=== PATIENT | female | born 1940 | race Caucasian/White ===

== ENCOUNTER 2016-10-06 16:09 | Emergency (ER) | payer OTHER ==
[~2016-10-06 16:09] MED LIST: /ESOM40CA OR; /PRAV20TA OR; /TAMS4CA OR; /WARF2TA OR; /WARF4TA OR; ALBU17IN INH; AMBI10TA OR; AMIT10TA2 OR; AMIT25TA PO; AMIT25TA2 OR; AMOX500C OR; ASPI1TAB PO; ASPI81TA45 OR; BACT400T PO; CEPH500C PO; CIPR25SS OR; CIPR500T4 OR; COUM1TAB14 PO; COUM2TAB10 PO; FERR325T OR; FOLI1TAB2 PO; FOLI400T OR; GABA300C3 PO; INCR1INH INH; NEXI40CA PO; NORCOTAB PO; PAIN325T OR; PRAV20TA2 PO; PRED20TA PO; SPIRIVA HANDIHALER INH; TRAM50TA2 PO; VITA100C2 PO; ZOLP5TAB PO
[2016-10-06] MEDS ORDERED: IPRATROPIUM 0.5MG/ALBUTEROL 2.5MG INH SOL UD 3ML (DUONEB)(J7620) As Ordered ONE (17:49)
[2016-10-06 17:51] LABS: INR 2.82
[2016-10-06 18:14] LABS: ANION GAP 7 MEQ/L (8-16); BLOOD UREA NITROGEN 16 MG/DL (7-18); CALCIUM LEVEL 9.3 MG/DL (8.8-10.2); CARBON DIOXIDE LEVEL 29 MEQ/L (21-32); CHLORIDE LEVEL 106 MEQ/L (98-107); CREATININE FOR GFR 0.81 MG/DL (0.55-1.02); GLOMERULAR FILTRATION RATE > 60.0 (>39); GLUCOSE, FASTING 106 MG/DL (83-110); POTASSIUM SERUM 4.2 MEQ/L (3.5-5.1); SODIUM LEVEL 142 MEQ/L (136-145); T UPTAKE 35 % (30-39); THYROXINE (T4) 10.8 UG/DL (4.5-12.0)
[2016-10-06 18:22] LABS: BASO % 0.2 % (0.0-1.0); EOS # 0.1 K/mm3 (0.0-0.50); EOS % 1.1 % (0.0-3.0); LARGE UNSTAINED CELL # 0.1 K/mm3 (0.0-0.4); LARGE UNSTAINED CELL % 2.2 % (0.0-4.0); LYMPH # 1.5 K/mm3 (1.5-4.5); LYMPH % 29.2 % (24.0-44.0); MEAN CORPUSCULAR HEMOGLOBIN 28.4 pg (27.0-33.0); MEAN CORPUSCULAR HGB CONC 32.4 g/dl (32.0-36.5); MEAN CORPUSCULAR VOLUME 87.4 fl (80.0-96.0); MONO # 0.3 K/mm3 (0.0-0.8); MONO % 5.5 % (0.0-5.0); NEUTROPHILS # 3.2 K/mm3 (1.8-7.7); NEUTROPHILS % 61.7 % (36.0-66.0); PLATELET COUNT, AUTOMATED 233 k/mm3 (150-450); RED CELL DISTRIBUTION WIDTH 17.2 % (11.5-14.5); WHITE BLOOD COUNT 5.2 K/mm3 (4.0-10.0)
[2016-10-06] MEDS ORDERED: dexameTHASONE 20 MG/5 ML VIAL (J1100) As Ordered ONE (18:43)
--- NOTE | 2016-10-06 19:25 | EDDOCDS ---
Physician Documentation [facility] Name: Tresa Garg Age: 76 yrs Sex: Female : 1940 Arrival Date: 10/06/2016 Time: 16:09 Bed 12 Private MD: Linda Ortiz Disposition: 10/06/16 18:42 Discharged to Home/Self Care. Impression: Simple chronic bronchitis. - Condition is Stable. - Prescriptions for dexamethasone 4 mg Oral tablet - take 1 tablet by ORAL route 2 times per day; 8 tablet. - Medication Reconciliation, Local Pharmacy Hours form. - Follow up: Private Physician; When: Call to arrange an appointment; Reason: Recheck today's complaints. - Problem is chronic. - Symptoms have improved. Historical: - Allergies: TETRACYCLINES; - Home Meds: 1. Ambien 5 mg Oral tab 1 tab once daily 2. amitriptyline 25 mg Oral tab 1 tab nightly 3. Bactrim 400-80 mg oral tab 2 tabs once daily 4. cephalexin 500 mg Oral tab 1 tab every 12 hours 5. Coumadin 2 mg daily but none today Oral tab 1 tab once daily 6. folic acid 800 mcg Oral tab 1 tab once daily 7. Nexium 40 mg Oral cpDR 1 cap once daily 8. pravastatin 20 mg oral tab 1 tab nightly 9. torsemide 5 mg oral tab 1 tab once daily 10. tramadol 50 mg Oral tab three times a day 11. prednisone 2.5 mg Oral tab once daily - PMHx: CHF; Hypercholesterolemia; - PSHx: Aortic Valve Repair; Cholecystectomy; plate in neck; bladder surgery; - Social history: Smoking status: Patient states former smoker of tobacco. No barriers to communication noted, The patient speaks fluent Yemeni, Speaks appropriately for age. - Family history: Not pertinent. - : The pt / caregiver states he / she is on anticoagulants: coumadin. Home medication list is obtained from the patient. - Exposure Risk Screening:: None identified. Vital Signs: 10/06 16:11 BP 156 / 80; Pulse 105; Resp 20 S; Temp 97.8(T); Pulse Ox 96% on R/A; Weight 55.79 kg / gr2 123 lbs (R); Height 5 ft. 5 in. (165.10 cm) (R); Pain 4/10; 16:47 BP 150 / 71 (auto/); ead 16:49 Pulse 96 MON; Pulse Ox 95% ; ead 18:40 Resp 24; Pulse Ox 92% on R/A; ead 18:44 BP 143 / 75; Pulse 108; Resp 20; Temp 98.3(O); Pulse Ox 95% on 2 lpm NC; Pain 0/10; berhane 18:47 BP 150 / 70 (auto/); ead 18:48 Pulse 106 MON; Resp 24; Pulse Ox 96% on 2 lpm NC; ead 16:11 Body Mass Index 20.47 (55.79 kg, 165.10 cm) gr2 18:40 Dr. Fontenot aware. 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 sd1 16:38 IV Saline Lock ordered. sd1 16:38 Rhythm Strip to chart ordered. sd1 16:38 Undress patient appropriately for examination ordered. sd1 16:39 ECG WITH READING ER PHYS+CARDIAG ordered. EDMS 16:39 B-Type Natiuretic Peptide Ordered. EDMS 16:39 Basic Metabolic Profile Ordered. EDMS 16:39 CBC with Diff Ordered. EDMS 16:39 Cardiac Injury Profile Ordered. EDMS 16:39 Prothrombin Time Profile\E\INR Ordered. EDMS 16:39 Troponin Ordered. EDMS 16:39 Thyroid Profile Ordered. EDMS 17:25 Albuterol-Ipratropium 1 neb Nebulizer every 20 minutes x3 ordered. cs11 17:25 Call Respiratory ordered. cs11 17:26 Chest, 2 View (pa\E\lat) Ordered. EDMS 17:35 Call Respiratory complete. lbd 18:34 Basic Metabolic Profile Reviewed. cs11 18:34 CBC with Diff Reviewed. cs11 18:34 Prothrombin Time Profile\E\INR Reviewed. cs11 18:34 B-Type Natiuretic Peptide Reviewed. cs11 18:34 Cardiac Injury Profile Reviewed. cs11 18:34 Troponin Reviewed. cs11 18:34 Thyroid Profile Reviewed. cs11 18:36 Dexamethasone 10 mg IV at bolus once ordered. cs11 19:14 Financial registration complete. [email or web address] Administered Medications: 17:50 Drug: Albuterol-Ipratropium 1 neb [ipratropium-albuterol 0.5 mg-3 mg(2.5 mg base)/3 mL sd7 nebulization soln (1 neb)] Route: Nebulizer; 17:59 Follow up: Response: Nebulizer completed 18:09 Drug: Albuterol-Ipratropium 1 neb [ipratropium-albuterol 0.5 mg-3 mg(2.5 mg base)/3 mL 7 nebulization soln (1 neb)] Route: Nebulizer; 18:20 Follow up: Response: Nebulizer completed 18:21 Drug: Albuterol-Ipratropium 1 neb [ipratropium-albuterol 0.5 mg-3 mg(2.5 mg base)/3 mL 7 nebulization soln (1 neb)] Route: Nebulizer; 18:48 Drug: Dexamethasone 10 mg [dexamethasone 4 mg/mL injection solution] Route: IV; Rate: ead bolus; Site: right antecubital; Signatures: Dispatcher [employer] Connie Peralta MD MD sd1 Cinthya Lowe, [employer] Maker Unit lbd Enrrique Oconnell RN RN bcj Schiff, Craig, DO DO cs11 Enid Marcus RN RN ead Sheldon, Matthew, RN RN mgs Sorenson, Kimberly, Reg Reg [id number] Ellen Acevedo RT 7 MTDD
--- NOTE | 2016-10-06 19:25 | EDDOCDS ---
Nurse's Notes [facility] Name: Tresa Garg Age: 76 yrs Sex: Female : 1940 Arrival Date: 10/06/2016 Time: 16:09 Bed 12 Private MD: Linda Ortiz Diagnosis: Simple chronic bronchitis Presentation: 10/06 16:36 Presenting complaint: Patient states: has felt heart racing off and on for last few bcj days. denies chest pain. is currently weaning off prednisone - has been feeling very shaky. + SOB not normally SOB. was seen by PMD - told EKG is abnormal. Adult Sepsis Screening: The patient does not have new or worsening altered mentation. Patient's respiratory rate is less than 22. Systolic blood pressure is greater than 100. Patient has a qSOFA score of 0- Negative Sepsis Screen. Suicide/Homicide risk assessment- the patient denies having any suicidal and/or homicidal ideations and does not present with any other emotional, behavioral or mental health complaints. 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 Transition of care: patient was not received from another setting of care. Red Flag criteria, patient assessed and taken directly to a bed. 16:36 Acuity: WERNER Level 3 bcj 16:36 Method Of Arrival: Walkin/Carried/Asstd bcj Triage Assessment: 16:40 General: Appears in no apparent distress, comfortable, Behavior is cooperative. Pain: bcj Denies pain. Historical: - Allergies: TETRACYCLINES; - Home Meds: 1. Ambien 5 mg Oral tab 1 tab once daily 2. amitriptyline 25 mg Oral tab 1 tab nightly 3. Bactrim 400-80 mg oral tab 2 tabs once daily 4. cephalexin 500 mg Oral tab 1 tab every 12 hours 5. Coumadin 2 mg daily but none today Oral tab 1 tab once daily 6. folic acid 800 mcg Oral tab 1 tab once daily 7. Nexium 40 mg Oral cpDR 1 cap once daily 8. pravastatin 20 mg oral tab 1 tab nightly 9. torsemide 5 mg oral tab 1 tab once daily 10. tramadol 50 mg Oral tab three times a day 11. prednisone 2.5 mg Oral tab once daily - PMHx: CHF; Hypercholesterolemia; - PSHx: Aortic Valve Repair; Cholecystectomy; plate in neck; bladder surgery; - Social history: Smoking status: Patient states former smoker of tobacco. No barriers to communication noted, The patient speaks fluent [place], Speaks appropriately for age. - Family history: Not pertinent. - : The pt / caregiver states he / she is on anticoagulants: coumadin. Home medication list is obtained from the patient. - Exposure Risk Screening:: None identified. Screenin:41 Screening information is obtained from the patient. Fall risk: No risks identified. ead Assistance ADL's: requires no assistance with activities of daily living. Abuse/DV Screen: The patient / caregiver reports he/she is: not in a situation that causes fear, pain or injury. Nutritional screening: No deficits noted. home support is adequate. 19:23 Advance Directives: Currently, there is no health care proxy. There is no active DNR mgs order. Assessment: 17:36 General: Appears in no apparent distress, comfortable, Behavior is anxious, appropriate ead for age, cooperative. General: pt reports "feeling shaky.". Pain: Denies pain. Neurological: Level of Consciousness is awake, alert, Oriented to person, place, time. Cardiovascular: Capillary refill < 3 seconds Chest pain is denied. Respiratory: Airway is patent Respiratory effort is labored, Reports shortness of breath. Derm: Skin is pink, warm & dry. 18:40 General: Appears in no apparent distress, comfortable, Behavior is appropriate for age, ead cooperative. Pain: Denies pain. Neurological: Level of Consciousness is awake, alert, obeys commands, Oriented to person, place, time. Respiratory: Airway is patent Respiratory effort is labored, Breath sounds are coarse Breath sounds with wheezes bilaterally. Respiratory: Reports "I feel better after the breathing treatment, I'm starting to cough stuff up.". Derm: Skin is pink, warm & dry. 19:24 Adult Sepsis Screening: The patient does not have new or worsening altered mentation. mgs Patient has a respiratory rate of greater than or equal to 22 (1 point). Systolic blood pressure is greater than 100. Patient has a qSOFA score of 1- Negative Sepsis Screen. General: Appears in no apparent distress, Behavior is appropriate for age, cooperative. Pain: Denies pain. Neurological: Level of Consciousness is awake, alert, Oriented to person, place, time. Cardiovascular: Capillary refill < 3 seconds. Respiratory: Airway is patent Respiratory effort is even, unlabored. Derm: Skin is pink, warm & dry. Vital Signs: 16:11 BP 156 / 80; Pulse 105; Resp 20 S; Temp 97.8(T); Pulse Ox 96% on R/A; Weight 55.79 kg gr2 (R); Height 5 ft. 5 in. (165.10 cm) (R); Pain 4/10; 16:47 BP 150 / 71 (auto/); ead 16:49 Pulse 96 MON; Pulse Ox 95% ; ead 18:40 Resp 24; Pulse Ox 92% on R/A; ead 18:44 BP 143 / 75; Pulse 108; Resp 20; Temp 98.3(O); Pulse Ox 95% on 2 lpm NC; Pain 0/10; berhane 18:47 BP 150 / 70 (auto/); ead 18:48 Pulse 106 MON; Resp 24; Pulse Ox 96% on 2 lpm NC; ead 16:11 Body Mass Index 20.47 (55.79 kg, 165.10 cm) gr2 18:40 Dr. Fontenot aware. pt placed on 2L 02 per NC ead Vitals: 16:11 Log In Time: October 06, 2016 at 16:11. RN notified that patient meets Red Flag gr2 criteria. ED Course: 16:11 Patient visited by Glory Foss. gr2 16:11 Linda Ortiz is Private Physician. gr2 16:11 Patient moved to Waiting gr2 16:12 Patient visited by Glory Foss. gr2 16:12 Patient moved to Pre RCE gr2 16:35 Enid MarcusRN is Primary Nurse. bcj 16:35 Patient moved to 12 bcj 16:38 Triage Initiated bcj 16:41 Patient visited by Enrrique Oconnell, LIZ. bcj 17:04 Lowell Fontenot DO is Attending Physician. cs11 17:04 Patient visited by Lowell Fontenot DO. cs11 17:19 Accompanied by Family Member, Patient has correct armband on for positive ct3 identification. Placed in gown. Bed in low position. Call light in reach. Side rails up X 1. media monitor on. Pulse ox on. NIBP on. 17:35 Patient visited by Enid Marcus RN. ead 17:35 Troponin Sent. ead 17:35 B-Type Natiuretic Peptide Sent. ead 17:35 Basic Metabolic Profile Sent. ead 17:35 CBC with Diff Sent. ead 17:35 Cardiac Injury Profile Sent. ead 17:35 Prothrombin Time Profile\\E\\INR Sent. ead 17:35 Thyroid Profile Sent. ead 17:35 Inserted saline lock: 18 gauge in right antecubital area and blood collected. The ead patient tolerated the procedure well. 17:36 The patient / caregiver is instructed regarding the plan of care and ED course. ead 18:35 Patient visited by Enid Marcus RN. ead 18:44 Patient visited by Kaye Christopher, NEEL. berhane 19:23 Discontinued IV lock intact, bleeding controlled, pressure dressing applied, No mgs redness/swelling at site. No procedures done that require assistance. Administered Medications: 17:50 Drug: Albuterol-Ipratropium 1 neb [ipratropium-albuterol 0.5 mg-3 mg(2.5 mg base)/3 mL sd7 nebulization soln (1 neb)] Route: Nebulizer; 17:59 Follow up: Response: Nebulizer completed sd7 18:09 Drug: Albuterol-Ipratropium 1 neb [ipratropium-albuterol 0.5 mg-3 mg(2.5 mg base)/3 mL sd7 nebulization soln (1 neb)] Route: Nebulizer; 18:20 Follow up: Response: Nebulizer completed sd7 18:21 Drug: Albuterol-Ipratropium 1 neb [ipratropium-albuterol 0.5 mg-3 mg(2.5 mg base)/3 mL sd7 nebulization soln (1 neb)] Route: Nebulizer; 18:48 Drug: Dexamethasone 10 mg [dexamethasone 4 mg/mL injection solution] Route: IV; Rate: ead bolus; Site: right antecubital; RT: 17:50 Initial Med Neb Given as ordered Patient was instructed and evaluated on procedure sd7 Patient tolerated procedure well without adverse effect. Respiratory: Breath sounds are coarse bilaterally. Breath sounds with wheezes bilaterally. at expiration. 18:09 Subsequent Med Neb Given as ordered Patient tolerated procedure well without adverse sd7 effect. Respiratory: Breath sounds are coarse bilaterally. Breath sounds with wheezes bilaterally. at expiration. 18:21 Subsequent Med Neb Given as ordered Patient tolerated procedure well without adverse sd7 effect. Respiratory: Breath sounds are coarse bilaterally. Breath sounds with wheezes bilaterally. at expiration. Order Results: Lab Order: B-Type Natiuretic Peptide; SPEC'M 10/06/16 17:32 Test: BRAIN NATRIURETIC PEPTIDE; Value: 33.1; Range: <100; Units: PG/ML; Status: F Lab Order: Basic Metabolic Profile; SPEC'M 10/06/16 17:32 Test: GLUCOSE, FASTING; Value: 106; Range: 83-110; Units: MG/DL; Status: F Test: BLOOD UREA NITROGEN; Value: 16; Range: 7-18; Units: MG/DL; Status: F Test: CREATININE FOR GFR; Value: 0.81; Range: 0.55-1.02; Units: MG/DL; Status: F Test: GLOMERULAR FILTRATION RATE; Value: > 60.0; Range: >39; Status: F Test: SODIUM LEVEL; Value: 142; Range: 136-145; Units: MEQ/L; Status: F Test: POTASSIUM SERUM; Value: 4.2; Range: 3.5-5.1; Units: MEQ/L; Status: F Test: CHLORIDE LEVEL; Value: 106; Range: 98-107; Units: MEQ/L; Status: F Test: CARBON DIOXIDE LEVEL; Value: 29; Range: 21-32; Units: MEQ/L; Status: F Test: ANION GAP; Value: 7; Range: 8-16; Abnormal: Below low normal; Units: MEQ/L; Status: F Test: CALCIUM LEVEL; Value: 9.3; Range: 8.8-10.2; Units: MG/DL; Status: F Test Note: ; Units are mL/min/1.73 m2 Chronic Kidney Disease Staging per NKF: Stage I & II GFR >=60 Normal to Mildly Decreased Stage III GFR 30-59 Moderately Decreased Stage IV GFR 15-29 Severely Decreased Stage V GFR <15 Very Little GFR Left ESRD GFR <15 on RAW HIDE TRIMMER Lab Order: CBC with Diff; SPEC'M 10/06/16 17:32 Test: WHITE BLOOD COUNT; Value: 5.2; Range: 4.0-10.0; Units: K/mm3; Status: F Test: RED BLOOD COUNT; Value: 4.52; Range: 4.00-5.40; Units: M/mm3; Status: F Test: HEMOGLOBIN; Value: 12.8; Range: 12.0-16.0; Units: g/dl; Status: F Test: HEMATOCRIT; Value: 39.5; Range: 36.0-47.0; Units: %; Status: F Test: MEAN CORPUSCULAR VOLUME; Value: 87.4; Range: 80.0-96.0; Units: fl; Status: F Test: MEAN CORPUSCULAR HEMOGLOBIN; Value: 28.4; Range: 27.0-33.0; Units: pg; Status: F Test: MEAN CORPUSCULAR HGB CONC; Value: 32.4; Range: 32.0-36.5; Units: g/dl; Status: F Test: RED CELL DISTRIBUTION WIDTH; Value: 17.2; Range: 11.5-14.5; Abnormal: Above high normal; Units: %; Status: F Test: PLATELET COUNT, AUTOMATED; Value: 233; Range: 150-450; Units: k/mm3; Status: F Test: NEUTROPHILS %; Value: 61.7; Range: 36.0-66.0; Units: %; Status: F Test: LYMPH %; Value: 29.2; Range: 24.0-44.0; Units: %; Status: F Test: MONO %; Value: 5.5; Range: 0.0-5.0; Abnormal: Above high normal; Units: %; Status: F Test: EOS %; Value: 1.1; Range: 0.0-3.0; Units: %; Status: F Test: BASO %; Value: 0.2; Range: 0.0-1.0; Units: %; Status: F Test: LARGE UNSTAINED CELL %; Value: 2.2; Range: 0.0-4.0; Units: %; Status: F Test: NEUTROPHILS #; Value: 3.2; Range: 1.8-7.7; Units: K/mm3; Status: F Test: LYMPH #; Value: 1.5; Range: 1.5-4.5; Units: K/mm3; Status: F Test: MONO #; Value: 0.3; Range: 0.0-0.8; Units: K/mm3; Status: F Test: EOS #; Value: 0.1; Range: 0.0-0.50; Units: K/mm3; Status: F Test: BASO #; Value: 0.0; Range: 0.0-0.2; Units: K/mm3; Status: F Test: LARGE UNSTAINED CELL #; Value: 0.1; Range: 0.0-0.4; Units: K/mm3; Status: F Lab Order: Cardiac Injury Profile; [facility]' 10/06/16 17:32 Test: CPK CREATINE PHOSPHOKINASE; Value: 65; Range: 26-192; Units: U/L; Status: F Test: CK-MB VALUE MASS; Value: 1.3; Range: 0.0-3.6; Units: NG/ML; Status: F Test: MB/CK RELATIVE INDEX; Value: 2.00; Range: < OR =4; Status: F Test Note: ; DIAGNOSIS CRITERIA MMB ng/ml Relative Index (RI) NON-AMI < or = 5 N/A MICHEL ZONE > 5 < or = 4 AMI > 5 > 4 Lab Order: Prothrombin Time Profile\\E\\INR; [facility]' 10/06/16 17:32 Test: PROTHROMBIN TIME; Value: 29.7; Range: 12.3-14.5; Abnormal: Above high normal; Units: SECONDS; Status: F Test: INR; Value: 2.82; Status: F Test Note: ; THERAPUTIC HUMAN INR VALUES INDICATIONS NORMAL RANGES PROPHYLAXIS/TREATMENT OF: VENOUS THROMBOSIS 2.0-3.0 PULMONARY EMBOLISM 2.0-3.0 PREVENTION OF SYSTEMIC EMBOLISM FROM: TISSUE HEART VALVES 2.0-3.0 ACUTE MYOCARDIAL INFARCTION 2.0-3.0 VALVULAR HEART DISEASE 2.0-3.0 ATRIAL FIBRILLATION 2.0-3.0 MECHANICAL VALVES(HIGH RISK) 2.5-3.5 RECURRENT MYOCARDIAL INFARCTION 2.5-3.5 Lab Order: Troponin; SPEC' 10/06/16 17:32 Test: TROPONIN I; Value: < 0.02; Range: < 0.10; Units: NG/ML; Status: F Test Note: ; Troponin I Reference Interval for iPointer LOCI: 99th Percentile= 0.00-0.045 ng/ml Risk Stratification: <= 0.10 ng/ml Decreased Risk for Adverse Clinical Events. 0.10-1.50 ng/ml Increased Risk for Adverse Clinical Events. Evaluation of additional criterion and/or repeat testing in 2-6 hours is suggested to rule out myocardial damage. >= 1.50 ng/ml Indicative of Myocardial Injury. Lab Order: Thyroid Profile; SPEC'M 10/06/16 17:32 Test: T UPTAKE; Value: 35; Range: 30-39; Units: %; Status: F Test: THYROXINE (T4); Value: 10.8; Range: 4.5-12.0; Units: UG/DL; Status: F Test: FREE THYROXINE INDEX; Value: 3.8; Range: 1.3-4.8; Units: %; Status: F Test: THYROID STIMULATING HORMONE; Value: 0.873; Range: 0.358-3.740; Units: uIU/ML; Status: F Outcome: 18:42 No special radiology studies were completed. ead 18:42 Discharge ordered by Provider. cs11 19:23 Discharge Assessment: Patient awake, alert and oriented x 3. No cognitive and/or mgs functional deficits noted. Patient verbalized understanding of disposition instructions. patient administered narcotics - no. The following High Risk Discharge criteria are identified: None. Discharged to home ambulatory, with family. Condition: stable. Discharge instructions given to patient, family, Instructed on discharge instructions, follow up and referral plans. medication usage, Demonstrated understanding of instructions, medications, Pt was receptive of discharge instructions/ teaching. Prescriptions given X 1. Property sent home with patient. 19:25 Patient left the ED. mgs Signatures: Enrrique Oconnell, RN RN Kaye Santiago, SUPERVISING BAILIFF SUPERVISING BAILIFF berhane Dorota Mccormick, SUPERVISING BAILIFF SUPERVISING BAILIFF ct3 Lowell Fontenot DO DO cs11 Glory Foss gr2 Enid MarcusRN RN ead Ellen Acevedo,RT RT sd7 Trenton Galarza,RN RN mgs Corrections: (The following items were deleted from the chart) 18:51 18:40 Pulse Ox 92% RA; Dr. Fontenot aware. pt placed on 2L 02 per NC; ead ead MTDD
--- NOTE | 2016-10-06 21:40 | REP ---
CHEST, TWO VIEWS: HISTORY: Cough. A diffuse increase in interstitial markings is present in the lungs consistent with chronic interstitial fibrosis. The heart is upper limits of normal in size. The pulmonary vasculature is normal in appearance. A prosthetic heart valve is present. The bony structure is intact. IMPRESSION: Chronic interstitial fibrosis. Signed by Phil Ward MD 10/07/2016 08:18 A
--- NOTE | 2016-10-07 19:48 | ECGEPIP ---
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
--- NOTE | 2016-10-08 20:26 | EDDOCDS ---
Nurse's Notes [facility] Name: Tresa Pantoja Age: 76 yrs Sex: Female : 1940 Arrival Date: 10/06/2016 Time: 16:09 Bed 12 Private MD: Linda Ortiz Diagnosis: Simple chronic bronchitis Presentation: 10/06 16:36 Presenting complaint: Patient states: has felt heart racing off and on for last few bcj days. denies chest pain. is currently weaning off prednisone - has been feeling very shaky. + SOB not normally SOB. was seen by PMD - told EKG is abnormal. Adult Sepsis Screening: The patient does not have new or worsening altered mentation. Patient's respiratory rate is less than 22. Systolic blood pressure is greater than 100. Patient has a qSOFA score of 0- Negative Sepsis Screen. Suicide/Homicide risk assessment- the patient denies having any suicidal and/or homicidal ideations and does not present with any other emotional, behavioral or mental health complaints. 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 Transition of care: patient was not received from another setting of care. Red Flag criteria, patient assessed and taken directly to a bed. 16:36 Acuity: WERNER Level 3 bcj 16:36 Method Of Arrival: Walkin/Carried/Asstd bcj Triage Assessment: 16:40 General: Appears in no apparent distress, comfortable, Behavior is cooperative. Pain: bcj Denies pain. Historical: - Allergies: TETRACYCLINES; - Home Meds: 1. Ambien 5 mg Oral tab 1 tab once daily 2. amitriptyline 25 mg Oral tab 1 tab nightly 3. Bactrim 400-80 mg oral tab 2 tabs once daily 4. cephalexin 500 mg Oral tab 1 tab every 12 hours 5. Coumadin 2 mg daily but none today Oral tab 1 tab once daily 6. folic acid 800 mcg Oral tab 1 tab once daily 7. Nexium 40 mg Oral cpDR 1 cap once daily 8. pravastatin 20 mg oral tab 1 tab nightly 9. torsemide 5 mg oral tab 1 tab once daily 10. tramadol 50 mg Oral tab three times a day 11. prednisone 2.5 mg Oral tab once daily - PMHx: CHF; Hypercholesterolemia; - PSHx: Aortic Valve Repair; Cholecystectomy; plate in neck; bladder surgery; - Social history: Smoking status: Patient states former smoker of tobacco. No barriers to communication noted, The patient speaks fluent Greek, Speaks appropriately for age. - Family history: Not pertinent. - : The pt / caregiver states he / she is on anticoagulants: coumadin. Home medication list is obtained from the patient. - Exposure Risk Screening:: None identified. Screenin:41 Screening information is obtained from the patient. Fall risk: No risks identified. ead Assistance ADL's: requires no assistance with activities of daily living. Abuse/DV Screen: The patient / caregiver reports he/she is: not in a situation that causes fear, pain or injury. Nutritional screening: No deficits noted. home support is adequate. 19:23 Advance Directives: Currently, there is no health care proxy. There is no active DNR mgs order. Assessment: 17:36 General: Appears in no apparent distress, comfortable, Behavior is anxious, appropriate ead for age, cooperative. General: pt reports "feeling shaky.". Pain: Denies pain. Neurological: Level of Consciousness is awake, alert, Oriented to person, place, time. Cardiovascular: Capillary refill < 3 seconds Chest pain is denied. Respiratory: Airway is patent Respiratory effort is labored, Reports shortness of breath. Derm: Skin is pink, warm & dry. 18:40 General: Appears in no apparent distress, comfortable, Behavior is appropriate for age, ead cooperative. Pain: Denies pain. Neurological: Level of Consciousness is awake, alert, obeys commands, Oriented to person, place, time. Respiratory: Airway is patent Respiratory effort is labored, Breath sounds are coarse Breath sounds with wheezes bilaterally. Respiratory: Reports "I feel better after the breathing treatment, I'm starting to cough stuff up.". Derm: Skin is pink, warm & dry. 19:24 Adult Sepsis Screening: The patient does not have new or worsening altered mentation. mgs Patient has a respiratory rate of greater than or equal to 22 (1 point). Systolic blood pressure is greater than 100. Patient has a qSOFA score of 1- Negative Sepsis Screen. General: Appears in no apparent distress, Behavior is appropriate for age, cooperative. Pain: Denies pain. Neurological: Level of Consciousness is awake, alert, Oriented to person, place, time. Cardiovascular: Capillary refill < 3 seconds. Respiratory: Airway is patent Respiratory effort is even, unlabored. Derm: Skin is pink, warm & dry. Vital Signs: 16:11 BP 156 / 80; Pulse 105; Resp 20 S; Temp 97.8(T); Pulse Ox 96% on R/A; Weight 55.79 kg gr2 (R); Height 5 ft. 5 in. (165.10 cm) (R); Pain 4/10; 16:47 BP 150 / 71 (auto/); ead 16:49 Pulse 96 MON; Pulse Ox 95% ; ead 18:40 Resp 24; Pulse Ox 92% on R/A; ead 18:44 BP 143 / 75; Pulse 108; Resp 20; Temp 98.3(O); Pulse Ox 95% on 2 lpm NC; Pain 0/10; berhane 18:47 BP 150 / 70 (auto/); ead 18:48 Pulse 106 MON; Resp 24; Pulse Ox 96% on 2 lpm NC; ead 16:11 Body Mass Index 20.47 (55.79 kg, 165.10 cm) gr2 18:40 Dr. Fontenot aware. pt placed on 2L 02 per NC ead Vitals: 16:11 Log In Time: October 06, 2016 at 16:11. RN notified that patient meets Red Flag gr2 criteria. ED Course: 16:11 Patient visited by Glory Foss. gr2 16:11 Linda Ortiz is Private Physician. gr2 16:11 Patient moved to Waiting gr2 16:12 Patient visited by Glory Foss. gr2 16:12 Patient moved to Pre RCE gr2 16:35 Enid MarcusRN is Primary Nurse. bcj 16:35 Patient moved to 12 bcj 16:38 Triage Initiated bcj 16:41 Patient visited by Enrrique Oconnell, LIZ. bcj 17:04 Lowell Fontenot DO is Attending Physician. cs11 17:04 Patient visited by Lowell Fontenot DO. cs11 17:19 Accompanied by Family Member, Patient has correct armband on for positive ct3 identification. Placed in gown. Bed in low position. Call light in reach. Side rails up X 1. lunchroom monitor on. Pulse ox on. NIBP on. 17:35 Patient visited by Enid Marcus RN. ead 17:35 Troponin Sent. ead 17:35 B-Type Natiuretic Peptide Sent. ead 17:35 Basic Metabolic Profile Sent. ead 17:35 CBC with Diff Sent. ead 17:35 Cardiac Injury Profile Sent. ead 17:35 Prothrombin Time Profile\\E\\INR Sent. ead 17:35 Thyroid Profile Sent. ead 17:35 Inserted saline lock: 18 gauge in right antecubital area and blood collected. The ead patient tolerated the procedure well. 17:36 The patient / caregiver is instructed regarding the plan of care and ED course. ead 18:35 Patient visited by Enid Marcus,LIZ. ead 18:44 Patient visited by Kaye Christopher, NEEL. berhane 19:23 Discontinued IV lock intact, bleeding controlled, pressure dressing applied, No mgs redness/swelling at site. No procedures done that require assistance. 22:27 Chest, 2 View (pa\\E\\lat) Returned. EDMS 10/07 11:21 T-Sheet-- Draft Copy was scanned into [employer] and attached to record. gb 11:22 ECG/EKG was scanned into [employer] and attached to record. gb 11:22 Trend VS was scanned into [employer] and attached to record. gb 20:05 EKG-ADULT Returned. EDMS Administered Medications: 10/06 17:50 Drug: Albuterol-Ipratropium 1 neb [ipratropium-albuterol 0.5 mg-3 mg(2.5 mg base)/3 mL sd7 nebulization soln (1 neb)] Route: Nebulizer; 17:59 Follow up: Response: Nebulizer completed 18:09 Drug: Albuterol-Ipratropium 1 neb [ipratropium-albuterol 0.5 mg-3 mg(2.5 mg base)/3 mL sd7 nebulization soln (1 neb)] Route: Nebulizer; 18:20 Follow up: Response: Nebulizer completed 18:21 Drug: Albuterol-Ipratropium 1 neb [ipratropium-albuterol 0.5 mg-3 mg(2.5 mg base)/3 mL sd7 nebulization soln (1 neb)] Route: Nebulizer; 18:48 Drug: Dexamethasone 10 mg [dexamethasone 4 mg/mL injection solution] Route: IV; Rate: ead bolus; Site: right antecubital; Attachments: 11:22 Trend VS gb RT: 10/06 17:50 Initial Med Neb Given as ordered Patient was instructed and evaluated on procedure sd7 Patient tolerated procedure well without adverse effect. Respiratory: Breath sounds are coarse bilaterally. Breath sounds with wheezes bilaterally. at expiration. 18:09 Subsequent Med Neb Given as ordered Patient tolerated procedure well without adverse sd7 effect. Respiratory: Breath sounds are coarse bilaterally. Breath sounds with wheezes bilaterally. at expiration. 18:21 Subsequent Med Neb Given as ordered Patient tolerated procedure well without adverse sd7 effect. Respiratory: Breath sounds are coarse bilaterally. Breath sounds with wheezes bilaterally. at expiration. Order Results: Lab Order: B-Type Natiuretic Peptide; SPEC'M 10/06/16 17:32 Test: BRAIN NATRIURETIC PEPTIDE; Value: 33.1; Range: <100; Units: PG/ML; Status: F Lab Order: Basic Metabolic Profile; SPEC'M 10/06/16 17:32 Test: GLUCOSE, FASTING; Value: 106; Range: 83-110; Units: MG/DL; Status: F Test: BLOOD UREA NITROGEN; Value: 16; Range: 7-18; Units: MG/DL; Status: F Test: CREATININE FOR GFR; Value: 0.81; Range: 0.55-1.02; Units: MG/DL; Status: F Test: GLOMERULAR FILTRATION RATE; Value: > 60.0; Range: >39; Status: F Test: SODIUM LEVEL; Value: 142; Range: 136-145; Units: MEQ/L; Status: F Test: POTASSIUM SERUM; Value: 4.2; Range: 3.5-5.1; Units: MEQ/L; Status: F Test: CHLORIDE LEVEL; Value: 106; Range: 98-107; Units: MEQ/L; Status: F Test: CARBON DIOXIDE LEVEL; Value: 29; Range: 21-32; Units: MEQ/L; Status: F Test: ANION GAP; Value: 7; Range: 8-16; Abnormal: Below low normal; Units: MEQ/L; Status: F Test: CALCIUM LEVEL; Value: 9.3; Range: 8.8-10.2; Units: MG/DL; Status: F Test Note: ; Units are mL/min/1.73 m2 Chronic Kidney Disease Staging per NKF: Stage I & II GFR >=60 Normal to Mildly Decreased Stage III GFR 30-59 Moderately Decreased Stage IV GFR 15-29 Severely Decreased Stage V GFR <15 Very Little GFR Left ESRD GFR <15 on MELTING FURNACE SKIMMER Lab Order: CBC with Diff; SONIA'Guerda 10/06/16 17:32 Test: WHITE BLOOD COUNT; Value: 5.2; Range: 4.0-10.0; Units: K/mm3; Status: F Test: RED BLOOD COUNT; Value: 4.52; Range: 4.00-5.40; Units: M/mm3; Status: F Test: HEMOGLOBIN; Value: 12.8; Range: 12.0-16.0; Units: g/dl; Status: F Test: HEMATOCRIT; Value: 39.5; Range: 36.0-47.0; Units: %; Status: F Test: MEAN CORPUSCULAR VOLUME; Value: 87.4; Range: 80.0-96.0; Units: fl; Status: F Test: MEAN CORPUSCULAR HEMOGLOBIN; Value: 28.4; Range: 27.0-33.0; Units: pg; Status: F Test: MEAN CORPUSCULAR HGB CONC; Value: 32.4; Range: 32.0-36.5; Units: g/dl; Status: F Test: RED CELL DISTRIBUTION WIDTH; Value: 17.2; Range: 11.5-14.5; Abnormal: Above high normal; Units: %; Status: F Test: PLATELET COUNT, AUTOMATED; Value: 233; Range: 150-450; Units: k/mm3; Status: F Test: NEUTROPHILS %; Value: 61.7; Range: 36.0-66.0; Units: %; Status: F Test: LYMPH %; Value: 29.2; Range: 24.0-44.0; Units: %; Status: F Test: MONO %; Value: 5.5; Range: 0.0-5.0; Abnormal: Above high normal; Units: %; Status: F Test: EOS %; Value: 1.1; Range: 0.0-3.0; Units: %; Status: F Test: BASO %; Value: 0.2; Range: 0.0-1.0; Units: %; Status: F Test: LARGE UNSTAINED CELL %; Value: 2.2; Range: 0.0-4.0; Units: %; Status: F Test: NEUTROPHILS #; Value: 3.2; Range: 1.8-7.7; Units: K/mm3; Status: F Test: LYMPH #; Value: 1.5; Range: 1.5-4.5; Units: K/mm3; Status: F Test: MONO #; Value: 0.3; Range: 0.0-0.8; Units: K/mm3; Status: F Test: EOS #; Value: 0.1; Range: 0.0-0.50; Units: K/mm3; Status: F Test: BASO #; Value: 0.0; Range: 0.0-0.2; Units: K/mm3; Status: F Test: LARGE UNSTAINED CELL #; Value: 0.1; Range: 0.0-0.4; Units: K/mm3; Status: F Lab Order: Cardiac Injury Profile; SPEC'M 10/06/16 17:32 Test: CPK CREATINE PHOSPHOKINASE; Value: 65; Range: 26-192; Units: U/L; Status: F Test: CK-MB VALUE MASS; Value: 1.3; Range: 0.0-3.6; Units: NG/ML; Status: F Test: MB/CK RELATIVE INDEX; Value: 2.00; Range: < OR =4; Status: F Test Note: ; DIAGNOSIS CRITERIA MMB ng/ml Relative Index (RI) NON-AMI < or = 5 N/A MICHEL ZONE > 5 < or = 4 AMI > 5 > 4 Lab Order: Prothrombin Time Profile\\E\\INR; SPEC'M 10/06/16 17:32 Test: PROTHROMBIN TIME; Value: 29.7; Range: 12.3-14.5; Abnormal: Above high normal; Units: SECONDS; Status: F Test: INR; Value: 2.82; Status: F Test Note: ; THERAPUTIC HUMAN INR VALUES INDICATIONS NORMAL RANGES PROPHYLAXIS/TREATMENT OF: VENOUS THROMBOSIS 2.0-3.0 PULMONARY EMBOLISM 2.0-3.0 PREVENTION OF SYSTEMIC EMBOLISM FROM: TISSUE HEART VALVES 2.0-3.0 ACUTE MYOCARDIAL INFARCTION 2.0-3.0 VALVULAR HEART DISEASE 2.0-3.0 ATRIAL FIBRILLATION 2.0-3.0 MECHANICAL VALVES(HIGH RISK) 2.5-3.5 RECURRENT MYOCARDIAL INFARCTION 2.5-3.5 Lab Order: Troponin; SPEC'M 10/06/16 17:32 Test: TROPONIN I; Value: < 0.02; Range: < 0.10; Units: NG/ML; Status: F Test Note: ; Troponin I Reference Interval for Siemens [place] LOCI: 99th Percentile= 0.00-0.045 ng/ml Risk Stratification: <= 0.10 ng/ml Decreased Risk for Adverse Clinical Events. 0.10-1.50 ng/ml Increased Risk for Adverse Clinical Events. Evaluation of additional criterion and/or repeat testing in 2-6 hours is suggested to rule out myocardial damage. >= 1.50 ng/ml Indicative of Myocardial Injury. 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; : 1940 Requested By: Connie Ritter; Order Number: [id number] Reading MD: Connie Ritter; Measurements; Intervals [place]; Rate: 93 P: 85; TX: 115 QRS: 62; QRSD: 88 T: 43; QT: 360; QTc: 450; Interpretive Statements; SINUS RHYTHM WITH SHORT TX INTERVAL; NONSPECIFIC ST T-WAVE ABNORMALITY; SIMILAR 09/01/16; Electronically Signed On 10-07-2016 19:47:28 EST by Connie Ritter; Radiology Order: Chest, 2 View (pa\\E\\lat) Test: Chest, 2 View (pa\\E\\lat) REASON FOR EXAMINATION: Cough; CHEST, TWO VIEWS:; ; HISTORY: Cough.; ; A diffuse increase in interstitial markings is present in the lungs consistent; with chronic interstitial fibrosis. The heart is upper limits of normal in size.; The pulmonary vasculature is normal in appearance. A prosthetic heart valve is; present. The bony structure is intact.; ; IMPRESSION:; ; Chronic interstitial fibrosis.; ; ; Signed by; Phil Ward MD 10/07/2016 08:18 A; Outcome: 18:42 No special radiology studies were completed. ead 18:42 Discharge ordered by Provider. cs11 19:23 Discharge Assessment: Patient awake, alert and oriented x 3. No cognitive and/or mgs functional deficits noted. Patient verbalized understanding of disposition instructions. patient administered narcotics - no. The following High Risk Discharge criteria are identified: None. Discharged to home ambulatory, with family. Condition: stable. Discharge instructions given to patient, family, Instructed on discharge instructions, follow up and referral plans. medication usage, Demonstrated understanding of instructions, medications, Pt was receptive of discharge instructions/ teaching. Prescriptions given X 1. Property sent home with patient. 19:25 Patient left the ED. mgs Signatures: Dispatcher [employer] EDMS Enrrique Oconnell, RN RN Sally Ortez, Reg Reg gb Kaye Christopher, SHAFT HEADMAN SHAFT HEADMAN berhane Mccormick, Dorota, SHAFT HEADMAN SHAFT HEADMAN ct3 Lowell Fontenot, DO cs11 Glory Foss gr2 Enid Marcus,RN RN Ellen Linares,RT RT sd7 Trenton Galarza,LIZ RN mgs Corrections: (The following items were deleted from the chart) 18:51 18:40 Pulse Ox 92% RA; Dr. Fontenot aware. pt placed on 2L 02 per NC; anjel hobbs Chart Complete MTDD
--- NOTE | 2016-10-08 20:26 | EDDOCDS ---
Physician Documentation [facility] Name: Tresa Garg Age: 76 yrs Sex: Female : 1940 Arrival Date: 10/06/2016 Time: 16:09 Bed 12 Private MD: Linda Ortiz Disposition: 10/06/16 18:42 Discharged to Home/Self Care. Impression: Simple chronic bronchitis. - Condition is Stable. - Prescriptions for dexamethasone 4 mg Oral tablet - take 1 tablet by ORAL route 2 times per day; 8 tablet. - Medication Reconciliation, Local Pharmacy Hours form. - Follow up: Private Physician; When: Call to arrange an appointment; Reason: Recheck today's complaints. - Problem is chronic. - Symptoms have improved. Historical: - Allergies: TETRACYCLINES; - Home Meds: 1. Ambien 5 mg Oral tab 1 tab once daily 2. amitriptyline 25 mg Oral tab 1 tab nightly 3. Bactrim 400-80 mg oral tab 2 tabs once daily 4. cephalexin 500 mg Oral tab 1 tab every 12 hours 5. Coumadin 2 mg daily but none today Oral tab 1 tab once daily 6. folic acid 800 mcg Oral tab 1 tab once daily 7. Nexium 40 mg Oral cpDR 1 cap once daily 8. pravastatin 20 mg oral tab 1 tab nightly 9. torsemide 5 mg oral tab 1 tab once daily 10. tramadol 50 mg Oral tab three times a day 11. prednisone 2.5 mg Oral tab once daily - PMHx: CHF; Hypercholesterolemia; - PSHx: Aortic Valve Repair; Cholecystectomy; plate in neck; bladder surgery; - Social history: Smoking status: Patient states former smoker of tobacco. No barriers to communication noted, The patient speaks fluent [place], Speaks appropriately for age. - Family history: Not pertinent. - : The pt / caregiver states he / she is on anticoagulants: coumadin. Home medication list is obtained from the patient. - Exposure Risk Screening:: None identified. Vital Signs: 10/06 16:11 BP 156 / 80; Pulse 105; Resp 20 S; Temp 97.8(T); Pulse Ox 96% on R/A; Weight 55.79 kg / gr2 123 lbs (R); Height 5 ft. 5 in. (165.10 cm) (R); Pain 4/10; 16:47 BP 150 / 71 (auto/); ead 16:49 Pulse 96 MON; Pulse Ox 95% ; ead 18:40 Resp 24; Pulse Ox 92% on R/A; ead 18:44 BP 143 / 75; Pulse 108; Resp 20; Temp 98.3(O); Pulse Ox 95% on 2 lpm NC; Pain 0/10; berhane 18:47 BP 150 / 70 (auto/); ead 18:48 Pulse 106 MON; Resp 24; Pulse Ox 96% on 2 lpm NC; ead 16:11 Body Mass Index 20.47 (55.79 kg, 165.10 cm) gr2 18:40 Dr. Fontenot aware. pt placed on 2L 02 per NC ead MDM: 16:38 Inside B2B Sales/Pulse Ox/q 30 min VS ordered. sd1 16:38 IV Saline Lock ordered. sd1 16:38 Rhythm Strip to chart ordered. sd1 16:38 Undress patient appropriately for examination ordered. sd1 16:39 ECG WITH READING ER PHYS+CARDIAG ordered. EDMS 16:39 B-Type Natiuretic Peptide Ordered. EDMS 16:39 Basic Metabolic Profile Ordered. EDMS 16:39 CBC with Diff Ordered. EDMS 16:39 Cardiac Injury Profile Ordered. EDMS 16:39 Prothrombin Time Profile\E\INR Ordered. EDMS 16:39 Troponin Ordered. EDMS 16:39 Thyroid Profile Ordered. EDMS 17:25 Albuterol-Ipratropium 1 neb Nebulizer every 20 minutes x3 ordered. cs11 17:25 Call Respiratory ordered. cs11 17:26 Chest, 2 View (pa\E\lat) Ordered. EDMS 17:35 Call Respiratory complete. lbd 18:34 Basic Metabolic Profile Reviewed. cs11 18:34 CBC with Diff Reviewed. cs11 18:34 Prothrombin Time Profile\E\INR Reviewed. cs11 18:34 B-Type Natiuretic Peptide Reviewed. cs11 18:34 Cardiac Injury Profile Reviewed. cs11 18:34 Troponin Reviewed. cs11 18:34 Thyroid Profile Reviewed. cs11 18:36 Dexamethasone 10 mg IV at bolus once ordered. cs11 19:14 Financial registration complete. [email or web address] 10/07 11:21 T-Sheet-- Draft Copy was scanned into [employer] and attached to record. gb 11:22 ECG/EKG was scanned into [employer] and attached to record. gb 11:22 Trend VS was scanned into [employer] and attached to record. gb Administered Medications: 10/06 17:50 Drug: Albuterol-Ipratropium 1 neb [ipratropium-albuterol 0.5 mg-3 mg(2.5 mg base)/3 mL sd7 nebulization soln (1 neb)] Route: Nebulizer; 17:59 Follow up: Response: Nebulizer completed 18:09 Drug: Albuterol-Ipratropium 1 neb [ipratropium-albuterol 0.5 mg-3 mg(2.5 mg base)/3 mL sd7 nebulization soln (1 neb)] Route: Nebulizer; 18:20 Follow up: Response: Nebulizer completed 18:21 Drug: Albuterol-Ipratropium 1 neb [ipratropium-albuterol 0.5 mg-3 mg(2.5 mg base)/3 mL sd7 nebulization soln (1 neb)] Route: Nebulizer; 18:48 Drug: Dexamethasone 10 mg [dexamethasone 4 mg/mL injection solution] Route: IV; Rate: ead bolus; Site: right antecubital; Signatures: Dispatcher [employer] EDConnie Lemus MD MD sd1 Cinthya Lowe, Booth Cleaner Unit lbd Enrrique Oconnell RN RN bcj Barnhardt, Gloria, Reg Reg gb Lowell Fontenot, DO cs11 Enid Marcus RN RN ead Sheldon, Matthew, RN RN mgs Sorenson, Kimberly, Reg Reg [id number] Ellen Acevedo RT sd7 The chart was reviewed and I authenticate all verbal orders and agree with the evaluation and treatment provided.Attachments: 10/07 11:21 T-Sheet-- Draft Copy gb 11:22 ECG/EKG gb Chart Complete MTDD
--- NOTE | 2016-10-08 20:26 | EDDOCDS ---
Physician Documentation [facility] Name: Tresa Garg Age: 76 yrs Sex: Female : 1940 Arrival Date: 10/06/2016 Time: 16:09 Bed 12 Private MD: Linda Ortiz Disposition: 10/06/16 18:42 Discharged to Home/Self Care. Impression: Simple chronic bronchitis. - Condition is Stable. - Prescriptions for dexamethasone 4 mg Oral tablet - take 1 tablet by ORAL route 2 times per day; 8 tablet. - Medication Reconciliation, Local Pharmacy Hours form. - Follow up: Private Physician; When: Call to arrange an appointment; Reason: Recheck today's complaints. - Problem is chronic. - Symptoms have improved. Historical: - Allergies: TETRACYCLINES; - Home Meds: 1. Ambien 5 mg Oral tab 1 tab once daily 2. amitriptyline 25 mg Oral tab 1 tab nightly 3. Bactrim 400-80 mg oral tab 2 tabs once daily 4. cephalexin 500 mg Oral tab 1 tab every 12 hours 5. Coumadin 2 mg daily but none today Oral tab 1 tab once daily 6. folic acid 800 mcg Oral tab 1 tab once daily 7. Nexium 40 mg Oral cpDR 1 cap once daily 8. pravastatin 20 mg oral tab 1 tab nightly 9. torsemide 5 mg oral tab 1 tab once daily 10. tramadol 50 mg Oral tab three times a day 11. prednisone 2.5 mg Oral tab once daily - PMHx: CHF; Hypercholesterolemia; - PSHx: Aortic Valve Repair; Cholecystectomy; plate in neck; bladder surgery; - Social history: Smoking status: Patient states former smoker of tobacco. No barriers to communication noted, The patient speaks fluent Nauruan, Speaks appropriately for age. - Family history: Not pertinent. - : The pt / caregiver states he / she is on anticoagulants: coumadin. Home medication list is obtained from the patient. - Exposure Risk Screening:: None identified. Vital Signs: 10/06 16:11 BP 156 / 80; Pulse 105; Resp 20 S; Temp 97.8(T); Pulse Ox 96% on R/A; Weight 55.79 kg / gr2 123 lbs (R); Height 5 ft. 5 in. (165.10 cm) (R); Pain 4/10; 16:47 BP 150 / 71 (auto/); ead 16:49 Pulse 96 MON; Pulse Ox 95% ; ead 18:40 Resp 24; Pulse Ox 92% on R/A; ead 18:44 BP 143 / 75; Pulse 108; Resp 20; Temp 98.3(O); Pulse Ox 95% on 2 lpm NC; Pain 0/10; berhane 18:47 BP 150 / 70 (auto/); ead 18:48 Pulse 106 MON; Resp 24; Pulse Ox 96% on 2 lpm NC; ead 16:11 Body Mass Index 20.47 (55.79 kg, 165.10 cm) gr2 18:40 Dr. Fontenot aware. pt placed on 2L 02 per NC ead MDM: 16:38 Roaster Supervisor/Pulse Ox/q 30 min VS ordered. sd1 16:38 IV Saline Lock ordered. sd1 16:38 Rhythm Strip to chart ordered. sd1 16:38 Undress patient appropriately for examination ordered. sd1 16:39 ECG WITH READING ER PHYS+CARDIAG ordered. EDMS 16:39 B-Type Natiuretic Peptide Ordered. EDMS 16:39 Basic Metabolic Profile Ordered. EDMS 16:39 CBC with Diff Ordered. EDMS 16:39 Cardiac Injury Profile Ordered. EDMS 16:39 Prothrombin Time Profile\E\INR Ordered. EDMS 16:39 Troponin Ordered. EDMS 16:39 Thyroid Profile Ordered. EDMS 17:25 Albuterol-Ipratropium 1 neb Nebulizer every 20 minutes x3 ordered. cs11 17:25 Call Respiratory ordered. cs11 17:26 Chest, 2 View (pa\E\lat) Ordered. EDMS 17:35 Call Respiratory complete. lbd 18:34 Basic Metabolic Profile Reviewed. cs11 18:34 CBC with Diff Reviewed. cs11 18:34 Prothrombin Time Profile\E\INR Reviewed. cs11 18:34 B-Type Natiuretic Peptide Reviewed. cs11 18:34 Cardiac Injury Profile Reviewed. cs11 18:34 Troponin Reviewed. cs11 18:34 Thyroid Profile Reviewed. cs11 18:36 Dexamethasone 10 mg IV at bolus once ordered. cs11 19:14 Financial registration complete. [email or web address] 10/07 11:21 T-Sheet-- Draft Copy was scanned into Long Play and attached to record. gb 11:22 ECG/EKG was scanned into Long Play and attached to record. gb 11:22 Trend VS was scanned into Long Play and attached to record. gb Administered Medications: 10/06 17:50 Drug: Albuterol-Ipratropium 1 neb [ipratropium-albuterol 0.5 mg-3 mg(2.5 mg base)/3 mL sd7 nebulization soln (1 neb)] Route: Nebulizer; 17:59 Follow up: Response: Nebulizer completed 18:09 Drug: Albuterol-Ipratropium 1 neb [ipratropium-albuterol 0.5 mg-3 mg(2.5 mg base)/3 mL sd7 nebulization soln (1 neb)] Route: Nebulizer; 18:20 Follow up: Response: Nebulizer completed 18:21 Drug: Albuterol-Ipratropium 1 neb [ipratropium-albuterol 0.5 mg-3 mg(2.5 mg base)/3 mL sd7 nebulization soln (1 neb)] Route: Nebulizer; 18:48 Drug: Dexamethasone 10 mg [dexamethasone 4 mg/mL injection solution] Route: IV; Rate: ead bolus; Site: right antecubital; Signatures: Dispatcher [employer] EDConnie Lemus MD MD sd1 Cinthya Lowe, Desktop Operator Unit lbd Enrrique Oconnell RN RN bcj Barnhardt, Gloria, Reg Reg gb Lowell Fontenot, DO cs11 Enid Marcus RN RN ead Sheldon, Matthew, RN RN mgs Sorenson, Kimberly, Reg Reg ks16 Ellen Acevedo RT sd7 The chart was reviewed and I authenticate all verbal orders and agree with the evaluation and treatment provided.Attachments: 10/07 11:21 T-Sheet-- Draft Copy gb 11:22 ECG/EKG gb Chart Complete MTDD
== END 2016-10-06 19:25 | disposition home or self-care (01) ==
LOC: M ED 16:09
DX: J42 Unspecified chronic bronchitis (principal); I50.20 Unspecified systolic (congestive) heart failure; E78.00 Pure hypercholesterolemia, unspecified; Z87.891 Personal history of nicotine dependence; Z79.01 Long term (current) use of anticoagulants; Z79.899 Other long term (current) drug therapy; Z79.52 Long term (current) use of systemic steroids; Z88.8 Allergy status to other drugs, medicaments and biological substances
CPT/HCPCS: 36415; 71020; 80048; 82550; 82553; 83880; 84436; 84443; 84479; 84484; 85025; 85610; 93005; 93041; 94640; 96374; 99284; J1100

== ENCOUNTER → 2016-10-22 | Outpatient (REF) | payer OTHER ==
[2016-10-22 13:50] LABS: MICROSCOPIC INDICATED? MAN YES (NO)
[2016-10-22 13:53] LABS: RBC, URINE 0-1 /hpf (0-3); SQUAMOUS EPITHELIAL CELL URINE SMALL AMOUNT /hpf (SMALL AMT)
[2016-10-22 13:54] LABS: CALCIUM OXALATE CRYSTALS,URINE LARGE AMOUNT /hpf
[2016-10-22 13:55] LABS: BACTERIA, URINE NONE SEEN; HYALINE CAST, URINE 0-1 /lpf (0-1); MICROSCOPIC EXAM PERFORMED
[2016-10-22 14:14] LABS: COMPLEMENT C3 153 MG/DL (90-180); COMPLEMENT C4 16.2 MG/DL (10-40)
[2016-10-22 14:15] LABS: BACTERIA, URINE NONE SEEN; CALCIUM OXALATE CRYSTALS,URINE SMALL AMOUNT /hpf; HYALINE CAST, URINE NONE SEEN /lpf (0-1); MICROSCOPIC EXAM PERFORMED; RBC, URINE 0-1 /hpf (0-3); SQUAMOUS EPITHELIAL CELL URINE NONE SEEN /hpf (SMALL AMT); WBC, URINE NONE SEEN /hpf (0-3)
[2016-10-24 00:07] LABS: COMPLEMENT TOTAL (CH50) > 63 U/mL (42-60)
== END ==
LOC: M LAB REF 11:55
DX: M06.4 Inflammatory polyarthropathy (principal)

== ENCOUNTER → 2017-02-10 | Outpatient (REF) | payer OTHER ==
[~2017-02-10] MED LIST changes: +GABA-282 PO; -GABA300C3 PO
[2017-02-10 13:34] LABS: PERCENT SATURATION 4.1 % (13.2-37.4)
[2017-02-12 11:19] LABS: PRETREATED FOLATE FOR RBCFOL > 24.0 NG/ML
== END ==
LOC: M LAB REF 12:26
PROVIDERS: ATTEND Nurse Practitioner Adult Health
DX: D64.9 Anemia, unspecified (principal)

== ENCOUNTER 2017-07-26 08:28 | Emergency (ER) | payer OTHER ==
[~2017-07-26 08:28] MED LIST changes: -COUM2TAB10 PO; +COUM2TAB22 PO; -FOLI1TAB2 PO; +FOLI1TAB4 PO
[2017-07-26] MEDS ORDERED: PRED5TA PO (08:44)
[2017-07-26] MEDS ORDERED: MECL-86 PO (08:44)
[2017-07-26] MEDS ORDERED: LEFL1TAB4 PO (08:44)
[2017-07-26] MEDS ORDERED: MECLIZINE 25 MG TABLET PO ONE (09:45)
[2017-07-26] MEDS ORDERED: ONDANSETRON 4MG/2ML VIAL (J2405) IV ONE (09:45)
[2017-07-26 10:00] LABS: BASO % 0.3 % (0.0-1.0); EOS % 0.6 % (0.0-3.0); IMMATURE GRANULOCYTE % 0.5 % (0-0); LYMPH % 30.4 % (24.0-44.0); MEAN CORPUSCULAR HEMOGLOBIN 23.6 pg (27.0-33.0); MEAN CORPUSCULAR HGB CONC 29.6 g/dl (32.0-36.5); MEAN CORPUSCULAR VOLUME 79.8 fl (80.0-96.0); MONO # 0.8 10^3/uL (0.0-0.8); MONO % 12.6 % (0.0-5.0); NEUTROPHILS # 3.6 10^3/uL (1.8-7.7); NEUTROPHILS % 55.6 % (36.0-66.0); PLATELET COUNT, AUTOMATED 243 10^3/uL (150-450); RED CELL DISTRIBUTION WIDTH 19.9 % (11.5-14.5); WHITE BLOOD COUNT 6.5 10^3/uL (4.0-10.0)
[2017-07-26 10:10] LABS: INR 2.54
[2017-07-26 10:15] LABS: ANION GAP 5 MEQ/L (8-16); BLOOD UREA NITROGEN 21 MG/DL (7-18); CALCIUM LEVEL 9.1 MG/DL (8.8-10.2); CARBON DIOXIDE LEVEL 30 MEQ/L (21-32); CHLORIDE LEVEL 107 MEQ/L (98-107); CREATININE FOR GFR 0.65 MG/DL (0.55-1.02); GLOMERULAR FILTRATION RATE > 60.0 (>39); GLUCOSE, FASTING 91 MG/DL (83-110); POTASSIUM SERUM 3.4 MEQ/L (3.5-5.1); SODIUM LEVEL 142 MEQ/L (136-145)
--- NOTE | 2017-07-26 11:09 | REP ---
CT brain without contrast: History: Frontal headache. Findings: Digital lateral meat boner radiograph is unremarkable. No bony calvarial lesion is seen. There is mild vascular calcification noted in the distal carotid arteries bilaterally. The visualized paranasal sinuses are clear. No intraorbital abnormality is appreciated. There is mild diffuse cerebral atrophy. Minimal small vessel changes are seen in the periventricular white matter. There is no evidence of infarction. No evidence of intracranial hemorrhage is seen. No mass, extra-axial fluid collection or midline shift is seen. Impression: Mild diffuse atrophy and vascular calcification. No acute intracranial abnormality. Signed by Raj Bertrand MD 07/26/2017 12:59 P
--- NOTE | 2017-07-26 11:50 | REP ---
CHEST, TWO VIEWS: Two views of the chest are performed and compared to a prior study of 10/06/2016. There is mild scattered interstitial fibrosis. I see no evidence of acute infiltrate. Heart is not enlarged. The mediastinal silhouette is unchanged. Multiple sternal wires are present as well as a prosthetic heart valve. Mild old compression deformity is seen of a mid thoracic vertebral body. IMPRESSION: Mild chronic changes. No acute infiltrate. Signed by Dwight Hathaway MD 07/26/2017 04:31 P
[2017-07-26] MEDS ORDERED: VENTAER (12:48)
[2017-07-26] MEDS ORDERED: ALEN70TA39 PO (12:48)
[2017-07-26] MEDS ORDERED: ZOLP5TAB PO (12:48)
[2017-07-26] MEDS ORDERED: MECL-68 PO (12:55)
[2017-07-26] MEDS ORDERED: NORCO, ANEXSIA 5/325MG TABLET (HYDROcodone/ACETAMINOPHEN) PO ONE (13:00)
[2017-07-26] MEDS ORDERED: KETOROLAC 30 MG/ML VIAL (J1885) IV ONE (13:15)
[2017-07-26] MEDS ORDERED: ZOFR4TAB3 PO (14:15)
[2017-07-26 14:21] VITALS: BP 130/60
== END 2017-07-26 14:26 | disposition home or self-care (01) ==
LOC: M ED 08:28
DX: R51 Headache (principal); H83.09 Labyrinthitis, unspecified ear; Z87.891 Personal history of nicotine dependence
CPT/HCPCS: 70450; 71020; 80048; 85025; 85610; 93041; 94760; 96374; 96375; 99285; J1885; J2405

== ENCOUNTER → 2017-07-28 | Outpatient (REF) | payer OTHER ==
[~2017-07-28] MED LIST changes: +ALEN70TA39 PO; +LEFL1TAB4 PO; +MECL-68 PO; +MECL-86 PO; +PRED5TA PO; +VENTAER; +ZOFR4TAB3 PO
[2017-07-28 10:19] LABS: INR 2.36
== END ==
LOC: M LAB REF 10:02
PROVIDERS: ATTEND Nurse Practitioner Adult Health
DX: Z79.01 Long term (current) use of anticoagulants (principal); J44.9 Chronic obstructive pulmonary disease, unspecified

== ENCOUNTER → 2017-11-30 | Outpatient (REF) | payer OTHER ==
[2017-11-30 12:53] LABS: HEMATOCRIT 32.7 % (36.0-47.0)
[2017-11-30 13:21] LABS: FERRITIN 18 NG/ML (8-252); IRON (FE) 20 UG/DL (50-170); PERCENT SATURATION 4.7 % (13.2-45.0); TOTAL IRON BINDING CAPACITY 427 UG/DL (250-450)
[2017-12-01 08:15] LABS: CONTROL LINE HPYORI INT CTR LINE PRESENT; H PYLORI QUALITATIVE IgG DETECTED (NEGATIVE)
[2017-12-03 12:06] LABS: PRETREATED FOLATE FOR RBCFOL 13.2 NG/ML; RBC FOLATE 847.7 NG/ML (280-791)
== END ==
LOC: M LAB REF 12:33
DX: D64.9 Anemia, unspecified (principal)
CPT/HCPCS: 83550

== ENCOUNTER → 2018-01-20 | Outpatient (CLI) | payer OTHER ==
[2018-01-20 10:26] LABS: APPEARANCE, URINE HAZY (CLEAR); BACTERIA, URINE AUTO NEGATIVE (NEGATIVE); BILIRUBIN, URINE AUTO NEGATIVE (NEGATIVE); BLOOD, URINE BLOOD NEGATIVE (NEGATIVE); COLOR, URINE YELLOW (YELLOW); GLUCOSE, URINE (UA) AUTO NEGATIVE (NEGATIVE); KETONE, URINE AUTO NEGATIVE (NEGATIVE); LEUKOCYTE ESTERASE, URINE AUTO NEGATIVE (NEGATIVE); MUCUS, URINE SMALL (NEGATIVE); NITRITE, URINE AUTO NEGATIVE (NEGATIVE); PROTEIN, URINE AUTO NEGATIVE (NEGATIVE); RBC, URINE AUTO 1 /HPF (0-3); SQUAMOUS EPITHELIAL CELL UR AU 1 /HPF (0-6); UROBILINOGEN, URINE AUTO 0.2 mg/dL (0.0-2.0); WBC, URINE AUTO 1 /HPF (0-3)
[2018-01-20 10:28] LABS: HEMATOCRIT 42.6 % (36.0-47.0); HEMOGLOBIN 12.2 g/dl (12.0-15.5); MEAN CORPUSCULAR HEMOGLOBIN 23.3 pg (27.0-33.0); MEAN CORPUSCULAR HGB CONC 28.6 g/dl (32.0-36.5); MEAN CORPUSCULAR VOLUME 81.3 fl (80.0-96.0); PLATELET COUNT, AUTOMATED 261 10^3/uL (150-450); RED BLOOD COUNT 5.24 10^6/uL (4.00-5.40); RED CELL DISTRIBUTION WIDTH 21.2 % (11.5-14.5); WHITE BLOOD COUNT 7.1 10^3/uL (4.0-10.0)
[2018-01-20 10:39] LABS: INR 1.91; PROTHROMBIN TIME 22.5 SECONDS (12.4-14.5)
[2018-01-20 10:49] LABS: ALBUMIN 3.7 GM/DL (3.2-5.2); ALBUMIN/GLOBULIN RATIO 1.12 (1.00-1.93); ALKALINE PHOSPHATASE 110 U/L (45-117); ALT/SGPT 25 U/L (12-78); ANION GAP 6 MEQ/L (8-16); AST/SGOT 27 U/L (7-37); BILIRUBIN,TOTAL 0.3 MG/DL (0.2-1.0); BLOOD UREA NITROGEN 14 MG/DL (7-18); CALCIUM LEVEL 8.9 MG/DL (8.8-10.2); CARBON DIOXIDE LEVEL 30 MEQ/L (21-32); CHLORIDE LEVEL 108 MEQ/L (98-107); GLOMERULAR FILTRATION RATE > 60.0 (>39); GLUCOSE, FASTING 94 MG/DL (70-100); POTASSIUM SERUM 3.7 MEQ/L (3.5-5.1); SODIUM LEVEL 144 MEQ/L (136-145)
[2018-01-20 11:09] LABS: ERYTHROCYTE SEDIMENTATION RATE 28 mm/hr (0-30)
== END ==
LOC: M ADMPAT 09:23
DX: Z01.818 Encounter for other preprocedural examination (principal); M17.11 Unilateral primary osteoarthritis, right knee; Z79.01 Long term (current) use of anticoagulants; Z79.899 Other long term (current) drug therapy
CPT/HCPCS: 71046

== ENCOUNTER 2018-02-10 05:57 | Inpatient (IN) | payer OTHER ==
[2018-02-10] MEDS ORDERED: LR 1,000 ML IV (06:15)
[2018-02-10 06:31] LABS: INR 0.95; PROTHROMBIN TIME 12.8 SECONDS (12.4-14.5)
[2018-02-10] MEDS ORDERED: fentaNYL 100 MCG/2 ML INJECTION (J3010) As Ordered ×2 (06:42→08:11)
[2018-02-10] MEDS ORDERED: MIDAZOLAM INJ 2 MG/2 ML VIAL (J2250) As Ordered ×2 (06:43→08:11)
[2018-02-10] MEDS: fentaNYL 100 MCG/2 ML INJECTION (J3010) IV (07:05)
[2018-02-10] MEDS: MIDAZOLAM INJ 2 MG/2 ML VIAL (J2250) IV (07:05)
[2018-02-10] MEDS: EPINEPHrine INJ 1 MG/ML 1ML AMP As Ordered (08:08)
[2018-02-10] MEDS: ceFAZolin 1GM INJ (J0690 PER 500MG) As Ordered (08:08)
[2018-02-10] MEDS: BUPIVACAINE LIPOSOME/PF 1.3% 20 ML VIAL (13.3MG/ML)(EXPAREL) As Ordered (08:08)
[2018-02-10] MEDS: TRANEXAMIC ACID 100 MG/ML 10ML VIAL As Ordered (08:08)
[2018-02-10] MEDS ORDERED: ONDANSETRON 4MG/2ML VIAL (J2405) As Ordered (08:11)
[2018-02-10] MEDS ORDERED: ePHEDrine SULFATE 25 MG/5 ML(5MG/ML) SYRINGE As Ordered (08:11)
[2018-02-10] MEDS ORDERED: PROPOFOL 200 MG/20 ML VIAL As Ordered (08:11)
[2018-02-10] MEDS ORDERED: LIDOCAINE 2% INJ 100 MG/5 ML SDV (FOR ANES.) As Ordered (08:11)
[2018-02-10] MEDS ORDERED: PHENYLephrine HCL 500 MCG/5 ML (100MCG/ML) SYRINGE (J2370) As Ordered ×3 (08:11→08:31)
[2018-02-10] MEDS ORDERED: MORPHINE 1MG/ML IN 0.9% NACL 100ML IV BAG As Ordered (09:17)
[2018-02-10] MEDS ORDERED: fentaNYL 100 MCG/2 ML INJECTION (J3010) IV (09:30)
[2018-02-10] MEDS: LR 1,000 ML IV ×4 (09:30→22:50)
[2018-02-10] MEDS ORDERED: ONDANSETRON 4MG/2ML VIAL (J2405) IV (09:30)
[2018-02-10] MEDS: ONDANSETRON 4MG/2ML VIAL (J2405) IV (09:40)
[2018-02-10] MEDS ORDERED: NALOXONE INJ 0.4 MG/1 ML VIAL (J2310) IV (09:45)
[2018-02-10] MEDS ORDERED: diphenhydrAMINE INJ 50MG/ML VIAL (J1200) IV (09:45)
[2018-02-10] MEDS ORDERED: EPIDURAL/PCA KEYS XX (09:45)
[2018-02-10] MEDS ORDERED: NALBUPHINE HCL 10 MG/ML AMP (J2300) IV (09:45)
[2018-02-10] MEDS ORDERED: MORPHINE 1MG/ML IN 0.9% NACL 100ML IV BAG IV (09:45)
[2018-02-10] MEDS: ACETAMINOPHEN TAB 650MG DOSE (2X325MG) PO ×2 (10:00→20:50)
[2018-02-10] MEDS ORDERED: FLEET ENEMA PR (10:00)
[2018-02-10] MEDS ORDERED: LIDOCAINE 1% MDV 20ML VIAL (14:41)
[2018-02-10] MEDS ORDERED: ROPIvacaine 0.5% 30 ML INJECTION (J2795 PER 1MG) (14:41)
[2018-02-10] MEDS ORDERED: EPINEPHrine INJ 1 MG/ML 1ML AMP (14:41)
[2018-02-10] MEDS: VITAMIN D 1,000 INTERNATIONAL UNITS TABLET PO (16:12)
[2018-02-10] MEDS: ASPIRIN 81 MG ENTERIC TAB PO (16:12)
[2018-02-10] MEDS: WARFARIN SOD 5 MG TAB PO (16:12)
[2018-02-10] MEDS: zolPIDEM TARTRATE 5 MG TAB PO (20:44)
[2018-02-10] MEDS: AMITRIPTYLINE 25 MG TAB PO (20:50)
[2018-02-10] MEDS: PRAVASTATIN 20 MG TAB PO (20:50)
[2018-02-11 06:12] LABS: HEMATOCRIT 32.8 % (36.0-47.0); HEMOGLOBIN 9.1 g/dl (12.0-15.5); MEAN CORPUSCULAR HEMOGLOBIN 23.6 pg (27.0-33.0); MEAN CORPUSCULAR HGB CONC 27.7 g/dl (32.0-36.5); MEAN CORPUSCULAR VOLUME 85.2 fl (80.0-96.0); PLATELET COUNT, AUTOMATED 134 10^3/uL (150-450); RED BLOOD COUNT 3.85 10^6/uL (4.00-5.40); WHITE BLOOD COUNT 6.9 10^3/uL (4.0-10.0)
[2018-02-11 06:23] LABS: INR 1.47; PROTHROMBIN TIME 18.2 SECONDS (12.4-14.5)
[2018-02-11] MEDS ORDERED: ONDANSETRON 4 MG TAB (S0181) PO (07:00)
[2018-02-11] MEDS ORDERED: PERCOCET 5MG/325MG TAB PO (07:00)
[2018-02-11 07:39] LABS: ANION GAP 3 MEQ/L (8-16); BLOOD UREA NITROGEN 13 MG/DL (7-18); CALCIUM LEVEL 7.9 MG/DL (8.8-10.2); CARBON DIOXIDE LEVEL 32 MEQ/L (21-32); CHLORIDE LEVEL 107 MEQ/L (98-107); CREATININE FOR GFR 0.59 MG/DL (0.55-1.30); GLOMERULAR FILTRATION RATE > 60.0 (>39); GLUCOSE, FASTING 118 MG/DL (70-100); MAGNESIUM LEVEL 2.1 MG/DL (1.8-2.4); POTASSIUM SERUM 3.9 MEQ/L (3.5-5.1); SODIUM LEVEL 142 MEQ/L (136-145)
[2018-02-11] MEDS ORDERED: ENOXAPARIN 60 MG/0.6 ML SYR (J1650) SC ×2 (09:00→21:00)
[2018-02-11] MEDS ORDERED: PANTOPRAZOLE 40MG TAB (PROTONIX) PO (09:00)
[2018-02-11] MEDS: ENOXAPARIN 40 MG/0.4 ML SYRINGE (J1650) SC (09:55)
[2018-02-11] MEDS: MOM 30ML SUSPENSION UDC PO (09:56)
[2018-02-11] MEDS: MIRALAX *UNIT DOSE* 17GM PACKET PO (09:56)
[2018-02-11] MEDS: SENOKOT S TAB PO ×2 (09:57→21:28)
[2018-02-11] MEDS: ASPIRIN 81 MG ENTERIC TAB PO (09:57)
[2018-02-11] MEDS: VITAMIN D 1,000 INTERNATIONAL UNITS TABLET PO (09:57)
[2018-02-11] MEDS: DULoxetine 30 MG CAP (CYMBALTA) PO (09:58)
[2018-02-11] MEDS: PANTOPRAZOLE 20 MG TAB PO (09:58)
[2018-02-11] MEDS: PERCOCET 5MG/325MG TAB PO ×3 (10:07→18:55)
[2018-02-11] MEDS: LR 1,000 ML IV (11:23)
[2018-02-11] MEDS: WARFARIN SOD 5 MG TAB PO (17:26)
[2018-02-11] MEDS: ALBUTEROL 90 MCG/ACT 8GM HFA INHALER INH (21:00)
[2018-02-11] MEDS: ENOXAPARIN 60 MG/0.6 ML SYR (J1650) SC (21:28)
[2018-02-11] MEDS: PRAVASTATIN 20 MG TAB PO (21:28)
[2018-02-11] MEDS: AMITRIPTYLINE 25 MG TAB PO (21:28)
[2018-02-11] MEDS: zolPIDEM TARTRATE 5 MG TAB PO (21:28)
[2018-02-12] MEDS: PERCOCET 5MG/325MG TAB PO ×4 (01:14→19:50)
[2018-02-12 06:40] LABS: HEMATOCRIT 29.5 % (36.0-47.0); HEMOGLOBIN 8.5 g/dl (12.0-15.5); MEAN CORPUSCULAR HEMOGLOBIN 23.5 pg (27.0-33.0); MEAN CORPUSCULAR HGB CONC 28.8 g/dl (32.0-36.5); MEAN CORPUSCULAR VOLUME 81.7 fl (80.0-96.0); PLATELET COUNT, AUTOMATED 134 10^3/uL (150-450); RED BLOOD COUNT 3.61 10^6/uL (4.00-5.40); RED CELL DISTRIBUTION WIDTH 18.5 % (11.5-14.5); WHITE BLOOD COUNT 8.3 10^3/uL (4.0-10.0)
[2018-02-12 06:56] LABS: INR 2.38; PROTHROMBIN TIME 26.9 SECONDS (12.4-14.5)
[2018-02-12] MEDS: ALBUTEROL 90 MCG/ACT 8GM HFA INHALER INH ×2 (07:48→20:20)
[2018-02-12] MEDS: MOM 30ML SUSPENSION UDC PO (08:21)
[2018-02-12] MEDS: MIRALAX *UNIT DOSE* 17GM PACKET PO (08:22)
[2018-02-12] MEDS: ENOXAPARIN 60 MG/0.6 ML SYR (J1650) SC ×2 (08:24→19:50)
[2018-02-12] MEDS: PANTOPRAZOLE 20 MG TAB PO (08:25)
[2018-02-12] MEDS: ASPIRIN 81 MG ENTERIC TAB PO (08:25)
[2018-02-12] MEDS: SENOKOT S TAB PO ×2 (08:25→19:51)
[2018-02-12] MEDS: DULoxetine 30 MG CAP (CYMBALTA) PO (08:25)
[2018-02-12] MEDS: VITAMIN D 1,000 INTERNATIONAL UNITS TABLET PO (08:26)
[2018-02-12] MEDS: WARFARIN SOD 4 MG TAB PO (17:47)
[2018-02-12] MEDS: PRAVASTATIN 20 MG TAB PO (19:49)
[2018-02-12] MEDS: AMITRIPTYLINE 25 MG TAB PO (19:49)
[2018-02-12] MEDS: zolPIDEM TARTRATE 5 MG TAB PO (21:09)
[2018-02-13] MEDS: PERCOCET 5MG/325MG TAB PO ×5 (04:08→21:01)
[2018-02-13 07:00] LABS: INR 1.95; PROTHROMBIN TIME 22.9 SECONDS (12.4-14.5)
[2018-02-13] MEDS: ALBUTEROL 90 MCG/ACT 8GM HFA INHALER INH ×2 (07:22→19:20)
[2018-02-13 08:29] LABS: HEMATOCRIT 27.8 % (36.0-47.0); MEAN CORPUSCULAR HEMOGLOBIN 23.5 pg (27.0-33.0); MEAN CORPUSCULAR HGB CONC 28.8 g/dl (32.0-36.5); MEAN CORPUSCULAR VOLUME 81.8 fl (80.0-96.0); PLATELET COUNT, AUTOMATED 137 10^3/uL (150-450); RED CELL DISTRIBUTION WIDTH 18.5 % (11.5-14.5)
[2018-02-13] MEDS: ENOXAPARIN 60 MG/0.6 ML SYR (J1650) SC ×2 (08:34→21:01)
[2018-02-13] MEDS: ASPIRIN 81 MG ENTERIC TAB PO (08:35)
[2018-02-13] MEDS: VITAMIN D 1,000 INTERNATIONAL UNITS TABLET PO (08:35)
[2018-02-13] MEDS: PANTOPRAZOLE 20 MG TAB PO (08:35)
[2018-02-13] MEDS: DULoxetine 30 MG CAP (CYMBALTA) PO (08:35)
[2018-02-13] MEDS: SENOKOT S TAB PO ×2 (08:35→21:00)
[2018-02-13] MEDS: MIRALAX *UNIT DOSE* 17GM PACKET PO (08:36)
[2018-02-13] MEDS: MOM 30ML SUSPENSION UDC PO (08:36)
[2018-02-13 08:45] LABS: ANION GAP 6 MEQ/L (8-16); BLOOD UREA NITROGEN 13 MG/DL (7-18); CALCIUM LEVEL 7.6 MG/DL (8.8-10.2); CARBON DIOXIDE LEVEL 31 MEQ/L (21-32); CHLORIDE LEVEL 105 MEQ/L (98-107); CREATININE FOR GFR 0.42 MG/DL (0.55-1.30); GLOMERULAR FILTRATION RATE > 60.0 (>39); GLUCOSE, FASTING 99 MG/DL (70-100); MAGNESIUM LEVEL 2.4 MG/DL (1.8-2.4); POTASSIUM SERUM 3.5 MEQ/L (3.5-5.1); SODIUM LEVEL 142 MEQ/L (136-145)
[2018-02-13] MEDS: WARFARIN SOD 7.5 MG TAB PO (15:52)
[2018-02-13] MEDS: PRAVASTATIN 20 MG TAB PO (21:00)
[2018-02-13] MEDS: AMITRIPTYLINE 25 MG TAB PO (21:00)
[2018-02-13] MEDS: zolPIDEM TARTRATE 5 MG TAB PO (21:01)
[2018-02-14] MEDS: PERCOCET 5MG/325MG TAB PO ×3 (01:26→12:46)
[2018-02-14 06:36] LABS: HEMATOCRIT 26.8 % (36.0-47.0); HEMOGLOBIN 7.8 g/dl (12.0-15.5); MEAN CORPUSCULAR HEMOGLOBIN 23.9 pg (27.0-33.0); MEAN CORPUSCULAR HGB CONC 29.1 g/dl (32.0-36.5); MEAN CORPUSCULAR VOLUME 82.2 fl (80.0-96.0); PLATELET COUNT, AUTOMATED 155 10^3/uL (150-450); RED BLOOD COUNT 3.26 10^6/uL (4.00-5.40); RED CELL DISTRIBUTION WIDTH 18.3 % (11.5-14.5); WHITE BLOOD COUNT 5.9 10^3/uL (4.0-10.0)
[2018-02-14 06:47] LABS: INR 2.32; PROTHROMBIN TIME 26.4 SECONDS (12.4-14.5)
[2018-02-14 06:50] LABS: ANION GAP 3 MEQ/L (8-16); BLOOD UREA NITROGEN 19 MG/DL (7-18); CALCIUM LEVEL 8.3 MG/DL (8.8-10.2); CARBON DIOXIDE LEVEL 33 MEQ/L (21-32); CHLORIDE LEVEL 107 MEQ/L (98-107); CREATININE FOR GFR 0.47 MG/DL (0.55-1.30); GLOMERULAR FILTRATION RATE > 60.0 (>39); GLUCOSE, FASTING 91 MG/DL (70-100); MAGNESIUM LEVEL 2.5 MG/DL (1.8-2.4); POTASSIUM SERUM 3.5 MEQ/L (3.5-5.1); SODIUM LEVEL 143 MEQ/L (136-145)
[2018-02-14] MEDS: ALBUTEROL 90 MCG/ACT 8GM HFA INHALER INH (07:15)
[2018-02-14] MEDS: ENOXAPARIN 60 MG/0.6 ML SYR (J1650) SC (08:53)
[2018-02-14] MEDS: VITAMIN D 1,000 INTERNATIONAL UNITS TABLET PO (08:53)
[2018-02-14] MEDS: DULoxetine 30 MG CAP (CYMBALTA) PO (08:53)
[2018-02-14] MEDS: ASPIRIN 81 MG ENTERIC TAB PO (08:53)
[2018-02-14] MEDS: PANTOPRAZOLE 20 MG TAB PO (08:53)
[2018-02-14] MEDS: MOM 30ML SUSPENSION UDC PO (08:54)
[2018-02-14] MEDS: MIRALAX *UNIT DOSE* 17GM PACKET PO (08:54)
[2018-02-14] MEDS: SENOKOT S TAB PO (08:54)
[2018-02-14] MEDS: ALBUTEROL SULFATE 2.5 MG/0.5 ML INH NEB SOLN NEB (13:05)
[2018-02-14] MEDS: ADVAIR HFA 230/21MCG INHALER INH (13:08)
[2018-02-14] MEDS: WARFARIN SOD 2.5 MG TAB PO (15:14)
== END 2018-02-14 16:30 | disposition home health service (06) | DRG 470 ==
LOC: M OR 05:57 → M MS5PR 10:15
PROC: 0SRC0J9 Replacement of Right Knee Joint with Synthetic Substitute, Cemented, Open Approach (ICD-10-PCS; principal; 2018-02-10 07:30)
DX: M17.11 Unilateral primary osteoarthritis, right knee (principal); K21.9 Gastro-esophageal reflux disease without esophagitis; J44.9 Chronic obstructive pulmonary disease, unspecified; E78.00 Pure hypercholesterolemia, unspecified; M79.7 Fibromyalgia; Z79.82 Long term (current) use of aspirin; Z79.01 Long term (current) use of anticoagulants; Z79.899 Other long term (current) drug therapy; Z88.1 Allergy status to other antibiotic agents; Z88.8 Allergy status to other drugs, medicaments and biological substances; Z95.2 Presence of prosthetic heart valve; I25.2 Old myocardial infarction; Z86.73 Personal history of transient ischemic attack (TIA), and cerebral infarction without residual deficits; Z90.49 Acquired absence of other specified parts of digestive tract; Z90.710 Acquired absence of both cervix and uterus; Z87.440 Personal history of urinary (tract) infections; Z90.722 Acquired absence of ovaries, bilateral

== ENCOUNTER → 2018-05-05 | Outpatient (REF) | payer OTHER ==
[2018-05-05 13:08] LABS: IRON (FE) 18 UG/DL (50-170); PERCENT SATURATION 3.8 % (13.2-45.0); TOTAL IRON BINDING CAPACITY 471 UG/DL (250-450)
== END ==
LOC: M LAB REF 12:14
DX: D64.9 Anemia, unspecified (principal)
CPT/HCPCS: 83550

== ENCOUNTER 2018-05-25 06:46 | Outpatient (CLI) | payer OTHER ==
[2018-05-25] MEDS: IRON SUCROSE 25 MG in NS 50 ML IV (07:55)
[2018-05-25] MEDS: IRON SUCROSE 475 MG in NS 250 ML IV (08:49)
== END 2018-05-25 12:00 | disposition home or self-care (01) ==
LOC: M INFU 06:46
DX: D50.9 Iron deficiency anemia, unspecified (principal); Z88.1 Allergy status to other antibiotic agents; Z88.8 Allergy status to other drugs, medicaments and biological substances; Z88.3 Allergy status to other anti-infective agents; Z79.82 Long term (current) use of aspirin; Z79.899 Other long term (current) drug therapy; Z79.01 Long term (current) use of anticoagulants
CPT/HCPCS: J1756

== ENCOUNTER → 2018-07-05 | Outpatient (REF) | payer OTHER ==
[2018-07-05 18:40] LABS: IRON (FE) 46 UG/DL (50-170)
== END ==
LOC: M LAB REF 17:43
DX: D64.9 Anemia, unspecified (principal)
CPT/HCPCS: 83540

== ENCOUNTER 2018-08-28 08:23 | Emergency (ER) | payer OTHER ==
[2018-08-28] MEDS ORDERED: ACETAMINOPH W/CODEINE #3 TAB UD As Ordered (08:40)
[2018-08-28] MEDS: ACETAMINOPH W/CODEINE #3 TAB UD PO (08:42)
== END 2018-08-28 09:36 | disposition home or self-care (01) ==
LOC: M ED 08:23
DX: S63.522A Sprain of radiocarpal joint of left wrist, initial encounter (principal); W18.09XA Striking against other object with subsequent fall, initial encounter; Y92.019 Unspecified place in single-family (private) house as the place of occurrence of the external cause
CPT/HCPCS: 73110

== ENCOUNTER → 2018-09-06 | Outpatient (REF) | payer OTHER ==
[2018-09-06 13:14] LABS: C REACTIVE PROTEIN QUANTITATIV < 0.30 MG/DL (0.00-0.30)
== END ==
LOC: M LAB REF 12:05
DX: M06.00 Rheumatoid arthritis without rheumatoid factor, unspecified site (principal)
CPT/HCPCS: 86140

== ENCOUNTER → 2019-01-05 | Outpatient (REF) | payer MEDICARE ==
[~2019-01-05] MED LIST changes: -/ESOM40CA OR; -/PRAV20TA OR; -/TAMS4CA OR; -/WARF2TA OR; -/WARF4TA OR; -ALEN70TA39 PO; +ALEN70TA74 PO; +AMBI5TAB PO; -ASPI1TAB PO; +ASPI81TA26 PO; +ASPI81TA85 PO; +COUM1TAB14 OR; +COUM1TAB16 OR; +DULO30CA9 PO; +ENOX60IN3; +FLOM0.4C39 OR; +FOLI1TAB11 PO; -FOLI1TAB4 PO; -GABA-282 PO; +GABA-843 PO; +HYDR-3715 PO; +NEXI1CAP3 OR; +NEXI20CA PO; -NORCOTAB PO; +PERC5TAB12 PO; +PRAV1TAB39 OR; +SULF1TAB72 PO; +VITA-122 PO; +ZOFR4TAB14 PO; -ZOFR4TAB3 PO; +[UNRECOGNIZED DRUG - CODE] PO
== END ==
LOC: M LAB REF 12:46
PROVIDERS: ATTEND Nurse Practitioner Adult Health
DX: D64.9 Anemia, unspecified (principal)

== ENCOUNTER → 2019-03-27 | Outpatient (REF) | payer MEDICARE | LOC: M LAB REF 12:51 | PROVIDERS: ATTEND Nurse Practitioner Adult Health | DX: M25.561 Pain in right knee (principal) ==

== ENCOUNTER → 2019-05-02 | Outpatient (REF) | payer MEDICARE | LOC: M LAB REF 13:03 | PROVIDERS: ATTEND Nurse Practitioner Adult Health | DX: R35.0 Frequency of micturition (principal) ==

== ENCOUNTER 2019-09-09 09:32 | Emergency (ER) | payer MEDICARE ==
[~2019-09-09] VITALS: Ht 162.6 cm; Wt 49.5 kg
[~2019-09-09 09:32] MED LIST changes: -SULF1TAB72 PO; +SULF400T14 PO
[2019-09-09] MEDS ORDERED: TRAM50TA2 PO (09:59)
[2019-09-09] MEDS ORDERED: ONDANSETRON 4MG/2ML VIAL (J2405) As Ordered ONE (10:15)
[2019-09-09] MEDS ORDERED: MORPHINE 4 MG/ML 1ML VIAL/SYRINGE (J2270) As Ordered ONE (10:16)
[2019-09-09] MEDS: MORPHINE 2 MG/ML 1ML VIAL (J2270) IV PRN ×2 (10:24→11:02)
[2019-09-09] MEDS ORDERED: ONDANSETRON 4MG/2ML VIAL (J2405) IV ONE (10:30)
[2019-09-09] MEDS ORDERED: NS 1,000 ML IV SCH (10:30)
--- NOTE | 2019-09-09 10:32 | REP ---
CT BRAIN WITHOUT CONTRAST: 09/09/2019. COMPARISON: 07/26/2017. CLINICAL HISTORY: Trauma, patient fell. FINDINGS: Standard noncontrast CT brain protocol utilized. Lateral ventricles are midline, symmetric, and proportionate to the diffuse mild cerebral atrophy. Third and fourth ventricles are also proportionate sized. The basal ganglia were symmetric and normal. The peacock-white junction differentiation is well maintained. There is some minor white matter chronic changes in the periventricular and deep central white matter tracts on both sides. There are a couple of cortical hyperdensities in the posterior right frontal lobe on image 18. These are not seen on the prior study and suggest punctate microhemorrhage. There is no parenchymal bleed, interventricular hemorrhage, or extra-axial bleed. Cortical stripe shows atrophy, unchanged from the previous study and greatest in the temporal and frontal lobes. Brainstem is unremarkable. Cerebellum intact. No posterior fossa hemorrhage. The basal cisterns are unremarkable. Mastoid aeration and the visualized sinuses are clear. Orbits and contents symmetric and grossly normal. Skull base and calvarium are without fracture or focal lesion. IMPRESSION: 1. There are a few punctate hyperdensities in the cortex of the posterior right frontal lobe on image 18, not present on the previous study. These may reflect punctate microhemorrhages or contusion. I do not see subarachnoid, subdural, or epidural hemorrhage. No intraparenchymal or intraventricular hemorrhage otherwise. 2. No visible fracture of the skull base or calvarium. Sinuses and mastoids clear. 3. The orbits and contents unremarkable. 4. I discussed the findings by phone with Dr. Loomis at the time of this dictation. Electronically Signed by Spencer Banerjee MD 09/09/2019 07:48 P
[2019-09-09 10:33] LABS: BASO % 0.1 % (0.0-1.0); EOS # 0.1 10^3/uL (0.0-0.5); EOS % 1.7 % (0.0-3.0); HEMATOCRIT 43.2 % (36.0-47.0); HEMOGLOBIN 12.9 g/dl (12.0-15.5); LYMPH # 1.7 10^3/uL (1.5-5.0); LYMPH % 20.3 % (24.0-44.0); MEAN CORPUSCULAR HEMOGLOBIN 27.3 pg (27.0-33.0); MEAN CORPUSCULAR HGB CONC 29.9 g/dl (32.0-36.5); MEAN CORPUSCULAR VOLUME 91.3 fl (80.0-96.0); MONO # 0.7 10^3/uL (0.0-0.8); MONO % 8.9 % (0.0-5.0); NEUTROPHILS # 5.6 10^3/uL (1.5-8.5); NEUTROPHILS % 68.4 % (36.0-66.0); PLATELET COUNT, AUTOMATED 186 10^3/uL (150-450); RED BLOOD COUNT 4.73 10^6/uL (4.00-5.40); WHITE BLOOD COUNT 8.2 10^3/uL (4.0-10.0)
--- NOTE | 2019-09-09 10:35 | REP ---
CT CERVICAL SPINE WITHOUT CONTRAST: 09/09/2019. CLINICAL HISTORY: Trauma, patient fell. FINDINGS: No prior study. Standard trauma cervical spine technique utilized with reconstructions. Sagittal images show plate and screw fixation from anterior cervical discectomy and fusion at C5-6 appears to be graft incorporation of the disc spacers centrally. No hardware failure. 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 There is spondylosis at C3-4 and C6-7 with disc space narrowing and anterior osteophytes. The dens is intact, its relationship to the anterior arch and lateral masses of C1 normal. No compression fracture or malalignment. No significant central canal stenosis. Foramina show marginally adequate appearance at C2-3 and on the left at C3-4, adequate on the right at C3-4. The C6-7 foramina are also borderline. Craniocervical junction intact. IMPRESSION: 1. 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 2. Some borderline foramina at multiple levels as described due to combined factors. No significant central canal stenosis, compression deformity, malalignment or other acute finding. Electronically Signed by Spencer Banerjee MD 09/09/2019 07:48 P
--- NOTE | 2019-09-09 10:44 | REP ---
AP PORTABLE CHEST: 09/09/2019. COMPARISON: 02/11/2018 CLINICAL HISTORY: Chest pain. Trauma. FINDINGS: Sternotomy wires and cardiac surgery hardware noted. Cervical plate and screw fusion noted. The lungs are hyperinflated with diffuse interstitial fibrotic changes. I see no definite effusion or dense consolidation, somewhat overpenetrated images limit evaluation. No pneumothorax. No gross cardiomegaly or justice edema. Bones demineralized. Visualized ribs, scapulae, clavicles, and humerus on each side are unremarkable as seen. IMPRESSION: 1. COPD and fibrosis without effusion or pneumothorax. No dense consolidation. 2. No gross cardiomegaly or vascular redistribution. There are sternotomy wires and evidence for prior cardiac surgery. 3. Aorta mildly tortuous but without gross aneurysm. 4. No gross fracture visible, bones demineralized. Electronically Signed by Spencer Banerjee MD 09/09/2019 07:49 P
--- NOTE | 2019-09-09 10:46 | REP ---
AP PELVIS: 09/09/2019. CLINICAL HISTORY: Trauma. FINDINGS: No prior study. Pelvic ring is intact. SI joints symmetric and normal. Sacral ala and foramina intact. There is facet arthropathy and degenerative disc change lower lumbar spine. Iliac wings and acetabuli as well as ischia are unremarkable. There is a fracture of the left hip, junction of the femoral neck and trochanters with rotational deformity of the trochanteric major fragment. Right hip without fracture. IMPRESSION: 1. A femoral neck fracture at the junction with the greater trochanter of the left hip. Bones demineralized. No other acute finding. Electronically Signed by Spencer Banerjee MD 09/09/2019 07:49 P
--- NOTE | 2019-09-09 10:47 | REP ---
AP LATERAL LEFT HIP: 09/09/2019. COMPARISON: AP pelvis today. FINDINGS: Trauma, patient fell. Two views show fracture of the femoral neck at its junction with the greater trochanter and some rotational deformity of the major distal fracture fragment. No subluxation or dislocation. No definite intertrochanteric fracture. Pubic rami, symphysis pubis, left SI joint, and iliac wing intact. Acetabulum intact. IMPRESSION: 1. Fracture of the left femoral neck at its junction with the trochanters with rotational appearance of the trochanters. No subluxation or dislocation of the femoral head from the acetabulum. 2. Bones demineralized. Electronically Signed by Spencer Banerjee MD 09/09/2019 07:49 P
[2019-09-09 10:55] LABS: INR 2.17
[2019-09-09 10:56] LABS: PARTIAL THROMBOPLASTIN TIME 30.8 SECONDS (25.0-38.4)
[2019-09-09 10:57] LABS: ALBUMIN 3.4 GM/DL (3.2-5.2); ALT/SGPT 23 U/L (12-78); BILIRUBIN,DIRECT < 0.1 MG/DL (0.0-0.2); BILIRUBIN,TOTAL 0.3 MG/DL (0.2-1.0); BLOOD UREA NITROGEN 20 MG/DL (7-18); CALCIUM LEVEL 8.8 MG/DL (8.8-10.2); CARBON DIOXIDE LEVEL 29 MEQ/L (21-32); CHLORIDE LEVEL 106 MEQ/L (98-107); CREATININE FOR GFR 0.66 MG/DL (0.55-1.30); GLOMERULAR FILTRATION RATE > 60.0 (>39); GLUCOSE, FASTING 109 MG/DL (70-100); POTASSIUM SERUM 3.6 MEQ/L (3.5-5.1); SODIUM LEVEL 141 MEQ/L (136-145); TOTAL PROTEIN 7.3 GM/DL (6.4-8.2)
[2019-09-09] MEDS ORDERED: DILUENT IV ONE (11:30)
[2019-09-09] MEDS ORDERED: PROTHROMBIN COMPLEX CONCEN IV ONE (11:30)
[2019-09-09] MEDS ORDERED: MORPHINE 4 MG/ML 1ML VIAL/SYRINGE (J2270) IV PRN (11:45)
[2019-09-09 12:00] VITALS: BP 132/62
--- NOTE | 2019-09-09 13:26 | ECGEPIP ---
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
== END 2019-09-09 12:01 | disposition short-term general hospital (02) ==
LOC: M ED 09:32 → EDBD 09:32 → M ED 12:01
DX: S72.002A Fracture of unspecified part of neck of left femur, initial encounter for closed fracture (principal); S06.330A Contusion and laceration of cerebrum, unspecified, without loss of consciousness, initial encounter; W18.39XA Other fall on same level, initial encounter; Y92.018 Other place in single-family (private) house as the place of occurrence of the external cause; J44.9 Chronic obstructive pulmonary disease, unspecified; E78.9 Disorder of lipoprotein metabolism, unspecified; I25.2 Old myocardial infarction; K21.9 Gastro-esophageal reflux disease without esophagitis; M06.9 Rheumatoid arthritis, unspecified; Z79.899 Other long term (current) drug therapy; Z79.01 Long term (current) use of anticoagulants; Z88.1 Allergy status to other antibiotic agents; Z88.8 Allergy status to other drugs, medicaments and biological substances; Z87.891 Personal history of nicotine dependence
CPT/HCPCS: 70450; 71045; 72125; 72190; 73502; 80048; 80076; 85025; 85610; 85730; 86850; 86900; 86901; 93005; 96365; 96375; 96376; 99285; C9132; J2270; J2405

== ENCOUNTER → 2019-12-28 | Outpatient (REF) | payer MEDICARE ==
[~2019-12-28] MED LIST changes: -MECL-68 PO; +MECL1TAB31 PO
[2019-12-28 09:54] LABS: INR 3.85; PROTHROMBIN TIME 37.9 SECONDS (11.8-14.0)
== END ==
LOC: M LAB REF 09:27
PROVIDERS: ATTEND Internal Medicine
DX: Z79.01 Long term (current) use of anticoagulants (principal)

== ENCOUNTER → 2020-02-28 | Outpatient (REF) | payer MEDICARE | LOC: M LAB REF 12:09 | PROVIDERS: ATTEND Nurse Practitioner Adult Health | DX: M06.09 Rheumatoid arthritis without rheumatoid factor, multiple sites (principal) ==

== ENCOUNTER → 2020-03-27 | Outpatient (CLI) | payer MEDICARE ==
[~2020-03-27] MED LIST changes: -ALEN70TA74 PO; +ALEN70TA82 PO; -AMIT25TA PO; +AMIT25TA17 PO; -ASPI81TA85 PO; +ASPI81TA86 PO; +COMBAER6 INH; -COUM1TAB14 PO; +COUM4TAB8 PO; +D31000TA2 PO; +DULO1CAP6 PO; +ECOT81TA5 PO; +FOLI0.8T2 PO; +FURO40TA2 PO; +GABA-282 PO; -GABA-843 PO; +HM P99TA PO; +IRON65TA2 PO; +K-TA10TA2 PO; +LISI2.5T2 PO; +PRED25TA PO; +SULF1TAB93 PO; +TREL1AER PO; +VENTAER INH; +iron PO
[2020-03-27 14:31] LABS: BLOOD UREA NITROGEN 23 MG/DL (7-18); CARBON DIOXIDE LEVEL 26 MEQ/L (21-32); CHLORIDE LEVEL 108 MEQ/L (98-107); GLOMERULAR FILTRATION RATE > 60.0 (>39); GLUCOSE, FASTING 109 MG/DL (70-100); NT-PRO BNP 5715 PG/ML (<450); POTASSIUM SERUM 4.1 MEQ/L (3.5-5.1); SODIUM LEVEL 142 MEQ/L (136-145)
[2020-03-27 15:05] LABS: HEMATOCRIT 26.9 % (36.0-47.0); HEMOGLOBIN 7.5 g/dl (12.0-15.5); MEAN CORPUSCULAR HEMOGLOBIN 26.3 pg (27.0-33.0); MEAN CORPUSCULAR HGB CONC 27.9 g/dl (32.0-36.5); MEAN CORPUSCULAR VOLUME 94.4 fl (80.0-96.0); PLATELET COUNT, AUTOMATED 173 10^3/uL (150-450); RED BLOOD COUNT 2.85 10^6/uL (4.00-5.40); WHITE BLOOD COUNT 5.4 10^3/uL (4.0-10.0)
== END ==
LOC: M PLALAB 08:35
PROVIDERS: ATTEND Physician Assistant
DX: R06.02 Shortness of breath (principal); I50.32 Chronic diastolic (congestive) heart failure

== ENCOUNTER 2020-03-29 13:45 | Inpatient (IN) | payer MEDICARE ==
[2020-03-29] VITALS (7 sets, daily range): BP systolic 131–170; BP diastolic 61–86
[~2020-03-29] VITALS: Ht 162.6 cm; Wt 44.9 kg
[~2020-03-29 13:45] MED LIST changes: +ALEN70TA74 PO; -ALEN70TA82 PO; +AMIT25TA PO; -AMIT25TA17 PO; +ASPI81TA85 PO; -ASPI81TA86 PO; -COMBAER6 INH; -D31000TA2 PO; -DULO1CAP6 PO; -ECOT81TA5 PO; -FOLI0.8T2 PO; -FURO40TA2 PO; -GABA-282 PO; +GABA-843 PO; -HM P99TA PO; -IRON65TA2 PO; -K-TA10TA2 PO; -LISI2.5T2 PO; -PRED25TA PO; -SULF1TAB93 PO; -TREL1AER PO; -VENTAER INH; -iron PO
[2020-03-29] MEDS ORDERED: DULO1CAP6 PO (14:11)
[2020-03-29] MEDS ORDERED: SULF1TAB93 PO (14:11)
[2020-03-29] MEDS ORDERED: ECOT81TA5 PO (14:11)
[2020-03-29] MEDS ORDERED: AMIT25TA PO (14:11)
[2020-03-29] MEDS ORDERED: LEFL1TAB4 PO (14:11)
[2020-03-29] MEDS ORDERED: LISI2.5T2 PO (14:11)
[2020-03-29] MEDS ORDERED: ZOLP5TAB PO (14:11)
[2020-03-29] MEDS ORDERED: MECL-86 PO (14:11)
[2020-03-29] MEDS ORDERED: TRAM50TA2 PO (14:11)
[2020-03-29] MEDS ORDERED: iron PO (14:11)
[2020-03-29] MEDS ORDERED: FOLI0.8T2 PO (14:11)
[2020-03-29] MEDS ORDERED: NEXI20CA PO (14:11)
[2020-03-29] MEDS ORDERED: TREL1AER PO (14:11)
[2020-03-29] MEDS ORDERED: VENTAER INH (14:11)
[2020-03-29] MEDS ORDERED: K-TA10TA2 PO (14:11)
[2020-03-29] MEDS ORDERED: NS 1,000 ML IV SCH (14:25)
[2020-03-29 14:29] LABS: BASO % 0.5 % (0.0-1.0); EOS % 0.3 % (0.0-3.0); HEMATOCRIT 25.6 % (36.0-47.0); HEMOGLOBIN 7.3 g/dl (12.0-15.5); LYMPH # 0.9 10^3/uL (1.5-5.0); LYMPH % 15.4 % (24.0-44.0); MEAN CORPUSCULAR HEMOGLOBIN 26.2 pg (27.0-33.0); MEAN CORPUSCULAR HGB CONC 28.5 g/dl (32.0-36.5); MEAN CORPUSCULAR VOLUME 91.8 fl (80.0-96.0); MONO # 0.8 10^3/uL (0.0-0.8); MONO % 13.3 % (0.0-5.0); NEUTROPHILS # 4.1 10^3/uL (1.5-8.5); NEUTROPHILS % 70.2 % (36.0-66.0); PLATELET COUNT, AUTOMATED 173 10^3/uL (150-450); RED BLOOD COUNT 2.79 10^6/uL (4.00-5.40); WHITE BLOOD COUNT 5.8 10^3/uL (4.0-10.0)
[2020-03-29] MEDS ORDERED: PANTOPRAZOLE 40MG VIAL (C9113 PER 1) IV ONE (14:30)
[2020-03-29 14:44] LABS: INR 3.31; PROTHROMBIN TIME 33.6 SECONDS (11.8-14.0)
[2020-03-29 15:06] LABS: ALT/SGPT 113 U/L (12-78); BILIRUBIN,DIRECT 0.2 MG/DL (0.0-0.2); BILIRUBIN,TOTAL 0.4 MG/DL (0.2-1.0); BLOOD UREA NITROGEN 18 MG/DL (7-18); CALCIUM LEVEL 8.4 MG/DL (8.8-10.2); CARBON DIOXIDE LEVEL 29 MEQ/L (21-32); CHLORIDE LEVEL 107 MEQ/L (98-107); CK-MB VALUE MASS 4.1 NG/ML (<3.6); CPK CREATINE PHOSPHOKINASE 191 U/L (26-192); CREATININE FOR GFR 0.68 MG/DL (0.55-1.30); GLOMERULAR FILTRATION RATE > 60.0 (>39); GLUCOSE, FASTING 94 MG/DL (70-100); MB/CK RELATIVE INDEX 2.15 (< OR =4); POTASSIUM SERUM 3.9 MEQ/L (3.5-5.1); SODIUM LEVEL 142 MEQ/L (136-145); TOTAL PROTEIN 6.1 GM/DL (6.4-8.2); TROPONIN I 0.04 NG/ML (< 0.10)
--- NOTE | 2020-03-29 15:21 | REP ---
Portable chest x-ray: Single view. History: Shortness of breath. Comparison chest x-ray: September 09, 2019. Findings: The patient is status post median sternotomy and aortic valve replacement. Moderate cardiac enlargement is observed. Vascular congestion and mild interstitial edema is present. There is very slight blunting of the left lateral pleural angle. Impression: CHF pattern. Electronically Signed by Raj Bertrand MD 03/29/2020 03:13 P
[2020-03-29] MEDS ORDERED: PRED25TA PO (17:07)
[2020-03-29] MEDS ORDERED: VITAD1000T PO (17:07)
[2020-03-29] MEDS ORDERED: IRON65TA2 PO (17:07)
[2020-03-29] MEDS ORDERED: HM P99TA PO (17:07)
[2020-03-29] MEDS ORDERED: FUROSEMIDE 20MG/2ML VIAL (J1940) IV ONE (17:15)
[2020-03-29] MEDS ORDERED: MAALOX 30 ML SUSP *UDC PO PRN (17:30)
[2020-03-29] MEDS ORDERED: MOM 30ML SUSPENSION UDC PO PRN (17:30)
[2020-03-29] MEDS ORDERED: MECLIZINE 12.5 MG TAB PO PRN (18:00)
[2020-03-29] MEDS ORDERED: ALBUTEROL 90 MCG/ACT 8GM HFA INHALER INH PRN (18:00)
--- NOTE | 2020-03-29 18:04 | HPEPDOC ---
General Date of Admission Date of Service: Mar 29, 2020 Chief Complaint The patient is a 79-year-old female admitted with a reason for visit of Shortness Of Breath. Source: Patient Exam Limitations: No limitations Timing/Duration: Other (few days) Severity: Other (not applicable) Associated Symptoms: Other (tiredness and cough) History of Present Illness This is 79 years old white female who was seen at Dr. Nixon's office with tiredness and cough since last 2-3 days. She had blood work and chest x-ray done at Dr. Nixon's office and today she was called and told to come to Hospital as they found her hemoglobin to be 7.5. According to patient, she is been feeling tired for some time, but lately last few days. She is extremely tired and has been coughing. Cough is dry, nonprod uctive, not associated with shortness of breath, no chest pain, no palpitations. Symptoms are relieved with rest but exacerbated by exertion. No other associated symptoms. Home Medications Scheduled Amitriptyline HCl (Amitriptyline HCl) 25 Mg Tablet, 25 MG PO QHS, (Reported) Aspirin (Ecotrin) 81 Mg Tablet.dr, 81 MG PO DAILY, (Reported) Cholecalciferol (Vitamin D3) (Vitamin D3) 1,000 Unit Tablet, 1,000 UNITS PO DAILY, (Reported) Duloxetine Hcl (Duloxetine HCl) 60 Mg Capsule.dr, 60 MG PO QHS, (Reported) Esomeprazole Magnesium (Nexium) 20 Mg Capsule.dr, 20 MG PO BID, (Reported) Ferrous Sulfate (Iron) 325 Mg Tablet, 325 MG PO DAILY, (Reported) Fluticasone/Umeclidin/Vilanter (Trelegy Ellipta 100-62.5-25) 1 Each Blst.w.dev, 1 PUFF PO DAILY, (Reported) Folic Acid (Folic Acid) 0.8 Mg Tablet, 800 MCG PO DAILY, (Reported) Leflunomide (Leflunomide) 20 Mg Tablet, 20 MG PO DAILY, (Reported) Lisinopril (Lisinopril) 2.5 Mg Tablet, 2.5 MG PO QHS, (Reported) Potassium Gluconate (Potassium) 99 Mg Tablet, 595 MG PO DAILY, (Reported) Prednisone (Prednisone) 2.5 Mg Tablet, 2.5 MG PO BID, (Reported) Sulfamethoxazole/Trimethoprim (Sulfamethoxazole-Tmp Ds Tablet) 1 Each Tablet, 1 TAB PO DAILY, (Reported) Warfarin Sodium (Coumadin) 4 Mg Tab, 4 MG PO DAILY, (Reported) Zolpidem Tartrate (Zolpidem Tartrate) 5 Mg Tablet, 5 MG PO QHS, (Reported) Scheduled PRN Albuterol Sulfate (Ventolin Hfa) 18 Gm Hfa.aer.ad, 2 PUFF INH Q4-6HP PRN for wheezing, (Reported) Meclizine HCl (Meclizine HCl) 25 Mg Tablet, 12.5 MG PO TID PRN for DIZZINESS, (Reported) Tramadol HCl (Tramadol HCl) 50 Mg Tablet, 50 MG PO Q6HP PRN for PAIN, (Reported) Allergies Coded Allergies: tetracycline (Verified Allergy, Unknown, RASH, 03/29/20) hyaluronate sodium, stabilized (Verified Adverse Reaction, Unknown, BODY PAIN, 03/29/20) Past Medical History Medical History Aortic wall replacement, GERD, osteoporosis and rheumatoid arthritis, self-cath eterization for urinary retention, history of CVA and UT in the past Surgical History Cholecystectomy, hysterectomy, neck fusion, prosthetic aortic wall cyst 2001, and bladder surgery Social History * Smoker: former Smoker Alcohol: Denies Drugs: denies A-FIB/CHADSVASC A-FIB History Current/History of A-Fib/PAF?: No Review of Systems Constitutional: Reports: Weakness, Fatigue Eyes: Denies: Pain, Vision change, Conjunctivae inflammation, Eyelid inflammation, Redness, Other ENT: Denies: Head Aches, Ear Pain, Dysphagia, Sinus Congestion, Post Nasal Drip, Sore Throat, Epistaxis, Other Symptoms Skin: Denies: Rash, Lesions, Jaundice, Bruising, Itching, Dry, Breakdown, Nail Changes, Other Pulmonary: Reports: Cough; Denies: Dyspnea, Pleuritic Chest Pain, Other Symptoms Cardiovascular: Denies: Chest Pain, Palpitations, Orthopnea, Paroxysmal Noc. Dyspnea, Edema, Lt Headedness, Other Symptoms Gastrointestinal: Denies: Nausea, Vomiting, Abdominal Pain, Diarrhea, Constipation, Melena, Hematochezia, Other Symptoms Genitourinary: Denies: Dysuria, Frequency, Incontinence, Hematuria, Retention, Other Symptoms Hematologic: Denies: Bruising, Bleeding Excessively, Petecchia, Purpura, Enlarged Lymph Nodes, Other Hematologic Endocrine: Denies: Polydipsia, Polyphagia, Polyuria, Heat Intolerance, Cold Intolerance, Other Endocrine Sx Musculoskeletal: Denies: Neck Pain, Back Pain, Shoulder Pain, Arm Pain, Hand Pain, Leg Pain, Foot Pain, Joint Pain, Muscle Pain, Spasms, Other Symptoms Neurological: Denies: Weakness, Numbness, Incoordination, Change in speech, Confusion, Seizures, Other Symptoms Physical Examination General Exam: Positive: Alert, Cooperative Eye Exam: Positive: PERRLA, Conjunctiva & lids normal ENT Exam: Positive: Atraumatic Neck Exam: Positive: Supple Chest Exam: Positive: Rales (bilateral rales audible) Heart Exam: Positive: Rate Normal, Normal S1, Normal S2 Abdomen Exam: Positive: Normal bowel sounds, Soft Extremity Exam: Positive: Normal pulses Skin Exam: Positive: Nl turgor and temperature Neuro Exam: Positive: Strength at 5/5 X4 ext, Sensation Intact Psych Exam: Positive: Mood NL, Oriented x 3 Vital Signs Vital Signs Date Time Temp Pulse Resp B/P (MAP) Pulse Ox O2 Delivery O2 Flow Rate FiO2 03/29/20 17:20 99.7 82 18 138/65 91 Nasal Cannula 2.0 Laboratory Data Labs 24H Laboratory Tests 2 03/29/20 14:15: Prothrombin Time 33.6H, Prothromb Time International Ratio 3.31 03/29/20 14:18: Immature Granulocyte % (Auto) 0.3, Neutrophils (%) (Auto) 70.2H, Lymphocytes (%) (Auto) 15.4L, Monocytes (%) (Auto) 13.3H, Eosinophils (%) (Auto) 0.3, Basophils (%) (Auto) 0.5, Neutrophils # (Auto) 4.1, Lymphocytes # (Auto) 0.9L, Monocytes # (Auto) 0.8, Eosinophils # (Auto) 0.0, Basophils # (Auto) 0.0, Nucleated Red Blood Cells % (auto) 0.0, Anion Gap 6L, Glomerular Filtration Rate > 60.0, Calcium Level 8.4L, Total Bilirubin 0.4, Direct Bilirubin 0.2, Aspartate Amino Transf (AST/SGOT) 93H, Alanine Aminotransferase (ALT/SGPT) 113H, Alkaline Phosphatase 87, Total Creatine Kinase 191, Creatine Kinase MB 4.1H, Creatine Kinase MB Relative Index 2.15, Troponin I 0.04, Total Protein 6.1L, Albumin 3.0L, Albumin/Globulin Ratio 1.0L 03/29/20 15:45: Urine Color YELLOW, Urine Appearance HAZY, Urine pH 7.0, Urine Specific [place] 1.015, Urine Protein NEGATIVE, Urine Glucose (UA) NEGATIVE, Urine Ketones NEGATIVE, Urine Blood NEGATIVE, Urine Nitrite POSITIVEH, Urine Bilirubin NEGATIVE, Urine Urobilinogen 0.2, Urine Leukocyte Esterase TRACEH, Urine WBC ( Auto) 8H, Urine RBC (Auto) 0, Urine Hyaline Casts (Auto) 0, Urine Bacteria (Auto) 2+H, Urine Squamous Epithelial Cells 0, Urine Sperm (Auto) CBC/BMP Laboratory Tests 03/29/20 14:18 Microbiology Microbiology 03/29/20 Urine Culture, Received Pending Problems (1) Acute systolic (congestive) heart failure Status: Acute Problem Text: 79 years old white female with past medical history of for prosthetic aortic wall, GERD, osteoporosis, rheumatoid arthritis, history of UT and CVA in the past, sent from Dr. Nixon's office with low hemoglobin. pt complains of tiredness and cough but no shortness of breath, chest pain or palpitation. Chest x-ray consistent with the pulmonary vascular congestion. EKG shows normal sinus rhythm, no acute ST-T changes interpreted by me WBC count 5.8, hemoglobin 7.3, hematocrit 25.6, platelets 173. Electrolytes are normal. UA shows WBC with nitrates. INR is 3.31 Patient is receiving 1 unit of PRBC in the emergency room and is also scheduled to get Lasix 20 mg IV before thetransfusion Patient's symptoms are most likely secondary to acute systolic heart failure and anemia most likely secondary to slow GI bleed secondary to anticoagulation Admit patient to PCU with telemetry Saline lock Lasix 40 mg IV every 12 hours Serial troponin Continue all patient's home meds Strict I and O's Echocardiogram in a.m. posttransfusion H&H BNP now and tomorrow DVT prophylaxis again not needed as patient is on Coumadin Diet 2 g sodium Activity as tolerated (2) Symptomatic anemia Status: Acute Problem Text: Most likely chronic blood loss. Cannot rule out whether it's chronic GI bleed secondary to anticoagulation or destruction of RBCs due to prosthetic aortic valve Patient's hemoglobin is 7.3 Scheduled to receive 1 unit of PRBC in ED I'll order stool for occult blood PPIs She might need a GI workup, but unfortunately GI is not available this week and she is not actively bleeding, hence we'll monitor her clinically and if she needs a colonoscopy can be arranged as an outpatient on discharge (3) Rheumatoid arthritis Status: Acute Problem Text: Continue home meds (4) GERD (gastroesophageal reflux disease) Status: Chronic Problem Text: Continue PPI (5) H/O prosthetic aortic valve replacement Status: Chronic Problem Text: Continue home meds Plan / VTE VTE Prophylaxis Ordered?: Yes JOHN BACH MD Mar 29, 2020 18:04
[2020-03-29 18:18] LABS: NT-PRO BNP 9866 PG/ML (<450)
--- NOTE | 2020-03-29 20:47 | ECGEPIP ---
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
[2020-03-29] MEDS: zolPIDEM TARTRATE 5 MG TAB PO SCH (20:57)
[2020-03-29] MEDS: FUROSEMIDE 40MG/4ML VIAL (J1940) IV SCH (20:57)
[2020-03-29] MEDS: predniSONE 2.5 MG TAB PO SCH (20:57)
[2020-03-29] MEDS: DULoxetine 30 MG CAP (CYMBALTA) PO SCH (20:58)
[2020-03-29] MEDS: DOCUSATE SODIUM 100 MG CAP PO SCH (20:58)
[2020-03-29] MEDS: AMITRIPTYLINE 25 MG TAB PO SCH (20:58)
[2020-03-29] MEDS: LISINOPRIL *2.5 MG* TAB PO SCH (20:59)
[2020-03-29] MEDS ORDERED: PANTOPRAZOLE 40MG TAB (PROTONIX) PO SCH (21:00)
[2020-03-29] MEDS: traMADol 50 MG TAB PO PRN (21:00)
[2020-03-30] VITALS (7 sets, daily range): BP systolic 92–106; BP diastolic 50–58
[2020-03-30] MEDS: ACETAMINOPHEN TAB 650MG DOSE (2X325MG) PO PRN ×2 (00:51→14:08)
[2020-03-30 04:39] LABS: HEMATOCRIT 30.6 % (36.0-47.0); HEMOGLOBIN 8.9 g/dl (12.0-15.5); MEAN CORPUSCULAR HEMOGLOBIN 25.5 pg (27.0-33.0); MEAN CORPUSCULAR HGB CONC 29.1 g/dl (32.0-36.5); MEAN CORPUSCULAR VOLUME 87.7 fl (80.0-96.0); PLATELET COUNT, AUTOMATED 161 10^3/uL (150-450); RED BLOOD COUNT 3.49 10^6/uL (4.00-5.40); WHITE BLOOD COUNT 6.4 10^3/uL (4.0-10.0)
[2020-03-30 05:20] LABS: ALBUMIN 3.1 GM/DL (3.2-5.2); ALT/SGPT 106 U/L (12-78); BILIRUBIN,TOTAL 0.8 MG/DL (0.2-1.0); BLOOD UREA NITROGEN 16 MG/DL (7-18); CALCIUM LEVEL 8.3 MG/DL (8.8-10.2); CARBON DIOXIDE LEVEL 37 MEQ/L (21-32); CHLORIDE LEVEL 100 MEQ/L (98-107); CREATININE FOR GFR 0.78 MG/DL (0.55-1.30); GLOMERULAR FILTRATION RATE > 60.0 (>39); GLUCOSE, FASTING 97 MG/DL (70-100); MAGNESIUM LEVEL 1.8 MG/DL (1.8-2.4); NT-PRO BNP 8647 PG/ML (<450); POTASSIUM SERUM 3.4 MEQ/L (3.5-5.1); SODIUM LEVEL 142 MEQ/L (136-145); TROPONIN I 0.04 NG/ML (< 0.10)
[2020-03-30] MEDS: DOCUSATE SODIUM 100 MG CAP PO SCH ×2 (09:00→21:30)
[2020-03-30] MEDS ORDERED: POTASSIUM CHLORIDE 10 MEQ SR TABLET PO ONE (09:00)
[2020-03-30] MEDS: predniSONE 2.5 MG TAB PO SCH ×2 (09:15→21:30)
[2020-03-30] MEDS: FUROSEMIDE 40MG/4ML VIAL (J1940) IV SCH (09:15)
[2020-03-30] MEDS: VITAMIN D 1,000 INTERNATIONAL UNITS TABLET PO SCH (09:15)
[2020-03-30] MEDS: PANTOPRAZOLE 20 MG TAB PO SCH ×2 (09:15→21:29)
[2020-03-30] MEDS: FERROUS SULFATE 325MG TAB PO SCH (09:15)
[2020-03-30] MEDS: ASPIRIN 81 MG ENTERIC TAB PO SCH (09:15)
[2020-03-30] MEDS ORDERED: SLF 3 ML SYR IV PRN (12:00)
--- NOTE | 2020-03-30 12:10 | IPNPDOC ---
Subjective Date Seen The patient was seen on 03/30/20. Subjective Chief Complaint/HPI Patient feels much better, improved air exchange is not complaining of shortness of breath any more General: Denies: ROS Unobtainable, Chills, Night Sweats, Fatigue, Malaise, Normal Appetite, Other Symptoms Constitutional: Denies: Chills, Fever, Malaise, Night Sweats, Weakness, Fatigue, Weight Loss, Lethargy, Other Skin: Denies: Rash, Lesions, Jaundice, Bruising, Itching, Dry, Breakdown, Nail Changes, Other Pulmonary: Reports: Other Symptoms (some wheezing) Cardiovascular: Denies: Chest Pain, Palpitations, Orthopnea, Paroxysmal Noc. Dyspnea, Edema, Lt Headedness, Other Symptoms Gastrointestinal: Denies: Nausea, Vomiting, Abdominal Pain, Diarrhea, Constipation, Melena, Hematochezia, Other Symptoms Musculoskeletal: Denies: Neck Pain, Back Pain, Shoulder Pain, Arm Pain, Hand Pain, Leg Pain, Foot Pain, Joint Pain, Muscle Pain, Spasms, Other Symptoms Neurological: Denies: Weakness, Numbness, Incoordination, Change in speech, Confusion, Seizures, Other Symptoms Objective Physical Examination General Exam: Positive: Alert, Cooperative Chest Exam: Positive: Wheezing (minimum bilateral expiratory wheezes but no crackles or rales) Heart Exam: Positive: Rate Normal, Normal S1, Normal S2 Abdomen Exam: Positive: Normal bowel sounds, Soft Extremity Exam: Positive: Normal pulses Skin Exam: Positive: Nl turgor and temperature Assessment /Plan Problems (1) Acute systolic (congestive) heart failure Status: Acute Problem Text: 79 years old white female with past medical history of for prosthetic aortic wall, GERD, osteoporosis, rheumatoid arthritis, history of [place] and CVA in the past, sent from Dr. Nixon's office with low hemoglobin. pt complains of tiredness and cough but no shortness of breath, chest pain or palpitation. Chest x-ray consistent with the pulmonary vascular congestion. EKG shows normal sinus rhythm, no acute ST-T changes interpreted by me WBC count 5.8, hemoglobin 7.3, hematocrit 25.6, platelets 173. Electrolytes are normal. UA shows WBC with nitrates. INR is 3.31 Patient is receiving 1 unit of PRBC in the emergency room and is also scheduled to get Lasix 20 mg IV before the transfusion Patient's symptoms are most likely secondary to acute systolic heart failure and anemia most likely secondary to slow GI bleed secondary to anticoagulation Patient admitted to PCU with telemetry Lasix 40 mg IV every 12 hours given with good response. Patient output was -3 L today Pt clinically feeling much better and on auscultation. There are no rales or crackles, but there are some expiratory wheezing and patient has a history of cigarette smoking in the past Serial troponins are negative so far Echocardiogram is pending Will change Lasix to 40 mg by mouth twice a day Once the echo report is back. Patient is clinically stable, she can follow up with Dr. Nixon as an outpatient (2) COPD (chronic obstructive pulmonary disease) Status: Chronic Problem Text: Possible patient has a history of for COPD as she has extensive history of smoking in the past On clinical examination, she does have a expiratory wheezing on auscultation Will start patient on DuoNeb every 8 hours scheduled Once daily to be discharged to be discharged home on Combivent as well (3) Rheumatoid arthritis Status: Chronic Problem Text: Continue home meds (4) GERD (gastroesophageal reflux disease) Status: Chronic Problem Text: Continue home meds Plan/VTE VTE Prophylaxis Ordered?: Yes VS, I&O, 24H, Fishbone Vital Signs/I&O Vital Signs Date Time Temp Pulse Resp B/P (MAP) Pulse Ox O2 Delivery O2 Flow Rate FiO2 03/30/20 08:00 97.4 80 20 106/53 (70) 100 Nasal Cannula 3.0 I&O- Last 24 Hours up to 6 AM 03/30/20 06:00 Intake Total 500 ml Output Total 3500 ml Balance -3000 ml Laboratory Data 24H LABS Laboratory Tests 2 03/29/20 14:15: Prothrombin Time 33.6H, Prothromb Time International Ratio 3.31 03/29/20 14:18: Immature Granulocyte % (Auto) 0.3, Neutrophils (%) (Auto) 70.2H, Lymphocytes (%) (Auto) 15.4L, Monocytes (%) (Auto) 13.3H, Eosinophils (%) (Auto) 0.3, Basophils (%) (Auto) 0.5, Neutrophils # (Auto) 4.1, Lymphocytes # (Auto) 0.9L, Monocytes # (Auto) 0.8, Eosinophils # (Auto) 0.0, Basophils # (Auto) 0.0, Nucleated Red Blood Cells % (auto) 0.0, Anion Gap 6L, Glomerular Filtration Rate > 60.0, Calcium Level 8.4L, Total Bilirubin 0.4, Direct Bilirubin 0.2, Aspartate Amino Transf (AST/SGOT) 93H, Alanine Aminotransferase (ALT/SGPT) 113H, Alkaline Phosphatase 87, Total Creatine Kinase 191, Creatine Kinase MB 4.1H, Creatine Kinase MB Relative Index 2.15, Troponin I 0.04, WR-Bzn-[id number]-Type Natriuretic Peptide 9866H, Total Protein 6.1L, Albumin 3.0L, Albumin/Globulin Ratio 1.0L 03/29/20 15:45: Urine Color YELLOW, Urine Appearance HAZY, Urine pH 7.0, Urine Specific [place] 1.015, Urine Protein NEGATIVE, Urine Glucose (UA) NEGATIVE, Urine Ketones NEG ATIVE, Urine Blood NEGATIVE, Urine Nitrite POSITIVEH, Urine Bilirubin NEGATIVE, Urine Urobilinogen 0.2, Urine Leukocyte Esterase TRACEH, Urine WBC (Auto) 8H, Urine RBC (Auto) 0, Urine Hyaline Casts (Auto) 0, Urine Bacteria (Auto) 2+H, Urine Squamous Epithelial Cells 0, Urine Sperm (Auto) 03/29/20 21:43: Troponin I 0.03# 03/30/20 04:29: Nucleated Red Blood Cells % (auto) 0.0, Anion Gap 5L, Glomerular Filtration Rate > 60.0, Calcium Level 8.3L, Magnesium Level 1.8, Total Bilirubin 0.8#, Aspartate Amino Transf (AST/SGOT) 67H, Alanine Aminotransferase (ALT/SGPT) 106H, Alkaline Phosphatase 95, Troponin I 0.04#, FZ-Heo-E-Type Natriuretic Peptide 8647H, Total Protein 6.0L, Albumin 3.1L, Albumin/Globulin Ratio 1.1L CBC/BMP Laboratory Tests 03/29/20 14:18 03/30/20 04:29 Microbiology Microbiology 03/29/20 Urine Culture, Received Pending JOHN BACH MD Mar 30, 2020 12:10
--- NOTE | 2020-03-30 12:23 | REP ---
Clinical: Shortness of breath. History of CHF. Comparison: 03/29/2020. Findings: Mediastinum and cardiac silhouette are stable. Lung ramirez demonstrate diffuse chronic interstitial changes with superimposed interstitial edema. There is increased right basilar atelectasis and small right pleural effusion. The left costophrenic angle is relatively sharp. No pneumothorax. Skeletal structures are intact. Evidence for prior sternotomy and aortic valve repair again noted. Impression: Chronic changes with superimposed pulmonary vascular congestion/interstitial edema including right basilar opacity and small right pleural effusion. Electronically Signed by Rodolfo Lucio MD 03/30/2020 12:14 P
[2020-03-30] MEDS: SLF 3 ML SYR IV SCH ×2 (14:00→21:30)
[2020-03-30] MEDS: IPRATROPIUM 0.5MG/ALBUTEROL 2.5MG INH SOL UD 3ML (DUONEB) NEB SCH ×2 (15:46→23:35)
[2020-03-30] MEDS ORDERED: WARFARIN SOD 4 MG TAB PO SCH (17:00)
[2020-03-30] MEDS: FUROSEMIDE 40 MG TAB PO SCH (17:32)
[2020-03-30] MEDS: LISINOPRIL *2.5 MG* TAB PO SCH (20:38)
[2020-03-30] MEDS: DULoxetine 30 MG CAP (CYMBALTA) PO SCH (21:29)
[2020-03-30] MEDS: AMITRIPTYLINE 25 MG TAB PO SCH (21:30)
[2020-03-30] MEDS: zolPIDEM TARTRATE 5 MG TAB PO SCH (21:30)
[2020-03-31] VITALS: BP 101/51
[2020-03-31] MEDS: ACETAMINOPHEN TAB 650MG DOSE (2X325MG) PO PRN ×4 (00:07→17:47)
[2020-03-31 04:00] VITALS: BP 111/59
[2020-03-31 04:25] LABS: BASO % 0.4 % (0.0-1.0); EOS # 0.1 10^3/uL (0.0-0.5); HEMATOCRIT 36.4 % (36.0-47.0); HEMOGLOBIN 10.5 g/dl (12.0-15.5); LYMPH % 14.6 % (24.0-44.0); MEAN CORPUSCULAR HEMOGLOBIN 25.8 pg (27.0-33.0); MEAN CORPUSCULAR HGB CONC 28.8 g/dl (32.0-36.5); MEAN CORPUSCULAR VOLUME 89.4 fl (80.0-96.0); MONO # 1.3 10^3/uL (0.0-0.8); NEUTROPHILS # 4.7 10^3/uL (1.5-8.5); NEUTROPHILS % 65.7 % (36.0-66.0); PLATELET COUNT, AUTOMATED 183 10^3/uL (150-450); RED BLOOD COUNT 4.07 10^6/uL (4.00-5.40); WHITE BLOOD COUNT 7.1 10^3/uL (4.0-10.0)
[2020-03-31 04:36] LABS: INR 2.15; PROTHROMBIN TIME 23.8 SECONDS (11.8-14.0)
[2020-03-31 04:48] LABS: ALBUMIN 3.1 GM/DL (3.2-5.2); ALT/SGPT 84 U/L (12-78); BILIRUBIN,TOTAL 0.5 MG/DL (0.2-1.0); BLOOD UREA NITROGEN 24 MG/DL (7-18); CALCIUM LEVEL 8.7 MG/DL (8.8-10.2); CARBON DIOXIDE LEVEL 37 MEQ/L (21-32); CHLORIDE LEVEL 101 MEQ/L (98-107); CREATININE FOR GFR 0.87 MG/DL (0.55-1.30); GLOMERULAR FILTRATION RATE > 60.0 (>39); GLUCOSE, FASTING 120 MG/DL (70-100); MAGNESIUM LEVEL 1.8 MG/DL (1.8-2.4); POTASSIUM SERUM 3.4 MEQ/L (3.5-5.1); SODIUM LEVEL 142 MEQ/L (136-145); TOTAL PROTEIN 6.5 GM/DL (6.4-8.2)
[2020-03-31] MEDS: SLF 3 ML SYR IV SCH ×3 (05:55→21:12)
[2020-03-31] MEDS: IPRATROPIUM 0.5MG/ALBUTEROL 2.5MG INH SOL UD 3ML (DUONEB) NEB SCH ×3 (07:47→23:32)
[2020-03-31 08:00] VITALS: BP 92/54
[2020-03-31] MEDS ORDERED: POTASSIUM CHLORIDE 10 MEQ SR TABLET PO ONE (09:00)
[2020-03-31] MEDS: FUROSEMIDE 40 MG TAB PO SCH (09:53)
[2020-03-31] MEDS: VITAMIN D 1,000 INTERNATIONAL UNITS TABLET PO SCH (09:53)
[2020-03-31] MEDS: ASPIRIN 81 MG ENTERIC TAB PO SCH (09:53)
[2020-03-31] MEDS: DOCUSATE SODIUM 100 MG CAP PO SCH ×2 (09:54→19:30)
[2020-03-31] MEDS: PANTOPRAZOLE 20 MG TAB PO SCH ×2 (09:55→21:11)
[2020-03-31] MEDS: FERROUS SULFATE 325MG TAB PO SCH (09:55)
[2020-03-31] MEDS: predniSONE 2.5 MG TAB PO SCH ×2 (09:55→21:12)
--- NOTE | 2020-03-31 11:01 | IPNPDOC ---
Subjective Date Seen The patient was seen on 03/31/20. Subjective Chief Complaint/HPI Patient is feeling much better. No more shortness of breath General: Denies: ROS Unobtainable, Chills, Night Sweats, Fatigue, Malaise, Normal Appetite, Other Symptoms Constitutional: Denies: Chills, Fever, Malaise, Night Sweats, Weakness, Fatigue, Weight Loss, Lethargy, Other Pulmonary: Denies: Dyspnea, Cough, Pleuritic Chest Pain, Other Symptoms Cardiovascular: Denies: Chest Pain, Palpitations, Orthopnea, Paroxysmal Noc. Dyspnea, Edema, Lt Headedness, Other Symptoms Gastrointestinal: Denies: Nausea, Vomiting, Abdominal Pain, Diarrhea, Constipation, Melena, Hematochezia, Other Symptoms Musculoskeletal: Denies: Neck Pain, Back Pain, Shoulder Pain, Arm Pain, Hand Pain, Leg Pain, Foot Pain, Joint Pain, Muscle Pain, Spasms, Other Symptoms Neurological: Denies: Weakness, Numbness, Incoordination, Change in speech, Confusion, Seizures, Other Symptoms Objective Physical Examination General Exam: Positive: Alert, Cooperative Chest Exam: Positive: Clear to auscultation, Normal air movement Heart Exam: Positive: Rate Normal, Normal S1, Normal S2 Abdomen Exam: Positive: Normal bowel sounds, Soft Extremity Exam: Positive: Normal pulses Skin Exam: Positive: Nl turgor and temperature Neuro Exam: Positive: Strength at 5/5 X4 ext, Cranial Nerves 3-12 NL Assessment /Plan Problems (1) Acute systolic (congestive) heart failure Status: Acute Problem Text: 79 years old white female with past medical history of for pros thetic aortic wall, GERD, osteoporosis, rheumatoid arthritis, history of [place] and CVA in the past, sent from Dr. Nixon's office with low hemoglobin. pt complains of tiredness and cough but no shortness of breath, chest pain or palpitation. Chest x-ray consistent with the pulmonary vascular congestion. EKG shows normal sinus rhythm, no acute ST-T changes interpreted by me WBC count 5.8, hemoglobin 7.3, hematocrit 25.6, platelets 173. Electrolytes are normal. UA shows WBC with nitrates. INR is 3.31 Patient is receiving 1 unit of PRBC in the emergency room and is also scheduled to get Lasix 20 mg IV before the transfusion Patient's symptoms are most likely secondary to acute systolic heart failure and anemia most likely secondary to slow GI bleed secondary to anticoagulation Patient admitted to PCU with telemetry Lasix 40 mg IV every 12 hours given with good response. Patient output was -3 L today Pt clinically feeling much better and on auscultation. There are no rales or crackles, but there are some expiratory wheezing and patient has a history of cigarette smoking in the past Serial troponins are negative so far Will further decrease Lasix to 40 mg by mouth once a day Once the echo report is back. Patient is clinically stable, she can follow up with Dr. Nixon as an outpatient Her cardiogram is scheduled tomorrow. Hopefully, she'll be discharged home. If echo is acceptable for discharge (2) COPD (chronic obstructive pulmonary disease) Status: Chronic Problem Text: Possible patient has a history of for COPD as she has extensive history of smoking in the past Expiratory wheezing has improved with the nebulizer treatments Will start patient on DuoNeb every 8 hours scheduled Once daily to be discharged to be discharged home on Combivent as well (3) Rheumatoid arthritis Status: Chronic Problem Text: Continue home meds (4) GERD (gastroesophageal reflux disease) Status: Chronic Problem Text: Continue home meds (5) Hypokalemia Status: Acute Problem Text: KCl 40 mg by mouth. Continue 1 given Check labs in a.m. Plan/VTE VTE Prophylaxis Ordered?: Yes VS, I&O, [facility] Vital Signs/I&O Vital Signs Date Time Temp Pulse Resp B/P (MAP) Pulse Ox O2 Delivery O2 Flow Rate FiO2 03/31/20 09:00 2.0 03/31/20 08:00 97.8 91 19 92/54 (67) 94 Nasal Cannula I&O- Last 24 Hours up to 6 AM 03/31/20 06:00 Intake Total 540 ml Output Total 1700 ml Balance -1160 ml Laboratory Data 24H LABS Laboratory Tests 2 03/31/20 04:15: Immature Granulocyte % (Auto) 0.3, Neutrophils (%) (Auto) 65.7, Lymphocytes (%) (Auto) 14.6L, Monocytes (%) (Auto) 18.0H, Eosinophils (%) (Auto) 1.0, Basophils (%) (Auto) 0.4, Neutrophils # (Auto) 4.7, Lymphocytes # (Auto) 1.0L, Monocytes # (Auto) 1.3H, Eosinophils # (Auto) 0.1, Basophils # (Auto) 0.0, Nucleated Red Blood Cells % (auto) 0.0, Prothrombin Time 23.8H, Prothromb Time International Ratio 2.15, Anion Gap 4L, Glomerular Filtration Rate > 60.0, Calcium Level 8.7L, Magnesium Level 1.8, Total Bilirubin 0.5, Aspartate Amino Transf (AST/SGOT) 32, Alanine Aminotransferase (ALT/SGPT) 84H, Alkaline Phosphatase 96, Total Protein 6.5, Albumin 3.1L, Albumin/Globulin Ratio 0.9L CBC/BMP Laboratory Tests 03/31/20 04:15 Microbiology Microbiology 03/29/20 Urine Culture - Final, Complete Citrobacter Freundii JOHN BACH MD Mar 31, 2020 11:01
[2020-03-31 12:00] VITALS: BP 128/63
[2020-03-31] MEDS: traMADol 50 MG TAB PO PRN ×2 (12:19→21:12)
[2020-03-31 16:00] VITALS: BP 116/55
[2020-03-31] MEDS ORDERED: WARFARIN SOD 5MG TAB PO ONE (17:00)
[2020-03-31 20:00] VITALS: BP 109/56
[2020-03-31] MEDS: LISINOPRIL *2.5 MG* TAB PO SCH (21:00)
[2020-03-31] MEDS: DULoxetine 30 MG CAP (CYMBALTA) PO SCH (21:12)
[2020-03-31] MEDS: AMITRIPTYLINE 25 MG TAB PO SCH (21:12)
[2020-03-31] MEDS: zolPIDEM TARTRATE 5 MG TAB PO SCH (21:12)
[2020-04-01] VITALS: BP 119/63
[2020-04-01 04:00] VITALS: BP 114/57
[2020-04-01] MEDS: ACETAMINOPHEN TAB 650MG DOSE (2X325MG) PO PRN (04:42)
[2020-04-01 05:10] LABS: BASO % 0.6 % (0.0-1.0); EOS # 0.1 10^3/uL (0.0-0.5); HEMATOCRIT 36.4 % (36.0-47.0); HEMOGLOBIN 10.5 g/dl (12.0-15.5); LYMPH % 13.5 % (24.0-44.0); MEAN CORPUSCULAR HEMOGLOBIN 25.6 pg (27.0-33.0); MEAN CORPUSCULAR HGB CONC 28.8 g/dl (32.0-36.5); MEAN CORPUSCULAR VOLUME 88.8 fl (80.0-96.0); MONO # 1.4 10^3/uL (0.0-0.8); MONO % 19.1 % (0.0-5.0); NEUTROPHILS # 4.7 10^3/uL (1.5-8.5); NEUTROPHILS % 65.4 % (36.0-66.0); PLATELET COUNT, AUTOMATED 199 10^3/uL (150-450); WHITE BLOOD COUNT 7.2 10^3/uL (4.0-10.0)
[2020-04-01] MEDS: SLF 3 ML SYR IV SCH (05:10)
[2020-04-01 05:29] LABS: INR 3.17; PROTHROMBIN TIME 32.5 SECONDS (11.8-14.0)
[2020-04-01 05:33] LABS: ALT/SGPT 60 U/L (12-78); BILIRUBIN,TOTAL 0.3 MG/DL (0.2-1.0); BLOOD UREA NITROGEN 27 MG/DL (7-18); CALCIUM LEVEL 9.2 MG/DL (8.8-10.2); CARBON DIOXIDE LEVEL 32 MEQ/L (21-32); CHLORIDE LEVEL 102 MEQ/L (98-107); CREATININE FOR GFR 0.68 MG/DL (0.55-1.30); GLOMERULAR FILTRATION RATE > 60.0 (>39); GLUCOSE, FASTING 104 MG/DL (70-100); POTASSIUM SERUM 3.6 MEQ/L (3.5-5.1); SODIUM LEVEL 138 MEQ/L (136-145); TOTAL PROTEIN 6.4 GM/DL (6.4-8.2)
[2020-04-01] MEDS: VITAMIN D 1,000 INTERNATIONAL UNITS TABLET PO SCH (07:58)
[2020-04-01] MEDS: DOCUSATE SODIUM 100 MG CAP PO SCH (07:59)
[2020-04-01] MEDS: ASPIRIN 81 MG ENTERIC TAB PO SCH (07:59)
[2020-04-01] MEDS: predniSONE 2.5 MG TAB PO SCH (07:59)
[2020-04-01] MEDS: PANTOPRAZOLE 20 MG TAB PO SCH (07:59)
[2020-04-01] MEDS: FERROUS SULFATE 325MG TAB PO SCH (07:59)
[2020-04-01 08:00] VITALS: BP 120/56
[2020-04-01] MEDS: IPRATROPIUM 0.5MG/ALBUTEROL 2.5MG INH SOL UD 3ML (DUONEB) NEB SCH (08:00)
[2020-04-01] MEDS ORDERED: FUROSEMIDE 40 MG TAB PO SCH (09:00)
[2020-04-01] MEDS ORDERED: FURO40TA2 PO (10:31)
--- NOTE | 2020-04-01 12:06 | DS.PDOC ---
Discharge Summary General Date of Admission Mar 29, 2020 at 17:30 Date of Discharge 04/01/20 Discharge Summary PROCEDURES PERFORMED DURING STAY: None. ADMITTING DIAGNOSES: 1. CHF, anemia. DISCHARGE DIAGNOSES: 1. Acute congestive heart failure, anemia of chronic disease, COPD, rheumatoid arthritis. COMPLICATIONS/CHIEF COMPLAINT: Chf Symptomatic Anemia. HISTORY OF PRESENT ILLNESS: This is 79 years old white female who was seen at Dr. Nixon's office with tiredness and cough since last 2-3 days. She had blood work and chest x-ray done at Dr. Nixon's office and today she was called and told to come to Hospital as they found her hemoglobin to be 7.5. According to patient, she is been feeling tired for some time, but lately last few days. She is extremely tired and has been coughing. Cough is dry, nonproductive, not associated with shortness of breath, no chest pain, no palpitations. Symptoms are relieved with rest but exacerbated by exertion. No other associated symptoms. HOSPITAL COURSE: Patient was admitted with the diagnosis of acute congestive heart failure EKG shows normal sinus rhythm, no acute ST-T changes interpreted by me WBC count 5.8, hemoglobin 7.3, hematocrit 25.6, platelets 173. Electrolytes are normal. UA shows WBC with nitrates. INR is 3.31 Patient is receiving 1 unit of PRBC in the emergency room and is also scheduled to get Lasix 20 mg IV before the transfusion Patient's symptoms are most likely secondary to acute systolic heart failure and anemia most likely secondary to chronic disease Patient was admitted to PCU and started on IV Lasix with good response Patient was diagnosed later on Lasix was changed to by mouth and further decre ased to 40 mg by mouth daily as maintenance dose Patient echo was done unofficial reports is within normal limit, but unofficial report. I don't have that available but patient remained to follow-up with Dr. Nixon and get the official report and the recommendations from him. Discharge patient on all her home meds, along with the Lasix 40 mg by mouth daily Regarding an anemia which is most likely secondary to anemia of chronic disease for which he received 1 unit of PRBC and ED and maintain her hemoglobin more than 10 and patient was advised to follow with her PCP for monitoring of her hemoglobin and possible further workup needed if continues to drop. Possible patient has a history of for COPD as she has extensive history of smoking in the past Expiratory wheezing has improved with the nebulizer treatments Will start patient on DuoNeb every 8 hours scheduled Once daily to be discharged to be discharged home on Combivent as well . DISCHARGE MEDICATIONS: Please see below. ALLERGIES: Please see below. PHYSICAL EXAMINATION ON DISCHARGE: VITAL SIGNS: Please see below. GENERAL: Within normal limits HEENT: PERRLA. Extraocular muscles intact NECK: Supple CARDIOVASCULAR EXAMINATION: S1, S2, regular RESPIRATORY EXAMINATION: Clear to A&P ABDOMINAL EXAMINATION: Benign EXTREMITIES: No clubbing, cyanosis, edema SKIN: Normal NEUROLOGICAL EXAMINATION: Focal motor sensory deficit PSYCHIATRIC EXAMINATION: . Normal LABORATORY DATA: Please see below. IMAGING: Chest x-ray:Impression: Chronic changes with superimposed pulmonary vascular congestion/interstitial edema including right basilar opacity and small right pleural effusion. PROGNOSIS: Good ACTIVITY: As tolerated. DIET: As tolerated DISCHARGE PLAN: Follow with Dr. Nixon as outpatient DISPOSITION: . Home DISCHARGE INSTRUCTIONS: 1. As per discharge instructions. ITEMS TO FOLLOWUP ON ON OUTPATIENT: 1. Follow with Dr. Nixon as an outpatient. DISCHARGE CONDITION: Stable. TIME SPENT ON DISCHARGE: 35 minutes. Vital Signs/I&Os Vital Signs Date Time Temp Pulse Resp B/P (MAP) Pulse Ox O2 Delivery O2 Flow Rate FiO2 04/01/20 08:00 1.0 04/01/20 08:00 97.2 97 18 120/56 (77) 94 Nasal Cannula I&O- Last 24 Hours up to 6 AM 04/01/20 06:00 Intake Total 720 ml Output Total 1650 ml Balance -930 ml Laboratory Data Labs 24H Laboratory Tests 2 04/01/20 04:25: Immature Granulocyte % (Auto) 0.4, Neutrophils (%) (Auto) 65.4, Lymphocytes (%) (Auto) 13.5L, Monocytes (%) (Auto) 19.1H, Eosinophils (%) (Auto) 1.0, Basophils (%) (Auto) 0.6, Neutrophils # (Auto) 4.7, Lymphocytes # (Auto) 1.0L, Monocytes # (Auto) 1.4H, Eosinophils # (Auto) 0.1, Basophils # (Auto) 0.0, Nucleated Red Blood Cells % (auto) 0.0, Prothrombin Time 32.5H, Prothromb Time International Ratio 3.17, Anion Gap 4L, Glomerular Filtration Rate > 60.0, Calcium Level 9.2, Total Bilirubin 0.3, Aspartate Amino Transf (AST/SGOT) 19, Alanine Aminotrans ferase (ALT/SGPT) 60, Alkaline Phosphatase 94, Total Protein 6.4, Albumin 3.0L, Albumin/Globulin Ratio 0.9L CBC/BMP Laboratory Tests 04/01/20 04:25 Microbiology Microbiology 03/31/20 Stool Occult Blood (MELI) - Final, Complete 03/29/20 Urine Culture - Final, Complete Citrobacter Freundii Discharge Medications Scheduled Amitriptyline HCl (Amitriptyline HCl) 25 Mg Tablet, 25 MG PO QHS, (Reported) Aspirin (Ecotrin) 81 Mg Tablet.dr, 81 MG PO DAILY, (Reported) Cholecalciferol (Vitamin D3) (Vitamin D3) 1,000 Unit Tablet, 1,000 UNITS PO DAILY, (Reported) Duloxetine Hcl (Duloxetine HCl) 60 Mg Capsule.dr, 60 MG PO QHS, (Reported) Esomeprazole Magnesium (Nexium) 20 Mg Capsule.dr, 20 MG PO BID, (Reported) Ferrous Sulfate (Iron) 325 Mg Tablet, 325 MG PO DAILY, (Reported) Fluticasone/Umeclidin/Vilanter (Trelegy Ellipta 100-62.5-25) 1 Each Blst.w.dev, 1 PUFF PO DAILY, (Reported) Folic Acid (Folic Acid) 0.8 Mg Tablet, 800 MCG PO DAILY, (Reported) Furosemide (Furosemide) 40 Mg Tablet, 40 MG PO DAILY Leflunomide (Leflunomide) 20 Mg Tablet, 20 MG PO DAILY, (Reported) Lisinopril (Lisinopril) 2.5 Mg Tablet, 2.5 MG PO QHS, (Reported) Potassium Gluconate (Potassium) 99 Mg Tablet, 595 MG PO DAILY, (Reported) Prednisone (Prednisone) 2.5 Mg Tablet, 2.5 MG PO BID, (Reported) Sulfamethoxazole/Trimethoprim (Sulfamethoxazole-Tmp Ds Tablet) 1 Each Tablet, 1 TAB PO DAILY, (Reported) Warfarin Sodium (Coumadin) 4 Mg Tab, 4 MG PO DAILY, (Reported) Zolpidem Tartrate (Zolpidem Tartrate) 5 Mg Tablet, 5 MG PO QHS, (Reported) Scheduled PRN Albuterol Sulfate (Ventolin Hfa) 18 Gm Hfa.aer.ad, 2 PUFF INH Q4-6HP PRN for wheezing, (Reported) Meclizine HCl (Meclizine HCl) 25 Mg Tablet, 12.5 MG PO TID PRN for DIZZINESS, (Reported) Tramadol HCl (Tramadol HCl) 50 Mg Tablet, 50 MG PO Q6HP PRN for PAIN, (Reported) Allergies Coded Allergies: tetracycline (Verified Allergy, Unknown, RASH, 03/29/20) hyaluronate sodium, stabilized (Verified Adverse Reaction, Unknown, BODY PAIN, 03/29/20) JOHN BACH MD Apr 01, 2020 12:05
[2020-04-01] MEDS ORDERED: COMBAER6 INH (12:14)
--- NOTE | 2020-04-02 10:15 | ECHO ---
DATE OF STUDY: 04/01/2020 DATE OF : 1940 AGE: 79 GENDER: Female HEIGHT: 64 inches WEIGHT: 112 pounds BODY SURFACE AREA: 1.53 m2 INPATIENT: U Room 3219 REFERRING PHYSICIAN: Kai Lowe DO INDICATION: Congestive heart failure (CHF). MEASUREMENTS: 2-D Measurements: RV: 3.9 cm LV: 4.3 cm Septum: 1.3 cm Posterior wall: 1.3 cm Aortic root: 3.1 cm LA: 4.1 cm LVEF: 75% Doppler Measurements: AV: 2.22 m/sec LVOT: 1.03 m/sec LVOT diameter: 1.6 cm Mean AV systolic gradient: 10 mmHg Dimensionless index: 0.56 MV: E 66, A 90, EA ratio 0.7 Early mitral deceleration time: 197 ms E prime medial: 5.2, A prime medial: 7.2, E prime lateral: 8 Average E/E prime ratio: 10/PCWP 14.3 mmHg PV: 0.8 m/sec Pulmonary artery acceleration time: 99 ms RVSP: 39 mmHg IVC: 1.6 cm COMMENTS: Normal sinus rhythm without intraventricular conduction disturbance. M-mode and two-dimensional echocardiography was performed with pulsed, continuous wave, color flow and tissue Doppler studies. Mild concentric left ventricle hypertrophy with hyperkinetic wall motion. Mildly dilated left atrium with grade 1 LV diastolic dysfunction but current estimated mean left atrial pressure within normal limits. Normal right heart chamber sizes and motion with estimated pulmonary arterial pressure mildly increased. Normal IVC size and collapse against an elevated central venous pressure. Normal aortic dimensions. Appropriate function of a mechanical bileaflet aortic valve with two small aortic insufficiency jets consistent with [employer] mechanical prosthetic valve. Mild degenerative changes of the mitral valvular apparatus without inflow tract obstruction and only mild insufficiency. Normal appearing tricuspid valve with moderate insufficiency. No apparent intracardiac mass or pericardial effusion.
== END 2020-04-01 13:01 | disposition home or self-care (01) | DRG 811 ==
LOC: M ED 13:45 → M ED INP 17:30 → ENRESERV 18:12 → M PCU 19:59
PROVIDERS: ADMIT Internal Medicine; ATTEND Internal Medicine
PROC: 30233N1 Transfusion of Nonautologous Red Blood Cells into Peripheral Vein, Percutaneous Approach (ICD-10-PCS; principal; 2020-03-29)
DX: D50.0 Iron deficiency anemia secondary to blood loss (chronic) (principal); I50.21 Acute systolic (congestive) heart failure; J44.9 Chronic obstructive pulmonary disease, unspecified; M06.9 Rheumatoid arthritis, unspecified; Z79.899 Other long term (current) drug therapy; Z79.82 Long term (current) use of aspirin; Z88.8 Allergy status to other drugs, medicaments and biological substances; K21.9 Gastro-esophageal reflux disease without esophagitis; M81.0 Age-related osteoporosis without current pathological fracture; Z86.73 Personal history of transient ischemic attack (TIA), and cerebral infarction without residual deficits; I25.2 Old myocardial infarction; Z87.891 Personal history of nicotine dependence; E87.6 Hypokalemia

== ENCOUNTER → 2020-09-03 | Outpatient (REF) | payer MEDICARE ==
[~2020-09-03] MED LIST changes: -ASPI81TA85 PO; +ASPI81TA86 PO; +COMBAER6 INH; +D31000TA2 PO; +DULO1CAP6 PO; +ECOT81TA5 PO; +FOLI0.8T2 PO; +FURO40TA2 PO; +HM P99TA PO; +IRON65TA2 PO; +K-TA10TA2 PO; +LISI2.5T2 PO; +PRED25TA PO; +SULF1TAB93 PO; +TREL1AER PO; +VENTAER INH; +iron PO
== END ==
LOC: M LAB REF 16:14
PROVIDERS: ATTEND Nurse Practitioner Adult Health
DX: R20.0 Anesthesia of skin (principal)

== ENCOUNTER → 2020-10-25 | Outpatient (CLI) | payer MEDICARE ==
[~2020-10-25] MED LIST changes: -ALEN70TA74 PO; +ALEN70TA82 PO; -AMIT25TA PO; +AMIT25TA17 PO; +GABA-282 PO; -GABA-843 PO
--- NOTE | 2020-10-27 19:12 | REP ---
INDICATION: ABNORMAL FINDING OF LUNG FEILD COMPARISON: None TECHNIQUE: Axial noncontrast images from the thoracic inlet to the upper abdomen with coronal and sagittal reformations. This CT examination was performed using the following dose reduction techniques: Automated exposure control, adjustment of mA and/or kv according to the patient's size, and use of iterative reconstruction technique. FINDINGS: Examination is significantly limited due to the lack of intravenous contrast enhancement. There is a 3.3 cm subcarinal mass which may represent lymph node. Further mediastinal adenopathy cannot be excluded along with right hilar mass versus adenopathy. No pleural effusion. No pneumothorax. Chronic advanced COPD/emphysematous changes with bronchiectasis and scattered subpleural fibrosis again noted and remains stable. Atherosclerotic changes to the thoracic aorta and coronary arteries noted along with evidence for aortic valve repair. No cardiomegaly or pericardial effusion. Osseous structures demonstrate chronic stable changes. Limited upper abdomen demonstrates normal bilateral adrenal glands and evidence for prior cholecystectomy. IMPRESSION: 1. 3.3 cm subcarinal mass which may represent mediastinal adenopathy. Further mediastinal lymph nodes as well as right hilar mass versus lymph node are poorly evaluated due to the lack of intravenous contrast enhancement. 2. Advanced COPD/emphysematous changes with bronchiectasis and subpleural fibrosis/scarring. <Electronically signed by Rodolfo Lucio > 10/27/20 [id number]
== END ==
LOC: M RAD 11:13
PROVIDERS: ATTEND Physician Assistant
DX: R91.8 Other nonspecific abnormal finding of lung field (principal)

== ENCOUNTER → 2020-11-13 | Outpatient (REF) | payer MEDICARE ==
[2020-11-13 11:33] LABS: INR 2.95; PROTHROMBIN TIME 31.4 SECONDS (12.5-14.3)
== END ==
LOC: M LAB REF 11:15
PROVIDERS: ATTEND Nurse Practitioner Adult Health
DX: Z79.01 Long term (current) use of anticoagulants (principal)

== ENCOUNTER → 2021-01-03 | Outpatient (REF) | payer MEDICARE ==
[2021-01-03 13:09] LABS: INR 1.55
[2021-01-03 13:10] LABS: PARTIAL THROMBOPLASTIN TIME 38.4 SECONDS (24.2-38.5)
[2021-01-03 13:43] LABS: C REACTIVE PROTEIN QUANTITATIV 1.86 MG/DL (0.00-0.30); URIC ACID 3.5 MG/DL (2.6-6.0)
== END ==
LOC: M LAB REF 12:13
PROVIDERS: ATTEND Nurse Practitioner Adult Health
DX: Z01.818 Encounter for other preprocedural examination (principal); M79.671 Pain in right foot; M41.9 Scoliosis, unspecified

== ENCOUNTER → 2021-01-24 | Outpatient (CLI) | payer MEDICARE ==
--- NOTE | 2021-01-24 13:54 | REP ---
INDICATION: DDD. COMPARISON: 10/05/2007 the only prior TECHNIQUE: After the intravenous administration of 21.4 mCi of technetium 99 M MDP a total body bone scan was obtained FINDINGS: The dextroconvex curve seen in the lumbar spine on the prior exam is increased on today's exam. Increased radionuclide accumulation is again seen L2 and L4 regions. Degenerative type uptake pattern is again seen in the shoulders, elbows, and left wrist. Photopenic defects are now seen in the left hip and right knee consistent with previous arthroplasties. IMPRESSION: Degenerative type uptake pattern is again seen as described above with for her panic defects as described above. <Electronically signed by Hussein Pérez > 01/24/21 [id number]
== END ==
LOC: M RAD 10:17
PROVIDERS: ATTEND Physical Medicine & Rehabilitation
DX: M51.36 Other intervertebral disc degeneration, lumbar region (principal)
CPT/HCPCS: 78306; A9503

== ENCOUNTER → 2021-05-19 | Outpatient (CLI) | payer MEDICARE ==
[~2021-05-19] MED LIST changes: +BACTDSTA PO; -HM P99TA PO; +ISOVUE-370 76% 100ML VIAL ONE; -LISI2.5T2 PO; +LISI2.5T9 PO; +POTA99TA14 PO; -SULF1TAB93 PO
--- NOTE | 2021-05-19 10:58 | REP ---
INDICATION: ABN FINDING OF LUNG FIELD COMPARISON: Multiple the latest 10/25/2020 TECHNIQUE: Standard helical technique after the intravenous administration of 100 cc Isovue 370 FINDINGS: The subcarinal mass seen on the prior exams is unchanged. No new mass or adenopathy has developed. There no pleural or pericardial effusions. There is no significant change in appearance of the imaged upper abdomen or imaged osseous structures. Evaluation of the lung ramirez again shows advanced emphysematous changes status quo. There is varicoid bronchiectasis status quo. No new abnormal nodules, masses, or opacities have developed. IMPRESSION: Stable CT examination of the chest as described above. I have been given information that the subcarinal mass has been biopsied there is all of which are negative for malignancy. Close follow-up is recommended. Follow-up PET-CT should be considered. <Electronically signed by Hussein Pérez > 05/19/21 [id number]
== END ==
LOC: M PLAIMG 09:39
PROVIDERS: ATTEND Internal Medicine Pulmonary Disease
DX: R91.8 Other nonspecific abnormal finding of lung field (principal)
CPT/HCPCS: 71260; Q9967

== ENCOUNTER → 2021-09-09 | Outpatient (REF) | payer MEDICARE ==
[~2021-09-09] MED LIST changes: -ISOVUE-370 76% 100ML VIAL ONE
[2021-09-09 12:42] LABS: INR 2.86; PROTHROMBIN TIME 30.3 SECONDS (12.7-14.5)
== END ==
LOC: M LAB REF 12:06
PROVIDERS: ATTEND Internal Medicine
DX: Z79.01 Long term (current) use of anticoagulants (principal)

== ENCOUNTER → 2021-12-24 | Outpatient (REF) | payer MEDICARE ==
[~2021-12-24] MED LIST changes: -D31000TA2 PO; +VITA100093 PO
[2021-12-24 12:53] LABS: INR 2.06; PROTHROMBIN TIME 23.6 SECONDS (12.7-14.5)
== END ==
LOC: M LAB REF 12:05
PROVIDERS: ATTEND Internal Medicine
DX: Z79.01 Long term (current) use of anticoagulants (principal)

== ENCOUNTER → 2022-01-28 | Outpatient (REF) | payer MEDICARE ==
[2022-01-28 17:24] LABS: INR 2.97; PROTHROMBIN TIME 31.2 SECONDS (12.7-14.5)
== END ==
LOC: M LAB REF 16:36
PROVIDERS: ATTEND Nurse Practitioner Adult Health
DX: Z79.01 Long term (current) use of anticoagulants (principal)

== ENCOUNTER → 2022-02-19 | Outpatient (CLI) | payer MEDICARE | LOC: M WHC 10:01 | PROVIDERS: ATTEND Nurse Practitioner Adult Health | DX: Z13.820 Encounter for screening for osteoporosis (principal); M81.0 Age-related osteoporosis without current pathological fracture; M85.9 Disorder of bone density and structure, unspecified ==

== ENCOUNTER → 2022-04-03 | Outpatient (REF) | payer MEDICARE | LOC: M LAB REF 11:38 | PROVIDERS: ATTEND Nurse Practitioner Adult Health | DX: R79.82 Elevated C-reactive protein (CRP) (principal) ==

== ENCOUNTER → 2022-05-25 | Outpatient (CLI) | payer MEDICARE | LOC: M RAD 08:42 | PROVIDERS: ATTEND Internal Medicine Pulmonary Disease | DX: J43.1 Panlobular emphysema (principal); R91.8 Other nonspecific abnormal finding of lung field; J84.89 Other specified interstitial pulmonary diseases; I27.0 Primary pulmonary hypertension ==

== ENCOUNTER → 2022-10-02 | Outpatient (REF) | payer MEDICARE ==
[2022-10-02 11:32] LABS: INR 1.73; PROTHROMBIN TIME 20.6 SECONDS (12.5-14.5)
== END ==
LOC: M LAB REF 10:47
PROVIDERS: ATTEND Internal Medicine
DX: M48.062 Spinal stenosis, lumbar region with neurogenic claudication (principal)

== ENCOUNTER → 2022-11-19 | Outpatient (REF) | payer MEDICARE ==
[2022-11-19 11:13] LABS: INR 3.32; PROTHROMBIN TIME 34.2 SECONDS (12.5-14.5)
== END ==
LOC: M LAB REF 10:19
PROVIDERS: ATTEND Internal Medicine
DX: I50.32 Chronic diastolic (congestive) heart failure (principal); Z79.01 Long term (current) use of anticoagulants

== ENCOUNTER 2023-04-10 10:27 | Inpatient (IN) | payer MEDICARE ==
[~2023-04-10] VITALS: Ht 162.6 cm; Wt 40.3 kg
[~2023-04-10 10:27] MED LIST changes: +AZITHROMYCIN 250MG TABLET PO SCH; -K-TA10TA2 PO; +POTA-165 PO
[2023-04-10] MEDS ORDERED: IPRATROPIUM 0.5MG/ALBUTEROL 2.5MG INH SOL UD 3ML (DUONEB) NEB ONE (11:25)
[2023-04-10] MEDS ORDERED: ALBUTEROL SULFATE 2.5MG/0.5ML INH NEB SOLN INH ONE (11:25)
[2023-04-10 11:51] LABS: BASO % 0.1 % (0.0-1.0); EOS % 0.2 % (0.0-3.0); HEMATOCRIT 49.3 % (36.0-47.0); HEMOGLOBIN 15.5 g/dl (12.0-15.5); LYMPH # 0.8 10^3/uL (1.5-5.0); MEAN CORPUSCULAR HEMOGLOBIN 28.8 pg (27.0-33.0); MEAN CORPUSCULAR HGB CONC 31.4 g/dl (32.0-36.5); MEAN CORPUSCULAR VOLUME 91.6 fl (80.0-96.0); MONO # 0.8 10^3/uL (0.0-0.8); MONO % 8.7 % (2.0-8.0); NEUTROPHILS # 7.1 10^3/uL (1.5-8.5); NEUTROPHILS % 81.4 % (36.0-66.0); PLATELET COUNT, AUTOMATED 174 10^3/uL (150-450); RED BLOOD COUNT 5.38 10^6/uL (4.00-5.40); WHITE BLOOD COUNT 8.8 10^3/uL (4.0-10.0)
[2023-04-10] MEDS: guaiFENesin SYRUP 200MG 10ML UDC PO SCH ×2 (12:00→16:50)
[2023-04-10 12:07] LABS: PROTHROMBIN TIME 57.2 SECONDS (12.5-14.5)
[2023-04-10 12:08] LABS: ABG BASE EXCESS 1.3 (-2.0-2.0); ABG HCO3 25.8 MMOL/L (22.0-26.0); ABG O2 SATURATION 99.2 % (95.0-99.0); ABG PARTIAL PRESSURE CO2 40.7 mmHg (35.0-45.0); ABG PARTIAL PRESSURE O2 150.1 mmHg (75.0-100.0); ABG STANDARD HCO3 25.6 MMOL/L. (22.0-26.0); ABG TOTAL CO2 27.1 MMOL/L (23.0-31.0)
[2023-04-10 12:09] LABS: INR 6.41
[2023-04-10 12:18] LABS: ALBUMIN 3.4 G/DL (3.2-5.2); ALKALINE PHOSPHATASE 95 U/L (46-116); ALT/SGPT 11 U/L (7.0-40); AST/SGOT 14 U/L (<34); BILIRUBIN,DIRECT 0.2 MG/DL (<0.4); BILIRUBIN,TOTAL 0.4 MG/DL (0.3-1.2); BLOOD UREA NITROGEN 16 MG/DL (9-23); CALCIUM LEVEL 8.9 MG/DL (8.3-10.6); CARBON DIOXIDE LEVEL 31 MMOL/L (20-31); CHLORIDE LEVEL 98 MMOL/L (98-107); CK-MB VALUE MASS 1.5 NG/ML (<3.6); CPK CREATINE PHOSPHOKINASE 46 U/L (34-145); CREATININE FOR GFR 0.54 MG/DL (0.55-1.30); GLOMERULAR FILTRATION RATE > 60.0 (>32); GLUCOSE, FASTING 100 MG/DL (74-106); MB/CK RELATIVE INDEX 3.26 (< OR =4); POTASSIUM SERUM 4.3 MMOL/L (3.5-5.1); SODIUM LEVEL 134 MMOL/L (136-145); TOTAL PROTEIN 6.9 G/DL (5.7-8.2)
[2023-04-10 12:19] LABS: THYROXINE (T4) 9.1 UG/DL (4.5-10.9)
[2023-04-10] MEDS ORDERED: ACETAMINOPHEN TAB 650MG DOSE (2X325MG) PO ONE ×2 (12:40→19:00)
[2023-04-10 13:14] LABS: CK-MB VALUE MASS 3.3 NG/ML (<3.6)
[2023-04-10 13:15] LABS: MB/CK RELATIVE INDEX 7.33 (< OR =4)
[2023-04-10] MEDS ORDERED: MED REC IN PROGRESS XX SCH (13:55)
[2023-04-10 14:44] LABS: PROCALCITONIN 0.27 ng/ml
[2023-04-10] MEDS ORDERED: cefTRIAXone SOD 1 GM in D5W MINI-BAG PLUS 50 ML IV SCH (15:00)
[2023-04-10] MEDS ORDERED: methylPREDNISolone 125MG 2ML VIAL IV ONE (15:00)
[2023-04-10] MEDS ORDERED: GABA-282 PO (15:08)
[2023-04-10] MEDS ORDERED: HOME MED LIST COMPLETE! XX SCH (15:15)
[2023-04-10 15:40] VITALS: BP 120/64; TEMP 97.6; O2SAT 96
[2023-04-10] MEDS: BACTRIM 160MG/800MG DS TAB PO SCH (16:50)
[2023-04-10] MEDS: FERROUS SULFATE 325MG TAB PO SCH (16:50)
[2023-04-10] MEDS: VITAMIN D 1,000 INTERNATIONAL UNITS TABLET PO SCH (16:50)
[2023-04-10] MEDS: ASPIRIN 81MG ENTERIC TABLET PO SCH (16:50)
[2023-04-10] MEDS: FUROSEMIDE 40 MG TAB PO SCH (16:51)
[2023-04-10] MEDS: traMADol 50 MG TAB PO PRN (16:51)
[2023-04-10] MEDS: GABAPENTIN 300 MG CAP PO SCH ×2 (16:51→20:45)
[2023-04-10] MEDS: IPRATROPIUM 0.5MG/ALBUTEROL 2.5MG INH SOL UD 3ML (DUONEB) NEB SCH ×3 (18:11→23:55)
[2023-04-10] MEDS ORDERED: ALBUTEROL SULFATE 2.5MG/0.5ML INH NEB SOLN NEB PRN (19:45)
[2023-04-10 20:18] VITALS: BP 102/56; TEMP 97.4; O2SAT 96
[2023-04-10] MEDS: ADVAIR HFA 115/21MCG INHALER INH SCH (20:19)
[2023-04-10] MEDS: DULoxetine 30MG CAPSULE (CYMBALTA) PO SCH (20:45)
[2023-04-10] MEDS: AMITRIPTYLINE 25MG TABLET PO SCH (20:45)
[2023-04-10] MEDS: methylPREDNISolone 40MG 1ML VIAL IV SCH (20:45)
[2023-04-10] MEDS: zolPIDEM TARTRATE 5 MG TAB PO SCH (20:45)
[2023-04-10] MEDS: PANTOPRAZOLE 20 MG TAB PO SCH (20:45)
[2023-04-11] MEDS: guaiFENesin SYRUP 200MG 10ML UDC PO SCH ×4 (00:10→18:07)
[2023-04-11 00:27] VITALS: BP 138/62; TEMP 97.9; O2SAT 97
[2023-04-11] MEDS: methylPREDNISolone 40MG 1ML VIAL IV SCH ×3 (02:56→18:06)
[2023-04-11] MEDS: IPRATROPIUM 0.5MG/ALBUTEROL 2.5MG INH SOL UD 3ML (DUONEB) NEB SCH ×4 (04:00→19:45)
[2023-04-11 04:42] VITALS: BP 146/89; TEMP 97; O2SAT 96
[2023-04-11 05:08] LABS: HEMATOCRIT 48.9 % (36.0-47.0); HEMOGLOBIN 15.2 g/dl (12.0-15.5); MEAN CORPUSCULAR HEMOGLOBIN 28.6 pg (27.0-33.0); MEAN CORPUSCULAR HGB CONC 31.1 g/dl (32.0-36.5); MEAN CORPUSCULAR VOLUME 91.9 fl (80.0-96.0); PLATELET COUNT, AUTOMATED 163 10^3/uL (150-450); RED BLOOD COUNT 5.32 10^6/uL (4.00-5.40); WHITE BLOOD COUNT 3.5 10^3/uL (4.0-10.0)
[2023-04-11 05:26] LABS: INR 4.59; PROTHROMBIN TIME 44.1 SECONDS (12.5-14.5)
[2023-04-11 05:48] LABS: BLOOD UREA NITROGEN 31 MG/DL (9-23); CALCIUM LEVEL 9.2 MG/DL (8.3-10.6); CARBON DIOXIDE LEVEL 33 MMOL/L (20-31); CHLORIDE LEVEL 100 MMOL/L (98-107); CREATININE FOR GFR 0.63 MG/DL (0.55-1.30); GLOMERULAR FILTRATION RATE > 60.0 (>32); GLUCOSE, FASTING 154 MG/DL (74-106); MAGNESIUM LEVEL 1.8 MG/DL (1.8-2.4); PHOSPHORUS LEVEL 3.9 MG/DL (2.4-5.1); POTASSIUM SERUM 4.4 MMOL/L (3.5-5.1); SODIUM LEVEL 140 MMOL/L (136-145)
[2023-04-11 07:54] VITALS: BP 116/57; TEMP 97.4; O2SAT 96
[2023-04-11] MEDS: ADVAIR HFA 115/21MCG INHALER INH SCH ×2 (07:59→19:45)
[2023-04-11] MEDS: ASPIRIN 81MG ENTERIC TABLET PO SCH (10:16)
[2023-04-11] MEDS: VITAMIN D 1,000 INTERNATIONAL UNITS TABLET PO SCH (10:17)
[2023-04-11] MEDS: BACTRIM 160MG/800MG DS TAB PO SCH (10:17)
[2023-04-11] MEDS: FUROSEMIDE 40 MG TAB PO SCH (10:17)
[2023-04-11] MEDS: FERROUS SULFATE 325MG TAB PO SCH (10:17)
[2023-04-11] MEDS: GABAPENTIN 300 MG CAP PO SCH ×3 (10:17→20:59)
[2023-04-11] MEDS: PANTOPRAZOLE 20 MG TAB PO SCH ×2 (10:22→20:59)
[2023-04-11] MEDS: traMADol 50 MG TAB PO PRN (12:32)
[2023-04-11 16:00] VITALS: BP 112/57; TEMP 97.6; O2SAT 97
[2023-04-11] MEDS ORDERED: ACETAMINOPHEN 500 MG TAB PO ONE (18:15)
[2023-04-11] MEDS: zolPIDEM TARTRATE 5 MG TAB PO SCH (20:58)
[2023-04-11] MEDS: DULoxetine 30MG CAPSULE (CYMBALTA) PO SCH (20:59)
[2023-04-11] MEDS: AMITRIPTYLINE 25MG TABLET PO SCH (20:59)
[2023-04-11 23:37] VITALS: BP 126/61; TEMP 97.1; O2SAT 96
[2023-04-12] MEDS: guaiFENesin SYRUP 200MG 10ML UDC PO SCH ×4 (00:27→18:16)
[2023-04-12] MEDS: IPRATROPIUM 0.5MG/ALBUTEROL 2.5MG INH SOL UD 3ML (DUONEB) NEB SCH ×4 (01:28→20:15)
[2023-04-12] MEDS: methylPREDNISolone 40MG 1ML VIAL IV SCH ×2 (03:15→15:25)
[2023-04-12 05:53] LABS: HEMOGLOBIN 14.9 g/dl (12.0-15.5); MEAN CORPUSCULAR HEMOGLOBIN 28.9 pg (27.0-33.0); MEAN CORPUSCULAR HGB CONC 31.7 g/dl (32.0-36.5); MEAN CORPUSCULAR VOLUME 91.3 fl (80.0-96.0); PLATELET COUNT, AUTOMATED 187 10^3/uL (150-450); RED BLOOD COUNT 5.15 10^6/uL (4.00-5.40); WHITE BLOOD COUNT 9.2 10^3/uL (4.0-10.0)
[2023-04-12 05:58] LABS: INR 2.85; PROTHROMBIN TIME 30.4 SECONDS (12.5-14.5)
[2023-04-12 06:10] LABS: BLOOD UREA NITROGEN 45 MG/DL (9-23); CALCIUM LEVEL 9.2 MG/DL (8.3-10.6); CARBON DIOXIDE LEVEL 33 MMOL/L (20-31); CHLORIDE LEVEL 101 MMOL/L (98-107); CREATININE FOR GFR 0.69 MG/DL (0.55-1.30); GLOMERULAR FILTRATION RATE > 60.0 (>32); GLUCOSE, FASTING 148 MG/DL (74-106); MAGNESIUM LEVEL 1.7 MG/DL (1.8-2.4); PHOSPHORUS LEVEL 2.6 MG/DL (2.4-5.1); POTASSIUM SERUM 4.3 MMOL/L (3.5-5.1); SODIUM LEVEL 139 MMOL/L (136-145)
[2023-04-12] MEDS: ADVAIR HFA 115/21MCG INHALER INH SCH ×2 (07:12→20:15)
[2023-04-12] MEDS ORDERED: MAG SULF 1GM/100ML (MAG RUN) 1 GM in IV 1 EA IV ONE (07:15)
[2023-04-12 08:19] VITALS: BP 136/72; TEMP 97.8; O2SAT 91
[2023-04-12] MEDS: VITAMIN D 1,000 INTERNATIONAL UNITS TABLET PO SCH (08:35)
[2023-04-12] MEDS: PANTOPRAZOLE 20 MG TAB PO SCH ×2 (08:35→20:00)
[2023-04-12] MEDS: ASPIRIN 81MG ENTERIC TABLET PO SCH (08:35)
[2023-04-12] MEDS: GABAPENTIN 300 MG CAP PO SCH ×3 (08:35→19:59)
[2023-04-12] MEDS: BACTRIM 160MG/800MG DS TAB PO SCH (08:36)
[2023-04-12] MEDS: FERROUS SULFATE 325MG TAB PO SCH (08:36)
[2023-04-12] MEDS: FUROSEMIDE 40 MG TAB PO SCH (08:36)
[2023-04-12] MEDS: traMADol 50 MG TAB PO PRN ×2 (08:36→20:01)
[2023-04-12] MEDS: ACETAMINOPHEN TAB 650MG DOSE (2X325MG) PO PRN (15:25)
[2023-04-12 15:35] VITALS: BP 128/68; TEMP 97.4; O2SAT 92
[2023-04-12] MEDS ORDERED: ISOVUE-370 76% 100ML VIAL As Ordered ONE (16:02)
[2023-04-12] MEDS ORDERED: WARFARIN SOD 4MG TAB PO SCH (17:00)
[2023-04-12] MEDS: guaiFENesin ER 600 MG TAB PO SCH (20:00)
[2023-04-12] MEDS: AMITRIPTYLINE 25MG TABLET PO SCH (20:00)
[2023-04-12] MEDS: zolPIDEM TARTRATE 5 MG TAB PO SCH (20:00)
[2023-04-12] MEDS: DULoxetine 30MG CAPSULE (CYMBALTA) PO SCH (20:00)
[2023-04-12 20:24] VITALS: BP 127/62; TEMP 97.4; O2SAT 92
[2023-04-12 22:19] VITALS: BP 124/70; TEMP 97.9; O2SAT 92
[2023-04-13] MEDS: ACETAMINOPHEN TAB 650MG DOSE (2X325MG) PO PRN (01:29)
[2023-04-13] MEDS: IPRATROPIUM 0.5MG/ALBUTEROL 2.5MG INH SOL UD 3ML (DUONEB) NEB SCH ×2 (01:46→07:21)
[2023-04-13] MEDS: methylPREDNISolone 40MG 1ML VIAL IV SCH (02:18)
[2023-04-13] MEDS: traMADol 50 MG TAB PO PRN (02:19)
[2023-04-13 06:23] LABS: BASO % 0.1 % (0.0-1.0); HEMATOCRIT 44.3 % (36.0-47.0); HEMOGLOBIN 13.8 g/dl (12.0-15.5); LYMPH # 0.4 10^3/uL (1.5-5.0); LYMPH % 6.1 % (24.0-44.0); MEAN CORPUSCULAR HEMOGLOBIN 28.5 pg (27.0-33.0); MEAN CORPUSCULAR HGB CONC 31.2 g/dl (32.0-36.5); MEAN CORPUSCULAR VOLUME 91.3 fl (80.0-96.0); MONO # 0.2 10^3/uL (0.0-0.8); MONO % 2.4 % (2.0-8.0); NEUTROPHILS # 6.4 10^3/uL (1.5-8.5); NEUTROPHILS % 90.5 % (36.0-66.0); PLATELET COUNT, AUTOMATED 163 10^3/uL (150-450); RED BLOOD COUNT 4.85 10^6/uL (4.00-5.40); WHITE BLOOD COUNT 7.1 10^3/uL (4.0-10.0)
[2023-04-13 06:33] LABS: INR 3.12; PROTHROMBIN TIME 32.6 SECONDS (12.5-14.5)
[2023-04-13 06:43] VITALS: BP 130/68; TEMP 97.2; O2SAT 93
[2023-04-13 06:48] LABS: BLOOD UREA NITROGEN 51 MG/DL (9-23); CALCIUM LEVEL 9.3 MG/DL (8.3-10.6); CARBON DIOXIDE LEVEL 33 MMOL/L (20-31); CHLORIDE LEVEL 102 MMOL/L (98-107); CREATININE FOR GFR 0.59 MG/DL (0.55-1.30); GLOMERULAR FILTRATION RATE > 60.0 (>32); GLUCOSE, FASTING 129 MG/DL (74-106); MAGNESIUM LEVEL 1.9 MG/DL (1.8-2.4); POTASSIUM SERUM 4.4 MMOL/L (3.5-5.1); SODIUM LEVEL 140 MMOL/L (136-145)
[2023-04-13] MEDS: ADVAIR HFA 115/21MCG INHALER INH SCH (07:21)
[2023-04-13] MEDS ORDERED: PRED10TA2 PO (08:37)
[2023-04-13] MEDS: BACTRIM 160MG/800MG DS TAB PO SCH (09:51)
[2023-04-13] MEDS: FERROUS SULFATE 325MG TAB PO SCH (09:52)
[2023-04-13] MEDS: VITAMIN D 1,000 INTERNATIONAL UNITS TABLET PO SCH (09:52)
[2023-04-13] MEDS: GABAPENTIN 300 MG CAP PO SCH (09:52)
[2023-04-13] MEDS: guaiFENesin ER 600 MG TAB PO SCH (09:53)
[2023-04-13] MEDS: ASPIRIN 81MG ENTERIC TABLET PO SCH (09:53)
[2023-04-13] MEDS: PANTOPRAZOLE 20 MG TAB PO SCH (09:54)
[2023-04-13] MEDS: FUROSEMIDE 40 MG TAB PO SCH (09:58)
[2023-04-13] MEDS ORDERED: PRED20TA PO (12:11)
== END 2023-04-13 13:20 | disposition home health service (06) | DRG 189 ==
LOC: EDBD 10:27 → M ED 10:27 → M ED INP 14:01 → M PCU 15:33 → M MS5PR 04-12 22:18
PROVIDERS: ADMIT Internal Medicine; ATTEND Internal Medicine
DX: J96.21 Acute and chronic respiratory failure with hypoxia (principal); J44.1 Chronic obstructive pulmonary disease with (acute) exacerbation; J84.9 Interstitial pulmonary disease, unspecified; I25.2 Old myocardial infarction; I50.9 Heart failure, unspecified; K21.9 Gastro-esophageal reflux disease without esophagitis; M81.0 Age-related osteoporosis without current pathological fracture; I25.10 Atherosclerotic heart disease of native coronary artery without angina pectoris; M06.9 Rheumatoid arthritis, unspecified; F41.9 Anxiety disorder, unspecified; D50.9 Iron deficiency anemia, unspecified; F32.A Depression, unspecified; G47.00 Insomnia, unspecified; F17.210 Nicotine dependence, cigarettes, uncomplicated; B34.8 Other viral infections of unspecified site; Z95.2 Presence of prosthetic heart valve; Z86.73 Personal history of transient ischemic attack (TIA), and cerebral infarction without residual deficits; Z90.49 Acquired absence of other specified parts of digestive tract; Z90.79 Acquired absence of other genital organ(s); Z99.81 Dependence on supplemental oxygen; Z79.52 Long term (current) use of systemic steroids; Z79.899 Other long term (current) drug therapy; Z79.82 Long term (current) use of aspirin; Z79.01 Long term (current) use of anticoagulants; Z88.1 Allergy status to other antibiotic agents; Z88.8 Allergy status to other drugs, medicaments and biological substances; Z20.822 Contact with and (suspected) exposure to COVID-19

== ENCOUNTER 2023-04-19 13:22 | Inpatient (IN) | payer MEDICARE ==
[~2023-04-19] VITALS: Ht 162.6 cm; Wt 38.3 kg
[~2023-04-19 13:22] MED LIST changes: -AZITHROMYCIN 250MG TABLET PO SCH; +PRED10TA2 PO
[2023-04-19] MEDS ORDERED: ACETAMINOPHEN TAB 650MG DOSE (2X325MG) PO ONE (14:20)
[2023-04-19] MEDS ORDERED: IPRATROPIUM 0.5MG/ALBUTEROL 2.5MG INH SOL UD 3ML (DUONEB) NEB ONE (14:20)
[2023-04-19 15:11] LABS: VENOUS BASE EXCESS 4.2 (-2.0-2.0); VENOUS HCO3 30.5 MMOL/L (23.0-27.0); VENOUS O2 SATURATION 97.1 % (60.0-80.0); VENOUS PARTIAL PRESSURE CO2 51.6 mmHg (38.0-50.0); VENOUS PARTIAL PRESSURE O2 98.7 mmHg (30.0-50.0); VENOUS STANDARD HCO3 28.2 MMOL/L; VENOUS TOTAL CO2 32.1 MMOL/L (24.0-28.0)
[2023-04-19 15:14] LABS: BASO # 0.1 10^3/uL (0.0-0.2); BASO % 0.2 % (0.0-1.0); EOS % 0.1 % (0.0-3.0); HEMATOCRIT 50.2 % (36.0-47.0); HEMOGLOBIN 15.7 g/dl (12.0-15.5); LYMPH # 0.5 10^3/uL (1.5-5.0); LYMPH % 2.2 % (24.0-44.0); MEAN CORPUSCULAR HEMOGLOBIN 28.5 pg (27.0-33.0); MEAN CORPUSCULAR HGB CONC 31.3 g/dl (32.0-36.5); MEAN CORPUSCULAR VOLUME 91.3 fl (80.0-96.0); MONO # 1.2 10^3/uL (0.0-0.8); NEUTROPHILS # 21.9 10^3/uL (1.5-8.5); NEUTROPHILS % 91.4 % (36.0-66.0); PLATELET COUNT, AUTOMATED 200 10^3/uL (150-450)
[2023-04-19 15:43] LABS: PROTHROMBIN TIME 80.8 SECONDS (12.5-14.5)
[2023-04-19 15:43] LABS: ALBUMIN 3.7 G/DL (3.2-5.2); ALKALINE PHOSPHATASE 80 U/L (46-116); ALT/SGPT 32 U/L (7.0-40); AST/SGOT 15 U/L (<34); BILIRUBIN,DIRECT 0.2 MG/DL (<0.4); BILIRUBIN,TOTAL 0.7 MG/DL (0.3-1.2); BLOOD UREA NITROGEN 22 MG/DL (9-23); CALCIUM LEVEL 9.9 MG/DL (8.3-10.6); CARBON DIOXIDE LEVEL 32 MMOL/L (20-31); CHLORIDE LEVEL 94 MMOL/L (98-107); CREATININE FOR GFR 0.69 MG/DL (0.55-1.30); GLOMERULAR FILTRATION RATE > 60.0 (>32); GLUCOSE, FASTING 115 MG/DL (74-106); POTASSIUM SERUM 4.6 MMOL/L (3.5-5.1); SODIUM LEVEL 135 MMOL/L (136-145); THYROID STIMULATING HORMONE 1.249 uIU/ML (0.55-4.78); TOTAL PROTEIN 6.5 G/DL (5.7-8.2)
[2023-04-19 16:05] LABS: INR 9.97
[2023-04-19] MEDS ORDERED: ACETAMINOPHEN TAB 650MG DOSE (2X325MG) PO PRN (17:10)
[2023-04-19] MEDS ORDERED: LR 1,000 ML IV ONE (17:10)
[2023-04-19] MEDS ORDERED: MOM 30ML SUSPENSION UDC PO PRN (17:10)
[2023-04-19] MEDS ORDERED: PIPERACILLIN/TAZOBACTAM SOD 3.375 GM in D5W MINI-BAG PLUS 50 ML IV SCH (17:10)
[2023-04-19] MEDS ORDERED: ISOVUE-370 76% 100ML VIAL As Ordered ONE (17:14)
[2023-04-19] MEDS ORDERED: PHYTONADIONE 5 MG TAB PO ONE (17:50)
[2023-04-19] MEDS ORDERED: MORPHINE 4 MG/ML 1ML VIAL IV PRN (17:55)
[2023-04-19 18:50] LABS: PROCALCITONIN 0.32 ng/ml
[2023-04-19] MEDS ORDERED: FOLI400T13 PO (19:31)
[2023-04-19] MEDS ORDERED: PRED10TA2 PO (19:31)
[2023-04-19] MEDS ORDERED: WARF-20 PO (19:31)
[2023-04-19] MEDS ORDERED: HOME MED LIST COMPLETE! XX SCH (19:35)
[2023-04-19] MEDS: PIPERACILLIN/TAZOBACTAM SOD 4.5 GM in D5W MINI-BAG PLUS 50 ML IV SCH (20:19)
[2023-04-19] MEDS ORDERED: NS 1,000 ML IV ONE (20:45)
[2023-04-19] MEDS ORDERED: VANCOMYCIN HCL 1,000 MG, VIAL MATE ADAPTER 1 EACH in NS 250 ML IV ONE (21:30)
[2023-04-19] MEDS: DOCUSATE SODIUM 100MG CAPSULE PO SCH (22:20)
[2023-04-19] MEDS ORDERED: ALBUTEROL 90 MCG/ACT 8GM HFA INHALER INH PRN (23:30)
[2023-04-20] MEDS: IPRATROPIUM 0.5MG/ALBUTEROL 2.5MG INH SOL UD 3ML (DUONEB) NEB SCH ×8 (00:34→23:10)
[2023-04-20] MEDS: SENNA 8.6 MG TAB (SENOKOT) PO SCH ×3 (01:15→20:20)
[2023-04-20] MEDS: PIPERACILLIN/TAZOBACTAM SOD 4.5 GM in D5W MINI-BAG PLUS 50 ML IV SCH ×4 (01:15→18:41)
[2023-04-20] MEDS: DULoxetine 30MG CAPSULE (CYMBALTA) PO SCH ×2 (01:15→20:20)
[2023-04-20] MEDS: GABAPENTIN 300 MG CAP PO SCH ×4 (01:15→20:20)
[2023-04-20] MEDS: PANTOPRAZOLE 20 MG TAB PO SCH ×3 (01:16→20:20)
[2023-04-20 05:35] LABS: BASO % 0.2 % (0.0-1.0); HEMATOCRIT 43.6 % (36.0-47.0); HEMOGLOBIN 13.8 g/dl (12.0-15.5); LYMPH # 0.6 10^3/uL (1.5-5.0); LYMPH % 5.3 % (24.0-44.0); MEAN CORPUSCULAR HEMOGLOBIN 28.5 pg (27.0-33.0); MEAN CORPUSCULAR HGB CONC 31.7 g/dl (32.0-36.5); MEAN CORPUSCULAR VOLUME 90.1 fl (80.0-96.0); MONO # 0.9 10^3/uL (0.0-0.8); MONO % 8.2 % (2.0-8.0); NEUTROPHILS # 9.6 10^3/uL (1.5-8.5); NEUTROPHILS % 85.8 % (36.0-66.0); PLATELET COUNT, AUTOMATED 160 10^3/uL (150-450); RED BLOOD COUNT 4.84 10^6/uL (4.00-5.40); WHITE BLOOD COUNT 11.2 10^3/uL (4.0-10.0)
[2023-04-20 05:50] LABS: PROTHROMBIN TIME 71.1 SECONDS (12.5-14.5)
[2023-04-20 05:58] LABS: INR 8.47
[2023-04-20 06:03] LABS: BLOOD UREA NITROGEN 20 MG/DL (9-23); CALCIUM LEVEL 8.8 MG/DL (8.3-10.6); CARBON DIOXIDE LEVEL 32 MMOL/L (20-31); CHLORIDE LEVEL 102 MMOL/L (98-107); CREATININE FOR GFR 0.65 MG/DL (0.55-1.30); GLOMERULAR FILTRATION RATE > 60.0 (>32); GLUCOSE, FASTING 97 MG/DL (74-106); LIPASE 125 U/L (12-53); POTASSIUM SERUM 4.2 MMOL/L (3.5-5.1); SODIUM LEVEL 139 MMOL/L (136-145)
[2023-04-20 08:36] LABS: VANCOMYCIN RANDOM 10.5 UG/ML
[2023-04-20] MEDS: FERROUS SULFATE 325MG TAB PO SCH (09:57)
[2023-04-20] MEDS: DOCUSATE SODIUM 100MG CAPSULE PO SCH ×2 (09:57→20:20)
[2023-04-20] MEDS: ACETAMINOPHEN 500 MG TAB PO PRN ×2 (10:03→22:57)
[2023-04-20] MEDS: VANCOMYCIN HCL 750 MG, VIAL MATE ADAPTER 1 EACH in D5W 250 ML IV SCH ×2 (11:49→22:51)
[2023-04-20 14:41] LABS: PROCALCITONIN 0.42 ng/ml
[2023-04-20 17:30] VITALS: BP 110/57; TEMP 97.2; O2SAT 93
[2023-04-20 21:00] VITALS: BP 105/57; TEMP 97.9; O2SAT 94
[2023-04-20 21:36] VITALS: O2SAT 96
[2023-04-20] MEDS ORDERED: MAALOX 30 ML SUSP *UDC PO PRN (22:35)
[2023-04-20] MEDS: zolPIDEM TARTRATE 5 MG TAB PO PRN (22:53)
[2023-04-20 22:58] VITALS: O2SAT 92
[2023-04-20] MEDS ORDERED: traMADol 50 MG TAB PO PRN (23:40)
[2023-04-21] MEDS: PIPERACILLIN/TAZOBACTAM SOD 4.5 GM in D5W MINI-BAG PLUS 50 ML IV SCH ×3 (00:08→14:02)
[2023-04-21 01:50] VITALS: BP 104/58; TEMP 97.7; O2SAT 93
[2023-04-21] MEDS: IPRATROPIUM 0.5MG/ALBUTEROL 2.5MG INH SOL UD 3ML (DUONEB) NEB SCH ×6 (03:34→23:03)
[2023-04-21 05:30] VITALS: BP 107/56; TEMP 97; O2SAT 96
[2023-04-21 06:33] LABS: BASO % 0.2 % (0.0-1.0); EOS # 0.1 10^3/uL (0.0-0.5); EOS % 0.9 % (0.0-3.0); HEMATOCRIT 40.8 % (36.0-47.0); LYMPH # 0.8 10^3/uL (1.5-5.0); LYMPH % 12.2 % (24.0-44.0); MEAN CORPUSCULAR HGB CONC 31.9 g/dl (32.0-36.5); MEAN CORPUSCULAR VOLUME 91.1 fl (80.0-96.0); MONO # 0.7 10^3/uL (0.0-0.8); MONO % 10.4 % (2.0-8.0); NEUTROPHILS # 4.8 10^3/uL (1.5-8.5); NEUTROPHILS % 75.7 % (36.0-66.0); PLATELET COUNT, AUTOMATED 128 10^3/uL (150-450); RED BLOOD COUNT 4.48 10^6/uL (4.00-5.40); WHITE BLOOD COUNT 6.4 10^3/uL (4.0-10.0)
[2023-04-21 06:57] LABS: BLOOD UREA NITROGEN 25 MG/DL (9-23); CALCIUM LEVEL 8.5 MG/DL (8.3-10.6); CARBON DIOXIDE LEVEL 30 MMOL/L (20-31); CHLORIDE LEVEL 103 MMOL/L (98-107); CREATININE FOR GFR 0.58 MG/DL (0.55-1.30); GLOMERULAR FILTRATION RATE > 60.0 (>32); GLUCOSE, FASTING 88 MG/DL (74-106); POTASSIUM SERUM 3.9 MMOL/L (3.5-5.1); SODIUM LEVEL 140 MMOL/L (136-145)
[2023-04-21 07:03] LABS: INR 3.07; PROTHROMBIN TIME 32.2 SECONDS (12.5-14.5)
[2023-04-21] MEDS: SENNA 8.6 MG TAB (SENOKOT) PO SCH ×2 (09:43→20:53)
[2023-04-21] MEDS: predniSONE 10MG TAB PO SCH (09:43)
[2023-04-21] MEDS: DOCUSATE SODIUM 100MG CAPSULE PO SCH ×2 (09:43→20:53)
[2023-04-21] MEDS: GABAPENTIN 300 MG CAP PO SCH ×3 (09:43→20:10)
[2023-04-21] MEDS: FERROUS SULFATE 325MG TAB PO SCH (09:43)
[2023-04-21] MEDS: PANTOPRAZOLE 20 MG TAB PO SCH ×2 (09:43→20:10)
[2023-04-21] MEDS: ASPIRIN 81MG ENTERIC TABLET PO SCH (09:43)
[2023-04-21] MEDS: PERCOCET 5MG/325MG TAB PO PRN ×3 (09:51→22:12)
[2023-04-21 10:00] VITALS: BP 118/62; TEMP 97.7; O2SAT 97
[2023-04-21 14:00] VITALS: BP 115/69; TEMP 97.7; O2SAT 94
[2023-04-21] MEDS: MEROPENEM INJ 1 GM in IV 1 EA IV SCH (17:45)
[2023-04-21] MEDS: WARFARIN SOD 4MG TAB PO SCH (17:45)
[2023-04-21 18:21] VITALS: BP 117/67; TEMP 97.7; O2SAT 96
[2023-04-21] MEDS: DULoxetine 30MG CAPSULE (CYMBALTA) PO SCH (20:10)
[2023-04-21] MEDS: VANCOMYCIN HCL 750 MG, VIAL MATE ADAPTER 1 EACH in D5W 250 ML IV SCH (20:17)
[2023-04-21 21:20] VITALS: BP 102/53; TEMP 97.7; O2SAT 93
[2023-04-21] MEDS: zolPIDEM TARTRATE 5 MG TAB PO PRN (22:11)
[2023-04-22 01:50] VITALS: BP 121/75; TEMP 97.5; O2SAT 97
[2023-04-22] MEDS: ACETAMINOPHEN 500 MG TAB PO PRN ×2 (01:50→18:46)
[2023-04-22] MEDS: MEROPENEM INJ 1 GM in IV 1 EA IV SCH ×3 (01:51→21:31)
[2023-04-22] MEDS: PERCOCET 5MG/325MG TAB PO PRN ×4 (02:54→21:31)
[2023-04-22] MEDS: IPRATROPIUM 0.5MG/ALBUTEROL 2.5MG INH SOL UD 3ML (DUONEB) NEB SCH ×6 (03:04→23:29)
[2023-04-22 05:20] VITALS: BP 143/73; TEMP 98.1; O2SAT 98
[2023-04-22 06:15] LABS: BASO % 0.2 % (0.0-1.0); EOS # 0.1 10^3/uL (0.0-0.5); EOS % 1.4 % (0.0-3.0); HEMOGLOBIN 12.3 g/dl (12.0-15.5); LYMPH # 1.3 10^3/uL (1.5-5.0); LYMPH % 22.2 % (24.0-44.0); MEAN CORPUSCULAR HEMOGLOBIN 29.1 pg (27.0-33.0); MEAN CORPUSCULAR HGB CONC 31.5 g/dl (32.0-36.5); MEAN CORPUSCULAR VOLUME 92.2 fl (80.0-96.0); MONO # 0.9 10^3/uL (0.0-0.8); MONO % 15.1 % (2.0-8.0); NEUTROPHILS # 3.6 10^3/uL (1.5-8.5); NEUTROPHILS % 60.1 % (36.0-66.0); PLATELET COUNT, AUTOMATED 131 10^3/uL (150-450); RED BLOOD COUNT 4.23 10^6/uL (4.00-5.40); WHITE BLOOD COUNT 5.9 10^3/uL (4.0-10.0)
[2023-04-22 06:25] LABS: INR 1.99; PROTHROMBIN TIME 22.9 SECONDS (12.5-14.5)
[2023-04-22 06:49] LABS: BLOOD UREA NITROGEN 22 MG/DL (9-23); CALCIUM LEVEL 8.8 MG/DL (8.3-10.6); CARBON DIOXIDE LEVEL 33 MMOL/L (20-31); CHLORIDE LEVEL 104 MMOL/L (98-107); GLOMERULAR FILTRATION RATE > 60.0 (>32); GLUCOSE, FASTING 82 MG/DL (74-106); POTASSIUM SERUM 4.1 MMOL/L (3.5-5.1); SODIUM LEVEL 138 MMOL/L (136-145)
[2023-04-22] MEDS: VANCOMYCIN HCL 750 MG, VIAL MATE ADAPTER 1 EACH in D5W 250 ML IV SCH ×2 (07:46→20:23)
[2023-04-22] MEDS: ASPIRIN 81MG ENTERIC TABLET PO SCH (07:47)
[2023-04-22] MEDS: FERROUS SULFATE 325MG TAB PO SCH (07:48)
[2023-04-22] MEDS: predniSONE 10MG TAB PO SCH (07:48)
[2023-04-22] MEDS: GABAPENTIN 300 MG CAP PO SCH ×3 (07:48→20:23)
[2023-04-22] MEDS: SENNA 8.6 MG TAB (SENOKOT) PO SCH ×2 (07:48→20:23)
[2023-04-22] MEDS: DOCUSATE SODIUM 100MG CAPSULE PO SCH ×2 (07:49→20:23)
[2023-04-22] MEDS: PANTOPRAZOLE 20 MG TAB PO SCH ×2 (07:49→20:23)
[2023-04-22] MEDS ORDERED: WARF-20 PO (09:15)
[2023-04-22 10:00] VITALS: BP 104/58; TEMP 97.9; O2SAT 94
[2023-04-22 14:00] VITALS: BP 113/63; TEMP 97.9; O2SAT 93
[2023-04-22] MEDS ORDERED: WARFARIN SOD 2MG TAB PO ONE (17:00)
[2023-04-22] MEDS: WARFARIN SOD 4MG TAB PO SCH (17:28)
[2023-04-22 18:00] VITALS: BP 119/66; TEMP 97.3; O2SAT 94
[2023-04-22] MEDS: DULoxetine 30MG CAPSULE (CYMBALTA) PO SCH (20:23)
[2023-04-22 20:40] VITALS: BP 114/63; TEMP 97.7; O2SAT 96
[2023-04-22] MEDS: zolPIDEM TARTRATE 5 MG TAB PO PRN (21:31)
[2023-04-23] VITALS (12 sets, daily range): BP systolic 116–143; BP diastolic 50–73; TEMP 97.5–98.1; O2SAT 90–97
[2023-04-23] MEDS: IPRATROPIUM 0.5MG/ALBUTEROL 2.5MG INH SOL UD 3ML (DUONEB) NEB SCH ×6 (03:16→23:25)
[2023-04-23 07:34] LABS: BASO % 0.2 % (0.0-1.0); EOS # 0.1 10^3/uL (0.0-0.5); EOS % 1.6 % (0.0-3.0); HEMATOCRIT 40.1 % (36.0-47.0); HEMOGLOBIN 12.2 g/dl (12.0-15.5); LYMPH # 1.6 10^3/uL (1.5-5.0); LYMPH % 25.5 % (24.0-44.0); MEAN CORPUSCULAR HEMOGLOBIN 28.5 pg (27.0-33.0); MEAN CORPUSCULAR HGB CONC 30.4 g/dl (32.0-36.5); MEAN CORPUSCULAR VOLUME 93.7 fl (80.0-96.0); MONO # 0.8 10^3/uL (0.0-0.8); MONO % 13.2 % (2.0-8.0); NEUTROPHILS # 3.7 10^3/uL (1.5-8.5); PLATELET COUNT, AUTOMATED 127 10^3/uL (150-450); RED BLOOD COUNT 4.28 10^6/uL (4.00-5.40); WHITE BLOOD COUNT 6.3 10^3/uL (4.0-10.0)
[2023-04-23 07:41] LABS: VANCOMYCIN LEVEL TROUGH 13.3 UG/ML (10.0-20.0)
[2023-04-23 07:42] LABS: BLOOD UREA NITROGEN 21 MG/DL (9-23); CARBON DIOXIDE LEVEL 35 MMOL/L (20-31); CHLORIDE LEVEL 107 MMOL/L (98-107); CREATININE FOR GFR 0.56 MG/DL (0.55-1.30); GLOMERULAR FILTRATION RATE > 60.0 (>32); GLUCOSE, FASTING 87 MG/DL (74-106); POTASSIUM SERUM 4.8 MMOL/L (3.5-5.1); SODIUM LEVEL 145 MMOL/L (136-145)
[2023-04-23 07:45] LABS: INR 2.19; PROTHROMBIN TIME 24.7 SECONDS (12.5-14.5)
[2023-04-23] MEDS: GABAPENTIN 300 MG CAP PO SCH ×3 (08:58→20:13)
[2023-04-23] MEDS: FERROUS SULFATE 325MG TAB PO SCH (08:58)
[2023-04-23] MEDS: DOCUSATE SODIUM 100MG CAPSULE PO SCH ×2 (08:58→20:13)
[2023-04-23] MEDS: ASPIRIN 81MG ENTERIC TABLET PO SCH (08:58)
[2023-04-23] MEDS: SENNA 8.6 MG TAB (SENOKOT) PO SCH ×2 (08:58→20:12)
[2023-04-23] MEDS: PANTOPRAZOLE 20 MG TAB PO SCH ×2 (08:58→20:12)
[2023-04-23] MEDS: predniSONE 10MG TAB PO SCH (08:58)
[2023-04-23] MEDS: VANCOMYCIN HCL 750 MG, VIAL MATE ADAPTER 1 EACH in D5W 250 ML IV SCH ×2 (08:59→20:12)
[2023-04-23] MEDS: PERCOCET 5MG/325MG TAB PO PRN ×3 (09:12→21:41)
[2023-04-23] MEDS: MEROPENEM INJ 1 GM in IV 1 EA IV SCH ×2 (10:38→21:39)
[2023-04-23] MEDS ORDERED: WARFARIN SOD 2MG TAB PO ONE ×2 (13:00→17:00)
[2023-04-23] MEDS: ACETAMINOPHEN 500 MG TAB PO PRN (13:27)
[2023-04-23 15:08] LABS: BODY FLUID CULTURE Not indicated. (.); LEGIONELLA ANTIGEN URINE Negative (Negative); ORGANISM ID Not indicated. (.); SPECIMEN SOURCE Urine (.); URINE STREP PNEUMONIAE ANTIGEN Negative (Negative)
[2023-04-23] MEDS ORDERED: LIDOCAINE 1% MDV 20ML VIAL As Ordered ONE (16:20)
[2023-04-23] MEDS: WARFARIN SOD 4MG TAB PO SCH (17:08)
[2023-04-23] MEDS ORDERED: BUDESONIDE 180MCG INHALER (PULMICORT FLEXHALER) INH SCH (20:00)
[2023-04-23] MEDS: DULoxetine 30MG CAPSULE (CYMBALTA) PO SCH (20:13)
[2023-04-23] MEDS: SYMBICORT 160/4.5MCG INHALER 6GM INH SCH (20:43)
[2023-04-23] MEDS: zolPIDEM TARTRATE 5 MG TAB PO PRN (21:41)
[2023-04-24] VITALS (14 sets, daily range): BP systolic 108–123; BP diastolic 59–74; TEMP 97.7–98.1; O2SAT 86–98
[2023-04-24] MEDS: PERCOCET 5MG/325MG TAB PO PRN ×4 (03:12→20:20)
[2023-04-24] MEDS: IPRATROPIUM 0.5MG/ALBUTEROL 2.5MG INH SOL UD 3ML (DUONEB) NEB SCH ×6 (04:09→23:12)
[2023-04-24] MEDS: SODIUM CHLORIDE 0.9% INJ 10 ML SYR IV SCH ×2 (05:15→16:15)
[2023-04-24 07:22] LABS: BASO % 0.1 % (0.0-1.0); EOS # 0.1 10^3/uL (0.0-0.5); EOS % 1.7 % (0.0-3.0); HEMATOCRIT 40.1 % (36.0-47.0); HEMOGLOBIN 12.2 g/dl (12.0-15.5); LYMPH # 1.7 10^3/uL (1.5-5.0); LYMPH % 25.1 % (24.0-44.0); MEAN CORPUSCULAR HEMOGLOBIN 28.5 pg (27.0-33.0); MEAN CORPUSCULAR HGB CONC 30.4 g/dl (32.0-36.5); MEAN CORPUSCULAR VOLUME 93.7 fl (80.0-96.0); MONO # 0.8 10^3/uL (0.0-0.8); MONO % 10.9 % (2.0-8.0); NEUTROPHILS # 4.2 10^3/uL (1.5-8.5); NEUTROPHILS % 61.3 % (36.0-66.0); PLATELET COUNT, AUTOMATED 142 10^3/uL (150-450); RED BLOOD COUNT 4.28 10^6/uL (4.00-5.40); WHITE BLOOD COUNT 6.9 10^3/uL (4.0-10.0)
[2023-04-24 07:33] LABS: INR 3.07; PROTHROMBIN TIME 32.2 SECONDS (12.5-14.5)
[2023-04-24] MEDS: SYMBICORT 160/4.5MCG INHALER 6GM INH SCH ×2 (07:35→19:29)
[2023-04-24 08:09] LABS: BLOOD UREA NITROGEN 17 MG/DL (9-23); CALCIUM LEVEL 8.9 MG/DL (8.3-10.6); CARBON DIOXIDE LEVEL 36 MMOL/L (20-31); CHLORIDE LEVEL 103 MMOL/L (98-107); CREATININE FOR GFR 0.45 MG/DL (0.55-1.30); GLOMERULAR FILTRATION RATE > 60.0 (>32); GLUCOSE, FASTING 82 MG/DL (74-106); SODIUM LEVEL 140 MMOL/L (136-145)
[2023-04-24] MEDS: VANCOMYCIN HCL 750 MG, VIAL MATE ADAPTER 1 EACH in D5W 250 ML IV SCH ×2 (08:24→20:18)
[2023-04-24] MEDS: SENNA 8.6 MG TAB (SENOKOT) PO SCH ×2 (08:25→20:18)
[2023-04-24] MEDS: predniSONE 10MG TAB PO SCH (08:25)
[2023-04-24] MEDS: FERROUS SULFATE 325MG TAB PO SCH (08:25)
[2023-04-24] MEDS: ASPIRIN 81MG ENTERIC TABLET PO SCH (08:25)
[2023-04-24] MEDS: GABAPENTIN 300 MG CAP PO SCH ×3 (08:25→20:19)
[2023-04-24] MEDS: DOCUSATE SODIUM 100MG CAPSULE PO SCH ×2 (08:25→20:18)
[2023-04-24] MEDS: PANTOPRAZOLE 20 MG TAB PO SCH ×2 (08:25→20:18)
[2023-04-24] MEDS: ACETAMINOPHEN 500 MG TAB PO PRN (08:33)
[2023-04-24] MEDS: MEROPENEM INJ 1 GM in IV 1 EA IV SCH ×2 (10:02→21:33)
[2023-04-24] MEDS: WARFARIN SOD 4MG TAB PO SCH (16:14)
[2023-04-24] MEDS: DULoxetine 30MG CAPSULE (CYMBALTA) PO SCH (20:18)
[2023-04-24] MEDS: zolPIDEM TARTRATE 5 MG TAB PO PRN (21:33)
[2023-04-24] MEDS: SODIUM CHLORIDE 0.9% INJ 10 ML SYR IV PRN (22:34)
[2023-04-25] VITALS (8 sets, daily range): BP systolic 110–129; BP diastolic 54–73; TEMP 96.8–97.9; O2SAT 90–93
[2023-04-25] MEDS: IPRATROPIUM 0.5MG/ALBUTEROL 2.5MG INH SOL UD 3ML (DUONEB) NEB SCH ×6 (03:04→23:24)
[2023-04-25] MEDS: SODIUM CHLORIDE 0.9% INJ 10 ML SYR IV SCH ×2 (05:26→11:00)
[2023-04-25 06:21] LABS: BASO % 0.1 % (0.0-1.0); EOS # 0.1 10^3/uL (0.0-0.5); EOS % 1.1 % (0.0-3.0); HEMATOCRIT 37.4 % (36.0-47.0); HEMOGLOBIN 11.6 g/dl (12.0-15.5); LYMPH # 2.3 10^3/uL (1.5-5.0); LYMPH % 27.5 % (24.0-44.0); MEAN CORPUSCULAR HEMOGLOBIN 29.2 pg (27.0-33.0); MEAN CORPUSCULAR VOLUME 94.2 fl (80.0-96.0); MONO % 11.4 % (2.0-8.0); NEUTROPHILS % 59.3 % (36.0-66.0); PLATELET COUNT, AUTOMATED 122 10^3/uL (150-450); RED BLOOD COUNT 3.97 10^6/uL (4.00-5.40); WHITE BLOOD COUNT 8.5 10^3/uL (4.0-10.0)
[2023-04-25 06:38] LABS: INR 3.8
[2023-04-25 06:43] LABS: BLOOD UREA NITROGEN 23 MG/DL (9-23); CALCIUM LEVEL 9.1 MG/DL (8.3-10.6); CARBON DIOXIDE LEVEL 34 MMOL/L (20-31); CHLORIDE LEVEL 106 MMOL/L (98-107); CREATININE FOR GFR 0.51 MG/DL (0.55-1.30); GLOMERULAR FILTRATION RATE > 60.0 (>32); GLUCOSE, FASTING 77 MG/DL (74-106); POTASSIUM SERUM 3.8 MMOL/L (3.5-5.1); SODIUM LEVEL 140 MMOL/L (136-145)
[2023-04-25] MEDS: SYMBICORT 160/4.5MCG INHALER 6GM INH SCH ×2 (07:34→19:45)
[2023-04-25] MEDS: GABAPENTIN 300 MG CAP PO SCH ×3 (08:14→20:13)
[2023-04-25] MEDS: VANCOMYCIN HCL 750 MG, VIAL MATE ADAPTER 1 EACH in D5W 250 ML IV SCH ×2 (08:14→20:14)
[2023-04-25] MEDS: DOCUSATE SODIUM 100MG CAPSULE PO SCH ×2 (08:14→20:15)
[2023-04-25] MEDS: ASPIRIN 81MG ENTERIC TABLET PO SCH (08:14)
[2023-04-25] MEDS: SENNA 8.6 MG TAB (SENOKOT) PO SCH ×2 (08:14→20:14)
[2023-04-25] MEDS: FERROUS SULFATE 325MG TAB PO SCH (08:15)
[2023-04-25] MEDS: PANTOPRAZOLE 20 MG TAB PO SCH ×2 (08:15→20:13)
[2023-04-25] MEDS: predniSONE 10MG TAB PO SCH (08:15)
[2023-04-25] MEDS: PERCOCET 5MG/325MG TAB PO PRN ×3 (08:20→20:14)
[2023-04-25] MEDS: MEROPENEM INJ 1 GM in IV 1 EA IV SCH ×2 (10:04→21:24)
[2023-04-25] MEDS ORDERED: WARFARIN SOD 2MG TAB PO ONE (17:00)
[2023-04-25] MEDS: DULoxetine 30MG CAPSULE (CYMBALTA) PO SCH (20:13)
[2023-04-25] MEDS: zolPIDEM TARTRATE 5 MG TAB PO PRN (20:14)
[2023-04-26] VITALS (7 sets, daily range): BP systolic 90–121; BP diastolic 50–59; TEMP 97–97.7; O2SAT 91–97
[2023-04-26] MEDS: IPRATROPIUM 0.5MG/ALBUTEROL 2.5MG INH SOL UD 3ML (DUONEB) NEB SCH ×5 (03:02→20:56)
[2023-04-26] MEDS: PERCOCET 5MG/325MG TAB PO PRN ×4 (03:26→20:21)
[2023-04-26] MEDS: SODIUM CHLORIDE 0.9% INJ 10 ML SYR IV SCH ×2 (05:33→18:31)
[2023-04-26 05:59] LABS: INR 2.38; PROTHROMBIN TIME 26.4 SECONDS (12.5-14.5)
[2023-04-26] MEDS: SYMBICORT 160/4.5MCG INHALER 6GM INH SCH ×2 (07:52→20:56)
[2023-04-26] MEDS: VANCOMYCIN HCL 750 MG, VIAL MATE ADAPTER 1 EACH in D5W 250 ML IV SCH ×2 (08:25→20:20)
[2023-04-26] MEDS: FERROUS SULFATE 325MG TAB PO SCH (08:26)
[2023-04-26] MEDS: predniSONE 10MG TAB PO SCH (08:27)
[2023-04-26] MEDS: GABAPENTIN 300 MG CAP PO SCH ×3 (08:27→20:20)
[2023-04-26] MEDS: PANTOPRAZOLE 20 MG TAB PO SCH ×2 (08:27→20:20)
[2023-04-26] MEDS: ASPIRIN 81MG ENTERIC TABLET PO SCH (08:27)
[2023-04-26] MEDS: SODIUM CHLORIDE 0.9% INJ 10 ML SYR IV PRN (08:28)
[2023-04-26] MEDS: DOCUSATE SODIUM 100MG CAPSULE PO SCH ×2 (08:29→20:23)
[2023-04-26] MEDS: SENNA 8.6 MG TAB (SENOKOT) PO SCH ×2 (08:29→20:23)
[2023-04-26] MEDS: MEROPENEM INJ 1 GM in IV 1 EA IV SCH ×2 (10:05→21:40)
[2023-04-26] MEDS: WARFARIN SOD 4MG TAB PO SCH (18:30)
[2023-04-26] MEDS: DULoxetine 30MG CAPSULE (CYMBALTA) PO SCH (20:20)
[2023-04-27] VITALS (8 sets, daily range): BP systolic 97–128; BP diastolic 55–66; TEMP 97.2–97.8; O2SAT 92–96
[2023-04-27] MEDS: IPRATROPIUM 0.5MG/ALBUTEROL 2.5MG INH SOL UD 3ML (DUONEB) NEB SCH ×7 (00:22→23:38)
[2023-04-27] MEDS: ACETAMINOPHEN 500 MG TAB PO PRN ×2 (00:29→11:18)
[2023-04-27] MEDS: SODIUM CHLORIDE 0.9% INJ 10 ML SYR IV SCH ×2 (05:27→17:19)
[2023-04-27 07:52] LABS: VANCOMYCIN LEVEL TROUGH 14.4 UG/ML (10.0-20.0)
[2023-04-27] MEDS: SYMBICORT 160/4.5MCG INHALER 6GM INH SCH ×2 (08:16→20:00)
[2023-04-27 08:20] LABS: BLOOD UREA NITROGEN 28 MG/DL (9-23); CALCIUM LEVEL 8.9 MG/DL (8.3-10.6); CARBON DIOXIDE LEVEL 34 MMOL/L (20-31); CHLORIDE LEVEL 104 MMOL/L (98-107); CREATININE FOR GFR 0.47 MG/DL (0.55-1.30); GLOMERULAR FILTRATION RATE > 60.0 (>32); GLUCOSE, FASTING 92 MG/DL (74-106); POTASSIUM SERUM 4.2 MMOL/L (3.5-5.1); SODIUM LEVEL 143 MMOL/L (136-145)
[2023-04-27] MEDS: VANCOMYCIN HCL 750 MG, VIAL MATE ADAPTER 1 EACH in D5W 250 ML IV SCH ×2 (08:54→20:35)
[2023-04-27] MEDS: GABAPENTIN 300 MG CAP PO SCH ×3 (08:57→20:35)
[2023-04-27] MEDS: ASPIRIN 81MG ENTERIC TABLET PO SCH (08:57)
[2023-04-27] MEDS: predniSONE 10MG TAB PO SCH (08:57)
[2023-04-27] MEDS: FERROUS SULFATE 325MG TAB PO SCH (08:57)
[2023-04-27] MEDS: PANTOPRAZOLE 20 MG TAB PO SCH ×2 (08:57→20:35)
[2023-04-27] MEDS: DOCUSATE SODIUM 100MG CAPSULE PO SCH ×2 (08:59→20:35)
[2023-04-27] MEDS: SENNA 8.6 MG TAB (SENOKOT) PO SCH ×2 (09:00→20:28)
[2023-04-27] MEDS: PERCOCET 5MG/325MG TAB PO PRN ×2 (09:02→20:36)
[2023-04-27] MEDS: MEROPENEM INJ 1 GM in IV 1 EA IV SCH ×2 (10:25→22:56)
[2023-04-27 10:50] LABS: INR 2.29; PROTHROMBIN TIME 25.6 SECONDS (12.5-14.5)
[2023-04-27] MEDS ORDERED: CETACAINE SPRAY 5GM As Ordered ONE (15:00)
[2023-04-27] MEDS ORDERED: LIDOCAINE VISCOUS 2% SOLN 15ML UDC As Ordered ONE (15:01)
[2023-04-27] MEDS: WARFARIN SOD 4MG TAB PO SCH (16:27)
[2023-04-27] MEDS ORDERED: WARFARIN SOD 2MG TAB PO ONE (17:00)
[2023-04-27] MEDS: zolPIDEM TARTRATE 5 MG TAB PO PRN (20:35)
[2023-04-27] MEDS: DULoxetine 30MG CAPSULE (CYMBALTA) PO SCH (20:35)
[2023-04-27] MEDS: SODIUM CHLORIDE 0.9% INJ 10 ML SYR IV PRN ×3 (20:37→23:55)
[2023-04-28] MEDS: PERCOCET 5MG/325MG TAB PO PRN ×4 (02:16→20:34)
[2023-04-28] MEDS: IPRATROPIUM 0.5MG/ALBUTEROL 2.5MG INH SOL UD 3ML (DUONEB) NEB SCH ×5 (03:46→21:13)
[2023-04-28 03:47] VITALS: O2SAT 94
[2023-04-28 05:36] VITALS: BP 112/56; TEMP 97.9; O2SAT 96
[2023-04-28] MEDS: SODIUM CHLORIDE 0.9% INJ 10 ML SYR IV SCH ×2 (06:11→17:43)
[2023-04-28 06:17] LABS: INR 2.63; PROTHROMBIN TIME 28.5 SECONDS (12.5-14.5)
[2023-04-28] MEDS: SYMBICORT 160/4.5MCG INHALER 6GM INH SCH ×2 (07:52→21:13)
[2023-04-28] MEDS: predniSONE 10MG TAB PO SCH (08:01)
[2023-04-28] MEDS: FERROUS SULFATE 325MG TAB PO SCH (08:01)
[2023-04-28] MEDS: DOCUSATE SODIUM 100MG CAPSULE PO SCH ×2 (08:02→20:31)
[2023-04-28] MEDS: PANTOPRAZOLE 20 MG TAB PO SCH ×2 (08:02→20:31)
[2023-04-28] MEDS: GABAPENTIN 300 MG CAP PO SCH ×3 (08:02→20:31)
[2023-04-28] MEDS: ASPIRIN 81MG ENTERIC TABLET PO SCH (08:02)
[2023-04-28] MEDS: SENNA 8.6 MG TAB (SENOKOT) PO SCH ×2 (08:02→20:18)
[2023-04-28] MEDS: VANCOMYCIN HCL 750 MG, VIAL MATE ADAPTER 1 EACH in D5W 250 ML IV SCH ×2 (08:03→20:31)
[2023-04-28] MEDS: MEROPENEM INJ 1 GM in IV 1 EA IV SCH (09:21)
[2023-04-28] MEDS: oxyBUTYnin 5 MG TAB PO SCH ×3 (10:26→20:31)
[2023-04-28] MEDS ORDERED: LINE1TAB6 PO (10:57)
[2023-04-28 11:19] LABS: BLOOD UREA NITROGEN 24 MG/DL (9-23); CALCIUM LEVEL 9.3 MG/DL (8.3-10.6); CARBON DIOXIDE LEVEL 37 MMOL/L (20-31); CHLORIDE LEVEL 101 MMOL/L (98-107); CREATININE FOR GFR 0.52 MG/DL (0.55-1.30); GLOMERULAR FILTRATION RATE > 60.0 (>32); GLUCOSE, FASTING 84 MG/DL (74-106); MAGNESIUM LEVEL 1.9 MG/DL (1.8-2.4); POTASSIUM SERUM 4.2 MMOL/L (3.5-5.1); SODIUM LEVEL 142 MMOL/L (136-145)
[2023-04-28] MEDS: guaiFENesin ER 600 MG TAB PO SCH ×2 (11:27→20:31)
[2023-04-28] MEDS: SODIUM CHLORIDE 0.9% INJ 10 ML SYR IV PRN ×3 (11:27→21:47)
[2023-04-28 11:35] LABS: BASO % 0.3 % (0.0-1.0); EOS # 0.1 10^3/uL (0.0-0.5); EOS % 1.6 % (0.0-3.0); HEMATOCRIT 36.4 % (36.0-47.0); HEMOGLOBIN 10.9 g/dl (12.0-15.5); LYMPH # 1.8 10^3/uL (1.5-5.0); LYMPH % 26.2 % (24.0-44.0); MEAN CORPUSCULAR HEMOGLOBIN 28.8 pg (27.0-33.0); MEAN CORPUSCULAR HGB CONC 29.9 g/dl (32.0-36.5); MONO # 0.8 10^3/uL (0.0-0.8); MONO % 11.4 % (2.0-8.0); NEUTROPHILS # 4.2 10^3/uL (1.5-8.5); NEUTROPHILS % 60.2 % (36.0-66.0); PLATELET COUNT, AUTOMATED 123 10^3/uL (150-450); RED BLOOD COUNT 3.79 10^6/uL (4.00-5.40); WHITE BLOOD COUNT 6.9 10^3/uL (4.0-10.0)
[2023-04-28] MEDS ORDERED: FUROSEMIDE 10MG PER 1/2 TABLET PO ONE (14:00)
[2023-04-28] MEDS: WARFARIN SOD 4MG TAB PO SCH (15:48)
[2023-04-28] MEDS: ACETAMINOPHEN 500 MG TAB PO PRN (17:52)
[2023-04-28 20:19] VITALS: BP 114/57; TEMP 97.3; O2SAT 94
[2023-04-28] MEDS: zolPIDEM TARTRATE 5 MG TAB PO PRN (21:55)
[2023-04-29 00:45] VITALS: O2SAT 97
[2023-04-29] MEDS: IPRATROPIUM 0.5MG/ALBUTEROL 2.5MG INH SOL UD 3ML (DUONEB) NEB SCH ×3 (04:00→07:23)
[2023-04-29 05:28] VITALS: BP 136/80; TEMP 97.9; O2SAT 97
[2023-04-29] MEDS: ACETAMINOPHEN 500 MG TAB PO PRN (05:44)
[2023-04-29] MEDS: SODIUM CHLORIDE 0.9% INJ 10 ML SYR IV SCH (05:44)
[2023-04-29 06:36] LABS: INR 2.88; PROTHROMBIN TIME 30.6 SECONDS (12.5-14.5)
[2023-04-29] MEDS: SYMBICORT 160/4.5MCG INHALER 6GM INH SCH (07:23)
[2023-04-29 08:00] VITALS: BP 127/55; TEMP 97.5; O2SAT 95
[2023-04-29] MEDS: ASPIRIN 81MG ENTERIC TABLET PO SCH (08:49)
[2023-04-29] MEDS: VANCOMYCIN HCL 750 MG, VIAL MATE ADAPTER 1 EACH in D5W 250 ML IV SCH (08:49)
[2023-04-29] MEDS: FERROUS SULFATE 325MG TAB PO SCH (08:49)
[2023-04-29] MEDS: DOCUSATE SODIUM 100MG CAPSULE PO SCH ×2 (08:49→08:52)
[2023-04-29] MEDS: GABAPENTIN 300 MG CAP PO SCH (08:50)
[2023-04-29] MEDS: oxyBUTYnin 5 MG TAB PO SCH (08:50)
[2023-04-29] MEDS: guaiFENesin ER 600 MG TAB PO SCH (08:50)
[2023-04-29] MEDS: predniSONE 10MG TAB PO SCH (08:50)
[2023-04-29] MEDS: PANTOPRAZOLE 20 MG TAB PO SCH (08:50)
[2023-04-29] MEDS: SENNA 8.6 MG TAB (SENOKOT) PO SCH ×2 (08:51→08:52)
[2023-04-29] MEDS ORDERED: PRED10TA2 PO (09:45)
[2023-04-29] MEDS ORDERED: PERCOCET PO (09:45)
[2023-04-29] MEDS ORDERED: MUCI600T31 PO (09:45)
[2023-04-29] MEDS ORDERED: OXYB5TAB10 PO (09:45)
[2023-04-29] MEDS: SODIUM CHLORIDE 0.9% INJ 10 ML SYR IV PRN (10:33)
== END 2023-04-29 12:33 | disposition home health service (06) | DRG 871 ==
LOC: M ED 13:22 → EDBD 13:22 → EEVIPCON 17:10 → M ED INP 17:10 → UNDOADMIN 17:10 → ENRESERV 04-20 14:42 → M MSPAV 04-20 17:37
PROVIDERS: ADMIT Student in an Organized Health Care Education/Training Program; ATTEND Internal Medicine
PROC: B246ZZZ Ultrasonography of Right and Left Heart (ICD-10-PCS; principal; 2023-04-23 16:00)
DX: A41.81 Sepsis due to Enterococcus (principal); J96.21 Acute and chronic respiratory failure with hypoxia; J15.6 Pneumonia due to other Gram-negative bacteria; I50.32 Chronic diastolic (congestive) heart failure; N39.0 Urinary tract infection, site not specified; E87.20 Acidosis, unspecified; J44.0 Chronic obstructive pulmonary disease with (acute) lower respiratory infection; J44.1 Chronic obstructive pulmonary disease with (acute) exacerbation; F41.9 Anxiety disorder, unspecified; R33.9 Retention of urine, unspecified; F32.A Depression, unspecified; I25.10 Atherosclerotic heart disease of native coronary artery without angina pectoris; G47.00 Insomnia, unspecified; G89.29 Other chronic pain; I25.2 Old myocardial infarction; K21.9 Gastro-esophageal reflux disease without esophagitis; J45.909 Unspecified asthma, uncomplicated; M81.0 Age-related osteoporosis without current pathological fracture; M06.9 Rheumatoid arthritis, unspecified; Z90.49 Acquired absence of other specified parts of digestive tract; Z90.79 Acquired absence of other genital organ(s); Z87.891 Personal history of nicotine dependence; Z86.73 Personal history of transient ischemic attack (TIA), and cerebral infarction without residual deficits; Z95.2 Presence of prosthetic heart valve; Z79.2 Long term (current) use of antibiotics; Z66 Do not resuscitate; Z79.82 Long term (current) use of aspirin; Z79.01 Long term (current) use of anticoagulants; Z99.81 Dependence on supplemental oxygen; Z79.899 Other long term (current) drug therapy; Z88.1 Allergy status to other antibiotic agents; Z88.8 Allergy status to other drugs, medicaments and biological substances; Z20.822 Contact with and (suspected) exposure to COVID-19; B96.20 Unspecified Escherichia coli [E. coli] as the cause of diseases classified elsewhere

== ENCOUNTER → 2023-05-11 | Outpatient (REF) | payer MEDICARE ==
[~2023-05-11] MED LIST changes: -AMIT25TA17 PO; +AMIT25TA19 PO; +FOLI400T13 PO; +LINE1TAB6 PO; +MUCI600T31 PO; +OXYB5TAB10 PO; +PERCOCET PO; +WARF-20 PO
[2023-05-11 14:26] LABS: INR 0.98; PROTHROMBIN TIME 13.2 SECONDS (12.5-14.5)
== END ==
LOC: M LAB REF 13:32
PROVIDERS: ATTEND Internal Medicine
DX: Z95.2 Presence of prosthetic heart valve (principal)

== ENCOUNTER 2023-05-26 15:50 | Inpatient (IN) | payer MEDICARE ==
[~2023-05-26] VITALS: Ht 152.4 cm; Wt 41.8 kg
[2023-05-26] VITALS (11 sets, daily range): BP systolic 80–106; BP diastolic 44–56; TEMP 98.8; O2SAT 83–100
[2023-05-26] MEDS ORDERED: methylPREDNISolone 125MG 2ML VIAL IV ONE (15:55)
[2023-05-26] MEDS ORDERED: IPRATROPIUM 0.5MG/ALBUTEROL 2.5MG INH SOL UD 3ML (DUONEB) NEB PRN (15:55)
[2023-05-26 16:02] LABS: ABG BASE EXCESS 3.9 (-2.0-2.0); ABG O2 SATURATION 87.7 % (95.0-99.0); ABG PARTIAL PRESSURE CO2 40.5 mmHg (35.0-45.0); ABG STANDARD HCO3 27.7 MMOL/L. (22.0-26.0); ABG TOTAL CO2 29.3 MMOL/L (23.0-31.0); ABG pH (ARTERIAL) 7.458 UNITS (7.350-7.450)
[2023-05-26] MEDS ORDERED: NS 1,220 ML in IV 1 EA IV ONE (16:05)
[2023-05-26] MEDS ORDERED: cefTRIAXone SOD 2 GM in D5W MINI-BAG PLUS 50 ML IV ONE (16:05)
[2023-05-26] MEDS ORDERED: ACETAMINOPHEN 500 MG TAB PO ONE (16:05)
[2023-05-26 16:22] LABS: BASO % 0.2 % (0.0-1.0); EOS % 0.1 % (0.0-3.0); HEMATOCRIT 38.4 % (36.0-47.0); HEMOGLOBIN 11.8 g/dl (12.0-15.5); LYMPH # 1.8 10^3/uL (1.5-5.0); LYMPH % 6.9 % (24.0-44.0); MEAN CORPUSCULAR HEMOGLOBIN 31.2 pg (27.0-33.0); MEAN CORPUSCULAR HGB CONC 30.7 g/dl (32.0-36.5); MEAN CORPUSCULAR VOLUME 101.6 fl (80.0-96.0); MONO % 7.1 % (2.0-8.0); NEUTROPHILS # 22.6 10^3/uL (1.5-8.5); NEUTROPHILS % 84.8 % (36.0-66.0); PLATELET COUNT, AUTOMATED 228 10^3/uL (150-450); RED BLOOD COUNT 3.78 10^6/uL (4.00-5.40); WHITE BLOOD COUNT 26.6 10^3/uL (4.0-10.0)
[2023-05-26 16:38] LABS: ALBUMIN 2.9 G/DL (3.2-5.2); ALKALINE PHOSPHATASE 59 U/L (46-116); ALT/SGPT 35 U/L (7.0-40); AST/SGOT 35 U/L (<34); BILIRUBIN,DIRECT 0.3 MG/DL (<0.4); BILIRUBIN,TOTAL 0.9 MG/DL (0.3-1.2); BLOOD UREA NITROGEN 25 MG/DL (9-23); CALCIUM LEVEL 8.8 MG/DL (8.3-10.6); CARBON DIOXIDE LEVEL 32 MMOL/L (20-31); CHLORIDE LEVEL 103 MMOL/L (98-107); CREATININE FOR GFR 0.86 MG/DL (0.55-1.30); GLOMERULAR FILTRATION RATE > 60.0 (>32); GLUCOSE, FASTING 101 MG/DL (74-106); MONO # 1.9 10^3/uL (0.0-0.8); POTASSIUM SERUM 3.5 MMOL/L (3.5-5.1); SODIUM LEVEL 142 MMOL/L (136-145); TOTAL PROTEIN 5.1 G/DL (5.7-8.2)
[2023-05-26 16:41] LABS: THYROID STIMULATING HORMONE 1.538 uIU/ML (0.55-4.78)
[2023-05-26 16:41] LABS: INR 3.77; PROTHROMBIN TIME 36.4 SECONDS (12.5-14.5)
[2023-05-26] MEDS ORDERED: MEROPENEM INJ 1 GM in IV 1 EA IV STA (18:08)
[2023-05-26] MEDS ORDERED: LACTATED RINGER'S 1000 ML IV ONE ×2 (18:20→21:55)
[2023-05-26] MEDS ORDERED: VANCOMYCIN HCL 1,000 MG, VIAL MATE ADAPTER 1 EACH in D5W 250 ML IV STA (18:29)
[2023-05-26] MEDS ORDERED: MED REC IN PROGRESS XX SCH ×2 (18:40→23:15)
[2023-05-26] MEDS ORDERED: TRAZ-252 PO (18:42)
[2023-05-26] MEDS ORDERED: NOREPINEPHRINE 4MG IN D5 250ML 4 MG in IV 1 EA IV SCH ×2 (19:40)
[2023-05-26] MEDS ORDERED: MIDAZOLAM 5MG/ML 1ML VIAL As Ordered ONE (20:15)
[2023-05-26] MEDS ORDERED: MIDAZOLAM INJ 2MG/2ML VIAL IV STA (20:18)
[2023-05-26] MEDS ORDERED: MIDAZOLAM 100MG/100ML-0.9%NACL 100 MG in IV 1 EA IV SCH (20:20)
[2023-05-26] MEDS: IPRATROPIUM 0.5MG/ALBUTEROL 2.5MG INH SOL UD 3ML (DUONEB) NEB SCH (20:23)
[2023-05-26 20:45] LABS: ABG pH (ARTERIAL) 7.341 UNITS (7.350-7.450)
[2023-05-26 20:46] LABS: ABG BASE EXCESS -2.7 (-2.0-2.0); ABG O2 SATURATION 99.7 % (95.0-99.0); ABG PARTIAL PRESSURE CO2 43.5 mmHg (35.0-45.0); ABG PARTIAL PRESSURE O2 304.5 mmHg (75.0-100.0); ABG STANDARD HCO3 22.3 MMOL/L. (22.0-26.0); ABG TOTAL CO2 24.3 MMOL/L (23.0-31.0)
[2023-05-26] MEDS ORDERED: FENTANYL DRIP LOCK BOX KEY 1 EACH XX PRN (21:05)
[2023-05-26] MEDS ORDERED: MIDAZOLAM INJ 2MG/2ML VIAL IV PRN (21:05)
[2023-05-26] MEDS ORDERED: fentaNYL CITRATE/NaCl 1,000 MCG in IV 1 EA IV SCH (21:05)
[2023-05-26] MEDS ORDERED: fentaNYL 100 MCG/2 ML INJECTION IV PRN (21:05)
[2023-05-26] MEDS: NOREPINEPHRINE 4MG IN D5 250ML 4 MG in IV 1 EA IV SCH ×2 (22:24)
[2023-05-26] MEDS ORDERED: OXYB5TAB10 PO (23:14)
[2023-05-26] MEDS ORDERED: PRED10TA2 PO (23:14)
[2023-05-26] MEDS ORDERED: ALBU8.5H INH (23:14)
[2023-05-26] MEDS ORDERED: VITA-172 PO (23:14)
[2023-05-26] MEDS ORDERED: OXYC1TAB23 PO (23:14)
[2023-05-26] MEDS ORDERED: MAGN400T35 PO (23:14)
[2023-05-26] MEDS ORDERED: POTA99TA14 PO (23:14)
[2023-05-27] VITALS (67 sets, daily range): BP systolic 85–147; BP diastolic 46–64; TEMP 97.3–98.3; O2SAT 90–99
[2023-05-27] MEDS: IPRATROPIUM 0.5MG/ALBUTEROL 2.5MG INH SOL UD 3ML (DUONEB) NEB SCH ×7 (00:22→23:20)
[2023-05-27] MEDS: NOREPINEPHRINE 4MG IN D5 250ML 4 MG in IV 1 EA IV SCH ×4 (03:15→11:30)
[2023-05-27] MEDS ORDERED: ETOMIDATE INJ 20MG/10ML VIAL ONE (04:23)
[2023-05-27] MEDS ORDERED: SUCCINYLCHOLINE 100MG/5ML SYRINGE ONE (04:23)
[2023-05-27 04:36] LABS: HEMATOCRIT 36.1 % (36.0-47.0); HEMOGLOBIN 11.1 g/dl (12.0-15.5); MEAN CORPUSCULAR HEMOGLOBIN 30.8 pg (27.0-33.0); MEAN CORPUSCULAR HGB CONC 30.7 g/dl (32.0-36.5); MEAN CORPUSCULAR VOLUME 100.3 fl (80.0-96.0); PLATELET COUNT, AUTOMATED 239 10^3/uL (150-450)
[2023-05-27 04:41] LABS: WHITE BLOOD COUNT 38.5 10^3/uL (4.0-10.0)
[2023-05-27 04:58] LABS: INR 4.49; PROTHROMBIN TIME 41.7 SECONDS (12.5-14.5)
[2023-05-27 05:10] LABS: ALBUMIN 2.3 G/DL (3.2-5.2); ALKALINE PHOSPHATASE 59 U/L (46-116); ALT/SGPT 74 U/L (7.0-40); AST/SGOT 52 U/L (<34); BILIRUBIN,TOTAL 0.6 MG/DL (0.3-1.2); BLOOD UREA NITROGEN 22 MG/DL (9-23); CARBON DIOXIDE LEVEL 27 MMOL/L (20-31); CHLORIDE LEVEL 106 MMOL/L (98-107); CREATININE FOR GFR 0.52 MG/DL (0.55-1.30); GLOMERULAR FILTRATION RATE > 60.0 (>32); GLUCOSE, FASTING 180 MG/DL (74-106); POTASSIUM SERUM 3.8 MMOL/L (3.5-5.1); SODIUM LEVEL 142 MMOL/L (136-145); TOTAL PROTEIN 4.5 G/DL (5.7-8.2)
[2023-05-27 05:45] LABS: ABG pH (ARTERIAL) 7.373 UNITS (7.350-7.450)
[2023-05-27 05:46] LABS: ABG BASE EXCESS -0.3 (-2.0-2.0); ABG HCO3 25.2 MMOL/L (22.0-26.0); ABG O2 SATURATION 98.5 % (95.0-99.0); ABG PARTIAL PRESSURE CO2 44.2 mmHg (35.0-45.0); ABG PARTIAL PRESSURE O2 118.2 mmHg (75.0-100.0); ABG STANDARD HCO3 24.3 MMOL/L. (22.0-26.0); ABG TOTAL CO2 26.5 MMOL/L (23.0-31.0)
[2023-05-27] MEDS: MEROPENEM INJ 1 GM in IV 1 EA IV SCH ×2 (06:21→18:01)
[2023-05-27 08:40] LABS: VANCOMYCIN RANDOM 8.4 UG/ML
[2023-05-27] MEDS ORDERED: ENOXAPARIN 40MG/0.4ML SYRINGE (J1650 PER 10MG) SC SCH (09:00)
[2023-05-27] MEDS ORDERED: ASPIRIN 81MG ENTERIC TABLET PO SCH (09:00)
[2023-05-27] MEDS ORDERED: VANCOMYCIN HCL 750 MG, VIAL MATE ADAPTER 1 EACH in D5W 250 ML IV SCH ×2 (09:00→20:00)
[2023-05-27] MEDS ORDERED: HOME MED LIST COMPLETE! XX SCH (10:10)
[2023-05-27] MEDS: PANTOPRAZOLE 40MG VIAL IV SCH (12:26)
[2023-05-27] MEDS: LR 1,000 ML IV SCH ×2 (12:26→22:01)
[2023-05-27] MEDS: SYMBICORT 160/4.5MCG INHALER 6GM INH SCH ×2 (12:41→19:05)
[2023-05-27] MEDS: PERCOCET 5MG/325MG TAB PO PRN (19:49)
[2023-05-27] MEDS: GABAPENTIN 300 MG CAP PO SCH (20:26)
[2023-05-27] MEDS: traZODone 25MG PER 1/2 TABLET PO SCH (20:26)
[2023-05-28] VITALS (11 sets, daily range): BP systolic 90–117; BP diastolic 44–79; TEMP 98–99.1; O2SAT 2–98
[2023-05-28] MEDS: ACETAMINOPHEN TAB 650MG DOSE (2X325MG) PO PRN ×3 (01:28→21:00)
[2023-05-28] MEDS: IPRATROPIUM 0.5MG/ALBUTEROL 2.5MG INH SOL UD 3ML (DUONEB) NEB SCH ×6 (03:13→23:02)
[2023-05-28] MEDS: PERCOCET 5MG/325MG TAB PO PRN ×3 (03:23→17:09)
[2023-05-28 05:29] LABS: HEMATOCRIT 31.5 % (36.0-47.0); HEMOGLOBIN 9.6 g/dl (12.0-15.5); MEAN CORPUSCULAR HEMOGLOBIN 30.8 pg (27.0-33.0); MEAN CORPUSCULAR HGB CONC 30.5 g/dl (32.0-36.5); PLATELET COUNT, AUTOMATED 122 10^3/uL (150-450); RED BLOOD COUNT 3.12 10^6/uL (4.00-5.40); WHITE BLOOD COUNT 17.1 10^3/uL (4.0-10.0)
[2023-05-28 05:48] LABS: INR 3.36; PROTHROMBIN TIME 33.3 SECONDS (12.5-14.5)
[2023-05-28 05:58] LABS: ALBUMIN 2.1 G/DL (3.2-5.2); ALKALINE PHOSPHATASE 54 U/L (46-116); ALT/SGPT 42 U/L (7.0-40); AST/SGOT 22 U/L (<34); BILIRUBIN,TOTAL 0.6 MG/DL (0.3-1.2); BLOOD UREA NITROGEN 15 MG/DL (9-23); CALCIUM LEVEL 8.3 MG/DL (8.3-10.6); CARBON DIOXIDE LEVEL 34 MMOL/L (20-31); CHLORIDE LEVEL 105 MMOL/L (98-107); CREATININE FOR GFR 0.48 MG/DL (0.55-1.30); GLOMERULAR FILTRATION RATE > 60.0 (>32); GLUCOSE, FASTING 70 MG/DL (74-106); PHOSPHORUS LEVEL 2.9 MG/DL (2.4-5.1); SODIUM LEVEL 141 MMOL/L (136-145); TOTAL PROTEIN 4.3 G/DL (5.7-8.2)
[2023-05-28] MEDS: MEROPENEM INJ 1 GM in IV 1 EA IV SCH ×2 (06:09→18:16)
[2023-05-28] MEDS: SYMBICORT 160/4.5MCG INHALER 6GM INH SCH ×2 (07:27→19:34)
[2023-05-28] MEDS: GABAPENTIN 300 MG CAP PO SCH ×3 (08:15→20:59)
[2023-05-28] MEDS: PANTOPRAZOLE 40MG VIAL IV SCH (08:15)
[2023-05-28] MEDS ORDERED: NEOSPORIN TOP OINT 15GM TOP ONE (12:00)
[2023-05-28] MEDS ORDERED: LIDOCAINE 5% (LIDODERM) PATCH TD ONE (12:00)
[2023-05-28] MEDS: traZODone 25MG PER 1/2 TABLET PO SCH (20:59)
[2023-05-28] MEDS ORDERED: RAMELTEON 8 MG TAB (ROZEREM) PO ONE (21:00)
[2023-05-29] MEDS: PERCOCET 5MG/325MG TAB PO PRN (02:40)
[2023-05-29] MEDS: IPRATROPIUM 0.5MG/ALBUTEROL 2.5MG INH SOL UD 3ML (DUONEB) NEB SCH ×2 (03:29→07:58)
[2023-05-29 04:00] VITALS: BP 113/53; TEMP 98.4; O2SAT 98
[2023-05-29 04:19] LABS: HEMATOCRIT 31.8 % (36.0-47.0); HEMOGLOBIN 9.6 g/dl (12.0-15.5); MEAN CORPUSCULAR HEMOGLOBIN 30.2 pg (27.0-33.0); MEAN CORPUSCULAR HGB CONC 30.2 g/dl (32.0-36.5); PLATELET COUNT, AUTOMATED 127 10^3/uL (150-450); RED BLOOD COUNT 3.18 10^6/uL (4.00-5.40); WHITE BLOOD COUNT 11.4 10^3/uL (4.0-10.0)
[2023-05-29 04:31] LABS: INR 2.5; PROTHROMBIN TIME 26.4 SECONDS (12.5-14.5)
[2023-05-29 05:12] LABS: ALBUMIN 2.1 G/DL (3.2-5.2); ALKALINE PHOSPHATASE 61 U/L (46-116); ALT/SGPT 31 U/L (7.0-40); AST/SGOT 21 U/L (<34); BILIRUBIN,TOTAL 0.4 MG/DL (0.3-1.2); BLOOD UREA NITROGEN 19 MG/DL (9-23); CALCIUM LEVEL 8.6 MG/DL (8.3-10.6); CARBON DIOXIDE LEVEL 32 MMOL/L (20-31); CHLORIDE LEVEL 107 MMOL/L (98-107); CREATININE FOR GFR 0.41 MG/DL (0.55-1.30); GLOMERULAR FILTRATION RATE > 60.0 (>32); GLUCOSE, FASTING 147 MG/DL (74-106); POTASSIUM SERUM 4.1 MMOL/L (3.5-5.1); SODIUM LEVEL 146 MMOL/L (136-145); TOTAL PROTEIN 4.5 G/DL (5.7-8.2)
[2023-05-29] MEDS: MEROPENEM INJ 1 GM in IV 1 EA IV SCH (06:03)
[2023-05-29] MEDS: SYMBICORT 160/4.5MCG INHALER 6GM INH SCH (07:59)
[2023-05-29 08:00] VITALS: BP 132/70; TEMP 99.1; O2SAT 97
[2023-05-29] MEDS: PANTOPRAZOLE 40MG VIAL IV SCH (08:20)
[2023-05-29] MEDS ORDERED: LEVO1TAB40 PO (08:20)
[2023-05-29] MEDS ORDERED: PROBCAP14 PO (08:20)
[2023-05-29] MEDS: GABAPENTIN 300 MG CAP PO SCH (08:20)
[2023-05-29] MEDS: ACETAMINOPHEN TAB 650MG DOSE (2X325MG) PO PRN (08:26)
== END 2023-05-29 10:04 | disposition home or self-care (01) | DRG 871 ==
LOC: M ED 15:50 → M ED INP 17:51 → M ICU 21:16
PROVIDERS: ADMIT Internal Medicine Pulmonary Disease; ATTEND Internal Medicine Pulmonary Disease
PROC: 0BH17EZ Insertion of Endotracheal Airway into Trachea, Via Natural or Artificial Opening (ICD-10-PCS; principal; 2023-05-26)
PROC: 02HV33Z Insertion of Infusion Device into Superior Vena Cava, Percutaneous Approach (ICD-10-PCS; 2023-05-26)
PROC: 5A1935Z Respiratory Ventilation, Less than 24 Consecutive Hours (ICD-10-PCS; 2023-05-26)
DX: A41.9 Sepsis, unspecified organism (principal); J15.1 Pneumonia due to Pseudomonas; J96.21 Acute and chronic respiratory failure with hypoxia; R65.21 Severe sepsis with septic shock; I50.32 Chronic diastolic (congestive) heart failure; E87.20 Acidosis, unspecified; J44.0 Chronic obstructive pulmonary disease with (acute) lower respiratory infection; N39.0 Urinary tract infection, site not specified; F17.210 Nicotine dependence, cigarettes, uncomplicated; M06.9 Rheumatoid arthritis, unspecified; I25.10 Atherosclerotic heart disease of native coronary artery without angina pectoris; R33.9 Retention of urine, unspecified; K22.9 Disease of esophagus, unspecified; M81.0 Age-related osteoporosis without current pathological fracture; F41.9 Anxiety disorder, unspecified; F32.A Depression, unspecified; Z90.49 Acquired absence of other specified parts of digestive tract; Z90.79 Acquired absence of other genital organ(s); Z79.01 Long term (current) use of anticoagulants; Z99.81 Dependence on supplemental oxygen; Z86.73 Personal history of transient ischemic attack (TIA), and cerebral infarction without residual deficits; Z79.82 Long term (current) use of aspirin; Z79.899 Other long term (current) drug therapy; Z88.1 Allergy status to other antibiotic agents; Z88.8 Allergy status to other drugs, medicaments and biological substances; Z20.822 Contact with and (suspected) exposure to COVID-19

== ENCOUNTER 2023-07-10 17:38 | Emergency (ER) | payer MEDICARE ==
[~2023-07-10 17:38] MED LIST changes: +ALBU8.5H INH; +LEVO1TAB40 PO; +MAGN400T35 PO; +MECL-209 PO; -MECL1TAB31 PO; +OXYC1TAB23 PO; +PROBCAP14 PO; +TRAZ-252 PO; +VITA-172 PO
[2023-07-10] MEDS ORDERED: dexAMETHasone 20MG/5ML VIAL IV ONE (18:00)
[2023-07-10 18:41] VITALS: TEMP 98.7
[2023-07-10 18:55] LABS: BASO % 0.2 % (0.0-1.0); EOS % 0.1 % (0.0-3.0); HEMATOCRIT 44.5 % (36.0-47.0); HEMOGLOBIN 13.9 g/dl (12.0-15.5); LYMPH # 1.7 10^3/uL (1.5-5.0); MEAN CORPUSCULAR HEMOGLOBIN 31.2 pg (27.0-33.0); MEAN CORPUSCULAR HGB CONC 31.2 g/dl (32.0-36.5); MEAN CORPUSCULAR VOLUME 99.8 fl (80.0-96.0); MONO # 1.1 10^3/uL (0.0-0.8); MONO % 5.3 % (2.0-8.0); NEUTROPHILS # 18.3 10^3/uL (1.5-8.5); PLATELET COUNT, AUTOMATED 162 10^3/uL (150-450); RED BLOOD COUNT 4.46 10^6/uL (4.00-5.40); WHITE BLOOD COUNT 21.2 10^3/uL (4.0-10.0)
[2023-07-10 19:07] LABS: INR 2.04; PROTHROMBIN TIME 22.5 SECONDS (12.5-14.5)
[2023-07-10 19:13] LABS: ALBUMIN 3.2 G/DL (3.2-5.2); ALKALINE PHOSPHATASE 68 U/L (46-116); ALT/SGPT 21 U/L (7.0-40); AST/SGOT 21 U/L (<34); BILIRUBIN,DIRECT 0.5 MG/DL (<0.4); BILIRUBIN,TOTAL 1.2 MG/DL (0.3-1.2); BLOOD UREA NITROGEN 24 MG/DL (9-23); CARBON DIOXIDE LEVEL 29 MMOL/L (20-31); CHLORIDE LEVEL 107 MMOL/L (98-107); CREATININE FOR GFR 0.65 MG/DL (0.55-1.30); GLOMERULAR FILTRATION RATE > 60.0 (>32); GLUCOSE, FASTING 100 MG/DL (74-106); SODIUM LEVEL 141 MMOL/L (136-145); TOTAL PROTEIN 5.6 G/DL (5.7-8.2)
[2023-07-10] MEDS ORDERED: AZIT500T5 PO (20:10)
[2023-07-10 20:30] VITALS: BP 110/52; O2SAT 98
[2023-07-10] MEDS ORDERED: CEFUROXIME 500 MG TAB PO ONE (21:00)
== END 2023-07-10 20:36 | disposition home or self-care (01) ==
LOC: EDBD 17:38 → M ED 17:38
DX: J20.9 Acute bronchitis, unspecified (principal); J44.1 Chronic obstructive pulmonary disease with (acute) exacerbation; I50.9 Heart failure, unspecified; K21.9 Gastro-esophageal reflux disease without esophagitis; I25.10 Atherosclerotic heart disease of native coronary artery without angina pectoris; Z86.73 Personal history of transient ischemic attack (TIA), and cerebral infarction without residual deficits; F17.200 Nicotine dependence, unspecified, uncomplicated
CPT/HCPCS: 71045; 80048; 80076; 83605; 83880; 85025; 85610; 86850; 86900; 86901; 87040; 87077; 87186; 87486; 87581; 87633; 87798; 93005; 93041; 94760; 96374; 99285; J1100

== ENCOUNTER → 2023-09-14 | Outpatient (CLI) | payer MEDICARE ==
[~2023-09-14] MED LIST changes: +AZIT500T5 PO; -OXYB5TAB10 PO; +OXYB5TAB11 PO
== END ==
LOC: M WUC 11:42
PROVIDERS: ATTEND Nurse Practitioner Family
DX: M17.12 Unilateral primary osteoarthritis, left knee (principal); M11.262 Other chondrocalcinosis, left knee; G89.29 Other chronic pain; I50.32 Chronic diastolic (congestive) heart failure; Z98.890 Other specified postprocedural states

== ENCOUNTER → 2023-09-21 | Outpatient (CLI) | payer MEDICARE | LOC: M PLAIMG 09:05 | PROVIDERS: ATTEND Physician Assistant | DX: R91.8 Other nonspecific abnormal finding of lung field (principal) ==

== ENCOUNTER → 2023-11-18 | Outpatient (REF) | payer MEDICARE, MEDICAID ==
[~2023-11-18] MED LIST changes: -LEFL1TAB4 PO; +LEFL20TA15 PO; -OXYB5TAB11 PO; +OXYB5TAB14 PO
[2023-11-18 18:56] LABS: BASO % 0.2 % (0.0-1.0); EOS % 0.2 % (0.0-3.0); HEMATOCRIT 48.9 % (36.0-47.0); HEMOGLOBIN 15.3 g/dl (12.0-15.5); LYMPH # 0.9 10^3/uL (1.5-5.0); LYMPH % 8.6 % (24.0-44.0); MEAN CORPUSCULAR HEMOGLOBIN 31.3 pg (27.0-33.0); MEAN CORPUSCULAR HGB CONC 31.3 g/dl (32.0-36.5); MONO # 0.4 10^3/uL (0.0-0.8); MONO % 3.5 % (2.0-8.0); NEUTROPHILS # 8.7 10^3/uL (1.5-8.5); NEUTROPHILS % 87.2 % (36.0-66.0); PLATELET COUNT, AUTOMATED 174 10^3/uL (150-450); RED BLOOD COUNT 4.89 10^6/uL (4.00-5.40)
[2023-11-18 19:20] LABS: HEMOGLOBIN A1c 5.4 % (4.0-6.0)
[2023-11-18 19:28] LABS: ALBUMIN 4.2 G/DL (3.2-5.2); ALKALINE PHOSPHATASE 54 U/L (46-116); ALT/SGPT 23 U/L (7.0-40); AST/SGOT 16 U/L (<34); BILIRUBIN,TOTAL 0.4 MG/DL (0.3-1.2); BLOOD UREA NITROGEN 24 MG/DL (9-23); CALCIUM LEVEL 9.9 MG/DL (8.3-10.6); CARBON DIOXIDE LEVEL 35 MMOL/L (20-31); CHLORIDE LEVEL 104 MMOL/L (98-107); CHOLESTEROL LEVEL 181 MG/DL (<200); CHOLESTEROL RISK RATIO 2.41 (<5); CREATININE FOR GFR 0.65 MG/DL (0.55-1.30); GLOMERULAR FILTRATION RATE > 60.0 (>32); GLUCOSE, FASTING 98 MG/DL (74-106); HDL CHOLESTEROL 75.1 MG/DL (>40); LDL CHOLESTEROL 81.7 MG/DL (<100); NON-HDL-C 105.9 MG/DL; SODIUM LEVEL 142 MMOL/L (136-145); TOTAL PROTEIN 6.4 G/DL (5.7-8.2); TRIGLYCERIDES LEVEL 121 MG/DL (<150)
[2023-11-18 19:35] LABS: THYROID STIMULATING HORMONE 0.531 uIU/ML (0.55-4.78)
[2023-11-18 19:37] LABS: TOTAL 25(OH) VITAMIN D 29.4 NG/ML (20.0-100.0)
[2023-11-18 20:02] LABS: HIV 1&2 SCREEN NEGATIVE (NEGATIVE)
[2023-11-18 20:09] LABS: HEPATITIS C VIRUS ABY INDEX < 0.02 INDEX (<0.8)
== END ==
LOC: M LAB REF 18:13
PROVIDERS: ATTEND Physician Assistant
DX: Z11.9 Encounter for screening for infectious and parasitic diseases, unspecified (principal); E55.9 Vitamin D deficiency, unspecified; J44.9 Chronic obstructive pulmonary disease, unspecified; E78.00 Pure hypercholesterolemia, unspecified

== ENCOUNTER → 2023-12-27 | Outpatient (CLI) | payer MEDICARE, MEDICAID | LOC: M PLAIMG 14:10 | PROVIDERS: ATTEND Physician Assistant | DX: R29.898 Other symptoms and signs involving the musculoskeletal system (principal) ==

== ENCOUNTER → 2024-01-18 | Outpatient (CLI) | payer MEDICARE, MEDICAID ==
[~2024-01-18] VITALS: Ht 162.6 cm; Wt 44.6 kg
[~2024-01-18] MED LIST changes: +ATIV1TAB10 PO; +ATIV1TAB7 PO; +MELA10CA2 PO; +MM S100C PO; +OXYC10TA12 PO; +SENN-186 PO
[2024-01-18 15:08] VITALS: BP 102/41; O2SAT 94
== END ==
LOC: M PAL 14:27
PROVIDERS: ATTEND Nurse Practitioner Adult Health
DX: G89.29 Other chronic pain (principal); R06.02 Shortness of breath; R64 Cachexia; R53.81 Other malaise; K59.00 Constipation, unspecified; F41.8 Other specified anxiety disorders; J44.9 Chronic obstructive pulmonary disease, unspecified; G62.9 Polyneuropathy, unspecified; M25.559 Pain in unspecified hip; M54.2 Cervicalgia; M25.569 Pain in unspecified knee; Z66 Do not resuscitate; F17.210 Nicotine dependence, cigarettes, uncomplicated; Z51.5 Encounter for palliative care; Z79.01 Long term (current) use of anticoagulants; Z79.51 Long term (current) use of inhaled steroids; Z79.899 Other long term (current) drug therapy; Z79.82 Long term (current) use of aspirin; Z79.891 Long term (current) use of opiate analgesic; Z68.1 Body mass index [BMI] 19.9 or less, adult; Z88.1 Allergy status to other antibiotic agents; Z88.8 Allergy status to other drugs, medicaments and biological substances; Z90.710 Acquired absence of both cervix and uterus; Z95.4 Presence of other heart-valve replacement; Z99.81 Dependence on supplemental oxygen

== ENCOUNTER → 2024-02-08 | Outpatient (CLI) | payer MEDICARE, MEDICAID ==
[~2024-02-08] VITALS: Ht 162.6 cm; Wt 44.9 kg
[~2024-02-08] MED LIST changes: -FOLI0.8T2 PO; +NARC1SPR NARES; +[UNRECOGNIZED DRUG - CODE] PO
[2024-02-08 11:31] VITALS: BP 130/64; TEMP 98.5; O2SAT 95
== END ==
LOC: M PAL 11:27
PROVIDERS: ATTEND Nurse Practitioner Adult Health
DX: G89.29 Other chronic pain (principal); G62.9 Polyneuropathy, unspecified; R06.02 Shortness of breath; R64 Cachexia; R53.81 Other malaise; K59.00 Constipation, unspecified; F41.8 Other specified anxiety disorders; J44.9 Chronic obstructive pulmonary disease, unspecified; M25.559 Pain in unspecified hip; M54.2 Cervicalgia; M25.569 Pain in unspecified knee; Z66 Do not resuscitate; F17.210 Nicotine dependence, cigarettes, uncomplicated; Z51.5 Encounter for palliative care; Z79.01 Long term (current) use of anticoagulants; Z79.51 Long term (current) use of inhaled steroids; Z79.82 Long term (current) use of aspirin; Z79.891 Long term (current) use of opiate analgesic; Z79.899 Other long term (current) drug therapy; Z80.1 Family history of malignant neoplasm of trachea, bronchus and lung; Z80.8 Family history of malignant neoplasm of other organs or systems; Z88.1 Allergy status to other antibiotic agents; Z88.8 Allergy status to other drugs, medicaments and biological substances; Z90.710 Acquired absence of both cervix and uterus; Z95.4 Presence of other heart-valve replacement; Z99.81 Dependence on supplemental oxygen

== ENCOUNTER 2024-03-08 17:20 | Inpatient (IN) | payer MEDICARE, MEDICAID ==
[~2024-03-08] VITALS: Ht 162.6 cm; Wt 46.9 kg
[2024-03-08 18:04] LABS: BASO % 0.1 % (0.0-1.0); EOS % 0.2 % (0.0-3.0); HEMOGLOBIN 13.4 g/dl (12.0-15.5); LYMPH # 1.6 10^3/uL (1.5-5.0); LYMPH % 10.8 % (24.0-44.0); MEAN CORPUSCULAR HEMOGLOBIN 31.9 pg (27.0-33.0); MEAN CORPUSCULAR HGB CONC 32.7 g/dl (32.0-36.5); MEAN CORPUSCULAR VOLUME 97.6 fl (80.0-96.0); MONO # 1.1 10^3/uL (0.0-0.8); MONO % 7.1 % (2.0-8.0); NEUTROPHILS % 81.3 % (36.0-66.0); PLATELET COUNT, AUTOMATED 131 10^3/uL (150-450); WHITE BLOOD COUNT 14.8 10^3/uL (4.0-10.0)
[2024-03-08 18:11] LABS: VENOUS BASE EXCESS 5.7 (-2.0-2.0); VENOUS HCO3 32.6 MMOL/L (23.0-27.0); VENOUS O2 SATURATION 41.6 % (60.0-80.0); VENOUS PARTIAL PRESSURE CO2 57.1 mmHg (38.0-50.0); VENOUS PARTIAL PRESSURE O2 22.2 mmHg (30.0-50.0); VENOUS PH 7.374 UNITS (7.330-7.430); VENOUS STANDARD HCO3 28.1 MMOL/L; VENOUS TOTAL CO2 34.3 MMOL/L (24.0-28.0)
[2024-03-08 18:35] LABS: INR 2.48; PROTHROMBIN TIME 25.9 SECONDS (12.5-14.5)
[2024-03-08 18:41] LABS: FREE T4 0.99 NG/DL (0.89-1.76); THYROID STIMULATING HORMONE 1.438 uIU/ML (0.55-4.78)
[2024-03-08] MEDS: NS 1,000 ML IV ONE (18:43)
[2024-03-08] MEDS: MEROPENEM INJ 1 GM in IV 1 EA IV ONE (18:43)
[2024-03-08 18:45] LABS: PROCALCITONIN 1.22 ng/ml
[2024-03-08 18:50] LABS: ALKALINE PHOSPHATASE 84 U/L (46-116); ALT/SGPT 25 U/L (7.0-40); AST/SGOT 20 U/L (<34); BILIRUBIN,DIRECT 0.5 MG/DL (<0.4); BILIRUBIN,TOTAL 1.4 MG/DL (0.3-1.2); BLOOD UREA NITROGEN 21 MG/DL (9-23); CALCIUM LEVEL 8.8 MG/DL (8.3-10.6); CARBON DIOXIDE LEVEL 32 MMOL/L (20-31); CHLORIDE LEVEL 101 MMOL/L (98-107); CREATININE FOR GFR 0.68 MG/DL (0.55-1.30); GLOMERULAR FILTRATION RATE > 60.0 (>32); GLUCOSE, FASTING 98 MG/DL (74-106); POTASSIUM SERUM 4.1 MMOL/L (3.5-5.1); SODIUM LEVEL 139 MMOL/L (136-145); TOTAL PROTEIN 5.9 G/DL (5.7-8.2)
[2024-03-08] MEDS: VANCOMYCIN HCL 1,000 MG, VIAL MATE ADAPTER 1 EACH in D5W 250 ML IV ONE (19:42)
[2024-03-08] MEDS: ACETAMINOPHEN TAB 650MG DOSE (2X325MG) PO ONE (19:42)
[2024-03-08] MEDS: NS 500 ML IV ONE (19:43)
[2024-03-08] MEDS: LIDOCAINE 2% 5ML JELLY UROJET TOP ONE (19:47)
[2024-03-08] MEDS ORDERED: LORazepam 2 MG/ML 1ML VIAL IV PRN (21:05)
[2024-03-08] MEDS ORDERED: ISOVUE-370 76% 100ML VIAL As Ordered ONE (21:22)
[2024-03-08 21:49] VITALS: BP 95/50; TEMP 97.3; O2SAT 95
[2024-03-08] MEDS: oxyCODONE 5MG TAB PO PRN (22:15)
[2024-03-09] MEDS: MEROPENEM INJ 1 GM in IV 1 EA IV SCH (02:16)
[2024-03-09 04:00] VITALS: BP 128/56; TEMP 97.2; O2SAT 99
[2024-03-09 06:06] LABS: BASO % 0.2 % (0.0-1.0); EOS # 0.1 10^3/uL (0.0-0.5); HEMOGLOBIN 12.4 g/dl (12.0-15.5); LYMPH # 1.2 10^3/uL (1.5-5.0); LYMPH % 14.1 % (24.0-44.0); MEAN CORPUSCULAR HEMOGLOBIN 31.1 pg (27.0-33.0); MEAN CORPUSCULAR HGB CONC 31.8 g/dl (32.0-36.5); MEAN CORPUSCULAR VOLUME 97.7 fl (80.0-96.0); MONO # 0.7 10^3/uL (0.0-0.8); MONO % 8.7 % (2.0-8.0); NEUTROPHILS # 6.3 10^3/uL (1.5-8.5); NEUTROPHILS % 75.8 % (36.0-66.0); PLATELET COUNT, AUTOMATED 106 10^3/uL (150-450); RED BLOOD COUNT 3.99 10^6/uL (4.00-5.40); WHITE BLOOD COUNT 8.4 10^3/uL (4.0-10.0)
[2024-03-09 06:38] LABS: ALBUMIN 2.4 G/DL (3.2-5.2); BLOOD UREA NITROGEN 15 MG/DL (9-23); CALCIUM LEVEL 8.4 MG/DL (8.3-10.6); CARBON DIOXIDE LEVEL 28 MMOL/L (20-31); CHLORIDE LEVEL 107 MMOL/L (98-107); CREATININE FOR GFR 0.47 MG/DL (0.55-1.30); GLOMERULAR FILTRATION RATE > 60.0 (>32); GLUCOSE, FASTING 85 MG/DL (74-106); MAGNESIUM LEVEL 1.8 MG/DL (1.8-2.4); PHOSPHORUS LEVEL 2.6 MG/DL (2.4-5.1); POTASSIUM SERUM 3.8 MMOL/L (3.5-5.1); SODIUM LEVEL 141 MMOL/L (136-145)
[2024-03-09 06:39] LABS: ALBUMIN 2.4 G/DL (3.2-5.2); BILIRUBIN,DIRECT 0.3 MG/DL (<0.4); BILIRUBIN,TOTAL 0.9 MG/DL (0.3-1.2)
[2024-03-09] MEDS: IPRATROPIUM 0.5MG/ALBUTEROL 2.5MG INH SOL UD 3ML (DUONEB) NEB SCH (07:10)
[2024-03-09] MEDS: AZITHROMYCIN 250MG TABLET PO SCH (08:52)
[2024-03-09] MEDS: PERCOCET 5MG/325MG TAB PO PRN (09:04)
[2024-03-09] MEDS: LORazepam 1 MG TAB PO SCH (09:11)
[2024-03-09 12:00] VITALS: BP 124/54; TEMP 97.2; O2SAT 92
[2024-03-09] MEDS ORDERED: MELA10CA PO (14:20)
[2024-03-09] MEDS ORDERED: DULO1CAP5 PO (14:20)
[2024-03-09] MEDS ORDERED: OMEP20TA17 PO (14:20)
[2024-03-09] MEDS ORDERED: OXYC10TA12 PO (14:20)
[2024-03-09] MEDS ORDERED: GABA-282 PO (14:20)
[2024-03-09] MEDS ORDERED: FERR325T14 PO (14:20)
[2024-03-09] MEDS ORDERED: ATIV1TAB10 PO (14:20)
[2024-03-09] MEDS ORDERED: ALBU2.5V10 INH (14:22)
[2024-03-09] MEDS ORDERED: HOME MED LIST COMPLETE! XX SCH (14:25)
[2024-03-09] MEDS: predniSONE 10MG TAB PO SCH (15:31)
[2024-03-09] MEDS: PIPERACILLIN/TAZOBACTAM SOD 4.5 GM in D5W MINI-BAG PLUS 50 ML IV SCH (16:52)
[2024-03-09] MEDS: WARFARIN SOD 5MG TAB PO SCH (17:43)
[2024-03-09 19:44] VITALS: BP 142/106; TEMP 97.9; O2SAT 96
[2024-03-09] MEDS: OMEPRAZOLE 20MG CAP PO SCH (20:53)
[2024-03-09] MEDS: guaiFENesin ER TABLET 600 MG TAB PO SCH (20:53)
[2024-03-09] MEDS: traZODone 25MG PER 1/2 TABLET PO SCH (20:53)
[2024-03-10 03:50] VITALS: BP 131/57; TEMP 97.9; O2SAT 98
[2024-03-10 06:26] LABS: BASO % 0.2 % (0.0-1.0); EOS # 0.1 10^3/uL (0.0-0.5); EOS % 0.8 % (0.0-3.0); HEMATOCRIT 34.5 % (36.0-47.0); LYMPH # 0.7 10^3/uL (1.5-5.0); LYMPH % 10.9 % (24.0-44.0); MEAN CORPUSCULAR HEMOGLOBIN 30.8 pg (27.0-33.0); MEAN CORPUSCULAR HGB CONC 31.9 g/dl (32.0-36.5); MEAN CORPUSCULAR VOLUME 96.6 fl (80.0-96.0); MONO # 0.7 10^3/uL (0.0-0.8); MONO % 9.9 % (2.0-8.0); NEUTROPHILS # 5.1 10^3/uL (1.5-8.5); NEUTROPHILS % 77.7 % (36.0-66.0); PLATELET COUNT, AUTOMATED 116 10^3/uL (150-450); RED BLOOD COUNT 3.57 10^6/uL (4.00-5.40); WHITE BLOOD COUNT 6.6 10^3/uL (4.0-10.0)
[2024-03-10 06:40] LABS: INR 2.96; PROTHROMBIN TIME 29.7 SECONDS (12.5-14.5)
[2024-03-10 06:50] LABS: ALBUMIN 2.3 G/DL (3.2-5.2); BLOOD UREA NITROGEN 12 MG/DL (9-23); CALCIUM LEVEL 8.6 MG/DL (8.3-10.6); CARBON DIOXIDE LEVEL 32 MMOL/L (20-31); CHLORIDE LEVEL 106 MMOL/L (98-107); CREATININE FOR GFR 0.53 MG/DL (0.55-1.30); GLOMERULAR FILTRATION RATE > 60.0 (>32); GLUCOSE, FASTING 109 MG/DL (74-106); MAGNESIUM LEVEL 1.7 MG/DL (1.8-2.4); PHOSPHORUS LEVEL 2.8 MG/DL (2.4-5.1); POTASSIUM SERUM 3.5 MMOL/L (3.5-5.1); SODIUM LEVEL 142 MMOL/L (136-145)
[2024-03-10] MEDS: ACETYLCYSTEINE 20% 4 ML VIAL (200MG/ML) INH SCH (09:24)
[2024-03-10] MEDS: IPRATROPIUM 0.5MG/ALBUTEROL 2.5MG INH SOL UD 3ML (DUONEB) NEB SCH (09:24)
[2024-03-10] MEDS: oxyBUTYnin 5 MG TAB PO SCH (09:44)
[2024-03-10] MEDS: DULoxetine 30MG CAPSULE (CYMBALTA) PO SCH (09:45)
[2024-03-10] MEDS: FERROUS SULFATE 325MG TAB PO SCH (09:45)
[2024-03-10] MEDS: POTASSIUM CHLORIDE 10MEQ SR TABLET PO SCH (09:45)
[2024-03-10] MEDS: MAG SULF 1GM/100ML (MAG RUN) 1 GM in IV 1 EA IV SCH (09:46)
[2024-03-10 12:00] VITALS: BP 118/60; TEMP 97.7; O2SAT 95
[2024-03-10] MEDS: WARFARIN SOD 4MG TAB PO SCH (16:35)
[2024-03-10 18:30] VITALS: O2SAT 96
[2024-03-10 20:41] VITALS: BP 129/59; TEMP 97.2; O2SAT 95
[2024-03-11 05:13] VITALS: BP 125/89; TEMP 97.2; O2SAT 98
[2024-03-11 06:31] LABS: BASO % 0.2 % (0.0-1.0); EOS # 0.1 10^3/uL (0.0-0.5); EOS % 1.1 % (0.0-3.0); HEMATOCRIT 35.3 % (36.0-47.0); HEMOGLOBIN 11.1 g/dl (12.0-15.5); LYMPH % 15.1 % (24.0-44.0); MEAN CORPUSCULAR HEMOGLOBIN 29.8 pg (27.0-33.0); MEAN CORPUSCULAR HGB CONC 31.4 g/dl (32.0-36.5); MEAN CORPUSCULAR VOLUME 94.9 fl (80.0-96.0); MONO # 0.6 10^3/uL (0.0-0.8); MONO % 9.3 % (2.0-8.0); NEUTROPHILS # 4.8 10^3/uL (1.5-8.5); PLATELET COUNT, AUTOMATED 127 10^3/uL (150-450); RED BLOOD COUNT 3.72 10^6/uL (4.00-5.40); WHITE BLOOD COUNT 6.5 10^3/uL (4.0-10.0)
[2024-03-11 06:45] LABS: INR 4.37; PROTHROMBIN TIME 40.1 SECONDS (12.5-14.5)
[2024-03-11 07:06] LABS: ALBUMIN 2.4 G/DL (3.2-5.2); BLOOD UREA NITROGEN 8 MG/DL (9-23); CALCIUM LEVEL 8.6 MG/DL (8.3-10.6); CARBON DIOXIDE LEVEL 32 MMOL/L (20-31); CHLORIDE LEVEL 107 MMOL/L (98-107); CREATININE FOR GFR 0.52 MG/DL (0.55-1.30); GLOMERULAR FILTRATION RATE > 60.0 (>32); GLUCOSE, FASTING 99 MG/DL (74-106); MAGNESIUM LEVEL 1.9 MG/DL (1.8-2.4); PHOSPHORUS LEVEL 3.1 MG/DL (2.4-5.1); POTASSIUM SERUM 3.5 MMOL/L (3.5-5.1); SODIUM LEVEL 143 MMOL/L (136-145)
[2024-03-11 12:00] VITALS: BP 105/49; TEMP 97.5; O2SAT 95
[2024-03-11 19:30] VITALS: O2SAT 86
[2024-03-11 19:43] VITALS: O2SAT 94
[2024-03-11 19:55] VITALS: BP 128/59; TEMP 97.7; O2SAT 93
[2024-03-12] VITALS (7 sets, daily range): BP systolic 100–139; BP diastolic 50–90; TEMP 97.2–100.3; O2SAT 93–95
[2024-03-12] MEDS: IPRATROPIUM 0.5MG/ALBUTEROL 2.5MG INH SOL UD 3ML (DUONEB) NEB PRN (00:40)
[2024-03-12] MEDS: ACETAMINOPHEN TAB 650MG DOSE (2X325MG) PO PRN (01:16)
[2024-03-12 07:36] LABS: BASO % 0.2 % (0.0-1.0); EOS % 0.3 % (0.0-3.0); HEMATOCRIT 34.9 % (36.0-47.0); HEMOGLOBIN 11.1 g/dl (12.0-15.5); LYMPH # 1.1 10^3/uL (1.5-5.0); LYMPH % 10.9 % (24.0-44.0); MEAN CORPUSCULAR HEMOGLOBIN 30.4 pg (27.0-33.0); MEAN CORPUSCULAR HGB CONC 31.8 g/dl (32.0-36.5); MEAN CORPUSCULAR VOLUME 95.6 fl (80.0-96.0); MONO # 1.1 10^3/uL (0.0-0.8); MONO % 11.5 % (2.0-8.0); NEUTROPHILS # 7.4 10^3/uL (1.5-8.5); NEUTROPHILS % 76.7 % (36.0-66.0); PLATELET COUNT, AUTOMATED 151 10^3/uL (150-450); RED BLOOD COUNT 3.65 10^6/uL (4.00-5.40); WHITE BLOOD COUNT 9.7 10^3/uL (4.0-10.0)
[2024-03-12 07:48] LABS: INR 4.93
[2024-03-12 08:01] LABS: ALBUMIN 2.3 G/DL (3.2-5.2); BLOOD UREA NITROGEN 11 MG/DL (9-23); CALCIUM LEVEL 8.6 MG/DL (8.3-10.6); CARBON DIOXIDE LEVEL 32 MMOL/L (20-31); CHLORIDE LEVEL 105 MMOL/L (98-107); CREATININE FOR GFR 0.55 MG/DL (0.55-1.30); GLOMERULAR FILTRATION RATE > 60.0 (>32); GLUCOSE, FASTING 115 MG/DL (74-106); MAGNESIUM LEVEL 1.7 MG/DL (1.8-2.4); PHOSPHORUS LEVEL 3.8 MG/DL (2.4-5.1); POTASSIUM SERUM 3.3 MMOL/L (3.5-5.1); SODIUM LEVEL 141 MMOL/L (136-145)
[2024-03-12] MEDS: MAG SULF 1GM/100ML (MAG RUN) 1 GM in IV 1 EA IV SCH (20:09)
[2024-03-12] MEDS: POTASSIUM CHLORIDE 10MEQ SR TABLET PO ONE (20:10)
[2024-03-12] MEDS: KCL 10MEQ/100ML SWI (KRUN) 10 MEQ in IV 1 EA IV SCH (22:03)
[2024-03-13 04:30] VITALS: BP 126/58; TEMP 97.5; O2SAT 94
[2024-03-13 06:56] LABS: BASO % 0.1 % (0.0-1.0); EOS # 0.1 10^3/uL (0.0-0.5); EOS % 0.6 % (0.0-3.0); HEMATOCRIT 36.6 % (36.0-47.0); HEMOGLOBIN 11.6 g/dl (12.0-15.5); LYMPH % 10.5 % (24.0-44.0); MEAN CORPUSCULAR HEMOGLOBIN 30.6 pg (27.0-33.0); MEAN CORPUSCULAR HGB CONC 31.7 g/dl (32.0-36.5); MEAN CORPUSCULAR VOLUME 96.6 fl (80.0-96.0); MONO # 0.8 10^3/uL (0.0-0.8); MONO % 8.8 % (2.0-8.0); NEUTROPHILS # 7.4 10^3/uL (1.5-8.5); NEUTROPHILS % 79.7 % (36.0-66.0); PLATELET COUNT, AUTOMATED 172 10^3/uL (150-450); RED BLOOD COUNT 3.79 10^6/uL (4.00-5.40); WHITE BLOOD COUNT 9.3 10^3/uL (4.0-10.0)
[2024-03-13 07:07] LABS: INR 3.51; PROTHROMBIN TIME 33.9 SECONDS (12.5-14.5)
[2024-03-13 07:25] LABS: ALBUMIN 2.4 G/DL (3.2-5.2); BLOOD UREA NITROGEN 11 MG/DL (9-23); CALCIUM LEVEL 8.8 MG/DL (8.3-10.6); CARBON DIOXIDE LEVEL 31 MMOL/L (20-31); CHLORIDE LEVEL 102 MMOL/L (98-107); CREATININE FOR GFR 0.57 MG/DL (0.55-1.30); GLOMERULAR FILTRATION RATE > 60.0 (>32); GLUCOSE, FASTING 99 MG/DL (74-106); MAGNESIUM LEVEL 1.9 MG/DL (1.8-2.4); PHOSPHORUS LEVEL 2.6 MG/DL (2.4-5.1); POTASSIUM SERUM 3.8 MMOL/L (3.5-5.1); SODIUM LEVEL 139 MMOL/L (136-145)
[2024-03-13 12:00] VITALS: BP 118/57; TEMP 97.5; O2SAT 95
[2024-03-13 18:07] LABS: BODY FLUID CULTURE Not indicated. (.); ORGANISM ID Not indicated. (.); SPECIMEN SOURCE Urine (.); URINE STREP PNEUMONIAE ANTIGEN Negative (Negative)
[2024-03-14 05:51] VITALS: BP 121/65; TEMP 98.2; O2SAT 94
[2024-03-14 06:12] LABS: BASO % 0.2 % (0.0-1.0); EOS # 0.1 10^3/uL (0.0-0.5); EOS % 1.4 % (0.0-3.0); HEMATOCRIT 36.2 % (36.0-47.0); HEMOGLOBIN 11.4 g/dl (12.0-15.5); LYMPH # 1.2 10^3/uL (1.5-5.0); LYMPH % 19.9 % (24.0-44.0); MEAN CORPUSCULAR HGB CONC 31.5 g/dl (32.0-36.5); MEAN CORPUSCULAR VOLUME 95.3 fl (80.0-96.0); MONO # 0.6 10^3/uL (0.0-0.8); MONO % 10.3 % (2.0-8.0); NEUTROPHILS # 4.2 10^3/uL (1.5-8.5); NEUTROPHILS % 67.9 % (36.0-66.0); PLATELET COUNT, AUTOMATED 187 10^3/uL (150-450); WHITE BLOOD COUNT 6.2 10^3/uL (4.0-10.0)
[2024-03-14 06:42] LABS: INR 2.08; PROTHROMBIN TIME 22.6 SECONDS (12.5-14.5)
[2024-03-14 06:45] LABS: ALBUMIN 2.3 G/DL (3.2-5.2); BLOOD UREA NITROGEN 11 MG/DL (9-23); CALCIUM LEVEL 9.2 MG/DL (8.3-10.6); CARBON DIOXIDE LEVEL 32 MMOL/L (20-31); CHLORIDE LEVEL 104 MMOL/L (98-107); CREATININE FOR GFR 0.49 MG/DL (0.55-1.30); GLOMERULAR FILTRATION RATE > 60.0 (>32); GLUCOSE, FASTING 101 MG/DL (74-106); MAGNESIUM LEVEL 1.8 MG/DL (1.8-2.4); PHOSPHORUS LEVEL 3.3 MG/DL (2.4-5.1); POTASSIUM SERUM 3.9 MMOL/L (3.5-5.1); SODIUM LEVEL 142 MMOL/L (136-145)
[2024-03-14 08:22] VITALS: O2SAT 91
[2024-03-14 09:00] VITALS: O2SAT 86
[2024-03-14 10:00] VITALS: BP 118/61; TEMP 97.7; O2SAT 98
[2024-03-14 11:34] LABS: PROCALCITONIN 0.17 ng/ml
[2024-03-14] MEDS: ASPIRIN 81MG ENTERIC TABLET PO SCH (11:47)
[2024-03-14] MEDS: VITAMIN D 1,000 INTERNATIONAL UNITS TABLET PO SCH (11:47)
[2024-03-14] MEDS ORDERED: ERTAPENEM SODIUM 1 GM in NS MINI-BAG PLUS 50 ML IV SCH (12:00)
[2024-03-14] MEDS: ADVAIR HFA 115/21MCG INHALER INH SCH (13:08)
[2024-03-14] MEDS: TIOTROPIUM INHALER/CAPSULE (SPIRIVA) INH SCH (13:09)
[2024-03-14] MEDS ORDERED: PIPERACILLIN/TAZOBACTAM SOD 3.375 GM in D5W MINI-BAG PLUS 50 ML IV SCH (13:15)
[2024-03-14] MEDS ORDERED: PIPERACILLIN/TAZOBACTAM SOD 4.5 GM in D5W MINI-BAG PLUS 50 ML IV SCH (16:00)
[2024-03-14] MEDS: GABAPENTIN 100 MG CAP PO SCH (16:20)
[2024-03-14 20:00] VITALS: BP 125/67; TEMP 96.4; O2SAT 97
[2024-03-14] MEDS: RAMELTEON 8 MG TAB (ROZEREM) PO SCH (20:36)
[2024-03-14] MEDS: DOCUSATE SODIUM 100MG CAPSULE PO SCH (20:36)
[2024-03-14] MEDS: LevoFLOXacin 750 MG TABLET PO SCH (23:26)
[2024-03-15 04:00] VITALS: BP 113/60; TEMP 97.3; O2SAT 98
[2024-03-15 06:08] LABS: BASO % 0.2 % (0.0-1.0); EOS # 0.1 10^3/uL (0.0-0.5); EOS % 1.5 % (0.0-3.0); HEMOGLOBIN 11.1 g/dl (12.0-15.5); LYMPH # 1.3 10^3/uL (1.5-5.0); LYMPH % 24.4 % (24.0-44.0); MEAN CORPUSCULAR HEMOGLOBIN 29.9 pg (27.0-33.0); MEAN CORPUSCULAR HGB CONC 30.8 g/dl (32.0-36.5); MONO # 0.5 10^3/uL (0.0-0.8); MONO % 9.6 % (2.0-8.0); NEUTROPHILS # 3.5 10^3/uL (1.5-8.5); NEUTROPHILS % 63.8 % (36.0-66.0); PLATELET COUNT, AUTOMATED 218 10^3/uL (150-450); RED BLOOD COUNT 3.71 10^6/uL (4.00-5.40); WHITE BLOOD COUNT 5.5 10^3/uL (4.0-10.0)
[2024-03-15 07:12] LABS: INR 1.78; PROTHROMBIN TIME 20.1 SECONDS (12.5-14.5)
[2024-03-15 07:32] LABS: ALBUMIN 2.4 G/DL (3.2-5.2); BLOOD UREA NITROGEN 11 MG/DL (9-23); CALCIUM LEVEL 9.4 MG/DL (8.3-10.6); CARBON DIOXIDE LEVEL 32 MMOL/L (20-31); CHLORIDE LEVEL 106 MMOL/L (98-107); CREATININE FOR GFR 0.47 MG/DL (0.55-1.30); GLOMERULAR FILTRATION RATE > 60.0 (>32); GLUCOSE, FASTING 91 MG/DL (74-106); MAGNESIUM LEVEL 1.6 MG/DL (1.8-2.4); PHOSPHORUS LEVEL 3.4 MG/DL (2.4-5.1); POTASSIUM SERUM 3.8 MMOL/L (3.5-5.1); SODIUM LEVEL 144 MMOL/L (136-145)
[2024-03-15] MEDS ORDERED: LEVO1TAB40 PO (09:31)
[2024-03-15] MEDS ORDERED: ENOX40IN3 SC (09:31)
[2024-03-15] MEDS: ENOXAPARIN 60MG/0.6ML SYRINGE (J1650 PER 10MG) SC SCH (10:16)
[2024-03-15] MEDS: LORazepam 0.5 MG TAB PO PRN (10:33)
[2024-03-15] MEDS: oxyCODONE 5MG TAB PO PRN (10:34)
[2024-03-15 12:00] VITALS: BP 113/59; TEMP 97.5; O2SAT 99
== END 2024-03-15 13:00 | disposition home health service (06) | DRG 871 ==
LOC: EDBD 17:20 → M ED 17:20 → M ED INP 19:34 → M MSPAV 21:56
PROVIDERS: ADMIT Internal Medicine; ATTEND Internal Medicine
DX: A41.9 Sepsis, unspecified organism (principal); J18.9 Pneumonia, unspecified organism; I50.32 Chronic diastolic (congestive) heart failure; J96.11 Chronic respiratory failure with hypoxia; N39.0 Urinary tract infection, site not specified; J44.1 Chronic obstructive pulmonary disease with (acute) exacerbation; J44.0 Chronic obstructive pulmonary disease with (acute) lower respiratory infection; E46 Unspecified protein-calorie malnutrition; Z99.81 Dependence on supplemental oxygen; F17.210 Nicotine dependence, cigarettes, uncomplicated; M06.9 Rheumatoid arthritis, unspecified; I25.2 Old myocardial infarction; K21.9 Gastro-esophageal reflux disease without esophagitis; N31.9 Neuromuscular dysfunction of bladder, unspecified; G89.29 Other chronic pain; M81.0 Age-related osteoporosis without current pathological fracture; F32.A Depression, unspecified; F41.9 Anxiety disorder, unspecified; I25.10 Atherosclerotic heart disease of native coronary artery without angina pectoris; G47.00 Insomnia, unspecified; B96.1 Klebsiella pneumoniae [K. pneumoniae] as the cause of diseases classified elsewhere; Z90.49 Acquired absence of other specified parts of digestive tract; Z90.79 Acquired absence of other genital organ(s); Z79.82 Long term (current) use of aspirin; Z79.01 Long term (current) use of anticoagulants; Z79.52 Long term (current) use of systemic steroids; Z79.899 Other long term (current) drug therapy; Z88.1 Allergy status to other antibiotic agents; Z88.8 Allergy status to other drugs, medicaments and biological substances; Z95.2 Presence of prosthetic heart valve; Z86.73 Personal history of transient ischemic attack (TIA), and cerebral infarction without residual deficits; R91.8 Other nonspecific abnormal finding of lung field

== ENCOUNTER → 2024-05-03 | Outpatient (CLI) | payer MEDICARE, MEDICAID ==
[~2024-05-03] VITALS: Ht 162.6 cm; Wt 45.0 kg
[~2024-05-03] MED LIST changes: +ALBU2.5V10 INH; +AZIT-12 PO; +BACI1CAP PO; +CEFD1CAP9 PO; +DULC10SU2 PR; +DULO1CAP5 PO; +ENOX40IN3 SC; +FERR325T14 PO; +FURO20TA2 PO; +LASI20TA3 PO; +LOPE1CAP5 PO; +LOPE2CAP PO; +MELA10CA PO; +METH-855 PO; +METH5TA PO; +NALO4SPR3; +NICO1DIS10 TOP; +NICO1DIS9 TOP; +OMEP20TA17 PO; +SPIR-10 PO; +WARF4TAB51 PO
[2024-05-03 11:12] VITALS: BP 109/55; O2SAT 99
== END ==
LOC: M PAL 11:04
PROVIDERS: ATTEND Nurse Practitioner Adult Health
DX: G89.29 Other chronic pain (principal); G62.9 Polyneuropathy, unspecified; R06.02 Shortness of breath; R64 Cachexia; R53.81 Other malaise; K59.00 Constipation, unspecified; F41.8 Other specified anxiety disorders; J44.9 Chronic obstructive pulmonary disease, unspecified; M25.559 Pain in unspecified hip; M54.2 Cervicalgia; M25.569 Pain in unspecified knee; Z66 Do not resuscitate; F17.210 Nicotine dependence, cigarettes, uncomplicated; Z51.5 Encounter for palliative care; Z79.01 Long term (current) use of anticoagulants; Z79.51 Long term (current) use of inhaled steroids; Z79.82 Long term (current) use of aspirin; Z79.891 Long term (current) use of opiate analgesic; Z79.899 Other long term (current) drug therapy; Z80.1 Family history of malignant neoplasm of trachea, bronchus and lung; Z80.49 Family history of malignant neoplasm of other genital organs; Z80.8 Family history of malignant neoplasm of other organs or systems; Z88.1 Allergy status to other antibiotic agents; Z88.8 Allergy status to other drugs, medicaments and biological substances; Z90.710 Acquired absence of both cervix and uterus; Z95.4 Presence of other heart-valve replacement; Z99.81 Dependence on supplemental oxygen; Z96.651 Presence of right artificial knee joint; Z96.642 Presence of left artificial hip joint

== ENCOUNTER 2024-05-26 13:54 | Inpatient (IN) | payer MEDICARE, MEDICAID ==
[~2024-05-26] VITALS: Ht 162.6 cm; Wt 54.0 kg
[~2024-05-26 13:54] MED LIST changes: -AZIT-12 PO; -BACI1CAP PO; -CEFD1CAP9 PO; -FURO20TA2 PO; -LASI20TA3 PO; -LOPE1CAP5 PO; -LOPE2CAP PO; -METH-855 PO; -NALO4SPR3; -NICO1DIS10 TOP; -NICO1DIS9 TOP; -SPIR-10 PO; -WARF4TAB51 PO
[2024-05-26 14:55] LABS: BASO % 0.1 % (0.0-1.0); EOS % 0.3 % (0.0-3.0); HEMOGLOBIN 11.9 g/dl (12.0-15.5); LYMPH % 8.5 % (24.0-44.0); MEAN CORPUSCULAR HEMOGLOBIN 29.8 pg (27.0-33.0); MEAN CORPUSCULAR HGB CONC 31.3 g/dl (32.0-36.5); MEAN CORPUSCULAR VOLUME 95.2 fl (80.0-96.0); MONO # 0.9 10^3/uL (0.0-0.8); MONO % 7.9 % (2.0-8.0); NEUTROPHILS # 9.8 10^3/uL (1.5-8.5); NEUTROPHILS % 82.8 % (36.0-66.0); PLATELET COUNT, AUTOMATED 130 10^3/uL (150-450); RED BLOOD COUNT 3.99 10^6/uL (4.00-5.40); WHITE BLOOD COUNT 11.9 10^3/uL (4.0-10.0)
[2024-05-26 15:29] LABS: ALBUMIN 2.9 G/DL (3.2-5.2); BILIRUBIN,DIRECT 0.3 MG/DL (<0.4); BILIRUBIN,TOTAL 0.9 MG/DL (0.3-1.2); CK-MB VALUE MASS 23.8 NG/ML (<3.6); THYROID STIMULATING HORMONE 0.708 uIU/ML (0.55-4.78); TOTAL PROTEIN 5.3 G/DL (5.7-8.2)
[2024-05-26 15:58] LABS: MB/CK RELATIVE INDEX 1.07 (< OR =4)
[2024-05-26] MEDS: NS 1,000 ML IV SCH ×2 (16:54→22:30)
[2024-05-26] MEDS: cefTRIAXone SOD 1 GM in D5W MINI-BAG PLUS 50 ML IV ONE (16:55)
[2024-05-26 17:39] LABS: CK-MB VALUE MASS 34.3 NG/ML (<3.6)
[2024-05-26 18:02] LABS: CPK CREATINE PHOSPHOKINASE 2555 U/L (34-145); MB/CK RELATIVE INDEX 1.34 (< OR =4)
[2024-05-26] MEDS ORDERED: MOM 30ML SUSPENSION UDC PO PRN (19:15)
[2024-05-26] MEDS ORDERED: HEPARIN SOD (PORCINE) 5000UNITS/ML 1ML VIAL/SYRINGE SC SCH (19:15)
[2024-05-26] MEDS ORDERED: OXYC10TA12 PO (19:56)
[2024-05-26] MEDS ORDERED: DULO1CAP5 PO (19:56)
[2024-05-26] MEDS ORDERED: ALBU8.5H INH (19:56)
[2024-05-26] MEDS ORDERED: WARF-20 PO (20:03)
[2024-05-26] MEDS ORDERED: NALO4SPR3 (20:03)
[2024-05-26] MEDS ORDERED: HOME MED LIST COMPLETE! XX SCH (20:05)
[2024-05-26] MEDS ORDERED: METH-855 PO (20:12)
[2024-05-26 21:35] LABS: ERYTHROCYTE SEDIMENTATION RATE 15 mm/hr (0-30)
[2024-05-26] MEDS ORDERED: ALBUTEROL SULFATE 2.5MG/0.5ML INH NEB SOLN INH PRN (21:35)
[2024-05-26] MEDS ORDERED: ALBUTEROL 90 MCG/ACT 8GM HFA INHALER INH PRN (21:35)
[2024-05-26 22:22] LABS: BLOOD UREA NITROGEN 19 MG/DL (9-23); CALCIUM LEVEL 8.3 MG/DL (8.3-10.6); CARBON DIOXIDE LEVEL 27 MMOL/L (20-31); CHLORIDE LEVEL 107 MMOL/L (98-107); CREATININE FOR GFR 0.61 MG/DL (0.55-1.30); GLOMERULAR FILTRATION RATE > 60.0 (>32); GLUCOSE, FASTING 97 MG/DL (74-106); SODIUM LEVEL 138 MMOL/L (136-145)
[2024-05-26] MEDS: ERTAPENEM SODIUM 1 GM in NS MINI-BAG PLUS 50 ML IV SCH (22:29)
[2024-05-26] MEDS: OMEPRAZOLE 20MG CAP PO SCH (22:30)
[2024-05-26] MEDS: oxyBUTYnin 5 MG TAB PO SCH (22:30)
[2024-05-26] MEDS: DULoxetine 30MG CAPSULE (CYMBALTA) PO SCH (22:30)
[2024-05-26] MEDS: GABAPENTIN 300 MG CAP PO SCH (22:30)
[2024-05-26] MEDS: LORazepam 0.5 MG TAB PO PRN (22:30)
[2024-05-26] MEDS: NORCO, ANEXSIA 5/325MG TABLET (HYDROcodone/ACETAMINOPHEN) PO PRN (22:32)
[2024-05-26 22:55] LABS: INR 2.06; PROTHROMBIN TIME 22.5 SECONDS (12.5-14.5)
[2024-05-26 23:05] VITALS: BP 114/58; TEMP 97.5; O2SAT 91
[2024-05-27] MEDS: WARFARIN SOD 4MG TAB PO SCH (02:55)
[2024-05-27 03:56] VITALS: BP 120/59; TEMP 97.3; O2SAT 98
[2024-05-27 05:56] LABS: HEMATOCRIT 37.8 % (36.0-47.0); HEMOGLOBIN 11.7 g/dl (12.0-15.5); MEAN CORPUSCULAR HEMOGLOBIN 29.8 pg (27.0-33.0); MEAN CORPUSCULAR VOLUME 96.4 fl (80.0-96.0); PLATELET COUNT, AUTOMATED 112 10^3/uL (150-450); RED BLOOD COUNT 3.92 10^6/uL (4.00-5.40); WHITE BLOOD COUNT 7.2 10^3/uL (4.0-10.0)
[2024-05-27 06:31] LABS: ALBUMIN 2.5 G/DL (3.2-5.2); ALKALINE PHOSPHATASE 60 U/L (46-116); ALT/SGPT 32 U/L (7.0-40); AST/SGOT 82 U/L (<34); BILIRUBIN,DIRECT 0.2 MG/DL (<0.4); BILIRUBIN,TOTAL 0.6 MG/DL (0.3-1.2); BLOOD UREA NITROGEN 11 MG/DL (9-23); CALCIUM LEVEL 8.3 MG/DL (8.3-10.6); CARBON DIOXIDE LEVEL 30 MMOL/L (20-31); CHLORIDE LEVEL 110 MMOL/L (98-107); CREATININE FOR GFR 0.46 MG/DL (0.55-1.30); GLOMERULAR FILTRATION RATE > 60.0 (>32); GLUCOSE, FASTING 79 MG/DL (74-106); POTASSIUM SERUM 3.6 MMOL/L (3.5-5.1); SODIUM LEVEL 142 MMOL/L (136-145); TOTAL PROTEIN 4.9 G/DL (5.7-8.2)
[2024-05-27] MEDS ORDERED: METHENAMINE HIPPURATE 1GM TABLET PO SCH ×2 (08:00→09:00)
[2024-05-27] MEDS: DOCUSATE SODIUM 100MG CAPSULE PO SCH (08:06)
[2024-05-27] MEDS: NS 1,000 ML IV SCH (08:06)
[2024-05-27] MEDS: predniSONE 10MG TAB PO SCH (08:06)
[2024-05-27] MEDS: ASPIRIN 81MG ENTERIC TABLET PO SCH (08:06)
[2024-05-27] MEDS: FERROUS SULFATE 325MG TAB PO SCH (08:06)
[2024-05-27] MEDS: METHENAMINE HIPPURATE 1GM TABLET PO SCH (08:07)
[2024-05-27] MEDS: VITAMIN D 1,000 INTERNATIONAL UNITS TABLET PO SCH (08:07)
[2024-05-27] MEDS ORDERED: GABAPENTIN 300 MG CAP PO SCH ×2 (09:00→21:00)
[2024-05-27 12:00] VITALS: BP 123/60; TEMP 97.2; O2SAT 100
[2024-05-27] MEDS: AZITHROMYCIN 250MG TABLET PO ONE (12:08)
[2024-05-27] MEDS: PIPERACILLIN/TAZOBACTAM SOD 4.5 GM in D5W MINI-BAG PLUS 50 ML IV SCH (13:54)
[2024-05-27] MEDS: KETOROLAC 30 MG/ML 1ML VIAL IV PRN (14:30)
[2024-05-27 20:03] VITALS: BP 148/62; TEMP 96.8; O2SAT 96
[2024-05-28 04:00] VITALS: BP 100/49; TEMP 96.8; O2SAT 96
[2024-05-28 06:14] LABS: ALBUMIN 2.3 G/DL (3.2-5.2); ALKALINE PHOSPHATASE 54 U/L (46-116); ALT/SGPT 28 U/L (7.0-40); AST/SGOT 53 U/L (<34); BILIRUBIN,TOTAL 0.5 MG/DL (0.3-1.2); BLOOD UREA NITROGEN 10 MG/DL (9-23); CALCIUM LEVEL 8.1 MG/DL (8.3-10.6); CARBON DIOXIDE LEVEL 32 MMOL/L (20-31); CHLORIDE LEVEL 108 MMOL/L (98-107); CREATININE FOR GFR 0.64 MG/DL (0.55-1.30); GLOMERULAR FILTRATION RATE > 60.0 (>32); GLUCOSE, FASTING 77 MG/DL (74-106); POTASSIUM SERUM 3.7 MMOL/L (3.5-5.1); SODIUM LEVEL 142 MMOL/L (136-145); TOTAL PROTEIN 4.7 G/DL (5.7-8.2)
[2024-05-28] MEDS: AZITHROMYCIN 250MG TABLET PO SCH (08:52)
[2024-05-28 09:47] LABS: CPK CREATINE PHOSPHOKINASE 963 U/L (34-145)
[2024-05-28 12:27] VITALS: TEMP 97.3; O2SAT 96
[2024-05-28] MEDS: ACETAMINOPHEN TAB 650MG DOSE (2X325MG) PO PRN (14:56)
[2024-05-28 20:00] VITALS: BP 137/65; TEMP 97; O2SAT 99
[2024-05-28] MEDS: traZODone 25MG PER 1/2 TABLET PO PRN (20:33)
[2024-05-29] VITALS (7 sets, daily range): BP systolic 119–148; BP diastolic 58–83; TEMP 97.2–97.3; O2SAT 90–99
[2024-05-29 06:02] LABS: BASO % 0.4 % (0.0-1.0); EOS # 0.1 10^3/uL (0.0-0.5); HEMATOCRIT 38.8 % (36.0-47.0); HEMOGLOBIN 12.3 g/dl (12.0-15.5); LYMPH # 1.5 10^3/uL (1.5-5.0); MEAN CORPUSCULAR HEMOGLOBIN 30.4 pg (27.0-33.0); MEAN CORPUSCULAR HGB CONC 31.7 g/dl (32.0-36.5); MONO # 0.6 10^3/uL (0.0-0.8); NEUTROPHILS # 3.2 10^3/uL (1.5-8.5); NEUTROPHILS % 58.2 % (36.0-66.0); PLATELET COUNT, AUTOMATED 151 10^3/uL (150-450); RED BLOOD COUNT 4.04 10^6/uL (4.00-5.40); WHITE BLOOD COUNT 5.5 10^3/uL (4.0-10.0)
[2024-05-29 06:30] LABS: ALBUMIN 2.5 G/DL (3.2-5.2); ALKALINE PHOSPHATASE 52 U/L (46-116); ALT/SGPT 24 U/L (7.0-40); AST/SGOT 37 U/L (<34); BILIRUBIN,TOTAL 0.4 MG/DL (0.3-1.2); BLOOD UREA NITROGEN 6 MG/DL (9-23); CALCIUM LEVEL 8.7 MG/DL (8.3-10.6); CARBON DIOXIDE LEVEL 35 MMOL/L (20-31); CHLORIDE LEVEL 111 MMOL/L (98-107); CREATININE FOR GFR 0.65 MG/DL (0.55-1.30); GLOMERULAR FILTRATION RATE > 60.0 (>32); GLUCOSE, FASTING 81 MG/DL (74-106); POTASSIUM SERUM 3.6 MMOL/L (3.5-5.1); SODIUM LEVEL 145 MMOL/L (136-145); TOTAL PROTEIN 5.1 G/DL (5.7-8.2)
[2024-05-29] MEDS: LACTOBACILLUS ACIDOPHILUS CAP (BACID) PO SCH (13:10)
[2024-05-29] MEDS: ANALGESIC BALM CRM 3OZ TOP SCH (17:18)
[2024-05-29] MEDS: NICOTINE 21MG/24HR 1 EA TRANSDERMAL TD ONE (18:40)
[2024-05-29] MEDS: NICOTINE POLACRILEX 2 MG GUM PO ONE (18:44)
[2024-05-29 18:56] LABS: INR 4.76; PROTHROMBIN TIME 42.9 SECONDS (12.5-14.5)
[2024-05-30 04:00] VITALS: BP 158/66; TEMP 97; O2SAT 97
[2024-05-30 05:47] LABS: BASO % 0.2 % (0.0-1.0); EOS # 0.1 10^3/uL (0.0-0.5); EOS % 1.9 % (0.0-3.0); HEMATOCRIT 39.3 % (36.0-47.0); HEMOGLOBIN 12.5 g/dl (12.0-15.5); LYMPH # 1.6 10^3/uL (1.5-5.0); LYMPH % 29.8 % (24.0-44.0); MEAN CORPUSCULAR HEMOGLOBIN 30.2 pg (27.0-33.0); MEAN CORPUSCULAR HGB CONC 31.8 g/dl (32.0-36.5); MEAN CORPUSCULAR VOLUME 94.9 fl (80.0-96.0); MONO # 0.6 10^3/uL (0.0-0.8); MONO % 11.5 % (2.0-8.0); NEUTROPHILS # 2.9 10^3/uL (1.5-8.5); NEUTROPHILS % 56.4 % (36.0-66.0); PLATELET COUNT, AUTOMATED 144 10^3/uL (150-450); RED BLOOD COUNT 4.14 10^6/uL (4.00-5.40); WHITE BLOOD COUNT 5.2 10^3/uL (4.0-10.0)
[2024-05-30 06:08] LABS: INR 4.6; PROTHROMBIN TIME 41.7 SECONDS (12.5-14.5)
[2024-05-30 06:18] LABS: ALBUMIN 2.7 G/DL (3.2-5.2); ALKALINE PHOSPHATASE 52 U/L (46-116); ALT/SGPT 25 U/L (7.0-40); AST/SGOT 37 U/L (<34); BILIRUBIN,TOTAL 0.5 MG/DL (0.3-1.2); BLOOD UREA NITROGEN 6 MG/DL (9-23); CALCIUM LEVEL 8.6 MG/DL (8.3-10.6); CARBON DIOXIDE LEVEL 36 MMOL/L (20-31); CHLORIDE LEVEL 109 MMOL/L (98-107); CREATININE FOR GFR 0.63 MG/DL (0.55-1.30); GLOMERULAR FILTRATION RATE > 60.0 (>32); GLUCOSE, FASTING 85 MG/DL (74-106); POTASSIUM SERUM 3.2 MMOL/L (3.5-5.1); SODIUM LEVEL 148 MMOL/L (136-145); TOTAL PROTEIN 4.5 G/DL (5.7-8.2)
[2024-05-30] MEDS: NICOTINE 21MG/24HR 1 EA TRANSDERMAL TD SCH (08:12)
[2024-05-30 09:50] LABS: CLOSTRIDIUM DIFFICILE PCR NEGATIVE (NEGATIVE)
[2024-05-30] MEDS ORDERED: CEFD1CAP9 PO (10:20)
[2024-05-30] MEDS ORDERED: BACI1CAP PO (10:20)
[2024-05-30] MEDS ORDERED: AZIT-12 PO (10:20)
[2024-05-30] MEDS ORDERED: LOPE2CAP PO (10:21)
[2024-05-30] MEDS: LOPERAMIDE 2 MG CAPLET PO ONE (10:51)
[2024-05-30] MEDS: NS 0.45% 1,000 ML IV SCH (10:56)
[2024-05-30 12:00] VITALS: BP 149/71; TEMP 97.5; O2SAT 99
[2024-05-30] MEDS: LACTOBACILLUS ACIDOPHILUS CAP (BACID) PO SCH (12:30)
[2024-05-30] MEDS: LOPERAMIDE 2 MG CAPLET PO PRN (14:28)
[2024-05-30 14:36] LABS: BLOOD UREA NITROGEN 7 MG/DL (9-23); CALCIUM LEVEL 8.6 MG/DL (8.3-10.6); CARBON DIOXIDE LEVEL 33 MMOL/L (20-31); CHLORIDE LEVEL 104 MMOL/L (98-107); CREATININE FOR GFR 0.59 MG/DL (0.55-1.30); GLOMERULAR FILTRATION RATE > 60.0 (>32); GLUCOSE, FASTING 165 MG/DL (74-106); POTASSIUM SERUM 3.1 MMOL/L (3.5-5.1); SODIUM LEVEL 142 MMOL/L (136-145)
[2024-05-30] MEDS ORDERED: WARFARIN SOD 2MG TAB PO SCH (17:00)
[2024-05-30 20:07] VITALS: BP 134/69; TEMP 97.3; O2SAT 95
[2024-05-31] MEDS: METHOCARBAMOL 1,000 MG/10 ML VIAL IV ONE ×2 (01:43→22:14)
[2024-05-31 04:00] VITALS: BP 119/66; TEMP 97.2; O2SAT 98
[2024-05-31 05:51] LABS: BASO % 0.4 % (0.0-1.0); EOS # 0.2 10^3/uL (0.0-0.5); EOS % 2.7 % (0.0-3.0); HEMATOCRIT 38.4 % (36.0-47.0); LYMPH # 1.7 10^3/uL (1.5-5.0); LYMPH % 29.3 % (24.0-44.0); MEAN CORPUSCULAR HEMOGLOBIN 29.1 pg (27.0-33.0); MEAN CORPUSCULAR HGB CONC 31.3 g/dl (32.0-36.5); MEAN CORPUSCULAR VOLUME 93.2 fl (80.0-96.0); MONO # 0.6 10^3/uL (0.0-0.8); MONO % 10.1 % (2.0-8.0); NEUTROPHILS # 3.2 10^3/uL (1.5-8.5); NEUTROPHILS % 57.1 % (36.0-66.0); PLATELET COUNT, AUTOMATED 159 10^3/uL (150-450); RED BLOOD COUNT 4.12 10^6/uL (4.00-5.40); WHITE BLOOD COUNT 5.6 10^3/uL (4.0-10.0)
[2024-05-31 06:00] LABS: INR 3.47; PROTHROMBIN TIME 33.6 SECONDS (12.5-14.5)
[2024-05-31 06:24] LABS: ALBUMIN 2.7 G/DL (3.2-5.2); ALKALINE PHOSPHATASE 63 U/L (46-116); ALT/SGPT 55 U/L (7.0-40); AST/SGOT 116 U/L (<34); BILIRUBIN,TOTAL 0.7 MG/DL (0.3-1.2); BLOOD UREA NITROGEN 6 MG/DL (9-23); CALCIUM LEVEL 8.5 MG/DL (8.3-10.6); CARBON DIOXIDE LEVEL 32 MMOL/L (20-31); CHLORIDE LEVEL 108 MMOL/L (98-107); CREATININE FOR GFR 0.59 MG/DL (0.55-1.30); GLOMERULAR FILTRATION RATE > 60.0 (>32); GLUCOSE, FASTING 92 MG/DL (74-106); POTASSIUM SERUM 2.5 MMOL/L (3.5-5.1); SODIUM LEVEL 146 MMOL/L (136-145); TOTAL PROTEIN 5.1 G/DL (5.7-8.2)
[2024-05-31] MEDS ORDERED: NS 0.45% 1,000 ML IV SCH (10:25)
[2024-05-31] MEDS ORDERED: POTASSIUM CHLORIDE 10% LIQ 20MEQ/15ML UDC PO SCH (11:00)
[2024-05-31] MEDS: POTASSIUM CHLORIDE 10MEQ SR TABLET PO SCH (11:03)
[2024-05-31 12:32] VITALS: BP 168/70; TEMP 97.3; O2SAT 96
[2024-05-31 15:38] LABS: BLOOD UREA NITROGEN 8 MG/DL (9-23); CARBON DIOXIDE LEVEL 30 MMOL/L (20-31); CHLORIDE LEVEL 105 MMOL/L (98-107); GLOMERULAR FILTRATION RATE > 60.0 (>32); GLUCOSE, FASTING 114 MG/DL (74-106); POTASSIUM SERUM 3.2 MMOL/L (3.5-5.1); SODIUM LEVEL 138 MMOL/L (136-145)
[2024-05-31 20:00] VITALS: BP 172/80; TEMP 97.7; O2SAT 92
[2024-05-31 21:36] LABS: ALBUMIN 3.1 G/DL (3.2-5.2); ALKALINE PHOSPHATASE 70 U/L (46-116); ALT/SGPT 50 U/L (7.0-40); AST/SGOT 49 U/L (<34); BILIRUBIN,TOTAL 0.4 MG/DL (0.3-1.2); BLOOD UREA NITROGEN 9 MG/DL (9-23); CALCIUM LEVEL 9.2 MG/DL (8.3-10.6); CARBON DIOXIDE LEVEL 32 MMOL/L (20-31); CHLORIDE LEVEL 110 MMOL/L (98-107); CPK CREATINE PHOSPHOKINASE 208 U/L (34-145); CREATININE FOR GFR 0.61 MG/DL (0.55-1.30); GLOMERULAR FILTRATION RATE > 60.0 (>32); GLUCOSE, FASTING 92 MG/DL (74-106); MAGNESIUM LEVEL 1.6 MG/DL (1.8-2.4); POTASSIUM SERUM 4.3 MMOL/L (3.5-5.1); SODIUM LEVEL 144 MMOL/L (136-145); TOTAL PROTEIN 5.8 G/DL (5.7-8.2)
[2024-05-31] MEDS: MAGNESIUM OXIDE 400MG TAB (MAG-OX) PO SCH (22:14)
[2024-06-01] MEDS ORDERED: methocarbamoL 500 MG TAB PO PRN (02:00)
[2024-06-01 03:30] VITALS: BP 106/60; TEMP 97.2; O2SAT 98
[2024-06-01 06:00] LABS: BASO % 0.8 % (0.0-1.0); EOS # 0.2 10^3/uL (0.0-0.5); EOS % 2.9 % (0.0-3.0); HEMATOCRIT 40.7 % (36.0-47.0); HEMOGLOBIN 12.6 g/dl (12.0-15.5); MEAN CORPUSCULAR HEMOGLOBIN 29.8 pg (27.0-33.0); MEAN CORPUSCULAR VOLUME 96.2 fl (80.0-96.0); MONO # 0.5 10^3/uL (0.0-0.8); MONO % 10.1 % (2.0-8.0); NEUTROPHILS # 2.5 10^3/uL (1.5-8.5); NEUTROPHILS % 47.4 % (36.0-66.0); PLATELET COUNT, AUTOMATED 151 10^3/uL (150-450); RED BLOOD COUNT 4.23 10^6/uL (4.00-5.40); WHITE BLOOD COUNT 5.2 10^3/uL (4.0-10.0)
[2024-06-01 06:16] LABS: INR 2.52; PROTHROMBIN TIME 26.3 SECONDS (12.5-14.5)
[2024-06-01] MEDS ORDERED: WARF4TAB51 PO (07:58)
[2024-06-01] MEDS ORDERED: SPIR-10 PO (08:01)
[2024-06-01] MEDS ORDERED: LASI20TA3 PO (08:01)
[2024-06-01] MEDS: MAG SULF 1GM/100ML (MAG RUN) 1 GM in IV 1 EA IV SCH (08:25)
[2024-06-01] MEDS ORDERED: NICO1DIS9 TOP (13:48)
[2024-06-01] MEDS ORDERED: WARFARIN SOD 2MG TAB PO SCH (17:00)
[2024-06-01] MEDS ORDERED: WARFARIN SOD 4MG TAB PO SCH (17:00)
[2024-06-02 23:02] LABS: URINE STREP PNEUMONIAE ANTIGEN NOT DETECTED (NOT DETECT)
[2024-06-08] MEDS ORDERED: METH5TA PO (09:51)
[2024-06-13] MEDS ORDERED: OXYC10TA12 PO (07:02)
== END 2024-06-01 11:53 | disposition home health service (06) | DRG 698 ==
LOC: M ED 13:54 → EEVIPCON 20:54 → M ED INP 20:54 → M MSPAV 23:00
PROVIDERS: ADMIT Student in an Organized Health Care Education/Training Program; ATTEND General Practice
PROC: B246ZZZ Ultrasonography of Right and Left Heart (ICD-10-PCS; principal; 2024-05-27)
DX: T83.518A Infection and inflammatory reaction due to other urinary catheter, initial encounter (principal); J15.69 Pneumonia due to other Gram-negative bacteria; J96.21 Acute and chronic respiratory failure with hypoxia; I50.32 Chronic diastolic (congestive) heart failure; N39.0 Urinary tract infection, site not specified; M62.82 Rhabdomyolysis; J44.0 Chronic obstructive pulmonary disease with (acute) lower respiratory infection; J44.1 Chronic obstructive pulmonary disease with (acute) exacerbation; E87.0 Hyperosmolality and hypernatremia; I25.2 Old myocardial infarction; K21.9 Gastro-esophageal reflux disease without esophagitis; M81.0 Age-related osteoporosis without current pathological fracture; M06.9 Rheumatoid arthritis, unspecified; F41.9 Anxiety disorder, unspecified; F32.A Depression, unspecified; G47.00 Insomnia, unspecified; R33.9 Retention of urine, unspecified; F17.210 Nicotine dependence, cigarettes, uncomplicated; B96.20 Unspecified Escherichia coli [E. coli] as the cause of diseases classified elsewhere; I25.10 Atherosclerotic heart disease of native coronary artery without angina pectoris; Z79.82 Long term (current) use of aspirin; Z79.52 Long term (current) use of systemic steroids; Z95.2 Presence of prosthetic heart valve; Z79.01 Long term (current) use of anticoagulants; Z88.8 Allergy status to other drugs, medicaments and biological substances; Z86.73 Personal history of transient ischemic attack (TIA), and cerebral infarction without residual deficits; Z90.49 Acquired absence of other specified parts of digestive tract; Z11.52 Encounter for screening for COVID-19; Z90.79 Acquired absence of other genital organ(s); Z66 Do not resuscitate; Z99.81 Dependence on supplemental oxygen; G72.9 Myopathy, unspecified; E86.0 Dehydration

== ENCOUNTER → 2024-06-06 | Outpatient (REF) | payer MEDICARE, MEDICAID ==
[~2024-06-06] MED LIST changes: +AZIT-12 PO; +BACI1CAP PO; +CEFD1CAP9 PO; +FURO20TA2 PO; +LASI20TA3 PO; +LOPE1CAP5 PO; +LOPE2CAP PO; +METH-855 PO; +NALO4SPR3; +NICO1DIS10 TOP; +NICO1DIS9 TOP; +SPIR-10 PO; +WARF4TAB51 PO
[2024-06-06 18:18] LABS: BASO % 0.1 % (0.0-1.0); EOS % 0.1 % (0.0-3.0); HEMOGLOBIN 12.5 g/dl (12.0-15.5); LYMPH # 0.5 10^3/uL (1.5-5.0); MEAN CORPUSCULAR HEMOGLOBIN 29.9 pg (27.0-33.0); MEAN CORPUSCULAR HGB CONC 30.5 g/dl (32.0-36.5); MEAN CORPUSCULAR VOLUME 98.1 fl (80.0-96.0); MONO # 0.2 10^3/uL (0.0-0.8); MONO % 1.9 % (2.0-8.0); NEUTROPHILS # 8.1 10^3/uL (1.5-8.5); NEUTROPHILS % 91.6 % (36.0-66.0); PLATELET COUNT, AUTOMATED 204 10^3/uL (150-450); RED BLOOD COUNT 4.18 10^6/uL (4.00-5.40); WHITE BLOOD COUNT 8.8 10^3/uL (4.0-10.0)
[2024-06-06 18:21] LABS: BLOOD UREA NITROGEN 14 MG/DL (9-23); CALCIUM LEVEL 9.5 MG/DL (8.3-10.6); CARBON DIOXIDE LEVEL 34 MMOL/L (20-31); CHLORIDE LEVEL 102 MMOL/L (98-107); CREATININE FOR GFR 0.57 MG/DL (0.55-1.30); GLOMERULAR FILTRATION RATE > 60.0 (>32); GLUCOSE, FASTING 116 MG/DL (74-106); POTASSIUM SERUM 4.2 MMOL/L (3.5-5.1); SODIUM LEVEL 140 MMOL/L (136-145)
[2024-06-06 18:35] LABS: CPK CREATINE PHOSPHOKINASE 22 U/L (34-145)
== END ==
LOC: M LAB REF 17:01
PROVIDERS: ATTEND Physician Assistant
DX: M62.82 Rhabdomyolysis (principal); N39.0 Urinary tract infection, site not specified

== ENCOUNTER → 2024-06-08 | Outpatient (CLI) | payer MEDICARE, MEDICAID ==
[~2024-06-08] VITALS: Ht 162.6 cm; Wt 44.0 kg
[2024-06-08 09:55] VITALS: BP 139/69; O2SAT 100
== END ==
LOC: M PAL 09:37
PROVIDERS: ATTEND Nurse Practitioner Adult Health
DX: G89.29 Other chronic pain (principal); G62.9 Polyneuropathy, unspecified; I50.9 Heart failure, unspecified; R06.02 Shortness of breath; R64 Cachexia; R53.81 Other malaise; K59.00 Constipation, unspecified; F41.8 Other specified anxiety disorders; J44.9 Chronic obstructive pulmonary disease, unspecified; M25.559 Pain in unspecified hip; M54.2 Cervicalgia; M25.569 Pain in unspecified knee; Z66 Do not resuscitate; F17.210 Nicotine dependence, cigarettes, uncomplicated; Z51.5 Encounter for palliative care; Z79.01 Long term (current) use of anticoagulants; Z79.51 Long term (current) use of inhaled steroids; Z79.52 Long term (current) use of systemic steroids; Z79.82 Long term (current) use of aspirin; Z79.891 Long term (current) use of opiate analgesic; Z79.899 Other long term (current) drug therapy; Z80.1 Family history of malignant neoplasm of trachea, bronchus and lung; Z80.49 Family history of malignant neoplasm of other genital organs; Z80.8 Family history of malignant neoplasm of other organs or systems; Z88.1 Allergy status to other antibiotic agents; Z88.8 Allergy status to other drugs, medicaments and biological substances; Z90.710 Acquired absence of both cervix and uterus; Z95.4 Presence of other heart-valve replacement; Z99.81 Dependence on supplemental oxygen; Z96.651 Presence of right artificial knee joint; Z96.642 Presence of left artificial hip joint; Z87.442 Personal history of urinary calculi

== ENCOUNTER 2024-06-12 10:46 | Emergency (ER) | payer MEDICARE, MEDICAID ==
[~2024-06-12] VITALS: Ht 162.6 cm; Wt 44.3 kg
[~2024-06-12 10:46] MED LIST changes: -FURO20TA2 PO; -LOPE1CAP5 PO; -NICO1DIS10 TOP
[2024-06-12 11:32] LABS: BASO % 0.2 % (0.0-1.0); EOS % 0.5 % (0.0-3.0); HEMATOCRIT 42.2 % (36.0-47.0); HEMOGLOBIN 12.8 g/dl (12.0-15.5); LYMPH # 0.8 10^3/uL (1.5-5.0); LYMPH % 8.9 % (24.0-44.0); MEAN CORPUSCULAR HEMOGLOBIN 29.8 pg (27.0-33.0); MEAN CORPUSCULAR HGB CONC 30.3 g/dl (32.0-36.5); MEAN CORPUSCULAR VOLUME 98.4 fl (80.0-96.0); MONO # 0.4 10^3/uL (0.0-0.8); MONO % 4.6 % (2.0-8.0); NEUTROPHILS # 7.5 10^3/uL (1.5-8.5); NEUTROPHILS % 85.2 % (36.0-66.0); PLATELET COUNT, AUTOMATED 179 10^3/uL (150-450); RED BLOOD COUNT 4.29 10^6/uL (4.00-5.40); WHITE BLOOD COUNT 8.8 10^3/uL (4.0-10.0)
[2024-06-12 11:55] LABS: CPK CREATINE PHOSPHOKINASE 25 U/L (34-145)
[2024-06-12 11:56] LABS: ALBUMIN 3.3 G/DL (3.2-5.2); ALKALINE PHOSPHATASE 78 U/L (46-116); ALT/SGPT 32 U/L (7.0-40); AST/SGOT 28 U/L (<34); BILIRUBIN,DIRECT < 0.1 MG/DL (<0.4); BILIRUBIN,TOTAL 0.3 MG/DL (0.3-1.2); BLOOD UREA NITROGEN 13 MG/DL (9-23); CALCIUM LEVEL 9.1 MG/DL (8.3-10.6); CARBON DIOXIDE LEVEL 36 MMOL/L (20-31); CHLORIDE LEVEL 104 MMOL/L (98-107); CK-MB VALUE MASS < 1.0 NG/ML (<3.6); GLOMERULAR FILTRATION RATE > 60.0 (>32); GLUCOSE, FASTING 112 MG/DL (74-106); POTASSIUM SERUM 3.8 MMOL/L (3.5-5.1); SODIUM LEVEL 139 MMOL/L (136-145); TOTAL PROTEIN 5.8 G/DL (5.7-8.2)
[2024-06-12 11:58] LABS: THYROID STIMULATING HORMONE 0.695 uIU/ML (0.55-4.78)
[2024-06-12] MEDS ORDERED: SPIR-10 PO (12:39)
[2024-06-12] MEDS ORDERED: NICO1DIS10 TOP (12:39)
[2024-06-12] MEDS ORDERED: FURO20TA2 PO (12:39)
[2024-06-12] MEDS ORDERED: BACI1CAP PO (12:39)
[2024-06-12] MEDS ORDERED: LOPE1CAP5 PO (12:39)
[2024-06-12] MEDS ORDERED: PRED20TA PO (12:39)
[2024-06-12] MEDS ORDERED: WARF-20 PO (12:39)
[2024-06-12] MEDS ORDERED: HOME MED LIST COMPLETE! XX SCH (13:40)
[2024-06-12 14:07] LABS: INR 4.34; PROTHROMBIN TIME 39.9 SECONDS (12.5-14.5)
[2024-06-12 17:00] VITALS: BP 179/76; TEMP 97.8; O2SAT 100
[2024-06-13] MEDS ORDERED: OXYC10TA12 PO (07:02)
== END 2024-06-12 17:15 | disposition home or self-care (01) ==
LOC: EDBD 10:46 → M ED 10:46
DX: I95.9 Hypotension, unspecified (principal); I25.2 Old myocardial infarction; I50.9 Heart failure, unspecified; I25.10 Atherosclerotic heart disease of native coronary artery without angina pectoris; J44.9 Chronic obstructive pulmonary disease, unspecified; M06.9 Rheumatoid arthritis, unspecified; Z79.82 Long term (current) use of aspirin; Z79.899 Other long term (current) drug therapy; Z88.1 Allergy status to other antibiotic agents; Z88.8 Allergy status to other drugs, medicaments and biological substances

== ENCOUNTER 2024-07-10 12:05 | Inpatient (IN) | payer MEDICARE, MEDICAID ==
[~2024-07-10] VITALS: Ht 162.6 cm; Wt 46.1 kg
[~2024-07-10 12:05] MED LIST changes: +FURO20TA2 PO; +GABA-1172 PO; -GABA-282 PO; +LOPE1CAP5 PO; +NICO1DIS10 TOP
[2024-07-10 13:04] LABS: BASO % 0.1 % (0.0-1.0); EOS % 0.4 % (0.0-3.0); HEMATOCRIT 42.3 % (36.0-47.0); HEMOGLOBIN 12.9 g/dl (12.0-15.5); LYMPH # 1.2 10^3/uL (1.5-5.0); LYMPH % 11.2 % (24.0-44.0); MEAN CORPUSCULAR HEMOGLOBIN 29.8 pg (27.0-33.0); MEAN CORPUSCULAR HGB CONC 30.5 g/dl (32.0-36.5); MEAN CORPUSCULAR VOLUME 97.7 fl (80.0-96.0); MONO # 0.6 10^3/uL (0.0-0.8); MONO % 5.6 % (2.0-8.0); NEUTROPHILS # 8.6 10^3/uL (1.5-8.5); NEUTROPHILS % 82.1 % (36.0-66.0); PLATELET COUNT, AUTOMATED 126 10^3/uL (150-450); RED BLOOD COUNT 4.33 10^6/uL (4.00-5.40); WHITE BLOOD COUNT 10.4 10^3/uL (4.0-10.0)
[2024-07-10 13:05] LABS: ALBUMIN 2.9 G/DL (3.2-5.2); ALKALINE PHOSPHATASE 74 U/L (46-116); ALT/SGPT 16 U/L (7.0-40); AST/SGOT 17 U/L (<34); BILIRUBIN,DIRECT 0.2 MG/DL (<0.4); BILIRUBIN,TOTAL 0.8 MG/DL (0.3-1.2); BLOOD UREA NITROGEN 16 MG/DL (9-23); CALCIUM LEVEL 9.3 MG/DL (8.3-10.6); CARBON DIOXIDE LEVEL 37 MMOL/L (20-31); CHLORIDE LEVEL 102 MMOL/L (98-107); CREATININE FOR GFR 0.61 MG/DL (0.55-1.30); GLOMERULAR FILTRATION RATE > 60.0 (>32); GLUCOSE, FASTING 93 MG/DL (74-106); POTASSIUM SERUM 4.2 MMOL/L (3.5-5.1); SODIUM LEVEL 142 MMOL/L (136-145); TOTAL PROTEIN 5.7 G/DL (5.7-8.2)
[2024-07-10] MEDS: ACETAMINOPHEN 650MG SUPP PR ONE (13:18)
[2024-07-10 13:52] LABS: CK-MB VALUE MASS < 1.0 NG/ML (<3.6)
[2024-07-10 13:56] LABS: CPK CREATINE PHOSPHOKINASE 35 U/L (34-145); MB/CK RELATIVE INDEX 2.85 (< OR =4)
[2024-07-10 14:19] LABS: INR 1.84; PROTHROMBIN TIME 20.7 SECONDS (12.5-14.5)
[2024-07-10] MEDS: ACETAMINOPHEN *IV* 500 MG in IV 1 EA IV ONE (14:38)
[2024-07-10] MEDS: NS 500 ML IV ONE (14:38)
[2024-07-10] MEDS: CEFEPIME HCL 1 GM in D5W MINI-BAG PLUS 50 ML IV ONE ×2 (14:45→15:37)
[2024-07-10] MEDS ORDERED: NALOXONE INJ 0.4MG/1ML VIAL As Ordered ONE (15:21)
[2024-07-10] MEDS: NS 1,350 ML in IV 1 EA IV ONE (15:23)
[2024-07-10] MEDS: NALOXONE INJ 0.4MG/1ML VIAL IV STA ×4 (15:23→17:42)
[2024-07-10] MEDS ORDERED: OXYB10TA23 PO (16:44)
[2024-07-10] MEDS ORDERED: TRAZ-252 PO (16:44)
[2024-07-10] MEDS ORDERED: HOME MED LIST COMPLETE! XX SCH (16:45)
[2024-07-10] MEDS: NS 1,000 ML IV SCH (17:56)
[2024-07-10] MEDS: PANTOPRAZOLE 40MG VIAL IV SCH (18:13)
[2024-07-10 18:47] LABS: INR 1.97; PROTHROMBIN TIME 21.7 SECONDS (12.5-14.5)
[2024-07-10] MEDS: NALOXONE HCL INJ 4 MG in D5W 496 ML IV SCH (19:16)
[2024-07-10] MEDS: ADVAIR HFA 230/21MCG INHALER INH SCH (20:00)
[2024-07-10] MEDS: PIPERACILLIN/TAZOBACTAM SOD 3.375 GM in D5W MINI-BAG PLUS 50 ML IV SCH (21:42)
[2024-07-10] MEDS: ENOXAPARIN 60MG/0.6ML SYRINGE (J1650 PER 10MG) SC SCH (21:42)
[2024-07-10] MEDS ORDERED: ACETAMINOPHEN 650MG SUPP PR PRN (21:50)
[2024-07-10 22:16] VITALS: BP 150/70; TEMP 98.9; O2SAT 95
[2024-07-10 23:47] VITALS: BP 171/74; TEMP 99.3; O2SAT 94
[2024-07-11] VITALS (7 sets, daily range): BP systolic 98–156; BP diastolic 51–67; TEMP 97.5–98.7; O2SAT 95–98
[2024-07-11 06:15] LABS: MEAN CORPUSCULAR HEMOGLOBIN 30.1 pg (27.0-33.0); MEAN CORPUSCULAR HGB CONC 32.1 g/dl (32.0-36.5); MEAN CORPUSCULAR VOLUME 93.6 fl (80.0-96.0); PLATELET COUNT, AUTOMATED 102 10^3/uL (150-450); RED BLOOD COUNT 3.59 10^6/uL (4.00-5.40); WHITE BLOOD COUNT 12.6 10^3/uL (4.0-10.0)
[2024-07-11 06:31] LABS: HEMATOCRIT 33.6 % (36.0-47.0); HEMOGLOBIN 10.8 g/dl (12.0-15.5)
[2024-07-11 06:33] LABS: INR 2.19; PARTIAL THROMBOPLASTIN TIME 40.1 SECONDS (24.8-34.2); PROTHROMBIN TIME 23.6 SECONDS (12.5-14.5)
[2024-07-11 06:42] LABS: ALBUMIN 2.6 G/DL (3.2-5.2); ALKALINE PHOSPHATASE 68 U/L (46-116); ALT/SGPT 26 U/L (7.0-40); AST/SGOT 26 U/L (<34); BILIRUBIN,TOTAL 2.1 MG/DL (0.3-1.2); BLOOD UREA NITROGEN 12 MG/DL (9-23); CALCIUM LEVEL 8.3 MG/DL (8.3-10.6); CARBON DIOXIDE LEVEL 28 MMOL/L (20-31); CHLORIDE LEVEL 103 MMOL/L (98-107); CREATININE FOR GFR 0.51 MG/DL (0.55-1.30); GLOMERULAR FILTRATION RATE > 60.0 (>32); GLUCOSE, FASTING 136 MG/DL (74-106); SODIUM LEVEL 135 MMOL/L (136-145)
[2024-07-11] MEDS: TIOTROPIUM INHALER/CAPSULE (SPIRIVA) INH SCH (08:22)
[2024-07-11] MEDS: KCL 10MEQ/100ML SWI (KRUN) 10 MEQ in IV 1 EA IV SCH (11:46)
[2024-07-11 12:33] LABS: PROCALCITONIN 0.62 ng/ml
[2024-07-11] MEDS: OMEPRAZOLE 20MG CAP PO SCH (12:35)
[2024-07-11] MEDS: ASPIRIN 81MG ENTERIC TABLET PO SCH (12:35)
[2024-07-11] MEDS: FERROUS SULFATE 325MG TAB PO SCH (12:35)
[2024-07-11] MEDS: predniSONE 20 MG TAB PO SCH (12:35)
[2024-07-11] MEDS: ERTAPENEM SODIUM 1 GM in NS MINI-BAG PLUS 50 ML IV SCH (12:35)
[2024-07-11] MEDS: POTASSIUM CHLORIDE 10MEQ SR TABLET PO ONE (14:47)
[2024-07-11] MEDS: GABAPENTIN 100 MG CAP PO SCH (14:47)
[2024-07-11] MEDS: WARFARIN SOD 2.5MG TAB PO SCH (16:56)
[2024-07-12] VITALS (13 sets, daily range): BP systolic 100–166; BP diastolic 51–77; TEMP 97.2–99.4; O2SAT 88–100
[2024-07-12 05:50] LABS: EOS % 0.2 % (0.0-3.0); HEMATOCRIT 32.8 % (36.0-47.0); HEMOGLOBIN 10.2 g/dl (12.0-15.5); LYMPH # 0.9 10^3/uL (1.5-5.0); LYMPH % 15.4 % (24.0-44.0); MEAN CORPUSCULAR HGB CONC 31.1 g/dl (32.0-36.5); MEAN CORPUSCULAR VOLUME 96.5 fl (80.0-96.0); MONO # 0.5 10^3/uL (0.0-0.8); NEUTROPHILS # 4.5 10^3/uL (1.5-8.5); NEUTROPHILS % 75.1 % (36.0-66.0); PLATELET COUNT, AUTOMATED 108 10^3/uL (150-450); WHITE BLOOD COUNT 5.9 10^3/uL (4.0-10.0)
[2024-07-12 05:58] LABS: INR 1.85; PROTHROMBIN TIME 20.7 SECONDS (12.5-14.5)
[2024-07-12 06:35] LABS: BLOOD UREA NITROGEN 11 MG/DL (9-23); CALCIUM LEVEL 8.3 MG/DL (8.3-10.6); CARBON DIOXIDE LEVEL 29 MMOL/L (20-31); CHLORIDE LEVEL 114 MMOL/L (98-107); CREATININE FOR GFR 0.49 MG/DL (0.55-1.30); GLOMERULAR FILTRATION RATE > 60.0 (>32); GLUCOSE, FASTING 90 MG/DL (74-106); MAGNESIUM LEVEL 1.7 MG/DL (1.8-2.4); POTASSIUM SERUM 3.5 MMOL/L (3.5-5.1); SODIUM LEVEL 145 MMOL/L (136-145)
[2024-07-12] MEDS: IPRATROPIUM 0.5MG/ALBUTEROL 2.5MG INH SOL UD 3ML (DUONEB) NEB SCH (08:00)
[2024-07-12] MEDS: MAG SULF 1GM/100ML (MAG RUN) 1 GM in IV 1 EA IV ONE (09:19)
[2024-07-12] MEDS: POTASSIUM CHLORIDE 10MEQ SR TABLET PO ONE (09:19)
[2024-07-12] MEDS ORDERED: ISOVUE-370 76% 100ML VIAL As Ordered ONE (09:24)
[2024-07-12] MEDS: methylPREDNISolone 40MG 1ML VIAL IV SCH (11:04)
[2024-07-12] MEDS ORDERED: AZITHROMYCIN INJ 500 MG, VIAL MATE ADAPTER 1 EACH in NS 250 ML IV SCH (11:30)
[2024-07-12] MEDS: AZITHROMYCIN 250MG TABLET PO SCH (12:05)
[2024-07-12] MEDS: MEROPENEM INJ 1 GM in IV 1 EA IV SCH (12:06)
[2024-07-12] MEDS ORDERED: LORazepam 0.5 MG TAB PO PRN (14:20)
[2024-07-12] MEDS: GABAPENTIN 100 MG CAP PO SCH (15:49)
[2024-07-12] MEDS: DULoxetine 20MG CAP (CYMBALTA) PO SCH (15:50)
[2024-07-12] MEDS: oxyCODONE 5MG TAB PO PRN (15:50)
[2024-07-12] MEDS: ENOXAPARIN 60MG/0.6ML SYRINGE (J1650 PER 10MG) SC SCH (20:37)
[2024-07-12] MEDS: RAMELTEON 8 MG TAB (ROZEREM) PO ONE (21:42)
[2024-07-13] VITALS (28 sets, daily range): BP systolic 123–160; BP diastolic 67–91; TEMP 97.2–98.2; O2SAT 90–99
[2024-07-13] MEDS ORDERED: predniSONE 20 MG TAB PO SCH (09:00)
[2024-07-13 10:07] LABS: HEMATOCRIT 36.8 % (36.0-47.0); HEMOGLOBIN 11.3 g/dl (12.0-15.5); MEAN CORPUSCULAR HGB CONC 30.7 g/dl (32.0-36.5); MEAN CORPUSCULAR VOLUME 97.6 fl (80.0-96.0); PLATELET COUNT, AUTOMATED 101 10^3/uL (150-450); RED BLOOD COUNT 3.77 10^6/uL (4.00-5.40); WHITE BLOOD COUNT 4.4 10^3/uL (4.0-10.0)
[2024-07-13 10:44] LABS: GLUCOSE, FASTING 150 MG/DL (74-106)
[2024-07-13 10:45] LABS: BLOOD UREA NITROGEN 10 MG/DL (9-23); CHLORIDE LEVEL 111 MMOL/L (98-107); CREATININE FOR GFR 0.46 MG/DL (0.55-1.30); GLOMERULAR FILTRATION RATE > 60.0 (>32); POTASSIUM SERUM 4.2 MMOL/L (3.5-5.1); SODIUM LEVEL 145 MMOL/L (136-145)
[2024-07-13 10:46] LABS: ALBUMIN 2.6 G/DL (3.2-5.2); ALKALINE PHOSPHATASE 65 U/L (46-116); ALT/SGPT 18 U/L (7.0-40); AST/SGOT 8 U/L (<34); BILIRUBIN,TOTAL 0.4 MG/DL (0.3-1.2); CALCIUM LEVEL 9.1 MG/DL (8.3-10.6); CARBON DIOXIDE LEVEL 29.3 MMOL/L (20-31); TOTAL PROTEIN 5.6 G/DL (5.7-8.2)
[2024-07-13 15:46] LABS: INR 2.03; PROTHROMBIN TIME 22.3 SECONDS (12.5-14.5)
[2024-07-13] MEDS: FUROSEMIDE 40MG/4ML VIAL IV ONE (16:20)
[2024-07-13] MEDS: LORazepam 0.5 MG TAB PO SCH (20:59)
[2024-07-13] MEDS: oxyCODONE 5MG TAB PO PRN (21:11)
[2024-07-13] MEDS: RAMELTEON 8 MG TAB (ROZEREM) PO ONE (22:59)
[2024-07-14] VITALS (29 sets, daily range): BP systolic 131–154; BP diastolic 60–84; TEMP 97.3–99.1; O2SAT 89–99
[2024-07-14 05:39] LABS: HEMATOCRIT 32.3 % (36.0-47.0); HEMOGLOBIN 10.2 g/dl (12.0-15.5); MEAN CORPUSCULAR HEMOGLOBIN 29.9 pg (27.0-33.0); MEAN CORPUSCULAR HGB CONC 31.6 g/dl (32.0-36.5); MEAN CORPUSCULAR VOLUME 94.7 fl (80.0-96.0); MONO # 0.7 10^3/uL (0.0-0.8); MONO % 9.2 % (2.0-8.0); NEUTROPHILS # 6.2 10^3/uL (1.5-8.5); NEUTROPHILS % 77.9 % (36.0-66.0); PLATELET COUNT, AUTOMATED 116 10^3/uL (150-450); RED BLOOD COUNT 3.41 10^6/uL (4.00-5.40); WHITE BLOOD COUNT 7.9 10^3/uL (4.0-10.0)
[2024-07-14 05:54] LABS: BLOOD UREA NITROGEN 13 MG/DL (9-23); CALCIUM LEVEL 9.2 MG/DL (8.3-10.6); CARBON DIOXIDE LEVEL 35 MMOL/L (20-31); CHLORIDE LEVEL 104 MMOL/L (98-107); CREATININE FOR GFR 0.48 MG/DL (0.55-1.30); GLOMERULAR FILTRATION RATE > 60.0 (>32); GLUCOSE, FASTING 100 MG/DL (74-106); MAGNESIUM LEVEL 1.7 MG/DL (1.8-2.4); POTASSIUM SERUM 3.3 MMOL/L (3.5-5.1); SODIUM LEVEL 144 MMOL/L (136-145)
[2024-07-14] MEDS: POTASSIUM CHLORIDE 10MEQ SR TABLET PO ONE (08:11)
[2024-07-14] MEDS: predniSONE 20 MG TAB PO SCH (08:13)
[2024-07-14] MEDS: MAG SULF 1GM/100ML (MAG RUN) 1 GM in IV 1 EA IV ONE (08:14)
[2024-07-14] MEDS: GABAPENTIN 100 MG CAP PO SCH (20:29)
[2024-07-14] MEDS: RAMELTEON 8 MG TAB (ROZEREM) PO ONE (20:29)
[2024-07-15] VITALS (12 sets, daily range): BP systolic 138–155; BP diastolic 72–90; TEMP 97–98; O2SAT 85–100
[2024-07-15 06:41] LABS: HEMATOCRIT 33.1 % (36.0-47.0); HEMOGLOBIN 10.5 g/dl (12.0-15.5); MEAN CORPUSCULAR HEMOGLOBIN 30.1 pg (27.0-33.0); MEAN CORPUSCULAR HGB CONC 31.7 g/dl (32.0-36.5); MEAN CORPUSCULAR VOLUME 94.8 fl (80.0-96.0); PLATELET COUNT, AUTOMATED 154 10^3/uL (150-450); RED BLOOD COUNT 3.49 10^6/uL (4.00-5.40)
[2024-07-15 07:14] LABS: BLOOD UREA NITROGEN 9 MG/DL (9-23); CALCIUM LEVEL 9.4 MG/DL (8.3-10.6); CARBON DIOXIDE LEVEL 39 MMOL/L (20-31); CHLORIDE LEVEL 105 MMOL/L (98-107); CREATININE FOR GFR 0.47 MG/DL (0.55-1.30); GLOMERULAR FILTRATION RATE > 60.0 (>32); GLUCOSE, FASTING 85 MG/DL (74-106); POTASSIUM SERUM 4.1 MMOL/L (3.5-5.1); SODIUM LEVEL 145 MMOL/L (136-145)
[2024-07-15] MEDS ORDERED: TIOT18INH INH (09:42)
[2024-07-15] MEDS ORDERED: GABA-1171 PO (09:42)
[2024-07-15] MEDS ORDERED: AMOX875T PO (09:44)
[2024-07-15] MEDS ORDERED: ALBU8.5H INH (09:44)
[2024-07-15] MEDS ORDERED: PRED20TA PO (09:44)
[2024-07-15] MEDS: FOSFOMYCIN TROMETHAMINE 3 GM POWDER PACKET (MONUROL) PO ONE (11:04)
[2024-07-15] MEDS: ALBUTEROL SULFATE 2.5MG/0.5ML INH NEB SOLN NEB PRN (11:54)
[2024-07-15] MEDS ORDERED: WARFARIN SOD 2MG TAB PO SCH (17:00)
[2024-07-17] MEDS ORDERED: OXYC10TA12 PO (14:26)
[2024-07-17 21:42] LABS: URINE STREP PNEUMONIAE ANTIGEN NOT DETECTED (NOT DETECT)
== END 2024-07-15 13:05 | disposition home health service (06) | DRG 698 ==
LOC: M ED 12:05 → M ED INP 17:34 → M PCU 22:02
PROVIDERS: ADMIT Internal Medicine; ATTEND General Practice
DX: T83.511A Infection and inflammatory reaction due to indwelling urethral catheter, initial encounter (principal); G92.8 Other toxic encephalopathy; J18.9 Pneumonia, unspecified organism; A41.9 Sepsis, unspecified organism; J96.11 Chronic respiratory failure with hypoxia; E46 Unspecified protein-calorie malnutrition; I50.32 Chronic diastolic (congestive) heart failure; J44.0 Chronic obstructive pulmonary disease with (acute) lower respiratory infection; J44.1 Chronic obstructive pulmonary disease with (acute) exacerbation; R04.2 Hemoptysis; N39.0 Urinary tract infection, site not specified; T40.2X1A Poisoning by other opioids, accidental (unintentional), initial encounter; G89.29 Other chronic pain; M79.7 Fibromyalgia; I25.10 Atherosclerotic heart disease of native coronary artery without angina pectoris; I25.2 Old myocardial infarction; R33.9 Retention of urine, unspecified; R91.8 Other nonspecific abnormal finding of lung field; K21.9 Gastro-esophageal reflux disease without esophagitis; Z66 Do not resuscitate; M81.0 Age-related osteoporosis without current pathological fracture; M06.9 Rheumatoid arthritis, unspecified; F41.9 Anxiety disorder, unspecified; B96.20 Unspecified Escherichia coli [E. coli] as the cause of diseases classified elsewhere; F32.A Depression, unspecified; D50.9 Iron deficiency anemia, unspecified; G47.00 Insomnia, unspecified; E87.6 Hypokalemia; R13.12 Dysphagia, oropharyngeal phase; I95.2 Hypotension due to drugs; Y84.6 Urinary catheterization as the cause of abnormal reaction of the patient, or of later complication, without mention of misadventure at the time of the procedure; Z99.81 Dependence on supplemental oxygen; Z95.2 Presence of prosthetic heart valve; Z79.891 Long term (current) use of opiate analgesic; Z87.891 Personal history of nicotine dependence; Z86.73 Personal history of transient ischemic attack (TIA), and cerebral infarction without residual deficits; Z79.82 Long term (current) use of aspirin; Z79.01 Long term (current) use of anticoagulants; Z79.899 Other long term (current) drug therapy; Z88.8 Allergy status to other drugs, medicaments and biological substances

== ENCOUNTER → 2024-07-26 | Outpatient (CLI) | payer MEDICARE, MEDICAID ==
[~2024-07-26] VITALS: Ht 157.5 cm; Wt 42.3 kg
[~2024-07-26] MED LIST changes: +AMOX875T PO; +GABA-1171 PO; +OXYB10TA23 PO; +TIOT18INH INH
[2024-07-26 10:30] VITALS: BP 118/63; TEMP 99; O2SAT 95
== END ==
LOC: M PAL 10:24
PROVIDERS: ATTEND Nurse Practitioner Adult Health
DX: G89.29 Other chronic pain (principal); G62.9 Polyneuropathy, unspecified; I50.9 Heart failure, unspecified; N31.9 Neuromuscular dysfunction of bladder, unspecified; R91.8 Other nonspecific abnormal finding of lung field; J44.9 Chronic obstructive pulmonary disease, unspecified; R06.02 Shortness of breath; R64 Cachexia; R53.81 Other malaise; K59.00 Constipation, unspecified; F41.8 Other specified anxiety disorders; M25.551 Pain in right hip; M54.2 Cervicalgia; M25.561 Pain in right knee; M25.562 Pain in left knee; M79.661 Pain in right lower leg; M54.50 Low back pain, unspecified; M25.571 Pain in right ankle and joints of right foot; Z66 Do not resuscitate; F17.210 Nicotine dependence, cigarettes, uncomplicated; Z51.5 Encounter for palliative care; Z79.01 Long term (current) use of anticoagulants; Z79.51 Long term (current) use of inhaled steroids; Z79.52 Long term (current) use of systemic steroids; Z79.82 Long term (current) use of aspirin; Z79.891 Long term (current) use of opiate analgesic; Z79.899 Other long term (current) drug therapy; Z80.1 Family history of malignant neoplasm of trachea, bronchus and lung; Z80.49 Family history of malignant neoplasm of other genital organs; Z80.8 Family history of malignant neoplasm of other organs or systems; Z88.1 Allergy status to other antibiotic agents; Z88.8 Allergy status to other drugs, medicaments and biological substances; Z90.710 Acquired absence of both cervix and uterus; Z95.4 Presence of other heart-valve replacement; Z99.81 Dependence on supplemental oxygen; Z96.651 Presence of right artificial knee joint; Z96.642 Presence of left artificial hip joint; Z87.442 Personal history of urinary calculi; Z96.0 Presence of urogenital implants

== ENCOUNTER 2024-08-21 08:41 | Day surgery (SDC) | payer MEDICARE, MEDICAID ==
[~2024-08-21] VITALS: Ht 160 cm; Wt 42.4 kg
[~2024-08-21 08:41] MED LIST changes: +LINZ145C PO; +LINZ290C PO; +MORP-69 PO; +NALO4SPR20; -NALO4SPR3; +SPIR1CAP INH; +WARF4TAB52 PO
[2024-08-21] MEDS ORDERED: SODIUM BICARBONATE 8.4% INJ 50MEQ 50ML VIAL As Ordered ONE (08:43)
[2024-08-21] MEDS ORDERED: LIDOCAINE W/EPINEPHRINE 1% 20ML VIAL As Ordered ONE (08:43)
[2024-08-21] MEDS: BACITRACIN OINTMENT 30GM TUBE As Ordered ONE (10:05)
[2024-08-21 10:10] VITALS: BP 125/59; TEMP 98.5; O2SAT 98
== END 2024-08-21 10:40 | disposition home or self-care (01) ==
LOC: M SDC 08:41
PROVIDERS: ATTEND Orthopaedic Surgery Hand Surgery
DX: G56.01 Carpal tunnel syndrome, right upper limb (principal); I25.10 Atherosclerotic heart disease of native coronary artery without angina pectoris; I25.2 Old myocardial infarction; Z86.73 Personal history of transient ischemic attack (TIA), and cerebral infarction without residual deficits; Z88.1 Allergy status to other antibiotic agents; Z88.8 Allergy status to other drugs, medicaments and biological substances; Z79.899 Other long term (current) drug therapy; F17.210 Nicotine dependence, cigarettes, uncomplicated

== ENCOUNTER → 2024-08-24 | Outpatient (CLI) | payer MEDICARE, MEDICAID ==
[~2024-08-24] VITALS: Ht 162.6 cm; Wt 41.0 kg
[2024-08-24 10:50] VITALS: BP 119/71; O2SAT 93
== END ==
LOC: M PAL 10:36
PROVIDERS: ATTEND Nurse Practitioner Adult Health
DX: G89.29 Other chronic pain (principal); N31.9 Neuromuscular dysfunction of bladder, unspecified; R91.8 Other nonspecific abnormal finding of lung field; J44.9 Chronic obstructive pulmonary disease, unspecified; R06.02 Shortness of breath; R64 Cachexia; R53.81 Other malaise; K59.00 Constipation, unspecified; F41.8 Other specified anxiety disorders; Z66 Do not resuscitate; F17.210 Nicotine dependence, cigarettes, uncomplicated; Z51.5 Encounter for palliative care; Z79.01 Long term (current) use of anticoagulants; Z79.51 Long term (current) use of inhaled steroids; Z79.52 Long term (current) use of systemic steroids; Z79.82 Long term (current) use of aspirin; Z79.891 Long term (current) use of opiate analgesic; Z79.899 Other long term (current) drug therapy; Z80.1 Family history of malignant neoplasm of trachea, bronchus and lung; Z80.49 Family history of malignant neoplasm of other genital organs; Z80.8 Family history of malignant neoplasm of other organs or systems; Z88.1 Allergy status to other antibiotic agents; Z88.8 Allergy status to other drugs, medicaments and biological substances; Z90.710 Acquired absence of both cervix and uterus; Z95.4 Presence of other heart-valve replacement; Z99.81 Dependence on supplemental oxygen; Z96.651 Presence of right artificial knee joint; Z96.642 Presence of left artificial hip joint; Z87.440 Personal history of urinary (tract) infections; Z96.0 Presence of urogenital implants

== ENCOUNTER → 2024-10-10 | Outpatient (REF) | payer MEDICARE, MEDICAID ==
[2024-10-10 14:07] LABS: APPEARANCE, URINE HAZY (CLEAR); BACTERIA, URINE AUTO 1+ (NEGATIVE); BILIRUBIN, URINE AUTO NEGATIVE (NEGATIVE); BLOOD, URINE BLOOD NEGATIVE (NEGATIVE); CALCIUM OXALATE CRYSTALS LARGE; COLOR, URINE AMBER (YELLOW); GLUCOSE, URINE (UA) AUTO NEGATIVE (NEGATIVE); KETONE, URINE AUTO NEGATIVE (NEGATIVE); LEUKOCYTE ESTERASE, URINE AUTO NEGATIVE (NEGATIVE); MUCUS, URINE SMALL (NEGATIVE); NITRITE, URINE AUTO POSITIVE (NEGATIVE); PROTEIN, URINE AUTO NEGATIVE (NEGATIVE); RBC, URINE AUTO 0 /HPF (0-3); SPECIFIC GRAVITY URINE AUTO 1.023 (1.002-1.035); SQUAMOUS EPITHELIAL CELL UR AU 0 /HPF (0-6); UROBILINOGEN, URINE AUTO 0.2 mg/dL (0.0-2.0); WBC, URINE AUTO 11 /HPF (0-3)
== END ==
LOC: M LAB REF 13:06
PROVIDERS: ATTEND Internal Medicine Pulmonary Disease
DX: J43.9 Emphysema, unspecified (principal); Z79.899 Other long term (current) drug therapy

== ENCOUNTER → 2024-10-10 | Outpatient (CLI) | payer MEDICARE, MEDICAID | LOC: M PAL 13:54 | PROVIDERS: ATTEND Family Medicine | DX: Z51.5 Encounter for palliative care (principal); G89.29 Other chronic pain; J44.89 Other specified chronic obstructive pulmonary disease; F41.9 Anxiety disorder, unspecified; G47.00 Insomnia, unspecified; K59.00 Constipation, unspecified; R53.81 Other malaise; Z99.81 Dependence on supplemental oxygen; Z66 Do not resuscitate; Z79.01 Long term (current) use of anticoagulants; Z79.51 Long term (current) use of inhaled steroids; Z79.52 Long term (current) use of systemic steroids; Z79.82 Long term (current) use of aspirin; Z79.891 Long term (current) use of opiate analgesic; Z79.899 Other long term (current) drug therapy; Z88.1 Allergy status to other antibiotic agents; Z91.048 Other nonmedicinal substance allergy status ==

== ENCOUNTER → 2024-11-08 | Outpatient (REF) | payer MEDICARE, MEDICAID ==
[~2024-11-08] MED LIST changes: +OXYC-673 PO
== END ==
LOC: M LAB REF 18:58
PROVIDERS: ATTEND Physician Assistant
DX: R53.1 Weakness (principal)

== ENCOUNTER → 2024-11-13 | Outpatient (CLI) | payer MEDICARE, MEDICAID | LOC: M RAD 12:44 | PROVIDERS: ATTEND Physician Assistant | DX: R53.1 Weakness (principal) ==

== ENCOUNTER → 2024-11-13 | Outpatient (CLI) | payer MEDICARE, MEDICAID ==
[~2024-11-13] MED LIST changes: +XTAM13.5 PO
== END ==
LOC: M PAL 11:29
PROVIDERS: ATTEND Family Medicine
DX: Z51.5 Encounter for palliative care (principal); G89.29 Other chronic pain; M25.50 Pain in unspecified joint; J44.89 Other specified chronic obstructive pulmonary disease; G47.00 Insomnia, unspecified; F41.9 Anxiety disorder, unspecified; R53.1 Weakness; R53.81 Other malaise; R11.0 Nausea; K59.00 Constipation, unspecified; Z66 Do not resuscitate; Z99.81 Dependence on supplemental oxygen; Z79.82 Long term (current) use of aspirin; Z79.51 Long term (current) use of inhaled steroids; Z79.891 Long term (current) use of opiate analgesic; Z79.899 Other long term (current) drug therapy; Z79.01 Long term (current) use of anticoagulants; Z88.1 Allergy status to other antibiotic agents; Z88.5 Allergy status to narcotic agent; Z88.8 Allergy status to other drugs, medicaments and biological substances
CPT/HCPCS: 71046; G0463

== ENCOUNTER → 2024-12-06 | Outpatient (CLI) | payer MEDICARE, MEDICAID ==
[~2024-12-06] MED LIST changes: +LORA1TAB23 PO
== END ==
LOC: M PAL 07:44
PROVIDERS: ATTEND Family Medicine
DX: Z51.5 Encounter for palliative care (principal); M25.50 Pain in unspecified joint; G89.29 Other chronic pain; J44.9 Chronic obstructive pulmonary disease, unspecified; Z99.81 Dependence on supplemental oxygen; I50.9 Heart failure, unspecified; Z66 Do not resuscitate; Z79.891 Long term (current) use of opiate analgesic; Z79.899 Other long term (current) drug therapy; Z88.1 Allergy status to other antibiotic agents; Z88.8 Allergy status to other drugs, medicaments and biological substances

== ENCOUNTER → 2025-01-03 | Outpatient (CLI) | payer MEDICARE, MEDICAID | LOC: M PAL 09:47 | PROVIDERS: ATTEND Physician Assistant | DX: Z51.5 Encounter for palliative care (principal); Z66 Do not resuscitate; M25.50 Pain in unspecified joint; G89.29 Other chronic pain; J44.9 Chronic obstructive pulmonary disease, unspecified; Z99.81 Dependence on supplemental oxygen; I50.9 Heart failure, unspecified; R62.7 Adult failure to thrive; Z79.891 Long term (current) use of opiate analgesic; Z88.8 Allergy status to other drugs, medicaments and biological substances; Z79.899 Other long term (current) drug therapy ==

== ENCOUNTER 2025-01-06 19:45 | Inpatient (IN) | payer MEDICARE, MEDICAID ==
[~2025-01-06] VITALS: Ht 162.6 cm; Wt 44.5 kg
[2025-01-06 20:05] LABS: ABG BASE EXCESS 2.9 (-2.0-2.0); ABG HCO3 27.2 MMOL/L (22.0-26.0); ABG PARTIAL PRESSURE CO2 40.8 mmHg (35.0-45.0); ABG PARTIAL PRESSURE O2 134.3 mmHg (75.0-100.0); ABG STANDARD HCO3 27.1 MMOL/L. (22.0-26.0); ABG TOTAL CO2 28.5 MMOL/L (23.0-31.0); ABG pH (ARTERIAL) 7.442 UNITS (7.350-7.450)
[2025-01-06 20:07] LABS: BASO % 0.2 % (0.0-1.0); EOS # 0.1 10^3/uL (0.0-0.5); EOS % 0.7 % (0.0-3.0); HEMATOCRIT 34.9 % (36.0-47.0); HEMOGLOBIN 10.8 g/dl (12.0-15.5); LYMPH # 1.3 10^3/uL (1.5-5.0); LYMPH % 14.4 % (24.0-44.0); MEAN CORPUSCULAR HEMOGLOBIN 28.4 pg (27.0-33.0); MEAN CORPUSCULAR HGB CONC 30.9 g/dl (32.0-36.5); MEAN CORPUSCULAR VOLUME 91.8 fl (80.0-96.0); MONO # 0.9 10^3/uL (0.0-0.8); MONO % 9.9 % (2.0-8.0); NEUTROPHILS # 6.5 10^3/uL (1.5-8.5); NEUTROPHILS % 74.5 % (36.0-66.0); PLATELET COUNT, AUTOMATED 213 10^3/uL (150-450); WHITE BLOOD COUNT 8.7 10^3/uL (4.0-10.0)
[2025-01-06] MEDS: IPRATROPIUM 0.5MG/ALBUTEROL 2.5MG INH SOL UD 3ML NEB PRN (20:14)
[2025-01-06 20:42] LABS: ALBUMIN 2.3 G/DL (3.2-5.2); ALKALINE PHOSPHATASE 74 U/L (35-104); ALT/SGPT 13 U/L (7.0-40); AST/SGOT 12 U/L (<34); BILIRUBIN,DIRECT 0.1 MG/DL (<0.4); BILIRUBIN,TOTAL 0.3 MG/DL (0.3-1.2); BLOOD UREA NITROGEN 12 MG/DL (9-23); CALCIUM LEVEL 7.5 MG/DL (8.3-10.6); CARBON DIOXIDE LEVEL 27 MMOL/L (20-31); CHLORIDE LEVEL 110 MMOL/L (98-107); CREATININE FOR GFR 0.51 MG/DL (0.55-1.30); GLOMERULAR FILTRATION RATE > 60.0 (>32); GLUCOSE, FASTING 88 MG/DL (74-106); POTASSIUM SERUM 3.5 MMOL/L (3.5-5.1); SODIUM LEVEL 143 MMOL/L (136-145); TOTAL PROTEIN 5.5 G/DL (5.7-8.2)
[2025-01-06 21:01] LABS: INR 1.29; PROTHROMBIN TIME 16.4 SECONDS (12.5-14.5)
[2025-01-06] MEDS: cefTRIAXone SOD 2 GM in DEXTROSE 5% (D5W) ADV/MINI-BAG 50 ML IV ONE (21:02)
[2025-01-06] MEDS: AZITHROMYCIN 250MG TABLET PO ONE (21:02)
[2025-01-06] MEDS ORDERED: ISOVUE-370 76% 100ML VIAL As Ordered ONE (21:08)
[2025-01-06 21:55] LABS: CK-MB VALUE MASS < 1.0 NG/ML (<3.6)
[2025-01-06 21:59] LABS: CPK CREATINE PHOSPHOKINASE 32 U/L (34-145); MB/CK RELATIVE INDEX 3.12 (< OR =4)
[2025-01-06] MEDS: IPRATROPIUM 0.5MG/ALBUTEROL 2.5MG INH SOL UD 3ML NEB ONE (23:00)
[2025-01-06 23:17] LABS: CK-MB VALUE MASS < 1.0 NG/ML (<3.6)
[2025-01-06 23:18] LABS: CPK CREATINE PHOSPHOKINASE 22 U/L (34-145); MB/CK RELATIVE INDEX 4.54 (< OR =4)
[2025-01-07] MEDS ORDERED: MAALOX 30 ML SUSP *UDC PO PRN (00:35)
[2025-01-07] MEDS: NS (Normal Saline) 0.9% 1,000 ML IV SCH (01:33)
[2025-01-07] MEDS: predniSONE 20 MG TAB PO SCH (01:34)
[2025-01-07] MEDS ORDERED: COMBAER6 INH (02:24)
[2025-01-07] MEDS ORDERED: FOSF3PAC2 PO (02:24)
[2025-01-07] MEDS ORDERED: POTA99CA2 PO (02:24)
[2025-01-07] MEDS ORDERED: HOME MED LIST COMPLETE! XX SCH (02:25)
[2025-01-07 04:10] VITALS: BP 152/75; TEMP 97.2; O2SAT 94
[2025-01-07 05:00] VITALS: O2SAT 96
[2025-01-07 06:10] LABS: HEMATOCRIT 38.6 % (36.0-47.0); HEMOGLOBIN 11.5 g/dl (12.0-15.5); MEAN CORPUSCULAR HEMOGLOBIN 27.4 pg (27.0-33.0); MEAN CORPUSCULAR HGB CONC 29.8 g/dl (32.0-36.5); MEAN CORPUSCULAR VOLUME 92.1 fl (80.0-96.0); PLATELET COUNT, AUTOMATED 220 10^3/uL (150-450); RED BLOOD COUNT 4.19 10^6/uL (4.00-5.40); WHITE BLOOD COUNT 3.9 10^3/uL (4.0-10.0)
[2025-01-07] MEDS ORDERED: PILL CUTTER 1 EACH XX PRN (06:45)
[2025-01-07 06:48] LABS: PROCALCITONIN 0.08 ng/ml
[2025-01-07 06:52] LABS: ALBUMIN 2.7 G/DL (3.2-5.2); ALKALINE PHOSPHATASE 84 U/L (35-104); ALT/SGPT 17 U/L (7.0-40); AST/SGOT 15 U/L (<34); BILIRUBIN,TOTAL 0.2 MG/DL (0.3-1.2); BLOOD UREA NITROGEN 13 MG/DL (9-23); CALCIUM LEVEL 8.8 MG/DL (8.3-10.6); CARBON DIOXIDE LEVEL 30 MMOL/L (20-31); CHLORIDE LEVEL 103 MMOL/L (98-107); CREATININE FOR GFR 0.53 MG/DL (0.55-1.30); GLOMERULAR FILTRATION RATE > 60.0 (>32); GLUCOSE, FASTING 154 MG/DL (74-106); MAGNESIUM LEVEL 1.8 MG/DL (1.8-2.4); POTASSIUM SERUM 4.1 MMOL/L (3.5-5.1); SODIUM LEVEL 142 MMOL/L (136-145); TOTAL PROTEIN 6.5 G/DL (5.7-8.2)
[2025-01-07 08:00] VITALS: BP 118/63; TEMP 96.8; O2SAT 94
[2025-01-07 08:29] LABS: INR 1.24; PARTIAL THROMBOPLASTIN TIME 28.3 SECONDS (24.8-34.2); PROTHROMBIN TIME 15.9 SECONDS (12.5-14.5)
[2025-01-07] MEDS: FUROSEMIDE 20MG/2ML VIAL IV SCH (09:02)
[2025-01-07] MEDS: methylPREDNISolone 125MG 2ML VIAL IV SCH (09:02)
[2025-01-07] MEDS: HEPARIN SOD (PORCINE) 5000UNITS/ML 1ML VIAL/SYRINGE SC SCH (09:02)
[2025-01-07] MEDS: LORazepam 0.5 MG TAB PO SCH (09:02)
[2025-01-07] MEDS: FERROUS SULFATE 325MG TAB PO SCH (09:03)
[2025-01-07] MEDS: oxyBUTYnin 5 MG TAB PO SCH (09:03)
[2025-01-07] MEDS: ASPIRIN 81MG ENTERIC TABLET PO SCH (09:03)
[2025-01-07] MEDS: DOCUSATE SODIUM 100MG CAPSULE PO SCH (09:03)
[2025-01-07] MEDS: GABAPENTIN 100 MG CAP PO SCH (09:03)
[2025-01-07] MEDS: PANTOPRAZOLE 40MG VIAL IV SCH (09:03)
[2025-01-07] MEDS: DULoxetine 30MG CAPSULE (CYMBALTA) PO SCH (09:03)
[2025-01-07] MEDS: TIOTROPIUM BROM 2.5MCG/ACTUATION 4GM INH IH SCH (11:33)
[2025-01-07] MEDS: ADVAIR HFA 115/21MCG INHALER INH SCH (11:34)
[2025-01-07] MEDS: IPRATROPIUM 0.5MG/ALBUTEROL 2.5MG INH SOL UD 3ML NEB SCH (11:34)
[2025-01-07 12:00] VITALS: BP 120/62; TEMP 97.9; O2SAT 92
[2025-01-07] MEDS: oxyCODONE 5MG TAB PO PRN (15:17)
[2025-01-07 16:00] VITALS: BP 120/60; TEMP 98.1; O2SAT 91
[2025-01-07] MEDS: AZITHROMYCIN 250MG TABLET PO SCH (17:30)
[2025-01-07] MEDS: WARFARIN SOD 5MG TAB PO ONE (17:30)
[2025-01-07] MEDS: ENOXAPARIN 60MG/0.6ML SYRINGE (J1650 PER 10MG) SC SCH (18:29)
[2025-01-07 20:00] VITALS: BP 109/58; TEMP 97.9; O2SAT 95
[2025-01-07] MEDS: RAMELTEON 8 MG TAB (ROZEREM) PO SCH (20:37)
[2025-01-07] MEDS: OMEPRAZOLE 20MG CAP PO SCH (20:38)
[2025-01-07] MEDS: cefTRIAXone SOD 1 GM in DEXTROSE 5% (D5W) ADV/MINI-BAG 50 ML IV SCH (20:38)
[2025-01-07] MEDS ORDERED: DOXYCYCLINE HYCLATE 100MG TABLET PO SCH (21:00)
[2025-01-07] MEDS ORDERED: AZITHROMYCIN INJ 500 MG, VIAL MATE ADAPTER 1 EACH in NS 250 ML IV SCH (21:00)
[2025-01-08] VITALS (8 sets, daily range): BP systolic 103–115; BP diastolic 45–61; TEMP 97.3–98.1; O2SAT 91–97
[2025-01-08] MEDS: LORazepam 0.5 MG TAB PO PRN (00:49)
[2025-01-08] MEDS: ACETAMINOPHEN 325 MG TAB PO PRN (00:50)
[2025-01-08] MEDS: ALBUTEROL SULFATE 2.5MG/0.5ML INH CONCENTRATE NEB SOLN NEB PRN (01:08)
[2025-01-08 06:17] LABS: HEMOGLOBIN 9.8 g/dl (12.0-15.5); MEAN CORPUSCULAR HEMOGLOBIN 27.8 pg (27.0-33.0); MEAN CORPUSCULAR HGB CONC 30.6 g/dl (32.0-36.5); MEAN CORPUSCULAR VOLUME 90.7 fl (80.0-96.0); PLATELET COUNT, AUTOMATED 186 10^3/uL (150-450); RED BLOOD COUNT 3.53 10^6/uL (4.00-5.40); WHITE BLOOD COUNT 9.1 10^3/uL (4.0-10.0)
[2025-01-08 06:28] LABS: INR 2.05; PARTIAL THROMBOPLASTIN TIME 37.4 SECONDS (24.8-34.2); PROTHROMBIN TIME 23.3 SECONDS (12.5-14.5)
[2025-01-08 06:53] LABS: ALBUMIN 2.4 G/DL (3.2-5.2); ALKALINE PHOSPHATASE 71 U/L (35-104); ALT/SGPT 13 U/L (7.0-40); AST/SGOT 14 U/L (<34); BILIRUBIN,TOTAL < 0.2 MG/DL (0.3-1.2); BLOOD UREA NITROGEN 24 MG/DL (9-23); CALCIUM LEVEL 8.3 MG/DL (8.3-10.6); CARBON DIOXIDE LEVEL 28 MMOL/L (20-31); CHLORIDE LEVEL 106 MMOL/L (98-107); CREATININE FOR GFR 0.56 MG/DL (0.55-1.30); GLOMERULAR FILTRATION RATE > 60.0 (>32); GLUCOSE, FASTING 139 MG/DL (74-106); POTASSIUM SERUM 4.2 MMOL/L (3.5-5.1); SODIUM LEVEL 141 MMOL/L (136-145); TOTAL PROTEIN 5.8 G/DL (5.7-8.2)
[2025-01-08] MEDS: WARFARIN SOD 1MG TAB PO SCH (17:57)
[2025-01-08] MEDS: WARFARIN SOD 4MG TAB PO SCH (18:26)
[2025-01-09] VITALS (25 sets, daily range): BP systolic 132–145; BP diastolic 68–71; TEMP 97.2–98.1; O2SAT 82–95
[2025-01-09 05:59] LABS: HEMATOCRIT 32.4 % (36.0-47.0); MEAN CORPUSCULAR HEMOGLOBIN 28.4 pg (27.0-33.0); MEAN CORPUSCULAR HGB CONC 30.9 g/dl (32.0-36.5); PLATELET COUNT, AUTOMATED 175 10^3/uL (150-450); RED BLOOD COUNT 3.52 10^6/uL (4.00-5.40); WHITE BLOOD COUNT 9.6 10^3/uL (4.0-10.0)
[2025-01-09 06:13] LABS: INR 4.4; PARTIAL THROMBOPLASTIN TIME 34.3 SECONDS (24.8-34.2); PROTHROMBIN TIME 41.5 SECONDS (12.5-14.5)
[2025-01-09 06:30] LABS: ALBUMIN 2.5 G/DL (3.2-5.2); ALKALINE PHOSPHATASE 70 U/L (35-104); ALT/SGPT 15 U/L (7.0-40); AST/SGOT 16 U/L (<34); BILIRUBIN,TOTAL 0.2 MG/DL (0.3-1.2); BLOOD UREA NITROGEN 20 MG/DL (9-23); CALCIUM LEVEL 8.4 MG/DL (8.3-10.6); CARBON DIOXIDE LEVEL 28 MMOL/L (20-31); CHLORIDE LEVEL 108 MMOL/L (98-107); CREATININE FOR GFR 0.45 MG/DL (0.55-1.30); GLOMERULAR FILTRATION RATE > 60.0 (>32); GLUCOSE, FASTING 128 MG/DL (74-106); POTASSIUM SERUM 4.2 MMOL/L (3.5-5.1); SODIUM LEVEL 142 MMOL/L (136-145); TOTAL PROTEIN 5.6 G/DL (5.7-8.2)
[2025-01-09] MEDS: methylPREDNISolone 40MG 1ML VIAL IV SCH (16:29)
[2025-01-10] VITALS (20 sets, daily range): BP systolic 115–137; BP diastolic 68–73; TEMP 97.2–97.9; O2SAT 85–100
[2025-01-10 06:17] LABS: HEMATOCRIT 33.1 % (36.0-47.0); HEMOGLOBIN 10.2 g/dl (12.0-15.5); LYMPH # 0.5 10^3/uL (1.5-5.0); LYMPH % 7.4 % (24.0-44.0); MEAN CORPUSCULAR HEMOGLOBIN 28.3 pg (27.0-33.0); MEAN CORPUSCULAR HGB CONC 30.8 g/dl (32.0-36.5); MEAN CORPUSCULAR VOLUME 91.9 fl (80.0-96.0); MONO # 0.2 10^3/uL (0.0-0.8); MONO % 3.4 % (2.0-8.0); NEUTROPHILS # 5.5 10^3/uL (1.5-8.5); NEUTROPHILS % 87.4 % (36.0-66.0); PLATELET COUNT, AUTOMATED 177 10^3/uL (150-450); WHITE BLOOD COUNT 6.2 10^3/uL (4.0-10.0)
[2025-01-10 06:28] LABS: INR 3.6; PARTIAL THROMBOPLASTIN TIME 31.9 SECONDS (24.8-34.2); PROTHROMBIN TIME 35.6 SECONDS (12.5-14.5)
[2025-01-10 06:51] LABS: BLOOD UREA NITROGEN 16 MG/DL (9-23); CALCIUM LEVEL 8.4 MG/DL (8.3-10.6); CARBON DIOXIDE LEVEL 31 MMOL/L (20-31); CHLORIDE LEVEL 105 MMOL/L (98-107); CREATININE FOR GFR 0.43 MG/DL (0.55-1.30); GLOMERULAR FILTRATION RATE > 60.0 (>32); GLUCOSE, FASTING 129 MG/DL (74-106); POTASSIUM SERUM 3.8 MMOL/L (3.5-5.1); SODIUM LEVEL 143 MMOL/L (136-145)
[2025-01-10] MEDS: IPRATROPIUM 0.5MG/ALBUTEROL 2.5MG INH SOL UD 3ML NEB SCH (11:55)
[2025-01-10] MEDS: methylPREDNISolone 40MG 1ML VIAL IV SCH (14:20)
[2025-01-10] MEDS: MOM 30ML SUSPENSION UDC PO PRN (14:22)
[2025-01-10] MEDS: BUDESONIDE 0.5 MG/2 ML INHALATION SUSPENSION NEB SCH (20:06)
[2025-01-10] MEDS: FORMOTEROL FUMARATE 20 MCG/2 ML INHALATION SOLUTION (PERFOROMIST) INH SCH (20:06)
[2025-01-10] MEDS: ACETAMINOPHEN *IV* 500 MG in IV 1 EA IV ONE (23:19)
[2025-01-11] VITALS (11 sets, daily range): BP systolic 94–146; BP diastolic 62–88; TEMP 97.5–97.9; O2SAT 86–96
[2025-01-11] MEDS: ACETAMINOPHEN 325 MG TAB PO SCH
[2025-01-11 06:28] LABS: HEMATOCRIT 32.7 % (36.0-47.0); HEMOGLOBIN 10.3 g/dl (12.0-15.5); LYMPH # 0.4 10^3/uL (1.5-5.0); LYMPH % 7.5 % (24.0-44.0); MEAN CORPUSCULAR HEMOGLOBIN 28.6 pg (27.0-33.0); MEAN CORPUSCULAR HGB CONC 31.5 g/dl (32.0-36.5); MEAN CORPUSCULAR VOLUME 90.8 fl (80.0-96.0); MONO # 0.2 10^3/uL (0.0-0.8); MONO % 4.4 % (2.0-8.0); NEUTROPHILS # 4.1 10^3/uL (1.5-8.5); NEUTROPHILS % 86.4 % (36.0-66.0); PLATELET COUNT, AUTOMATED 163 10^3/uL (150-450); WHITE BLOOD COUNT 4.8 10^3/uL (4.0-10.0)
[2025-01-11 06:48] LABS: INR 2.48; PARTIAL THROMBOPLASTIN TIME 30.3 SECONDS (24.8-34.2); PROTHROMBIN TIME 26.9 SECONDS (12.5-14.5)
[2025-01-11 06:49] LABS: BLOOD UREA NITROGEN 19 MG/DL (9-23); CALCIUM LEVEL 8.3 MG/DL (8.3-10.6); CARBON DIOXIDE LEVEL 34 MMOL/L (20-31); CHLORIDE LEVEL 102 MMOL/L (98-107); CREATININE FOR GFR 0.39 MG/DL (0.55-1.30); GLOMERULAR FILTRATION RATE > 90.0 (>32); GLUCOSE, FASTING 147 MG/DL (74-106); POTASSIUM SERUM 3.9 MMOL/L (3.5-5.1); SODIUM LEVEL 141 MMOL/L (136-145)
[2025-01-11] MEDS: methylPREDNISolone 40MG 1ML VIAL IV SCH (16:28)
[2025-01-12] VITALS: BP 136/73; TEMP 97.7; O2SAT 94
[2025-01-12 04:02] VITALS: BP 142/78; TEMP 97.5; O2SAT 93
[2025-01-12 05:43] LABS: HEMATOCRIT 35.8 % (36.0-47.0); HEMOGLOBIN 10.7 g/dl (12.0-15.5); LYMPH # 0.4 10^3/uL (1.5-5.0); LYMPH % 5.2 % (24.0-44.0); MEAN CORPUSCULAR HEMOGLOBIN 27.7 pg (27.0-33.0); MEAN CORPUSCULAR HGB CONC 29.9 g/dl (32.0-36.5); MEAN CORPUSCULAR VOLUME 92.7 fl (80.0-96.0); MONO # 0.3 10^3/uL (0.0-0.8); MONO % 3.6 % (2.0-8.0); NEUTROPHILS # 6.2 10^3/uL (1.5-8.5); NEUTROPHILS % 89.6 % (36.0-66.0); PLATELET COUNT, AUTOMATED 210 10^3/uL (150-450); RED BLOOD COUNT 3.86 10^6/uL (4.00-5.40)
[2025-01-12 05:53] LABS: INR 2.3; PARTIAL THROMBOPLASTIN TIME 27.6 SECONDS (24.8-34.2); PROTHROMBIN TIME 25.4 SECONDS (12.5-14.5)
[2025-01-12 06:04] LABS: BLOOD UREA NITROGEN 22 MG/DL (9-23); CALCIUM LEVEL 8.8 MG/DL (8.3-10.6); CARBON DIOXIDE LEVEL 34 MMOL/L (20-31); CHLORIDE LEVEL 100 MMOL/L (98-107); CREATININE FOR GFR 0.49 MG/DL (0.55-1.30); GLOMERULAR FILTRATION RATE > 90.0 (>32); GLUCOSE, FASTING 142 MG/DL (74-106); POTASSIUM SERUM 4.3 MMOL/L (3.5-5.1); SODIUM LEVEL 140 MMOL/L (136-145)
[2025-01-12 08:15] VITALS: BP 141/78; TEMP 97.9; O2SAT 92
[2025-01-12] MEDS: predniSONE 20 MG TAB PO SCH (09:08)
[2025-01-12] MEDS ORDERED: PRED10TA2 PO (11:35)
[2025-01-12] MEDS ORDERED: PRED50TA PO (11:35)
[2025-01-12 12:00] VITALS: BP 137/78; TEMP 98.1; O2SAT 94
[2025-01-12] MEDS ORDERED: WARFARIN SOD 1MG TAB PO SCH (17:00)
== END 2025-01-12 16:04 | disposition home or self-care (01) | DRG 189 ==
LOC: EDBD 19:45 → M ED 19:45 → M ED INP 19:46 → M MSPAV 01-07 04:10 → OBSVTOIN 01-09 12:04
PROVIDERS: ADMIT Student in an Organized Health Care Education/Training Program; ATTEND Internal Medicine Nephrology
DX: J96.21 Acute and chronic respiratory failure with hypoxia (principal); E43 Unspecified severe protein-calorie malnutrition; J44.1 Chronic obstructive pulmonary disease with (acute) exacerbation; I50.32 Chronic diastolic (congestive) heart failure; J84.9 Interstitial pulmonary disease, unspecified; Z68.1 Body mass index [BMI] 19.9 or less, adult; R04.2 Hemoptysis; D64.9 Anemia, unspecified; R91.8 Other nonspecific abnormal finding of lung field; R13.10 Dysphagia, unspecified; G89.29 Other chronic pain; M79.7 Fibromyalgia; I25.10 Atherosclerotic heart disease of native coronary artery without angina pectoris; R33.9 Retention of urine, unspecified; K21.9 Gastro-esophageal reflux disease without esophagitis; M81.0 Age-related osteoporosis without current pathological fracture; Z66 Do not resuscitate; M06.9 Rheumatoid arthritis, unspecified; F41.9 Anxiety disorder, unspecified; F32.A Depression, unspecified; G47.00 Insomnia, unspecified; Z79.891 Long term (current) use of opiate analgesic; Z79.01 Long term (current) use of anticoagulants; Z79.82 Long term (current) use of aspirin; Z79.899 Other long term (current) drug therapy; Z88.8 Allergy status to other drugs, medicaments and biological substances; Z99.81 Dependence on supplemental oxygen; Z95.2 Presence of prosthetic heart valve

== ENCOUNTER → 2025-02-05 | Outpatient (CLI) | payer MEDICARE, MEDICAID ==
[~2025-02-05] VITALS: Ht 162.6 cm; Wt 38.9 kg
[~2025-02-05] MED LIST changes: -AMBI5TAB PO; +FOSF3PAC2 PO; +POTA99CA2 PO; +PRED50TA57 PO; +ZOLP-532 PO
[2025-02-05 13:18] VITALS: BP 118/67; O2SAT 88
== END ==
LOC: M PAL 13:06
PROVIDERS: ATTEND Physician Assistant
DX: Z51.5 Encounter for palliative care (principal); Z66 Do not resuscitate; M25.50 Pain in unspecified joint; J44.9 Chronic obstructive pulmonary disease, unspecified; Z99.81 Dependence on supplemental oxygen; I50.20 Unspecified systolic (congestive) heart failure; R54 Age-related physical debility; Z79.891 Long term (current) use of opiate analgesic; Z88.8 Allergy status to other drugs, medicaments and biological substances; Z88.6 Allergy status to analgesic agent; Z79.82 Long term (current) use of aspirin; Z79.899 Other long term (current) drug therapy

== ENCOUNTER → 2025-04-10 | Outpatient (CLI) | payer MEDICARE, MEDICAID ==
[~2025-04-10] MED LIST changes: +CVS10CAP8 PO; +FOLI-17 PO; -MELA10CA2 PO; -PRAV20TA2 PO; +PRAV20TA78 PO; -[UNRECOGNIZED DRUG - CODE] PO
== END ==
LOC: M PAL 14:02
PROVIDERS: ATTEND Physician Assistant
DX: Z51.5 Encounter for palliative care (principal); Z66 Do not resuscitate; G89.4 Chronic pain syndrome; M25.50 Pain in unspecified joint; J44.9 Chronic obstructive pulmonary disease, unspecified; Z99.81 Dependence on supplemental oxygen; I50.22 Chronic systolic (congestive) heart failure; R54 Age-related physical debility; Z79.891 Long term (current) use of opiate analgesic; Z79.82 Long term (current) use of aspirin; Z79.899 Other long term (current) drug therapy; Z79.52 Long term (current) use of systemic steroids; Z88.6 Allergy status to analgesic agent

== ENCOUNTER 2025-04-24 12:35 | Inpatient (IN) | payer MEDICARE, MEDICAID ==
[~2025-04-24] VITALS: Ht 162.6 cm; Wt 39.0 kg
[2025-04-24] MEDS: ASPIRIN 81 MG ENTERIC TABLET PO SCH (09:00)
[2025-04-24 13:11] LABS: VENOUS BASE EXCESS 1.0 (-2.0-2.0); VENOUS HCO3 27.0 MMOL/L (23.0-27.0); VENOUS O2 SATURATION 73.5 % (60.0-80.0); VENOUS PARTIAL PRESSURE CO2 48.8 mmHg (38.0-50.0); VENOUS PARTIAL PRESSURE O2 41.0 mmHg (30.0-50.0); VENOUS PH 7.361 UNITS (7.330-7.430); VENOUS STANDARD HCO3 24.9 MMOL/L; VENOUS TOTAL CO2 28.5 MMOL/L (24.0-28.0)
[2025-04-24 13:19] LABS: BASO # 0.0 10^3/uL (0.0-0.2); BASO % 0.2 % (0.0-1.0); EOS # 0.0 10^3/uL (0.0-0.5); EOS % 0.0 % (0.0-3.0); LYMPH # 1.9 10^3/uL (1.5-5.0); LYMPH % 15.1 % (24.0-44.0); MONO # 1.1 10^3/uL (0.0-0.8); MONO % 8.5 % (2.0-8.0); NEUTROPHILS # 9.7 10^3/uL (1.5-8.5); NEUTROPHILS % 75.7 % (36.0-66.0); PLATELET COUNT, AUTOMATED 164 10^3/uL (150-450)
[2025-04-24 13:31] LABS: INR 2.01
[2025-04-24 13:44] LABS: ALT/SGPT < 9 U/L (7.0-40); AST/SGOT 15 U/L (<34); CALCIUM LEVEL 8.4 MG/DL (8.3-10.6); CARBON DIOXIDE LEVEL 29 MMOL/L (20-31); CHLORIDE LEVEL 100 MMOL/L (98-107); CK-MB VALUE MASS < 1.0 NG/ML (<3.6); CPK CREATINE PHOSPHOKINASE 36 U/L (34-145); CREATININE FOR GFR 0.68 MG/DL (0.55-1.30); GLOMERULAR FILTRATION RATE 85.8 (>32); POTASSIUM SERUM 3.7 MMOL/L (3.5-5.1); SODIUM LEVEL 138 MMOL/L (136-145)
[2025-04-24 13:46] LABS: THYROXINE (T4) 7.9 UG/DL (4.5-10.9)
[2025-04-24 14:09] LABS: KETONE, URINE AUTO RFX NEGATIVE (NEGATIVE); MUCUS, URINE RFX SMALL (NEGATIVE); RBC, URINE AUTO RFX 1 /HPF (0-3); SQUAM EPITHELIAL CELL UR AURFX 2 /HPF (0-6)
[2025-04-24 14:11] LABS: LEUKOCYTE ESTERASE UR AUTO RFX 2+ (NEGATIVE); NITRITE, URINE AUTO RFX POSITIVE (NEGATIVE); WBC, URINE AUTO RFX 24 /HPF (0-3)
[2025-04-24] MEDS: CEFEPIME HCL 1 GM in DEXTROSE 5% (D5W) ADV/MINI-BAG 50 ML IV ONE (14:50)
[2025-04-24] MEDS ORDERED: WARF4TAB52 PO (15:03)
[2025-04-24] MEDS ORDERED: WARF-58 PO (15:03)
[2025-04-24] MEDS ORDERED: XTAM13.5 PO (15:03)
[2025-04-24] MEDS ORDERED: MYRB25TA PO (15:03)
[2025-04-24] MEDS ORDERED: LORA1TAB23 PO ×2 (15:03)
[2025-04-24] MEDS ORDERED: GABA-1171 PO (15:03)
[2025-04-24] MEDS ORDERED: HOME MED LIST COMPLETE! XX SCH (15:05)
[2025-04-24] MEDS ORDERED: FUROSEMIDE 20 MG TAB PO PRN (15:40)
[2025-04-24] MEDS: GABAPENTIN 100 MG CAP PO SCH (17:50)
[2025-04-24] MEDS: WARFARIN SOD 5MG TAB PO ONE (17:51)
[2025-04-24] MEDS: IPRATROPIUM 0.5 MG/ALBUTEROL 2.5 MG INH SOL UD 3 ML NEB SCH (19:58)
[2025-04-24] MEDS: LORazepam 1 MG TAB PO SCH (20:58)
[2025-04-24] MEDS: OMEPRAZOLE 20MG CAP PO SCH (20:58)
[2025-04-24] MEDS: cefTRIAXone SOD 1 GM in DEXTROSE 5% (D5W) ADV/MINI-BAG 50 ML IV SCH (20:59)
[2025-04-24 22:40] VITALS: BP 143/70; TEMP 98.1; O2SAT 98
[2025-04-25 02:41] VITALS: O2SAT 98
[2025-04-25 04:11] VITALS: BP 101/66; TEMP 98.1; O2SAT 94
[2025-04-25 06:30] LABS: PLATELET COUNT, AUTOMATED 182 10^3/uL (150-450)
[2025-04-25 06:44] LABS: INR 2.92
[2025-04-25 06:58] LABS: CALCIUM LEVEL 9.3 MG/DL (8.3-10.6); CARBON DIOXIDE LEVEL 28 MMOL/L (20-31); CHLORIDE LEVEL 103 MMOL/L (98-107); CREATININE FOR GFR 0.52 MG/DL (0.55-1.30); GLOMERULAR FILTRATION RATE > 90.0 (>32); MAGNESIUM LEVEL 2.1 MG/DL (1.8-2.4); POTASSIUM SERUM 4.1 MMOL/L (3.5-5.1); SODIUM LEVEL 143 MMOL/L (136-145)
[2025-04-25 08:31] VITALS: BP 116/63; TEMP 98.2; O2SAT 95
[2025-04-25] MEDS: AZITHROMYCIN 250 MG TABLET PO SCH (10:21)
[2025-04-25] MEDS: predniSONE 10 MG TAB PO SCH (10:21)
[2025-04-25 12:26] VITALS: BP 110/61; TEMP 97.9; O2SAT 91
[2025-04-25 16:31] VITALS: BP 108/53; TEMP 98.8; O2SAT 98
[2025-04-25] MEDS: WARFARIN SOD 3MG TAB PO SCH (16:34)
[2025-04-25 20:29] VITALS: BP 91/51; TEMP 97.7; O2SAT 97
[2025-04-25] MEDS: RAMELTEON 8 MG TAB PO PRN (21:43)
[2025-04-26 04:20] VITALS: BP 137/70; TEMP 98.8; O2SAT 97
[2025-04-26 07:55] VITALS: BP 156/87; TEMP 98.1; O2SAT 99
[2025-04-26 08:09] LABS: PLATELET COUNT, AUTOMATED 189 10^3/uL (150-450)
[2025-04-26 08:33] LABS: CALCIUM LEVEL 8.8 MG/DL (8.3-10.6); CARBON DIOXIDE LEVEL 31.0 MMOL/L (20-31); CHLORIDE LEVEL 103.0 MMOL/L (98-107); CREATININE FOR GFR 0.58 MG/DL (0.55-1.30); GLOMERULAR FILTRATION RATE 89.2 (>32); MAGNESIUM LEVEL 1.9 MG/DL (1.8-2.4); POTASSIUM SERUM 3.8 MMOL/L (3.5-5.1); SODIUM LEVEL 144.0 MMOL/L (136-145)
[2025-04-26 10:05] LABS: INR 5.2
[2025-04-26 12:23] VITALS: BP 120/67; TEMP 97.5; O2SAT 92
[2025-04-26 16:11] VITALS: BP 120/62; TEMP 98.6; O2SAT 98
[2025-04-26 19:49] VITALS: BP 106/44; TEMP 97.5; O2SAT 99
[2025-04-27 00:12] VITALS: BP 129/71; TEMP 97.3; O2SAT 98
[2025-04-27 04:21] VITALS: BP_SYST 108; BP_SYST 123; BP_DIAS 45; BP_DIAS 54; TEMP 98.1; O2SAT 96
[2025-04-27 06:21] LABS: PLATELET COUNT, AUTOMATED 189 10^3/uL (150-450)
[2025-04-27 06:37] LABS: INR 3.94
[2025-04-27 07:01] LABS: CALCIUM LEVEL 8.4 MG/DL (8.3-10.6); CARBON DIOXIDE LEVEL 32 MMOL/L (20-31); CHLORIDE LEVEL 105 MMOL/L (98-107); CREATININE FOR GFR 0.55 MG/DL (0.55-1.30); GLOMERULAR FILTRATION RATE > 90.0 (>32); MAGNESIUM LEVEL 1.8 MG/DL (1.8-2.4); POTASSIUM SERUM 4.2 MMOL/L (3.5-5.1); SODIUM LEVEL 144 MMOL/L (136-145)
[2025-04-27 09:00] VITALS: BP 107/54; TEMP 98.6; O2SAT 93
[2025-04-27] MEDS: SENNOSIDES/DOCUSATE SODIUM 8.6 MG/50MG TAB PO SCH (10:19)
[2025-04-27] MEDS: MIRALAX *UNIT DOSE* 17 GM PACKET PO SCH (10:19)
[2025-04-27] MEDS: NITROFURANTOIN 100 MG CAP PO SCH (12:18)
[2025-04-27 12:27] VITALS: BP 118/57; TEMP 98.8; O2SAT 97
[2025-04-27 17:07] VITALS: BP 140/67; TEMP 98.8; O2SAT 98
[2025-04-27 20:16] VITALS: BP 112/55; TEMP 97.7; O2SAT 96
[2025-04-27] MEDS: IPRATROPIUM 0.5 MG/ALBUTEROL 2.5 MG INH SOL UD 3 ML NEB PRN (23:42)
[2025-04-28] VITALS: BP 115/54; TEMP 98.1; O2SAT 74
[2025-04-28] MEDS: guaiFENesin DM LIQ 10ML UD PO PRN (01:32)
[2025-04-28 04:42] VITALS: BP 116/58; TEMP 97.9; O2SAT 94
[2025-04-28 06:44] LABS: PLATELET COUNT, AUTOMATED 190 10^3/uL (150-450)
[2025-04-28 06:57] LABS: INR 2.91
[2025-04-28 07:16] LABS: CALCIUM LEVEL 8.5 MG/DL (8.3-10.6); CARBON DIOXIDE LEVEL 33 MMOL/L (20-31); CHLORIDE LEVEL 100 MMOL/L (98-107); CREATININE FOR GFR 0.49 MG/DL (0.55-1.30); GLOMERULAR FILTRATION RATE > 90.0 (>32); MAGNESIUM LEVEL 1.8 MG/DL (1.8-2.4); POTASSIUM SERUM 3.9 MMOL/L (3.5-5.1); SODIUM LEVEL 142 MMOL/L (136-145)
[2025-04-28 07:29] VITALS: O2SAT 96
[2025-04-28 08:37] VITALS: BP 129/63; TEMP 98.2; O2SAT 99
[2025-04-28] MEDS ORDERED: CEFD300CAP PO (10:32)
[2025-04-28] MEDS ORDERED: MACR100C43 PO (10:32)
[2025-05-01] MEDS ORDERED: OXYC10TA12 PO (09:21)
== END 2025-04-28 11:45 | disposition home or self-care (01) | DRG 194 ==
LOC: EDBD 12:35 → M ED 12:35 → M ED INP 15:40 → M MS5PR 22:42
PROVIDERS: ADMIT Family Medicine; ATTEND Family Medicine
DX: J18.9 Pneumonia, unspecified organism (principal); J96.11 Chronic respiratory failure with hypoxia; I50.32 Chronic diastolic (congestive) heart failure; J44.0 Chronic obstructive pulmonary disease with (acute) lower respiratory infection; N39.0 Urinary tract infection, site not specified; Z66 Do not resuscitate; M79.7 Fibromyalgia; I25.10 Atherosclerotic heart disease of native coronary artery without angina pectoris; F17.200 Nicotine dependence, unspecified, uncomplicated; R33.9 Retention of urine, unspecified; K21.9 Gastro-esophageal reflux disease without esophagitis; I27.20 Pulmonary hypertension, unspecified; M81.0 Age-related osteoporosis without current pathological fracture; B96.20 Unspecified Escherichia coli [E. coli] as the cause of diseases classified elsewhere; M06.9 Rheumatoid arthritis, unspecified; R54 Age-related physical debility; F41.9 Anxiety disorder, unspecified; F32.A Depression, unspecified; G47.00 Insomnia, unspecified; G89.4 Chronic pain syndrome; Z99.81 Dependence on supplemental oxygen; Z99.2 Dependence on renal dialysis; Z79.01 Long term (current) use of anticoagulants; Z79.891 Long term (current) use of opiate analgesic; Z79.899 Other long term (current) drug therapy; I48.91 Unspecified atrial fibrillation; Z86.73 Personal history of transient ischemic attack (TIA), and cerebral infarction without residual deficits; Z95.2 Presence of prosthetic heart valve

== ENCOUNTER → 2025-05-09 | Outpatient (CLI) | payer MEDICARE, MEDICAID ==
[~2025-05-09] VITALS: Ht 162.6 cm; Wt 39.5 kg
[~2025-05-09] MED LIST changes: +CEFD300CAP PO; +MACR100C43 PO; +MYRB25TA PO; +WARF-58 PO
[2025-05-09 10:37] VITALS: BP 100/60; O2SAT 92
== END ==
LOC: M PAL 10:03
PROVIDERS: ATTEND Physician Assistant
DX: Z51.5 Encounter for palliative care (principal); Z66 Do not resuscitate; M25.50 Pain in unspecified joint; J44.9 Chronic obstructive pulmonary disease, unspecified; Z99.81 Dependence on supplemental oxygen; I50.89 Other heart failure; R54 Age-related physical debility; Z79.891 Long term (current) use of opiate analgesic; Z88.6 Allergy status to analgesic agent; Z88.8 Allergy status to other drugs, medicaments and biological substances; Z79.899 Other long term (current) drug therapy; Z79.82 Long term (current) use of aspirin

== ENCOUNTER → 2025-05-17 | Outpatient (REF) | payer MEDICARE, MEDICAID ==
[2025-05-18 14:33] LABS: APPEARANCE, URINE HAZY (CLEAR); BACTERIA, URINE AUTO NEGATIVE (NEGATIVE); BILIRUBIN, URINE AUTO NEGATIVE (NEGATIVE); BLOOD, URINE BLOOD 1+ (NEGATIVE); CALCIUM OXALATE CRYSTALS SMALL; GLUCOSE, URINE (UA) AUTO NEGATIVE (NEGATIVE); KETONE, URINE AUTO NEGATIVE (NEGATIVE); LEUKOCYTE ESTERASE, URINE AUTO TRACE (NEGATIVE); NITRITE, URINE AUTO POSITIVE (NEGATIVE); PROTEIN, URINE AUTO NEGATIVE (NEGATIVE); RBC, URINE AUTO 1 /HPF (0-3); SPECIFIC GRAVITY URINE AUTO 1.013 (1.002-1.035); SQUAMOUS EPITHELIAL CELL UR AU 1 /HPF (0-6); UROBILINOGEN, URINE AUTO 0.2 mg/dL (0.0-2.0); WBC, URINE AUTO 15 /HPF (0-3)
== END ==
LOC: M SFHCPLAZ 12:50
PROVIDERS: ATTEND Internal Medicine Infectious Disease
DX: A49.8 Other bacterial infections of unspecified site (principal); Z79.899 Other long term (current) drug therapy

== ENCOUNTER → 2025-06-07 | Outpatient (CLI) | payer MEDICARE, MEDICAID | LOC: M PAL 13:04 | PROVIDERS: ATTEND Physician Assistant | DX: Z51.5 Encounter for palliative care (principal); Z66 Do not resuscitate; M25.50 Pain in unspecified joint; J44.9 Chronic obstructive pulmonary disease, unspecified; Z99.81 Dependence on supplemental oxygen; I50.20 Unspecified systolic (congestive) heart failure; R41.81 Age-related cognitive decline; Z79.891 Long term (current) use of opiate analgesic; Z88.6 Allergy status to analgesic agent; Z88.5 Allergy status to narcotic agent; Z79.899 Other long term (current) drug therapy; Z79.52 Long term (current) use of systemic steroids; Z79.83 Long term (current) use of bisphosphonates ==

== ENCOUNTER → 2025-06-12 | Outpatient (REF) | payer MEDICARE, MEDICAID ==
[~2025-06-12] MED LIST changes: +METH-1100 PO; -METH-855 PO; -ZOLP5TAB PO; +ZOLP5TAB9 PO
[2025-06-12 14:04] LABS: APPEARANCE, URINE HAZY (CLEAR); BACTERIA, URINE AUTO 3+ (NEGATIVE); BILIRUBIN, URINE AUTO NEGATIVE (NEGATIVE); BLOOD, URINE BLOOD NEGATIVE (NEGATIVE); GLUCOSE, URINE (UA) AUTO NEGATIVE (NEGATIVE); KETONE, URINE AUTO NEGATIVE (NEGATIVE); LEUKOCYTE ESTERASE, URINE AUTO 2+ (NEGATIVE); NITRITE, URINE AUTO POSITIVE (NEGATIVE); PROTEIN, URINE AUTO NEGATIVE (NEGATIVE); RBC, URINE AUTO 0 /HPF (0-3); SPECIFIC GRAVITY URINE AUTO 1.015 (1.002-1.035); SQUAMOUS EPITHELIAL CELL UR AU 3 /HPF (0-6); UROBILINOGEN, URINE AUTO 0.2 mg/dL (0.0-2.0); WBC, URINE AUTO 9 /HPF (0-3)
== END ==
LOC: M SFHCPLAZ 13:19
PROVIDERS: ATTEND Internal Medicine Infectious Disease
DX: A49.8 Other bacterial infections of unspecified site (principal)

== ENCOUNTER → 2025-06-19 | Outpatient (REF) | payer MEDICARE, MEDICAID ==
[2025-06-19 14:40] LABS: APPEARANCE, URINE HAZY (CLEAR); BACTERIA, URINE AUTO 1+ (NEGATIVE); BILIRUBIN, URINE AUTO NEGATIVE (NEGATIVE); BLOOD, URINE BLOOD NEGATIVE (NEGATIVE); GLUCOSE, URINE (UA) AUTO NEGATIVE (NEGATIVE); KETONE, URINE AUTO NEGATIVE (NEGATIVE); LEUKOCYTE ESTERASE, URINE AUTO 1+ (NEGATIVE); MUCUS, URINE SMALL (NEGATIVE); NITRITE, URINE AUTO POSITIVE (NEGATIVE); PROTEIN, URINE AUTO NEGATIVE (NEGATIVE); RBC, URINE AUTO 1 /HPF (0-3); SPECIFIC GRAVITY URINE AUTO 1.014 (1.002-1.035); SQUAMOUS EPITHELIAL CELL UR AU 1 /HPF (0-6); UROBILINOGEN, URINE AUTO 0.2 mg/dL (0.0-2.0); WBC, URINE AUTO 8 /HPF (0-3)
== END ==
LOC: M SFHCPLAZ 13:47
PROVIDERS: ATTEND Internal Medicine Infectious Disease
DX: N39.0 Urinary tract infection, site not specified (principal)

== ENCOUNTER 2025-06-25 12:35 | Inpatient (IN) | payer MEDICARE, MEDICAID ==
[~2025-06-25] VITALS: Ht 162.6 cm; Wt 40.0 kg
[2025-06-25] MEDS: ALBUTEROL SULFATE 2.5 MG/0.5 ML INH CONCENTRATE NEB SOLN NEB ONE (13:01)
[2025-06-25 13:04] LABS: VENOUS BASE EXCESS 3.9 (-2.0-2.0); VENOUS HCO3 33.2 MMOL/L (23.0-27.0); VENOUS O2 SATURATION 31.2 % (60.0-80.0); VENOUS PARTIAL PRESSURE CO2 75.2 mmHg (38.0-50.0); VENOUS PARTIAL PRESSURE O2 22.7 mmHg (30.0-50.0); VENOUS PH 7.263 UNITS (7.330-7.430); VENOUS STANDARD HCO3 26.4 MMOL/L; VENOUS TOTAL CO2 35.5 MMOL/L (24.0-28.0)
[2025-06-25 13:16] LABS: BASO # 0.0 10^3/uL (0.0-0.2); BASO % 0.6 % (0.0-1.0); EOS # 0.2 10^3/uL (0.0-0.5); EOS % 3.1 % (0.0-3.0); LYMPH # 2.0 10^3/uL (1.5-5.0); LYMPH % 38.4 % (24.0-44.0); MONO # 0.6 10^3/uL (0.0-0.8); MONO % 11.1 % (2.0-8.0); NEUTROPHILS # 2.4 10^3/uL (1.5-8.5); NEUTROPHILS % 46.8 % (36.0-66.0); PLATELET COUNT, AUTOMATED 136 10^3/uL (150-450)
[2025-06-25 13:32] LABS: INR 1.47
[2025-06-25 13:53] LABS: ALT/SGPT 16.0 U/L (7.0-40); AST/SGOT 23.0 U/L (<34); CALCIUM LEVEL 8.7 MG/DL (8.3-10.6); CARBON DIOXIDE LEVEL 34.0 MMOL/L (20-31); CHLORIDE LEVEL 100.0 MMOL/L (98-107); CK-MB VALUE MASS 1.8 NG/ML (<3.6); CPK CREATINE PHOSPHOKINASE 41.0 U/L (34-145); CREATININE FOR GFR 0.69 MG/DL (0.55-1.30); GLOMERULAR FILTRATION RATE 85.0 (>32); MB/CK RELATIVE INDEX 4.39 (< OR =4); POTASSIUM SERUM 3.8 MMOL/L (3.5-5.1); SODIUM LEVEL 141.0 MMOL/L (136-145)
[2025-06-25 13:54] LABS: FREE T4 1.3 NG/DL (0.89-1.76)
[2025-06-25 14:50] LABS: KETONE, URINE AUTO RFX NEGATIVE (NEGATIVE); RBC, URINE AUTO RFX 1 /HPF (0-3); SQUAM EPITHELIAL CELL UR AURFX 1 /HPF (0-6)
[2025-06-25 14:51] LABS: LEUKOCYTE ESTERASE UR AUTO RFX 2+ (NEGATIVE); NITRITE, URINE AUTO RFX POSITIVE (NEGATIVE); WBC, URINE AUTO RFX 23 /HPF (0-3)
[2025-06-25] MEDS: NS 500 ML IV ONE (15:27)
[2025-06-25] MEDS: CEFEPIME HCL 2 GM in DEXTROSE 5% (D5W) ADV/MINI-BAG 50 ML IV ONE (15:27)
[2025-06-25 15:29] LABS: CK-MB VALUE MASS 2.4 NG/ML (<3.6)
[2025-06-25] MEDS: IPRATROPIUM 0.5 MG/ALBUTEROL 2.5 MG INH SOL UD 3 ML NEB PRN (15:29)
[2025-06-25 15:30] LABS: CPK CREATINE PHOSPHOKINASE 31 U/L (34-145); MB/CK RELATIVE INDEX 7.74 (< OR =4)
[2025-06-25] MEDS ORDERED: DULO30CA9 PO (16:36)
[2025-06-25] MEDS ORDERED: ATIV1TAB7 PO (16:36)
[2025-06-25] MEDS ORDERED: HOME MED LIST COMPLETE! XX SCH (16:40)
[2025-06-25 18:35] VITALS: BP 111/54; TEMP 98.6; O2SAT 98
[2025-06-25] MEDS: LR 1,000 ML IV SCH (18:55)
[2025-06-25] MEDS: ENOXAPARIN 40 MG/0.4 ML SYRINGE (J1650 PER 10MG) SC ONE (18:55)
[2025-06-25] MEDS: AZITHROMYCIN 250 MG TABLET PO SCH (18:55)
[2025-06-25] MEDS: WARFARIN SOD 3MG TAB PO SCH (18:55)
[2025-06-25 19:00] VITALS: BP_SYST 105; BP_SYST 111; BP_DIAS 51; BP_DIAS 54; TEMP 98; O2SAT 95
[2025-06-25] MEDS: NICOTINE 14 MG/24 HR TRANSDERMAL TD ONE (19:30)
[2025-06-25 20:00] VITALS: BP 94/54; TEMP 97.8; O2SAT 94
[2025-06-25] MEDS: GABAPENTIN 100 MG CAP PO SCH (20:19)
[2025-06-25] MEDS: CEFDINIR 300 MG CAP PO SCH (20:19)
[2025-06-25] MEDS: OMEPRAZOLE 20MG CAP PO SCH (20:20)
[2025-06-25] MEDS: LORazepam 1 MG TAB PO SCH (20:20)
[2025-06-25] MEDS: ERTAPENEM SODIUM 1 GM in NS MINI-BAG PLUS 50 ML IV SCH (20:51)
[2025-06-25 22:00] VITALS: BP 96/54; O2SAT 99
[2025-06-26] VITALS (8 sets, daily range): BP systolic 97–132; BP diastolic 50–62; TEMP 97.3–98; O2SAT 94–100
[2025-06-26 05:43] LABS: BASO # 0.0 10^3/uL (0.0-0.2); BASO % 0.0 % (0.0-1.0); EOS # 0.0 10^3/uL (0.0-0.5); EOS % 0.0 % (0.0-3.0); LYMPH # 0.7 10^3/uL (1.5-5.0); LYMPH % 21.8 % (24.0-44.0); MONO # 0.3 10^3/uL (0.0-0.8); MONO % 8.9 % (2.0-8.0); NEUTROPHILS # 2.2 10^3/uL (1.5-8.5); NEUTROPHILS % 69.0 % (36.0-66.0); PLATELET COUNT, AUTOMATED 133 10^3/uL (150-450)
[2025-06-26 06:04] LABS: INR 1.63
[2025-06-26 06:16] LABS: ALT/SGPT 13 U/L (7.0-40); AST/SGOT 17 U/L (<34); CALCIUM LEVEL 8.7 MG/DL (8.3-10.6); CARBON DIOXIDE LEVEL 32 MMOL/L (20-31); CHLORIDE LEVEL 107 MMOL/L (98-107); CREATININE FOR GFR 0.49 MG/DL (0.55-1.30); GLOMERULAR FILTRATION RATE > 90.0 (>32); PHOSPHORUS LEVEL 3.8 MG/DL (2.4-5.1); POTASSIUM SERUM 4.0 MMOL/L (3.5-5.1); SODIUM LEVEL 145 MMOL/L (136-145)
[2025-06-26] MEDS: VITAMIN D 1,000 INTERNATIONAL UNITS TABLET PO SCH (08:54)
[2025-06-26] MEDS: predniSONE 10 MG TAB PO SCH (08:54)
[2025-06-26] MEDS: ASPIRIN 81 MG ENTERIC TABLET PO SCH (08:55)
[2025-06-26] MEDS: FUROSEMIDE 20 MG TAB PO SCH (08:55)
[2025-06-26] MEDS ORDERED: LORazepam 0.5 MG TAB PO PRN (12:00)
[2025-06-26] MEDS: MIDODRINE 5 MG TAB PO SCH (17:38)
[2025-06-26] MEDS: RAMELTEON 8 MG TAB PO PRN (23:00)
[2025-06-27 03:51] VITALS: BP 122/55; TEMP 97.7; O2SAT 94
[2025-06-27 06:49] LABS: BASO # 0.0 10^3/uL (0.0-0.2); BASO % 0.3 % (0.0-1.0); EOS # 0.1 10^3/uL (0.0-0.5); EOS % 1.0 % (0.0-3.0); LYMPH # 2.1 10^3/uL (1.5-5.0); LYMPH % 33.2 % (24.0-44.0); MONO # 0.6 10^3/uL (0.0-0.8); MONO % 9.4 % (2.0-8.0); NEUTROPHILS # 3.5 10^3/uL (1.5-8.5); NEUTROPHILS % 55.8 % (36.0-66.0); PLATELET COUNT, AUTOMATED 153 10^3/uL (150-450)
[2025-06-27 07:05] LABS: INR 2.38
[2025-06-27 07:31] LABS: ALT/SGPT 16.0 U/L (7.0-40); AST/SGOT 23.0 U/L (<34); CALCIUM LEVEL 8.6 MG/DL (8.3-10.6); CARBON DIOXIDE LEVEL 33.0 MMOL/L (20-31); CHLORIDE LEVEL 104.0 MMOL/L (98-107); CREATININE FOR GFR 0.61 MG/DL (0.55-1.30); GLOMERULAR FILTRATION RATE 87.6 (>32); POTASSIUM SERUM 4.2 MMOL/L (3.5-5.1); SODIUM LEVEL 142.0 MMOL/L (136-145)
[2025-06-27 12:13] VITALS: BP 130/60; TEMP 97.3; O2SAT 98
[2025-06-27] MEDS ORDERED: LORazepam 0.5 MG TAB PO PRN (17:30)
[2025-06-27] MEDS: LORazepam 0.5 MG TAB PO PRN (17:47)
[2025-06-27] MEDS ORDERED: ENOXAPARIN 40 MG/0.4 ML SYRINGE (J1650 PER 10MG) SC SCH (18:00)
[2025-06-27 20:13] VITALS: BP 98/46; TEMP 97.3; O2SAT 98
[2025-06-28 04:10] VITALS: BP 96/60; TEMP 97.7; O2SAT 98
[2025-06-28 06:16] LABS: BASO # 0.0 10^3/uL (0.0-0.2); BASO % 0.3 % (0.0-1.0); EOS # 0.1 10^3/uL (0.0-0.5); EOS % 1.4 % (0.0-3.0); LYMPH # 2.4 10^3/uL (1.5-5.0); LYMPH % 37.7 % (24.0-44.0); MONO # 0.8 10^3/uL (0.0-0.8); MONO % 12.0 % (2.0-8.0); NEUTROPHILS # 3.1 10^3/uL (1.5-8.5); NEUTROPHILS % 48.3 % (36.0-66.0); PLATELET COUNT, AUTOMATED 182 10^3/uL (150-450)
[2025-06-28 06:29] LABS: INR 2.0
[2025-06-28 06:47] LABS: ALT/SGPT 15.0 U/L (7.0-40); AST/SGOT 16.0 U/L (<34); CALCIUM LEVEL 8.6 MG/DL (8.3-10.6); CARBON DIOXIDE LEVEL 37.0 MMOL/L (20-31); CHLORIDE LEVEL 103.0 MMOL/L (98-107); CREATININE FOR GFR 0.62 MG/DL (0.55-1.30); GLOMERULAR FILTRATION RATE 87.2 (>32); POTASSIUM SERUM 4.2 MMOL/L (3.5-5.1); SODIUM LEVEL 142.0 MMOL/L (136-145)
[2025-06-28 09:00] VITALS: BP 106/71
[2025-06-28 09:55] VITALS: BP 106/71
[2025-06-28 12:00] VITALS: BP 103/60; TEMP 97.7; O2SAT 96
[2025-06-28 16:54] VITALS: BP 99/57
[2025-06-28] MEDS ORDERED: FURO20TA2 PO (20:01)
[2025-06-28] MEDS ORDERED: TALK1KIT MC (20:01)
[2025-06-28 20:23] VITALS: BP 100/58; TEMP 97.5; O2SAT 94
[2025-06-29 02:57] VITALS: BP 108/61; TEMP 97.5; O2SAT 93
[2025-06-29 06:57] LABS: BASO # 0.0 10^3/uL (0.0-0.2); BASO % 0.3 % (0.0-1.0); EOS # 0.3 10^3/uL (0.0-0.5); EOS % 3.7 % (0.0-3.0); LYMPH # 2.4 10^3/uL (1.5-5.0); LYMPH % 32.6 % (24.0-44.0); MONO # 0.9 10^3/uL (0.0-0.8); MONO % 11.7 % (2.0-8.0); NEUTROPHILS # 3.8 10^3/uL (1.5-8.5); NEUTROPHILS % 51.4 % (36.0-66.0); PLATELET COUNT, AUTOMATED 173 10^3/uL (150-450)
[2025-06-29 07:05] LABS: INR 1.88
[2025-06-29 07:16] LABS: ALT/SGPT 15.0 U/L (7.0-40); AST/SGOT 17.0 U/L (<34); CALCIUM LEVEL 9.0 MG/DL (8.3-10.6); CARBON DIOXIDE LEVEL 35.0 MMOL/L (20-31); CHLORIDE LEVEL 102.0 MMOL/L (98-107); CREATININE FOR GFR 0.58 MG/DL (0.55-1.30); GLOMERULAR FILTRATION RATE 88.6 (>32); POTASSIUM SERUM 4.0 MMOL/L (3.5-5.1); SODIUM LEVEL 142.0 MMOL/L (136-145)
[2025-06-29] MEDS: ERTAPENEM SODIUM 1 GM in NS MINI-BAG PLUS 50 ML IV SCH (09:36)
[2025-06-29 12:14] VITALS: BP 118/62; TEMP 97.5; O2SAT 95
[2025-06-29] MEDS: ENOXAPARIN 40 MG/0.4 ML SYRINGE (J1650 PER 10MG) SC ONE (12:28)
== END 2025-06-29 13:11 | disposition home health service (06) | DRG 871 ==
LOC: M ED 12:35 → EDBD 12:35 → M ED INP 16:56 → M ICU 18:30 → M MSPAV 06-26 16:51
PROVIDERS: ADMIT Internal Medicine Pulmonary Disease; ATTEND General Practice
DX: A41.9 Sepsis, unspecified organism (principal); J96.02 Acute respiratory failure with hypercapnia; E43 Unspecified severe protein-calorie malnutrition; G96.11 Dural tear; I50.32 Chronic diastolic (congestive) heart failure; N39.0 Urinary tract infection, site not specified; J84.9 Interstitial pulmonary disease, unspecified; J44.1 Chronic obstructive pulmonary disease with (acute) exacerbation; Z68.1 Body mass index [BMI] 19.9 or less, adult; F17.210 Nicotine dependence, cigarettes, uncomplicated; M79.7 Fibromyalgia; G89.29 Other chronic pain; I25.10 Atherosclerotic heart disease of native coronary artery without angina pectoris; K21.9 Gastro-esophageal reflux disease without esophagitis; R33.9 Retention of urine, unspecified; M81.0 Age-related osteoporosis without current pathological fracture; M06.9 Rheumatoid arthritis, unspecified; F32.A Depression, unspecified; F41.9 Anxiety disorder, unspecified; G47.00 Insomnia, unspecified; B96.20 Unspecified Escherichia coli [E. coli] as the cause of diseases classified elsewhere; R65.20 Severe sepsis without septic shock; D69.6 Thrombocytopenia, unspecified; Z79.82 Long term (current) use of aspirin; Z79.891 Long term (current) use of opiate analgesic; Z95.2 Presence of prosthetic heart valve; Z79.52 Long term (current) use of systemic steroids; Z79.01 Long term (current) use of anticoagulants; Z79.899 Other long term (current) drug therapy; Z88.1 Allergy status to other antibiotic agents; Z86.73 Personal history of transient ischemic attack (TIA), and cerebral infarction without residual deficits; Z88.8 Allergy status to other drugs, medicaments and biological substances; Z71.6 Tobacco abuse counseling; Z99.81 Dependence on supplemental oxygen

== ENCOUNTER 2025-07-10 09:55 | Inpatient (IN) | payer MEDICARE, MEDICAID ==
[~2025-07-10] VITALS: Ht 162.6 cm; Wt 39.9 kg
[~2025-07-10 09:55] MED LIST changes: +TALK1KIT MC
[2025-07-10 10:55] LABS: BASO # 0.0 10^3/uL (0.0-0.2); BASO % 0.1 % (0.0-1.0); EOS # 0.1 10^3/uL (0.0-0.5); EOS % 1.1 % (0.0-3.0); LYMPH # 1.2 10^3/uL (1.5-5.0); LYMPH % 13.3 % (24.0-44.0); MONO # 0.6 10^3/uL (0.0-0.8); MONO % 6.5 % (2.0-8.0); NEUTROPHILS # 7.2 10^3/uL (1.5-8.5); NEUTROPHILS % 78.2 % (36.0-66.0); PLATELET COUNT, AUTOMATED 190 10^3/uL (150-450)
[2025-07-10 11:07] LABS: INR 2.77
[2025-07-10] MEDS: ONDANSETRON 4MG 2ML VIAL IV ONE (11:12)
[2025-07-10 11:46] LABS: CALCIUM LEVEL 8.7 MG/DL (8.3-10.6); CARBON DIOXIDE LEVEL 33.5 MMOL/L (20-31); CHLORIDE LEVEL 100.0 MMOL/L (98-107); CREATININE FOR GFR 0.66 MG/DL (0.55-1.30); GLOMERULAR FILTRATION RATE 85.9 (>32); POTASSIUM SERUM 3.9 MMOL/L (3.5-5.1); SODIUM LEVEL 142.0 MMOL/L (136-145)
[2025-07-10] MEDS ORDERED: WARF-20 PO (12:56)
[2025-07-10] MEDS ORDERED: MED REC COMMENT (12:57)
[2025-07-10] MEDS ORDERED: HOME MED LIST COMPLETE! XX SCH (13:00)
[2025-07-10] MEDS ORDERED: ONDANSETRON 4MG 2ML VIAL IV PRN (13:05)
[2025-07-10] MEDS: predniSONE 10 MG TAB PO SCH (13:57)
[2025-07-10] MEDS: KETOROLAC 30 MG/ML 1 ML VIAL IV SCH (13:58)
[2025-07-10] MEDS: IPRATROPIUM 0.5 MG/ALBUTEROL 2.5 MG INH SOL UD 3 ML NEB SCH (14:08)
[2025-07-10] MEDS: TIOTROPIUM BROM 2.5MCG/ACTUATION 4GM INH INH SCH (14:23)
[2025-07-10] MEDS: ACETAMINOPHEN 500 MG TAB PO SCH (17:52)
[2025-07-10] MEDS: GABAPENTIN 100 MG CAP PO SCH (17:52)
[2025-07-10] MEDS: MORPHINE 4 MG/ML 1 ML VIAL IV PRN (18:22)
[2025-07-10 20:00] VITALS: BP 94/50; TEMP 99; O2SAT 91
[2025-07-10] MEDS: SYMBICORT 160/4.5MCG INHALER 6GM INH SCH (20:00)
[2025-07-10 20:05] VITALS: BP 94/50; TEMP 99; O2SAT 91
[2025-07-10] MEDS: OMEPRAZOLE 20MG CAP PO SCH (21:00)
[2025-07-10] MEDS ORDERED: LORazepam 0.5 MG TAB PO SCH (21:00)
[2025-07-10 23:42] VITALS: BP 96/56
[2025-07-11] VITALS (12 sets, daily range): BP systolic 94–128; BP diastolic 47–63; TEMP 97.2–101.3; O2SAT 84–100
[2025-07-11] MEDS: NS 500 ML IV ONE (02:53)
[2025-07-11] MEDS: MORPHINE 4 MG/ML 1 ML VIAL IV ONE (02:56)
[2025-07-11] MEDS: NS (Normal Saline) 0.9% 1,000 ML IV SCH (03:28)
[2025-07-11 06:20] LABS: BASO # 0.0 10^3/uL (0.0-0.2); BASO % 0.2 % (0.0-1.0); EOS # 0.1 10^3/uL (0.0-0.5); EOS % 0.6 % (0.0-3.0); LYMPH # 1.1 10^3/uL (1.5-5.0); LYMPH % 10.2 % (24.0-44.0); MONO # 0.9 10^3/uL (0.0-0.8); MONO % 8.3 % (2.0-8.0); NEUTROPHILS # 8.8 10^3/uL (1.5-8.5); NEUTROPHILS % 80.3 % (36.0-66.0); PLATELET COUNT, AUTOMATED 169 10^3/uL (150-450)
[2025-07-11 06:36] LABS: INR 2.38
[2025-07-11 06:49] LABS: CALCIUM LEVEL 8.4 MG/DL (8.3-10.6); CARBON DIOXIDE LEVEL 30.0 MMOL/L (20-31); CHLORIDE LEVEL 103.0 MMOL/L (98-107); CREATININE FOR GFR 0.87 MG/DL (0.55-1.30); GLOMERULAR FILTRATION RATE 65.3 (>32); POTASSIUM SERUM 4.4 MMOL/L (3.5-5.1); SODIUM LEVEL 142.0 MMOL/L (136-145)
[2025-07-11] MEDS: FUROSEMIDE 20 MG/2 ML VIAL IV ONE (08:14)
[2025-07-11 08:22] LABS: ABG BASE EXCESS 1.3 (-2.0-2.0); ABG HCO3 25.7 MMOL/L (22.0-26.0); ABG O2 SATURATION 94.6 % (95.0-99.0); ABG PARTIAL PRESSURE CO2 39.9 mmHg (35.0-45.0); ABG PARTIAL PRESSURE O2 69.9 mmHg (75.0-100.0); ABG STANDARD HCO3 25.6 MMOL/L. (22.0-26.0); ABG TOTAL CO2 26.9 MMOL/L (23.0-31.0); ABG pH (ARTERIAL) 7.427 UNITS (7.350-7.450)
[2025-07-11] MEDS: IPRATROPIUM 0.5 MG/ALBUTEROL 2.5 MG INH SOL UD 3 ML NEB SCH (16:00)
[2025-07-11] MEDS: MORPHINE 4 MG/ML 1 ML VIAL IV PRN (23:54)
[2025-07-12] VITALS (7 sets, daily range): BP systolic 119–141; BP diastolic 56–65; TEMP 97–98.4; O2SAT 90–100
[2025-07-12 04:36] LABS: BASO # 0.0 10^3/uL (0.0-0.2); BASO % 0.1 % (0.0-1.0); EOS # 0.0 10^3/uL (0.0-0.5); EOS % 0.0 % (0.0-3.0); LYMPH # 0.5 10^3/uL (1.5-5.0); LYMPH % 6.3 % (24.0-44.0); MONO # 0.4 10^3/uL (0.0-0.8); MONO % 5.6 % (2.0-8.0); NEUTROPHILS # 6.6 10^3/uL (1.5-8.5); NEUTROPHILS % 87.6 % (36.0-66.0); PLATELET COUNT, AUTOMATED 141 10^3/uL (150-450)
[2025-07-12 04:54] LABS: CALCIUM LEVEL 8.5 MG/DL (8.3-10.6); CARBON DIOXIDE LEVEL 31.0 MMOL/L (20-31); CHLORIDE LEVEL 104.0 MMOL/L (98-107); CREATININE FOR GFR 0.65 MG/DL (0.55-1.30); GLOMERULAR FILTRATION RATE 86.2 (>32); POTASSIUM SERUM 4.1 MMOL/L (3.5-5.1); SODIUM LEVEL 142.0 MMOL/L (136-145)
[2025-07-12 05:38] LABS: INR 2.28
[2025-07-12] MEDS ORDERED: BISACODYL 10 MG SUPP PR SCH (09:00)
[2025-07-12] MEDS ORDERED: SENNA 8.6 MG TAB PO SCH (09:00)
[2025-07-12] MEDS: LORazepam 0.5 MG TAB PO PRN (17:03)
[2025-07-12] MEDS: SENNOSIDES/DOCUSATE SODIUM 8.6 MG/50MG TAB PO SCH (20:18)
[2025-07-13] VITALS (47 sets, daily range): BP systolic 77–148; BP diastolic 42–65; TEMP 97.8–98.3; O2SAT 68–100
[2025-07-13] MEDS: RAMELTEON 8 MG TAB PO ONE (01:40)
[2025-07-13 04:59] LABS: BASO # 0.0 10^3/uL (0.0-0.2); BASO % 0.1 % (0.0-1.0); EOS # 0.0 10^3/uL (0.0-0.5); EOS % 0.5 % (0.0-3.0); LYMPH # 1.0 10^3/uL (1.5-5.0); LYMPH % 13.4 % (24.0-44.0); MONO # 0.6 10^3/uL (0.0-0.8); MONO % 8.1 % (2.0-8.0); NEUTROPHILS # 5.9 10^3/uL (1.5-8.5); NEUTROPHILS % 77.5 % (36.0-66.0); PLATELET COUNT, AUTOMATED 138 10^3/uL (150-450)
[2025-07-13 05:30] LABS: CALCIUM LEVEL 8.5 MG/DL (8.3-10.6); CARBON DIOXIDE LEVEL 31.0 MMOL/L (20-31); CHLORIDE LEVEL 104.0 MMOL/L (98-107); CREATININE FOR GFR 0.65 MG/DL (0.55-1.30); GLOMERULAR FILTRATION RATE 86.2 (>32); POTASSIUM SERUM 3.9 MMOL/L (3.5-5.1); SODIUM LEVEL 143.0 MMOL/L (136-145)
[2025-07-13 05:31] LABS: INR 1.78
[2025-07-13] MEDS ORDERED: dexAMETHasone 4 MG/ML 1 ML VIAL As Ordered ONE (10:45)
[2025-07-13] MEDS ORDERED: ONDANSETRON 4MG 2ML VIAL As Ordered ONE (10:45)
[2025-07-13] MEDS ORDERED: LIDOCAINE 2% 100 MG/5 ML SDV (FOR ANES.) As Ordered ONE (10:45)
[2025-07-13] MEDS ORDERED: SUGAMMADEX SODIUM 500 MG/5 ML VIAL As Ordered ONE (10:45)
[2025-07-13] MEDS ORDERED: ROCURONIUM BROMIDE 50MG/5ML VIAL As Ordered ONE (10:45)
[2025-07-13] MEDS ORDERED: ETOMIDATE 20 MG/10 ML VIAL As Ordered ONE (10:54)
[2025-07-13] MEDS ORDERED: ONDANSETRON 4MG 2ML VIAL IV PRN (12:45)
[2025-07-13] MEDS: LEVALBUTEROL 1.25 MG 0.5ML CONCENTRATE NEB INH ONE (13:25)
[2025-07-13] MEDS: MORPHINE 4 MG/ML 1 ML VIAL IV PRN (13:33)
[2025-07-13] MEDS: NS 250 ML IV ONE ×2 (15:45→16:57)
[2025-07-13 16:41] LABS: BASO # 0.0 10^3/uL (0.0-0.2); BASO % 0.1 % (0.0-1.0); EOS # 0.1 10^3/uL (0.0-0.5); EOS % 0.5 % (0.0-3.0); LYMPH # 0.3 10^3/uL (1.5-5.0); LYMPH % 2.8 % (24.0-44.0); MONO # 0.3 10^3/uL (0.0-0.8); MONO % 2.7 % (2.0-8.0); NEUTROPHILS # 10.2 10^3/uL (1.5-8.5); NEUTROPHILS % 93.1 % (36.0-66.0); PLATELET COUNT, AUTOMATED 156 10^3/uL (150-450)
[2025-07-13 17:04] LABS: ABG BASE EXCESS 3.8 (-2.0-2.0); ABG HCO3 28.9 MMOL/L (22.0-26.0); ABG O2 SATURATION 94.2 % (95.0-99.0); ABG PARTIAL PRESSURE CO2 46.1 mmHg (35.0-45.0); ABG PARTIAL PRESSURE O2 71.1 mmHg (75.0-100.0); ABG STANDARD HCO3 27.8 MMOL/L. (22.0-26.0); ABG TOTAL CO2 30.3 MMOL/L (23.0-31.0); ABG pH (ARTERIAL) 7.415 UNITS (7.350-7.450)
[2025-07-13] MEDS: MORPHINE 4 MG/ML 1 ML VIAL IV ONE (18:42)
[2025-07-13] MEDS: ceFAZolin SODIUM 2 GM in DEXTROSE 5% (D5W) ADV/MINI-BAG 50 ML IV SCH (19:44)
[2025-07-14] VITALS (28 sets, daily range): BP systolic 90–137; BP diastolic 49–65; TEMP 97.8–99.2; O2SAT 92–100
[2025-07-14 06:00] LABS: VENOUS BASE EXCESS 6.1 (-2.0-2.0); VENOUS HCO3 31.1 MMOL/L (23.0-27.0); VENOUS O2 SATURATION 99.5 % (60.0-80.0); VENOUS PARTIAL PRESSURE CO2 47.8 mmHg (38.0-50.0); VENOUS PARTIAL PRESSURE O2 241.8 mmHg (30.0-50.0); VENOUS PH 7.431 UNITS (7.330-7.430); VENOUS STANDARD HCO3 30.0 MMOL/L; VENOUS TOTAL CO2 32.6 MMOL/L (24.0-28.0)
[2025-07-14 06:09] LABS: BASO # 0.0 10^3/uL (0.0-0.2); BASO % 0.0 % (0.0-1.0); EOS # 0.0 10^3/uL (0.0-0.5); EOS % 0.0 % (0.0-3.0); LYMPH # 0.6 10^3/uL (1.5-5.0); LYMPH % 8.5 % (24.0-44.0); MONO # 0.7 10^3/uL (0.0-0.8); MONO % 10.7 % (2.0-8.0); NEUTROPHILS # 5.5 10^3/uL (1.5-8.5); NEUTROPHILS % 80.2 % (36.0-66.0); PLATELET COUNT, AUTOMATED 145 10^3/uL (150-450)
[2025-07-14 06:18] LABS: INR 1.61
[2025-07-14 06:32] LABS: CALCIUM LEVEL 7.8 MG/DL (8.3-10.6); CARBON DIOXIDE LEVEL 33.0 MMOL/L (20-31); CHLORIDE LEVEL 106.0 MMOL/L (98-107); CREATININE FOR GFR 0.56 MG/DL (0.55-1.30); GLOMERULAR FILTRATION RATE 89.4 (>32); POTASSIUM SERUM 4.9 MMOL/L (3.5-5.1); SODIUM LEVEL 143.0 MMOL/L (136-145)
[2025-07-14] MEDS: MORPHINE 4 MG/ML 1 ML VIAL IV PRN (14:33)
[2025-07-14 17:39] LABS: PLATELET COUNT, AUTOMATED 132 10^3/uL (150-450)
[2025-07-14] MEDS: KETOROLAC 30 MG/ML 1 ML VIAL IV ONE (21:26)
[2025-07-15] VITALS (19 sets, daily range): BP systolic 79–110; BP diastolic 44–53; TEMP 97.7–98.3; O2SAT 76–99
[2025-07-15 06:00] LABS: BASO # 0.0 10^3/uL (0.0-0.2); BASO % 0.1 % (0.0-1.0); EOS # 0.1 10^3/uL (0.0-0.5); EOS % 0.7 % (0.0-3.0); LYMPH # 1.3 10^3/uL (1.5-5.0); LYMPH % 14.6 % (24.0-44.0); MONO # 0.7 10^3/uL (0.0-0.8); MONO % 8.2 % (2.0-8.0); NEUTROPHILS # 6.7 10^3/uL (1.5-8.5); NEUTROPHILS % 76.1 % (36.0-66.0); PLATELET COUNT, AUTOMATED 113 10^3/uL (150-450)
[2025-07-15 06:11] LABS: INR 1.44
[2025-07-15 06:24] LABS: CALCIUM LEVEL 8.1 MG/DL (8.3-10.6); CARBON DIOXIDE LEVEL 33.0 MMOL/L (20-31); CHLORIDE LEVEL 108.0 MMOL/L (98-107); CREATININE FOR GFR 0.68 MG/DL (0.55-1.30); GLOMERULAR FILTRATION RATE 85.3 (>32); POTASSIUM SERUM 4.6 MMOL/L (3.5-5.1); SODIUM LEVEL 145.0 MMOL/L (136-145)
[2025-07-15] MEDS: NS (Normal Saline) 0.9% 250 ML IV SCH (08:15)
[2025-07-15] MEDS: FERROUS SULFATE 325 MG TAB PO SCH (14:08)
[2025-07-15] MEDS: BISACODYL 10 MG SUPP PR PRN (14:11)
[2025-07-16] VITALS (11 sets, daily range): BP systolic 111–139; BP diastolic 50–73; TEMP 97.7–99.1; O2SAT 90–99
[2025-07-16 06:37] LABS: BASO # 0.0 10^3/uL (0.0-0.2); BASO % 0.1 % (0.0-1.0); EOS # 0.2 10^3/uL (0.0-0.5); EOS % 1.8 % (0.0-3.0); LYMPH # 1.2 10^3/uL (1.5-5.0); LYMPH % 12.5 % (24.0-44.0); MONO # 0.8 10^3/uL (0.0-0.8); MONO % 8.6 % (2.0-8.0); NEUTROPHILS # 7.1 10^3/uL (1.5-8.5); NEUTROPHILS % 76.6 % (36.0-66.0); PLATELET COUNT, AUTOMATED 127 10^3/uL (150-450)
[2025-07-16 06:49] LABS: INR 1.23
[2025-07-16 07:06] LABS: CALCIUM LEVEL 8.1 MG/DL (8.3-10.6); CARBON DIOXIDE LEVEL 32.0 MMOL/L (20-31); CHLORIDE LEVEL 105.0 MMOL/L (98-107); CREATININE FOR GFR 0.55 MG/DL (0.55-1.30); GLOMERULAR FILTRATION RATE 89.8 (>32); POTASSIUM SERUM 4.3 MMOL/L (3.5-5.1); SODIUM LEVEL 142.0 MMOL/L (136-145)
[2025-07-16] MEDS: LORazepam 0.5 MG TAB PO PRN (16:27)
[2025-07-16] MEDS: WARFARIN SOD 3MG TAB PO SCH (16:34)
[2025-07-17 04:30] VITALS: BP 122/74; TEMP 98.2; O2SAT 89
[2025-07-17 08:34] LABS: BASO # 0.0 10^3/uL (0.0-0.2); BASO % 0.1 % (0.0-1.0); EOS # 0.4 10^3/uL (0.0-0.5); EOS % 3.2 % (0.0-3.0); LYMPH # 1.5 10^3/uL (1.5-5.0); LYMPH % 13.3 % (24.0-44.0); MONO # 1.0 10^3/uL (0.0-0.8); MONO % 9.2 % (2.0-8.0); NEUTROPHILS # 8.4 10^3/uL (1.5-8.5); NEUTROPHILS % 73.8 % (36.0-66.0); PLATELET COUNT, AUTOMATED 175 10^3/uL (150-450)
[2025-07-17 08:48] LABS: INR 1.11
[2025-07-17 09:12] LABS: CALCIUM LEVEL 8.3 MG/DL (8.3-10.6); CARBON DIOXIDE LEVEL 31 MMOL/L (20-31); CHLORIDE LEVEL 104 MMOL/L (98-107); CREATININE FOR GFR 0.48 MG/DL (0.55-1.30); GLOMERULAR FILTRATION RATE > 90.0 (>32); POTASSIUM SERUM 4.3 MMOL/L (3.5-5.1); SODIUM LEVEL 142 MMOL/L (136-145)
[2025-07-17 14:00] VITALS: BP 114/67; TEMP 98; O2SAT 96
[2025-07-17] MEDS: FOSFOMYCIN TROMETHAMINE 3 GM POWDER PACKET PO SCH (17:29)
[2025-07-17 19:50] VITALS: O2SAT 96
[2025-07-17] MEDS: LORazepam 1 MG TAB PO SCH (20:29)
[2025-07-17 20:43] VITALS: BP 114/68; TEMP 97.5; O2SAT 91
[2025-07-18 06:07] VITALS: BP 114/68; TEMP 98.4; O2SAT 91
[2025-07-18 06:47] LABS: CALCIUM LEVEL 8.5 MG/DL (8.3-10.6); CARBON DIOXIDE LEVEL 28 MMOL/L (20-31); CHLORIDE LEVEL 104 MMOL/L (98-107); CREATININE FOR GFR 0.49 MG/DL (0.55-1.30); GLOMERULAR FILTRATION RATE > 90.0 (>32); POTASSIUM SERUM 4.0 MMOL/L (3.5-5.1); SODIUM LEVEL 141 MMOL/L (136-145)
[2025-07-18] MEDS ORDERED: MORPHINE 4 MG/ML 1 ML VIAL IV PRN (07:40)
[2025-07-18 08:19] LABS: BASO # 0.0 10^3/uL (0.0-0.2); BASO % 0.1 % (0.0-1.0); EOS # 0.3 10^3/uL (0.0-0.5); EOS % 2.5 % (0.0-3.0); LYMPH # 1.5 10^3/uL (1.5-5.0); LYMPH % 14.5 % (24.0-44.0); MONO # 1.1 10^3/uL (0.0-0.8); MONO % 10.4 % (2.0-8.0); NEUTROPHILS # 7.6 10^3/uL (1.5-8.5); NEUTROPHILS % 71.8 % (36.0-66.0); PLATELET COUNT, AUTOMATED 182 10^3/uL (150-450)
[2025-07-18] MEDS: ASPIRIN 81 MG ENTERIC TABLET PO SCH (08:56)
[2025-07-18] MEDS: VITAMIN D 1,000 INTERNATIONAL UNITS TABLET PO SCH (08:56)
[2025-07-18] MEDS: FUROSEMIDE 20 MG TAB PO SCH (08:57)
[2025-07-18] MEDS ORDERED: FOSFOMYCIN TROMETHAMINE 3 GM POWDER PACKET PO SCH (09:51)
[2025-07-18 10:35] LABS: ABG BASE EXCESS 4.2 (-2.0-2.0); ABG HCO3 27.5 MMOL/L (22.0-26.0); ABG O2 SATURATION 92.2 % (95.0-99.0); ABG PARTIAL PRESSURE CO2 36.3 mmHg (35.0-45.0); ABG PARTIAL PRESSURE O2 61.1 mmHg (75.0-100.0); ABG STANDARD HCO3 28.1 MMOL/L. (22.0-26.0); ABG TOTAL CO2 28.7 MMOL/L (23.0-31.0); ABG pH (ARTERIAL) 7.498 UNITS (7.350-7.450)
[2025-07-18] MEDS: SALIVA SUBSTITUTE BTL MT PRN (11:01)
[2025-07-18] MEDS: guaiFENesin ER TABLET 600 MG TAB PO SCH (11:01)
[2025-07-18 11:16] LABS: INR 1.12
[2025-07-18 14:00] VITALS: BP 118/64; TEMP 98.1; O2SAT 98
[2025-07-18 19:15] VITALS: O2SAT 96
[2025-07-18 21:34] VITALS: BP 114/66; TEMP 97.3; O2SAT 92
[2025-07-18] MEDS: LORazepam 1 MG TAB PO PRN (21:40)
[2025-07-19 05:25] VITALS: BP 129/68; TEMP 97.6; O2SAT 91
[2025-07-19 06:42] LABS: BASO # 0.0 10^3/uL (0.0-0.2); BASO % 0.1 % (0.0-1.0); EOS # 0.0 10^3/uL (0.0-0.5); EOS % 0.0 % (0.0-3.0); LYMPH # 0.4 10^3/uL (1.5-5.0); LYMPH % 5.1 % (24.0-44.0); MONO # 0.2 10^3/uL (0.0-0.8); MONO % 3.1 % (2.0-8.0); NEUTROPHILS # 7.1 10^3/uL (1.5-8.5); NEUTROPHILS % 91.1 % (36.0-66.0); PLATELET COUNT, AUTOMATED 200 10^3/uL (150-450)
[2025-07-19 06:52] LABS: INR 1.37
[2025-07-19 07:14] LABS: CALCIUM LEVEL 8.7 MG/DL (8.3-10.6); CARBON DIOXIDE LEVEL 29 MMOL/L (20-31); CHLORIDE LEVEL 99 MMOL/L (98-107); CREATININE FOR GFR 0.48 MG/DL (0.55-1.30); GLOMERULAR FILTRATION RATE > 90.0 (>32); MAGNESIUM LEVEL 1.7 MG/DL (1.8-2.4); POTASSIUM SERUM 3.7 MMOL/L (3.5-5.1); SODIUM LEVEL 139 MMOL/L (136-145)
[2025-07-19 07:59] VITALS: O2SAT 97
[2025-07-19] MEDS: FOSFOMYCIN TROMETHAMINE 3 GM POWDER PACKET PO SCH (08:46)
[2025-07-19] MEDS: MAG SULF 1GM/100ML (MAG RUN) 1 GM in IV 1 EA IV SCH (08:47)
[2025-07-19 14:00] VITALS: BP 128/68; TEMP 97.9; O2SAT 92
[2025-07-19] MEDS ORDERED: SALIVA SUBSTITUTE BTL MT PRN (15:25)
[2025-07-19] MEDS ORDERED: ONDANSETRON 4MG ORAL DISINTEGRATING TAB PO PRN (15:25)
[2025-07-19] MEDS ORDERED: ATROPINE SULFATE 1% OPHTH SOLN 2 ML BTL SL PRN (15:25)
[2025-07-19] MEDS ORDERED: POLYVINYL ALCOHOL OPHTH SOLN 15ML (LIQUITEARS) OU PRN (15:25)
[2025-07-19] MEDS: SCOPOLAMINE 1MG TRANSDERMAL PATCH TOP SCH (15:57)
[2025-07-19] MEDS: MORPHINE 10 MG/0.5 ML ORAL CONCENTRATE SOLUTION U/D SL PRN (15:57)
[2025-07-19] MEDS: LORazepam 1 MG TAB PO PRN (16:36)
[2025-07-20 08:07] VITALS: BP 126/68
[2025-07-20] MEDS ORDERED: SENNOSIDES/DOCUSATE SODIUM 8.6 MG/50MG TAB PO PRN (09:20)
[2025-07-20] MEDS ORDERED: IPRATROPIUM 0.5 MG/ALBUTEROL 2.5 MG INH SOL UD 3 ML NEB PRN (09:20)
[2025-07-20] MEDS: MORPHINE 10 MG/0.5 ML ORAL CONCENTRATE SOLUTION U/D SL SCH (14:21)
[2025-07-21] MEDS: OMEPRAZOLE 20MG CAP PO SCH (09:00)
[2025-07-22] MEDS: HYOSCYAMINE SULFATE 0.125 MG SUBL TABLET SL PRN (00:58)
[2025-07-22] MEDS ORDERED: WARFARIN SOD 4MG TAB PO SCH (17:00)
== END 2025-07-22 05:02 | disposition expired | DRG 480 ==
LOC: M ED 09:55 → M ED INP 12:58 → M MSPAV 19:59 → M ICU 07-11 09:06 → M MS5PR 07-15 15:00
PROVIDERS: ADMIT Internal Medicine Nephrology; ATTEND Internal Medicine
PROC: B246ZZZ Ultrasonography of Right and Left Heart (ICD-10-PCS; 2025-07-11)
PROC: 0QS636Z Reposition Right Upper Femur with Intramedullary Internal Fixation Device, Percutaneous Approach (ICD-10-PCS; principal; 2025-07-13 10:25)
PROC: 30233N1 Transfusion of Nonautologous Red Blood Cells into Peripheral Vein, Percutaneous Approach (ICD-10-PCS; 2025-07-14)
DX: S72.141A Displaced intertrochanteric fracture of right femur, initial encounter for closed fracture (principal); E43 Unspecified severe protein-calorie malnutrition; I50.33 Acute on chronic diastolic (congestive) heart failure; J96.92 Respiratory failure, unspecified with hypercapnia; G93.41 Metabolic encephalopathy; J84.9 Interstitial pulmonary disease, unspecified; J96.11 Chronic respiratory failure with hypoxia; Z68.1 Body mass index [BMI] 19.9 or less, adult; J44.1 Chronic obstructive pulmonary disease with (acute) exacerbation; D62 Acute posthemorrhagic anemia; J98.11 Atelectasis; Z66 Do not resuscitate; M06.9 Rheumatoid arthritis, unspecified; M79.7 Fibromyalgia; G89.29 Other chronic pain; I25.10 Atherosclerotic heart disease of native coronary artery without angina pectoris; M48.02 Spinal stenosis, cervical region; R33.9 Retention of urine, unspecified; R26.89 Other abnormalities of gait and mobility; W01.0XXA Fall on same level from slipping, tripping and stumbling without subsequent striking against object, initial encounter; Y92.000 Kitchen of unspecified non-institutional (private) residence as the place of occurrence of the external cause; Z86.73 Personal history of transient ischemic attack (TIA), and cerebral infarction without residual deficits; Z99.81 Dependence on supplemental oxygen; Z95.2 Presence of prosthetic heart valve; Z79.01 Long term (current) use of anticoagulants; Z79.891 Long term (current) use of opiate analgesic; Z79.82 Long term (current) use of aspirin; Z79.52 Long term (current) use of systemic steroids; Z79.899 Other long term (current) drug therapy; Z88.1 Allergy status to other antibiotic agents; Z88.8 Allergy status to other drugs, medicaments and biological substances; Z79.2 Long term (current) use of antibiotics; F32.A Depression, unspecified; F41.9 Anxiety disorder, unspecified; G47.00 Insomnia, unspecified; R13.10 Dysphagia, unspecified; F17.200 Nicotine dependence, unspecified, uncomplicated; K21.9 Gastro-esophageal reflux disease without esophagitis; M81.0 Age-related osteoporosis without current pathological fracture; M47.812 Spondylosis without myelopathy or radiculopathy, cervical region; M50.30 Other cervical disc degeneration, unspecified cervical region; K58.9 Irritable bowel syndrome, unspecified; I27.20 Pulmonary hypertension, unspecified; J42 Unspecified chronic bronchitis; K59.00 Constipation, unspecified